=== PATIENT | female | born 1995 | race Caucasian/White ===

== ENCOUNTER 2021-10-02 11:14 | Observation (INO) | payer OTHER, SELFPAY ==
[2021-10-02] VITALS (80 sets, daily range): BP systolic 67–104; BP diastolic 49–62; PULSE 25–121; TEMP 36.8–36.9; O2SAT 87–100; BMI 26.6
--- NOTE | 2021-10-02 11:59 | OBADM ---
This patient, Gail Daniels, admitted to the OB room 117 for observation for nausea, vomiting, and diarrhea. Patient/family oriented to hospital policies and general routines including ID bracelet, bed and alarms, visiting hours, pain management, procedures, bathroom and other care routines, personal items, smoking policy, room service/diet, and visiting hours. Patient/Family are encouraged to report perceived risks to care and to ask questions if they do not understand what they are told or what they should do.
[2021-10-02] MEDS: TERBUTALINE SULFATE 1 MG/ML VIAL 0.25 MG SUB-Q ×2 (12:58→16:34)
[2021-10-02] MEDS: DEXTROSE 5%/LACTATED RINGERS 1,000 ML 999 ML IV CONT (13:30)
[2021-10-02 13:46] LABS: Basophils Percent Auto 0.3 % (0.2-1.2); Eosinophils Absolute Auto 0.1 K/mm3 (0-0.3); Hematocrit 36.2 % (37.0-47.0); Hemoglobin 12.1 g/dL (12.0-15.0); Immature Granulocyte Absolute 0.14 K/mm3 (0.00-0.031); Immature Granulocyte Percent A 1.3 % (0-0.5); Lymphocytes Absolute Auto 2.02 K/mm3 (0.9-3.2); Lymphocytes Percent Auto 19.3 % (18.3-44.2); Mean Corpuscular HGB Conc 33.4 g/dl (32-36); Mean Corpuscular Hemoglobin 32.2 pg (26-34); Mean Corpuscular Volume 96.3 fl (80-100); Mean Platelet Volume 11.1 fl (7.4-10.4); Monocytes Absolute Auto 0.5 K/mm3 (0.1-0.6); Neutrophils Absolute Auto 7.7 K/mm3 (1.3-6.7); Neutrophils Percent Auto 73.1 % (45.5-73.1); Platelet Count Result 166 k/mm3 (150-375); Red Blood Count 3.76 M/mm3 (4.2-5.4); Red Cell Distribution Width 13.6 % (11.5-14.5); White Blood Count 10.5 K/mm3 (4.5-10.0)
[2021-10-02 13:50] LABS: Appearance Urine Slightly Cloudy (Clear); Bilirubin Urine 1+ (Negative); Blood Urine 2+ (Negative); Color Urine Yellow (Yellow); Glucose Urine UA Negative (Negative); Ketones Urine 2+ mg/dL (Negative); Leukocyte Esterase Ur 1+ LEU/UL (Negative); Nitrate Urine Negative (Negative); Protein Urine 1+ mg/dL (Negative); Specific Grav Ur 1.025 (1.001-1.035); Urobilinogen Urine 0.2 mg/dL (<2.0)
[2021-10-02 13:52] LABS: Alanine Aminotransferase 25 U/L (6-35); Albumin Level 3.4 g/dL (3.5-5.1); Alkaline Phosphatase 87 U/L (38-126); Anion Gap 5 mmol/L (8-16); Aspartate Amino Transferase 32 U/L (14-36); Bilirubin,Total 0.8 mg/dL (0.2-1.3); Blood Urea Nitrogen 8 mg/dL (7-17); Calcium 8.9 mg/dL (8.4-10.2); Carbon Dioxide 24 mmol/L (22-30); Chloride 104 mmol/L (98-107); Estimated CRCL calculation 127 ml/min; Estimated Glomerular Filt Rate > 60; Glucose 92 mg/dL (65-110); Potassium 3.4 mmol/L (3.4-5.0); Sodium 133 mmol/L (137-145)
[2021-10-02 13:55] LABS: Bacteria Urine Trace /hpf; Mucus Urine Moderate /lpf; RBC Urine >75 /hpf (0-2); Squamous Epithelial Cell Urine Many /hpf (Few)
[2021-10-02 13:58] LABS: Add Urine Microscopic? YES
[2021-10-02] MEDS: DEXTROSE 5%/LACTATED RINGERS 1,000 ML 150 ML IV CONT (14:33)
[2021-10-02] MEDS: ONDANSETRON INJ 4 MG/2 ML VIAL IV PUSH (16:36)
[2021-10-02] MEDS: FAMOTIDINE 20 MG/2 ML VIAL IV PUSH (16:40)
--- NOTE | 2021-10-02 18:28 | PC.NURSE ---
1812- Ariana Amezcua CNM in department. T reviewed. orders to d/c monitor and BP cuff. will continue to monitor pt and will call if questions/concerns.
--- NOTE | 2021-10-02 20:55 | PC.NURSE ---
2007- called Ariana Amezcua CNM- pt requesting to be d/c'd home. increase UOP, increased po intake. pt states that she is feeling a lot better. no contractions per pt. pt has ov with Ariana 10/03/2021. d/c order received Rx for zofran 4mg ODT sent to pharmacy. pt instructed on when to return to L&D. pt agrees.
--- NOTE | 2021-10-04 07:25 | PM.OBTRLD ---
OB - Triage/Final Diagnosis Visit Information Date of evaluation: 10/02/21 Reason for evaluation: other (nausea and vomiting) Comments/Additional reasons for admission: I have assessed the risk for this patient, Gail Daniels, and determined that she would benefit from observation care. Evaluation Laboratory results: Laboratory Tests 10/02/21 10/02/21 10/02/21 13:33 13:33 13:33 WBC 10.5 H RBC 3.76 L Hgb 12.1 Hct 36.2 L MCV 96.3 MCH 32.2 MCHC 33.4 RDW 13.6 Plt Count 166 MPV 11.1 H Immature Gran % (Auto) 1.3 H Neut % (Auto) 73.1 Lymph % (Auto) 19.3 [place] % (Auto) 5.0 Eos % (Auto) 1.0 Baso % (Auto) 0.3 Lymph # (Auto) 2.02 [place] # (Auto) 0.5 Eos # (Auto) 0.1 Baso # (Auto) 0.0 Abs Immat Gran (auto) 0.14 H Absolute Neuts (auto) 7.7 H Absolute Nucleated RBC 0.0 Nucleated RBC % 0.0 Sodium 133 L Potassium 3.4 Chloride 104 Carbon Dioxide 24 Anion Gap 5 L BUN 8 Creatinine 0.50 L Estim Creat Clear Calc 127 Estimated GFR > 60 Glucose 92 Calcium 8.9 Total Bilirubin 0.8 AST 32 ALT 25 Alkaline Phosphatase 87 Total Protein 6.0 L Albumin 3.4 L Urine Color Yellow Urine Appearance Slightly cloudy Urine pH 6.0 Ur Specific [place] 1.025 Urine Protein 1+ H Urine Glucose (UA) Negative Urine Ketones 2+ H Ur Blood (Man) 2+ H Urine Nitrate Negative Urine Bilirubin 1+ H Urine Urobilinogen 0.2 Leukocyte Esterase Rfl 1+ H Urine RBC >75 H Urine WBC 10-15 H Ur Squamous Epith Cells Many H Urine Bacteria Trace Urine Mucus Moderate H
== END 2021-10-02 20:36 | disposition home or self-care (01) ==
PROVIDERS: Advanced Practice Midwife; Admitting Provider Obstetrics & Gynecology; PCP Family Medicine; Visit Provider Obstetrics & Gynecology
DX: O21.9 Vomiting of pregnancy, unspecified (principal); O26.899 Other specified pregnancy related conditions, unspecified trimester; R19.7 Diarrhea, unspecified; Z3A.00 Weeks of gestation of pregnancy not specified
CPT/HCPCS: 36415; 80053; 81001; 85025; 87086; 87088; 87147; 96361; 96372; 96374; 96375; G0378; G0379; J2405; J3105; J7121

== ENCOUNTER 2021-11-05 05:34 | Inpatient (IN) | payer OTHER, SELFPAY ==
[2021-11-05] VITALS (84 sets, daily range): BP systolic 64–114; BP diastolic 41–66; PULSE 42–95; RESP 16; TEMP 36.3–36.8; O2SAT 90–100; BMI 28.6
--- NOTE | ~2021-11-05 | US_ITS ---
US OB limited DATE: 11/05/2021 10:28 INDICATION: Pelvic contractions. Pelvic burning. TECHNIQUE: Real-time imaging and Doppler analysis COMPARISON: None FINDINGS: Live bolden intrauterine gestation, fetus in vertex presentation. heart rate of 13 7 bpm. Less than expected amniotic fluid volume. Anterior placenta. IMPRESSION: Oligohydramnios Vertex presentation Reviewed, dictated and finalized at Location A. Reviewed, dictated and finalized at location B.
[2021-11-05 06:04] LABS: Basophils Percent Auto 0.3 % (0.2-1.2); Eosinophils Absolute Auto 0.3 K/mm3 (0-0.3); Eosinophils Percent Auto 2.5 % (0-4.4); Hematocrit 37.1 % (37.0-47.0); Hemoglobin 12.5 g/dL (12.0-15.0); Immature Granulocyte Absolute 0.22 K/mm3 (0.00-0.031); Lymphocytes Absolute Auto 1.75 K/mm3 (0.9-3.2); Lymphocytes Percent Auto 15.7 % (18.3-44.2); Mean Corpuscular HGB Conc 33.7 g/dl (32-36); Mean Corpuscular Hemoglobin 31.8 pg (26-34); Mean Corpuscular Volume 94.4 fl (80-100); Mean Platelet Volume 11.4 fl (7.4-10.4); Monocytes Absolute Auto 0.8 K/mm3 (0.1-0.6); Monocytes Percent Auto 6.8 % (2.6-8.5); Neutrophils Absolute Auto 8.1 K/mm3 (1.3-6.7); Neutrophils Percent Auto 72.7 % (45.5-73.1); Platelet Count Result 164 k/mm3 (150-375); Red Blood Count 3.93 M/mm3 (4.2-5.4); Red Cell Distribution Width 13.6 % (11.5-14.5); White Blood Count 11.2 K/mm3 (4.5-10.0)
[2021-11-05] MEDS: LACTATED RINGERS 1,000 ML 125 ML IV CONT ×2 (06:34→09:49)
[2021-11-05] MEDS: OXYTOCIN 30 UNITS/NS 500 ML 30 UNITS/500 ML BAG IV CONT (06:34)
[2021-11-05] MEDS: AMPICILLIN 2 GM/NS 100 ML 2 GM/100 ML BAG IVPB (06:34)
--- NOTE | 2021-11-05 07:05 | LDADM ---
This patient, Gail Daniels, was admitted to Labor/Delivery/Recovery 103 on 11/05/21 at 05:34. Plans for labor, pain management and were discussed with patient. Patient/family oriented to hospital policies and general routines including ID bracelet, bed and alarms, visiting hours, pain management, procedures, bathroom and other care routines, personal items, smoking policy, room service/diet and guest tray routines, infant security routines, and visiting hours. Patient/Family are encouraged to report perceived risks to care and to ask questions if they do not understand what they are told or what they should do. See OBIX for further documentation.
[2021-11-05 08:23] LABS: Rapid Plasma Reagin Non-Reactive (NonReactive)
--- NOTE | 2021-11-05 09:11 | WPDOBADMIT ---
Obstetrics - Admit Note Admission Note: record reviewed. No pertinent additions to the history and/or any subsequent changes in the physical findings that are not consistent with the expected course of the were found. Elective induction of labor at 39 weeks. GBS positive. . /-2 AROM moderate amount of odorless clear fluid. Anticipate vaginal delivery Additions to the history and/or subsequent changes in the physical findings follow. None.
[2021-11-05] MEDS: TERBUTALINE SULFATE 1 MG/ML VIAL 0.25 MG SUB-Q (09:42)
[2021-11-05] MEDS: fentaNYL CITRATE INJ (*CRX) 100 MCG/2 ML VIAL 50 MCG IV PUSH (10:04)
[2021-11-05] MEDS: AMPICILLIN 1 GM/NS 50 ML 1 GM/50 ML BAG IVPB ×2 (10:40→14:27)
[2021-11-05] MEDS: ONDANSETRON INJ 4 MG/2 ML VIAL IV PUSH (16:01)
--- NOTE | 2021-11-05 16:46 | PM.OBPRVD ---
OB - Delivery Note Procedure Delivery date: 11/05/21 Procedure: Vaginal delivery Events: Elective Induction of Labor and Positive Group B Strep (GBS) Induction method: AROM and Per Pitocin Protocol Delivery monitor: External FHT, External Uterine, Internal FHT and Internal Uterine Route of delivery: Episiotomy description: None Laceration Description: Perineal - 1st Degree Delivery repair: vicryl Specimen: No Quantitative Blood Loss (ml): 112 Anesthesia type: Epidural Disposition: Floor [place] Baby Date of : 11/05/21 Time of : 16:27 Weeks of gestation at delivery: 39 Infant gender: Female Weight (pounds): 8 Weight (ounces): 13 presentation: vertex position: Left Occiput Anterior Placenta delivery description: Spontaneous Cord Vessel Description: 3 Vessels, Nuchal Cord (x1), Loose, Reduced, Clamped/Cut and Delayed Cord Clamping score one minute: 8 score ten minutes: 9 Narrative: Mom and skin to skin in stable condition.
[2021-11-05] MEDS: OXYTOCIN 30 UNITS/NS 500 ML 30 UNITS/500 ML BAG 125 UNITS IV CONT (17:07)
[2021-11-05] MEDS: WITCH HAZEL 40 PADS 1 PAD TOPICAL (17:46)
[2021-11-05] MEDS: BENZOCAINE 20% AER SPR (*SP) 56 GM CAN 1 SPRAY TOPICAL (17:46)
[2021-11-05] MEDS: IBUPROFEN 600 MG TABLET PO (17:46)
[2021-11-05] MEDS: ACETAMINOPHEN 325 MG TABLET 650 MG PO (18:39)
--- NOTE | 2021-11-05 20:21 | PC.NURSE ---
Patient transferred to post room #288 via wheel chair. Support person present. Oriented to unit, room, information board, rooming in, admission packet and security measures. Patient verbalizes understanding.
[2021-11-05] MEDS: CYCLOBENZAPRINE HCL 10 MG TABLET PO (23:08)
[2021-11-06] MEDS: ACETAMINOPHEN 325 MG TABLET 650 MG PO (03:14)
[2021-11-06] MEDS: IBUPROFEN 600 MG TABLET PO ×3 (03:22→15:33)
[2021-11-06 04:50] LABS: Hematocrit 36.5 % (37.0-47.0); Hemoglobin 12.4 g/dL (12.0-15.0)
[2021-11-06] MEDS: CYCLOBENZAPRINE HCL 10 MG TABLET PO (07:10)
[2021-11-06 07:20] VITALS: BP 99/67; PULSE 79; RESP 16; TEMP 36.7; O2SAT 98
--- NOTE | 2021-11-06 07:22 | PM.OBPNVD ---
OB - PN: Subj Subjective Date/time seen: 11/06/21 07:22 s/p vagina; delivery no complaints OB - PN: Obj Data Labs CBC & Chem 7: 11/06/21 03:19 Labs: Laboratory Results - last 24 hr 11/05/21 11/06/21 05:58 03:19 Hgb 12.4 Hct 36.5 L RPR Non-reactive Imaging Radiologist's impression: Impressions Obstetrics Ultrasound 11/05/21 10:40 IMPRESSION: Oligohydramnios Vertex presentation OB - PN A/P Plan day: 1 Plan: routine care Time Spent With Patient Time: Total time spent is greater than 50% in coordination of care (as documented) at patient's floor/unit and/or counseling patient: Review of Systems Review of Systems: All systems reviewed & are unremarkable except as noted in HPI and below Exam Const: General: cooperative, healthy appearing, comfortable and no acute distress
--- NOTE | 2021-11-06 07:38 | PM.OBDSVD ---
DS: Admitting Diagnosis Discharge Date 11/06/2021 Admitting Diagnosis IOL OB - DS: Summary OB Procedures : None OB Procedures Intrapartum: Spontaneous Vag Delivery OB Procedures: : None Time Spent with Patient Time attestation: Total time spent providing and/or coordinating discharge services: DS: Data Data Completed and Pending Labs on day of discharge: Labs from last 24 hours 11/06/21 11/05/21 03:19 05:58 Hgb 12.4 Hct 36.5 L RPR Non-reactive Discharge Plan Discharge Attending physician on discharge: Dar Burnette Discharging Clinician: Ariana Amezcua Patient Disposition: Home, Self-Care Activity: pelvic rest Diet: regular Patient Instructions: Antibiotic Form Stand Alone Forms: General Discharge Information Follow-up/Referrals: Ariana Amezcua CNM [Certified Nurse Swage Tender] - 4 Weeks Discharge Medications: Continued vitamin T12-ecivf acid 0.5-1 mg Tablet 1 tablet PO DAILY cholecalciferol (vitamin D3) [Vitamin D3] 25 mcg (1,000 unit) Tablet 2,000 unit PO DAILY PNV cmb#95-ferrous fumarate-FA [] 28 mg iron- 800 mcg Tablet 1 tablet PO DAILY Discontinued aspirin 81 mg Tablet 81 mg PO DAILY ondansetron 4 mg Tablet,Disintegrating 4 mg PO Q6H Qty: 30 0RF Date of admission: 11/05/21 05:34 Primary Care Provider: Bharati,Juno Rutherford Admitting Provider: Dar Burnette Attending physician on admission: Dar Burnette Condition: Stable
[2021-11-06] MEDS: DOCUSATE SODIUM 100 MG CAPSULE PO ×2 (08:46→17:55)
[2021-11-06] MEDS: HYDROcodone/acetaminophen (*CRX) 5-325 MG TABLET 1 TAB PO ×2 (08:47→14:25)
[2021-11-06] MEDS: MULTIVIT/MIN/PREN/FOL AC/IRON TABLET 1 TAB PO (08:47)
--- NOTE | 2021-11-06 09:50 | WPDANLDPN2 ---
Anes-Prog Note L&D Date/Time: 11/06/21 09:50 Neuro status: Neuro function grossly intact. Vital Signs: Last Vital Signs Temp 36.8 C 11/05/21 23:00 Pulse 66 11/05/21 23:00 Resp 16 11/05/21 23:00 BP 88/47 L 11/05/21 23:00 Pulse Ox 99 11/05/21 12:58 O2 Del Method Room Air 11/05/21 06:54 Pain score (VAS): 0 Patient feedback: Patient satisfied with anesthetic care.
[2021-11-06 12:48] VITALS: BP 100/60; PULSE 67; RESP 16; TEMP 36.3; O2SAT 99
[2021-11-06] MEDS: TETANUS,DIPHTHERIA,AC PERTUSSIS ADULT (0.5 ML) BOOSTRIX IM (13:45)
[2021-11-06 15:35] VITALS: BP 95/58; PULSE 65; RESP 16; TEMP 36.6; O2SAT 99
--- NOTE | 2021-11-06 15:55 | PC.NURSE ---
[id number] Introductions were made, then consulted with patient to assess needs related to . Mother led the conversation with her experience feeding her infant so far. She does not have a history of successful . Mother works well with her infant with encouragement and education. Mother demonstrates working with using cradle positioning and encouraged big, open, wide gape before attempting to breastfeed. Encouraged understanding of the benefits of skin to skin (unwrapping infant and placing vertically on her chest), responsive feeding and how to watch for early feeding signs, frequency of feeding on demand about every 8-12 times in 24 hours (every 2-3 hours), milk production, duration of feeding, signs of adequate intake/output and how to record on the feeding sheet. Reviewed positioning and ear, shoulder, hip alignment, supporting the breast, asymmetrical latch (off-center), and leading with the chin with a big open side gape. doesn't attempt to latch after several encouragement efforts. Mother states she has attempted to breastfeed since the first feeding but was not successful. Mother demonstrates understanding of hand expression and a few drops were placed into the 's mouth. RN checked blood sugar on infant and it resulted at 61mg/dl. Resources used to facilitate learning were used with the visual handouts/ tool/mom and baby guide. RN recommend mother to not go home later today since her desire is to breastfeed and infant is not latching. Breast pump provided due to ineffective . Instructions given on cleaning, care, usage, that there should be no pain, pumping schedule for milk production, collection, and storage of human milk. Mother was encouraged to record pumping schedule on the feeding sheet. Patient was assessed for correct placement, flange size, to pump for comfort and nipple stretching/stimulation for adequate milk production every 3 hours (8 times in 24 hours). Mother voiced understanding of the education shared along with mom and baby guide for additional resource information. Mother voiced understanding of responsive feedings, stimulating with skin to skin, hand expressed colostrum, talking to to encourage if it has been 2 -3 hours since the start of the last , to call if infant does not latch or there is discomfort with . Reported to the primary RN.
[2021-11-08 12:12] VITALS: BP 99/59; PULSE 65; RESP 20; TEMP 36.9; O2SAT 97
--- NOTE | 2021-11-08 14:46 | WPDANESEBPP ---
Anes - Epidural Blood Patch PN Date/Time: 11/08/21 14:46 Consent: I have discussed with the patient/family/POA, the rationale of a lumbar epidural autologous blood patch for the treatment of post-dural puncture headache (spinal headache), including associated potential risks, benefits, complications and side effects. I have also discussed more conservative treatment options such as intravenous hydration, caffeine and non-prescription analgesics. The patient/family/POA, understand(s) and wish(es) to proceed with epidural autologous blood patch as treatment for the patient's post-dural puncture headache. Time-Out: A pre-procedural Time-Out was completed immediately before starting the procedure and confirmed: Patient Identification, Site, Procedure, Patient Position and the Availability of Requisite Equipment. Epidural Insertion Note Needle: 18 gauge Tuliudmila-Schdylanff
== END 2021-11-06 18:25 | disposition home or self-care (01) | DRG 807 ==
LOC: ANHLDR 05:46 → ANHOB2 20:26
PROVIDERS: Advanced Practice Midwife; Admitting Provider Obstetrics & Gynecology; PCP Family Medicine; Visit Provider Obstetrics & Gynecology
DX: O99.824 Streptococcus B carrier state complicating childbirth (principal); Z37.0 Single live birth; O70.0 First degree perineal laceration during delivery; O69.81X0 Labor and delivery complicated by cord around neck, without compression, not applicable or unspecified; Z3A.39 39 weeks gestation of pregnancy; Z86.16 Personal history of COVID-19
CPT/HCPCS: 36415; 76815; 85014; 85018; 85025; 86592; 86850; 86900; 86901; 90715; A9270; J0290; J2405; J2590; J2795; J3010; J3105; J7120

== ENCOUNTER 2021-11-07 12:59 | Observation (INO) | payer OTHER, SELFPAY ==
[2021-11-07 13:14] VITALS: BP 108/64; PULSE 64; RESP 18; TEMP 36.2
--- NOTE | 2021-11-07 13:14 | OBADM ---
This patient, Gail Daniels, admitted to the OB room 116 for observation for headache. Patient/family oriented to hospital policies and general routines including ID bracelet, bed and alarms, visiting hours, pain management, procedures, bathroom and other care routines, personal items, smoking policy, room service/diet, and visiting hours. Patient/Family are encouraged to report perceived risks to care and to ask questions if they do not understand what they are told or what they should do.
--- NOTE | 2021-11-07 13:29 | PC.NURSE ---
Mg Amezcua CNM informed of pt's arrival with headache, shoulder and neck pain. Headache goes away when she lays flat. Heating pad applied to her neck and shoulder area. Pt has been alternating Tylenol and Motrin so she is taking something every 3 hrs, but the pain has become unmanageable today with caring for . OK to consult anesthesia for possible spinal headache.
[2021-11-07 13:31] VITALS: BP 103/57; PULSE 58
--- NOTE | 2021-11-07 13:31 | PC.NURSE ---
Dr. Wynn informed of pt's arrival.
--- NOTE | 2021-11-07 14:05 | PC.NURSE ---
Josue Baer WETLAND SCIENTIST in to see and assess pt. Pt has decided she would like to try conservative management at this time. WETLAND SCIENTIST also suggests COVID testing as pt's headache isn't in the typical area with a spinal headache.
--- NOTE | 2021-11-07 14:20 | PC.NURSE ---
Mg Amezcua CNM informed of pt's desire to try Fioricet per anesthesia's recommendation and PO hydration with caffeinated beverages. Anesthesia also recommended COVID testing. Orders received.
--- NOTE | 2021-11-07 14:50 | PC.NURSE ---
Showed pt how she can be flat in sidelying position to nurse .
[2021-11-07] MEDS: ACETAMINOPHEN/BUTALBITAL/CAFFEINE 325-50-40 MG TABLET (FIORICET) 2 TAB PO (15:12)
[2021-11-07 15:17] VITALS: TEMP 36.4
[2021-11-07 15:18] VITALS: BP 91/51; PULSE 60
[2021-11-07 16:04] LABS: SARS-CoV-2 RNA PCR Negative
--- NOTE | 2021-11-07 18:00 | PC.NURSE ---
Pt has finished eating dinner and feels like she wants to go home. Tyler Weinberg AGILE SCRUM COACH informed. Mg Amezcua CNM on unit.
--- NOTE | 2021-11-08 12:10 | PM.OBTRLD ---
OB - Triage/Final Diagnosis Visit Information Date of evaluation: 12/07/21 Reason for evaluation: other (pp headache) Comments/Additional reasons for admission: I have assessed the risk for this patient, Gail Georgiana MatthewsDaniels, and determined that she would benefit from observation care. Evaluation Laboratory results: Laboratory Tests 11/07/21 15:16 SARS-CoV-2 RNA (RT-PCR) Negative Vital signs: Vital Signs - 24 hr 11/07/21 13:14 11/07/21 13:31 11/07/21 15:18 Temperature Pulse Rate 64 58 L 60 Respiratory Rate Blood Pressure 108/64 103/57 L 91/51 L 11/07/21 15:17 11/07/21 13:14 Temperature 36.4 C 36.2 C L Pulse Rate Respiratory Rate 18 Blood Pressure
== END 2021-11-07 18:46 | disposition home or self-care (01) ==
PROVIDERS: Advanced Practice Midwife; Admitting Provider Obstetrics & Gynecology; PCP Family Medicine; Visit Provider Obstetrics & Gynecology
DX: O90.89 Other complications of the puerperium, not elsewhere classified (principal); R51.9 Headache, unspecified; Z20.822 Contact with and (suspected) exposure to COVID-19
CPT/HCPCS: A9270; C9803; G0378; G0379; U0003; U0005

== ENCOUNTER 2021-11-08 12:26 | Outpatient (CLI) | payer OTHER, SELFPAY ==
[2021-11-08 14:27] VITALS: BP 110/62; PULSE 56
[2021-11-08 14:45] VITALS: BP 86/48; PULSE 55
[2021-11-08 15:00] VITALS: BP 100/62; PULSE 54
[2021-11-08 15:15] VITALS: BP 103/58; PULSE 59
[2021-11-08 15:30] VITALS: BP 100/49; PULSE 62
--- NOTE | 2021-11-08 16:22 | PC.NURSE ---
1540- Patient sitting/standing at bedside at one hour post procedure per order from Barbara Lerma CRNA. 1600- Patient called out, stating that she had to get back into bed as headache is back. 1610- Spoke with Dr. Wynn, orders to discharge to home, push fluids, take medications for pain as scheduled. 1613- Spoke with Mg Amezcua CNM, orders to discharge home with same plan of care as anesthesia. Patient agreeable.
== END 2021-11-08 16:30 | disposition home or self-care (01) ==
LOC: ANHOBOP 12:36 → ANHOBPP 12:36
PROVIDERS: PCP Family Medicine; Visit Provider Advanced Practice Midwife
DX: G97.1 Other reaction to spinal and lumbar puncture (principal)
CPT/HCPCS: 62273; 99199

== ENCOUNTER 2022-10-03 09:49 | Emergency (ER) | payer OTHER, SELFPAY ==
--- NOTE | 2022-10-03 09:51 | ECG_ITS ---
Measurements Intervals [place] Rate: 69 P: -8 NM: 128 QRS: 35 QRSD: 85 T: 35 QT: 350 QTc: 375 Interpretive Statements SINUS RHYTHM WITH SINUS ARRHYTHMIA RSR' IN V1 OR V2, PROBABLY NORMAL VARIANT DELAYED PRECORDIAL R/S TRANSITION BORDERLINE ECG NO PREVIOUS ECG AVAILABLE FOR COMPARISON Electronically Signed On 10-03-2022 12:28:14 CDT by Lennox Bal D.O.
[2022-10-03 09:58] VITALS: BP 110/65; PULSE 60; RESP 16; TEMP 36.8; O2SAT 100
[2022-10-03 10:34] LABS: Basophils Percent Auto 0.5 % (0.2-1.2); Eosinophils Absolute Auto 0.1 K/mm3 (0-0.3); Hematocrit 43.4 % (37.0-47.0); Immature Granulocyte Absolute 0.02 K/mm3 (0.00-0.031); Immature Granulocyte Percent A 0.3 % (0-0.5); Lymphocytes Absolute Auto 1.76 K/mm3 (0.9-3.2); Lymphocytes Percent Auto 26.7 % (18.3-44.2); Mean Corpuscular HGB Conc 32.3 g/dl (32-36); Mean Corpuscular Hemoglobin 29.5 pg (26-34); Mean Corpuscular Volume 91.4 fl (80-100); Mean Platelet Volume 10.5 fl (7.4-10.4); Monocytes Absolute Auto 0.3 K/mm3 (0.1-0.6); Neutrophils Absolute Auto 4.3 K/mm3 (1.3-6.7); Neutrophils Percent Auto 65.5 % (45.5-73.1); Platelet Count Result 233 k/mm3 (150-375); Red Blood Count 4.75 M/mm3 (4.2-5.4); Red Cell Distribution Width 13.3 % (11.5-14.5); White Blood Count 6.6 K/mm3 (4.5-10.0)
[2022-10-03 10:52] LABS: Partial Thromboplastin Time 28.3 SECONDS (22.3-36.8); Prothrombin Time 13.4 Seconds (11.1-14.7)
[2022-10-03 10:58] LABS: Alanine Aminotransferase 27 U/L (6-35); Albumin Level 4.8 g/dL (3.5-5.1); Alkaline Phosphatase 58 U/L (38-126); Anion Gap 7 mmol/L (8-16); Aspartate Amino Transferase 27 U/L (14-36); Blood Urea Nitrogen 17 mg/dL (7-17); Calcium 9.9 mg/dL (8.4-10.2); Carbon Dioxide 29 mmol/L (22-30); Chloride 102 mmol/L (98-107); Estimated CRCL calculation 91 ml/min; Estimated Glomerular Filt Rate > 60; Glucose 87 mg/dL (65-110); Lipase 70 U/L (23-300); Sodium 138 mmol/L (137-145)
[2022-10-03 11:08] LABS: Troponin I < 0.012 ng/mL (0.000-0.034)
--- NOTE | 2022-10-03 11:53 | ED.CHESTPAIN ---
HPI - Chest Pain General Chief Complaint: Chest Pain Stated Complaint: chest pain Time Seen by Provider: 10/03/22 11:41 Source: patient Mode of arrival: ambulatory Limitations: no limitations History of Present Illness HPI narrative: Patient is a 26-year-old female who presents to the ED with report of chest pain. Patient reported having right-sided pleuritic chest pain over the last couple of days. She is concerned she may have a blood clot. She did mention having a sharp pain in her left leg last week. She recently traveled to [place]. She talked with her SNOWMOBILE MECHANIC as she is several months who said her status also puts her at risk for PE. Patient came here wanting a CT of her chest. Denies significant shortness of breath. Related Data Home Medications Medication Instructions Recorded Confirmed cholecalciferol (vitamin D3) 25 2,000 unit PO DAILY 10/02/21 11/07/21 mcg (1,000 unit) tablet (Vitamin D3) vit no.95-ferrous 1 tablet PO DAILY 10/02/21 11/07/21 fumarate 28 mg-folic acid 800 mcg tablet () vitamin B12 0.5 mg-folic acid 1 mg 1 tablet PO DAILY 10/02/21 11/07/21 tablet ibuprofen 600 mg tablet 600 mg PO Q6H PRN Pain 11/07/21 11/07/21 Allergies Allergy/AdvReac Type Severity Reaction Status Date / Time lanolin Allergy Rash Verified 10/16/21 14:40 latex Allergy Rash Verified 10/16/21 14:40 Review of Systems Review of Systems: CONSTITUTIONAL: Denies fever, chills, or sweats. CARDIOVASCULAR: See HPI. RESPIRATORY: See HPI. GASTROINTESTINAL: Denies abdominal pain, nausea, vomiting. GENITOURINARY: Denies dysuria or hematuria. SKIN: Denies rash or itching. MUSCULOSKELETAL: See HPI. NEUROLOGIC: Denies headache, numbness, or weakness. All systems reviewed & are unremarkable except as noted in HPI and below PMFSH Social History Social History Smoking status: Never smoker Substance use: never Spiritual care concerns: No Exam Narrative: GENERAL: Well appearing, thin, non-toxic, in no acute distress. HEAD: Normocephalic, atraumatic. NECK: Supple. No adenopathy, no masses. RESPIRATORY: Airway patent, respirations nonlabored. No distress. CARDIOVASCULAR: Regular rate and rhythm via telemetry upon arrival. ABDOMINAL: Does not appear distended. MUSCULOSKELETAL: Moves all extremities. No gross deformities. SKIN: Warm, dry, normal color. No rashes. NEURO: A&O X3. Speech clear. Cranial nerves II-XII grossly intact. Steady gait. No ataxic movements. PSYCHIATRIC: Appropriate mood and affect. Normal interaction. Course Vital Signs Vital signs: Vital Signs Temperature 98.2 F 10/03/22 09:58 Pulse Rate 60 10/03/22 09:58 Respiratory Rate 16 10/03/22 09:58 Blood Pressure 110/65 10/03/22 09:58 Pulse Oximetry 100 10/03/22 09:58 Oxygen Delivery Room Air 10/03/22 09:58 Temperature 98.2 F 10/03/22 09:58 Pulse Rate 60 10/03/22 09:58 Respiratory Rate 16 10/03/22 09:58 Blood Pressure 110/65 10/03/22 09:58 Pulse Oximetry 100 10/03/22 09:58 Oxygen Delivery Room Air 10/03/22 09:58 MDM - Chest Pain MDM Narrative Medical decision making narrative: Patient presented to ED reporting right-sided pleuritic chest pain. Concerned for PE. Recent long distance travel. Several months . 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 She gave me a brief history but stated she cannot stay for the CT scan of her chest, which was already ordered. Patient's vital stable upon arrival. No tachycardia/hypoxia/tachypnea. She is PERC negative. No known risk factors aside from long distance travel. EKG nonischemic. Baseline troponin was negative. I discussed that if patient needed to leave the facility that she would have to sign out AGAINST MEDICAL ADVICE due to an incomplete eval
== END 2022-10-03 11:55 | disposition left against medical advice (07) ==
LOC: ANHED 12:10
PROVIDERS: Emergency Medicine; Emergency Provider Physician Assistant; PCP Family Medicine
DX: R07.81 Pleurodynia (principal); R94.31 Abnormal electrocardiogram [ECG] [EKG]
CPT/HCPCS: 36415; 80053; 83690; 84484; 85025; 85610; 85730; 93005; 99284

== ENCOUNTER 2022-10-03 21:07 | Emergency (ER) | payer OTHER, SELFPAY ==
--- NOTE | ~2022-10-03 | CT_ITS ---
EXAMINATION: CTA chest PE protocol DATE: 10/03/2022 22:37 INDICATION: Right chest pain. TECHNIQUE: Computed tomography angiography (CTA) of the chest was performed with 100 mL Omnipaque-350 intravenous contrast timed to evaluate the pulmonary arteries. Coronal maximum intensity projection 3D-reconstructions were created by the technologist. Automated exposure control and iterative reconst ruction technique were employed. The dose-length product was 153.28 mGy-cm. COMPARISON: None. FINDINGS: There is no pneumonia or pleural effusion. The heart size is normal. No pericardial effusio n. There is no pulmonary embolus. There are parenchymal calcifications in left kidney. The bones are unremarkable. IMPRESSION: 1. No pulmonary embolus. Reviewed, dictated and finalized at location E. IMPRESSION: 1. No pulmonary embolus.
--- NOTE | ~2022-10-03 | XR_ITS ---
EXAMINATION: XR chest 1V portable DATE: 10/03/2022 21:42 INDICATION: Chest pain. TECHNIQUE: A single frontal view of the chest was obtained. COMPARISON: None. FINDINGS: The chest demonstrates clear lungs without pneumonia, pleural effusion, or pneumothorax. Th e heart size is normal. IMPRESSION: 1. No acute cardiopulmonary disease. Reviewed, dictated and finalized at location E.
--- NOTE | 2022-10-03 21:09 | ECG_ITS ---
Measurements Intervals [place] Rate: 63 P: 46 [place]: 131 QRS: 25 QRSD: 90 T: 35 QT: 367 QTc: 376 Interpretive Statements SINUS RHYTHM WITH SINUS ARRHYTHMIA INCOMPLETE RIGHT BUNDLE BRANCH BLOCK BORDERLINE ECG COMPARED TO ECG 10/03/2022 09:56:55 NO SIGNIFICANT CHANGES Electronically Signed On 10-04-2022 8:14:25 CDT by Lennox Bal D.O.
[2022-10-03 21:12] VITALS: BP 111/64; PULSE 64; RESP 16; TEMP 36.5; O2SAT 100
[2022-10-03 21:42] LABS: Basophils Percent Auto 0.3 % (0.2-1.2); Eosinophils Absolute Auto 0.3 K/mm3 (0-0.3); Eosinophils Percent Auto 3.2 % (0-4.4); Hematocrit 41.3 % (37.0-47.0); Hemoglobin 13.7 g/dL (12.0-15.0); Immature Granulocyte Absolute 0.02 K/mm3 (0.00-0.031); Immature Granulocyte Percent A 0.2 % (0-0.5); Lymphocytes Absolute Auto 2.32 K/mm3 (0.9-3.2); Lymphocytes Percent Auto 26.2 % (18.3-44.2); Mean Corpuscular HGB Conc 33.2 g/dl (32-36); Mean Corpuscular Hemoglobin 29.9 pg (26-34); Mean Corpuscular Volume 90.2 fl (80-100); Mean Platelet Volume 10.6 fl (7.4-10.4); Monocytes Absolute Auto 0.5 K/mm3 (0.1-0.6); Monocytes Percent Auto 5.2 % (2.6-8.5); Neutrophils Absolute Auto 5.8 K/mm3 (1.3-6.7); Neutrophils Percent Auto 64.9 % (45.5-73.1); Platelet Count Result 237 k/mm3 (150-375); Red Blood Count 4.58 M/mm3 (4.2-5.4); Red Cell Distribution Width 13.5 % (11.5-14.5); White Blood Count 8.9 K/mm3 (4.5-10.0)
[2022-10-03 21:53] LABS: Alanine Aminotransferase 26 U/L (6-35); Albumin Level 4.8 g/dL (3.5-5.1); Alkaline Phosphatase 53 U/L (38-126); Anion Gap 6 mmol/L (8-16); Aspartate Amino Transferase 29 U/L (14-36); Bilirubin,Total 0.9 mg/dL (0.2-1.3); Blood Urea Nitrogen 21 mg/dL (7-17); Carbon Dioxide 30 mmol/L (22-30); Chloride 103 mmol/L (98-107); Estimated CRCL calculation 82 ml/min; Estimated Glomerular Filt Rate > 60; Glucose 68 mg/dL (65-110); Lipase 77 U/L (23-300); Potassium 3.9 mmol/L (3.4-5.0); Prothrombin Time 13.5 Seconds (11.1-14.7); Sodium 139 mmol/L (137-145)
[2022-10-03 21:54] LABS: Partial Thromboplastin Time 28.7 SECONDS (22.3-36.8)
[2022-10-03 22:03] LABS: Troponin I < 0.012 ng/mL (0.000-0.034)
--- NOTE | 2022-10-03 22:07 | ED.CHESTPAIN ---
HPI - Chest Pain General Chief Complaint: Chest Pain Stated Complaint: Chest pain Time Seen by Provider: 10/03/22 21:56 History of Present Illness HPI narrative: This is a 26-year-old female, seen here earlier today, who returns emergency department complaining of pleuritic chest pain. The patient was seen by CATHY Muniz with work-up negative for ACS and plan for CT PE. (Please see her note for further details). The patient left prior to imaging to grain picker her child. She returns today stating her pain has not changed and is described as mild. Related Data Home Medications Medication Instructions Recorded Confirmed cholecalciferol (vitamin D3) 25 2,000 unit PO DAILY 10/02/21 11/07/21 mcg (1,000 unit) tablet (Vitamin D3) vit no.95-ferrous 1 tablet PO DAILY 10/02/21 11/07/21 fumarate 28 mg-folic acid 800 mcg tablet () vitamin B12 0.5 mg-folic acid 1 mg 1 tablet PO DAILY 10/02/21 11/07/21 tablet ibuprofen 600 mg tablet 600 mg PO Q6H PRN Pain 11/07/21 11/07/21 Allergies Allergy/AdvReac Type Severity Reaction Status Date / Time lanolin Allergy Rash Verified 10/16/21 14:40 latex Allergy Rash Verified 10/16/21 14:40 Review of Systems Review of Systems: CONSTITUTIONAL: Denies fever, chills, or sweats. CARDIOVASCULAR: Sharp chest pain denies palpitations, or edema. RESPIRATORY: Denies cough or dyspnea. GASTROINTESTINAL: Denies abdominal pain, nausea, vomiting, or diarrhea. GENITOURINARY: Denies dysuria or hematuria. SKIN: Denies rash or itching. MUSCULOSKELETAL: Denies back pain, joint pain, or myalgia. NEUROLOGIC: Denies headache, numbness, dizziness, or weakness. PSYCHIATRIC: Denies anxiety or depression. [facility] Social History Social History Smoking status: Never smoker Substance use: never Spiritual care concerns: No Exam Narrative: GENERAL: Well-developed, well-nourished, and in no acute distress. HEAD: Normocephalic, atraumatic. EYES: PERRLA and EOMI. CHEST: Clear to auscultation. No respiratory distress. No wheezes rales or rhonchi HEART: Regular rate and rhythm. No murmur heard. Normal peripheral pulses. ABDOMEN: Soft, nontender, nondistended, normal active bowel sounds. EXTREMITIES: Normal range of motion. No edema. SKIN: Warm, dry, no rash. NEURO: No focal deficits. Alert and oriented x3. PSYCH: Normal mood and affect. Course Course Emergency Course: 23:25 - CBC unremarkable. Chemistries demonstrate mild BUN elevation but otherwise unremarkable. Troponin negative. EKG not concerning for ischemia. Chest x-ray unremarkable. CT of the chest negative for PE or other acute cardiopulmonary process. I suspect the patient's pain is related to pleurisy or muscle strain. Will discharge. Discussed return and emergency precautions including signs/symptoms of ACS and respiratory distress. The patient voiced understanding and is comfortable with the plan. All questions answered to her satisfaction. Vital Signs Vital signs: Vital Signs Temperature 97.7 F 10/03/22 21:12 Pulse Rate 64 10/03/22 21:12 Respiratory Rate 16 10/03/22 21:12 Blood Pressure 111/64 10/03/22 21:12 Pulse Oximetry 100 10/03/22 21:12 Temperature 97.8 F 10/03/22 23:57 Pulse Rate 65 10/03/22 23:57 Respiratory Rate 15 10/03/22 23:57 Blood Pressure 122/78 10/03/22 23:57 Pulse Oximetry 100 10/03/22 23:57 Oxygen Delivery Room Air 10/03/22 23:09 MDM - Chest Pain MDM Narrative Medical decision making narrative: Plan: Labs, imaging, EKG, reassess Differential Diagnosis Differential diagnosis: Likely costochondritis and other (Pleurisy, pneumothorax, PE, other) Lab Data 10/03/22 21:38 10/03/22 21:38 Labs: Lab Results 10/03/22 Range/Units 21:38 WBC 8.9 (4.5-10.0) K/mm3 RBC 4.58 (4.2-5.4) M/mm3 Hgb 13.7 (12.0-15.0) g/dL Hct 41.3 (37.0-47.0) %
[2022-10-03 23:07] VITALS: PULSE 62
[2022-10-03 23:08] VITALS: PULSE 64; RESP 13; TEMP 36.6; O2SAT 100
[2022-10-03 23:09] VITALS: O2SAT 100
[2022-10-03 23:57] VITALS: BP 122/78; PULSE 65; RESP 15; TEMP 36.6; O2SAT 100
== END 2022-10-03 23:59 | disposition home or self-care (01) ==
PROVIDERS: Emergency Provider Preventive Medicine Aerospace Medicine; PCP Family Medicine
DX: R07.81 Pleurodynia (principal); I45.10 Unspecified right bundle-branch block
CPT/HCPCS: 36415; 71045; 71275; 80053; 81025; 83690; 84484; 85025; 85610; 85730; 93005; 99284; Q9967

== ENCOUNTER 2023-07-29 11:53 | Outpatient (CLI) | payer OTHER, SELFPAY ==
[2023-07-29 12:45] LABS: Basophils Percent Auto 0.7 % (0.2-1.2); Eosinophils Absolute Auto 0.1 K/mm3 (0-0.3); Eosinophils Percent Auto 2.2 % (0-4.4); Hematocrit 41.2 % (37.0-47.0); Hemoglobin 13.4 g/dL (12.0-15.0); Immature Granulocyte Absolute 0.01 K/mm3 (0.00-0.031); Immature Granulocyte Percent A 0.2 % (0-0.5); Lymphocytes Percent Auto 34.9 % (18.3-44.2); Mean Corpuscular HGB Conc 32.5 g/dl (32-36); Mean Corpuscular Hemoglobin 29.7 pg (26-34); Mean Corpuscular Volume 91.4 fl (80-100); Mean Platelet Volume 10.9 fl (7.4-10.4); Monocytes Absolute Auto 0.4 K/mm3 (0.1-0.6); Monocytes Percent Auto 6.4 % (2.6-8.5); Neutrophils Percent Auto 55.6 % (45.5-73.1); Platelet Count Result 217 k/mm3 (150-375); Red Blood Count 4.51 M/mm3 (4.2-5.4); White Blood Count 5.4 K/mm3 (4.5-10.0)
[2023-07-29 12:55] LABS: Alanine Aminotransferase 45 U/L (6-35); Albumin Level 4.5 g/dL (3.5-5.1); Alkaline Phosphatase 52 U/L (38-126); Anion Gap 4 mmol/L (8-16); Aspartate Amino Transferase 38 U/L (14-36); Bilirubin,Total 1.4 mg/dL (0.2-1.3); Blood Urea Nitrogen 17 mg/dL (7-17); Calcium 10.1 mg/dL (8.4-10.2); Carbon Dioxide 27 mmol/L (22-30); Chloride 106 mmol/L (98-107); Estimated Glomerular Filt Rate > 60; Glucose 95 mg/dL (65-110); Potassium 4.2 mmol/L (3.4-5.0); Sodium 137 mmol/L (137-145)
[2023-07-29 13:52] LABS: Erythrocyte Sedimentation Rate 6 mm/hr (0-20)
== END 2023-07-29 11:54 | disposition home or self-care (01) ==
LOC: ANHLAB 11:55
PROVIDERS: PCP Family Medicine; Visit Provider Family Medicine
DX: R10.9 Unspecified abdominal pain (principal)
CPT/HCPCS: 36415; 80053; 85025; 85652

== ENCOUNTER 2023-08-19 16:03 | Outpatient (CLI) | payer OTHER, SELFPAY ==
[2023-08-19 18:21] LABS: Vitamin D 25 Hydroxy 27.7 ng/mL
[2023-08-19 20:11] LABS: Alanine Aminotransferase 31 U/L (6-35); Aspartate Amino Transferase 29 U/L (14-36)
[2023-08-28 16:18] LABS: Immunoglobulin A 142 mg/dL (47-310); TTG IGA AB <1.0 U/mL
== END 2023-08-19 16:04 | disposition home or self-care (01) ==
PROVIDERS: PCP Family Medicine
DX: R10.9 Unspecified abdominal pain (principal); R53.83 Other fatigue; R74.8 Abnormal levels of other serum enzymes
CPT/HCPCS: 36415; 82306; 82607; 82784; 84450; 84460; 86364

== ENCOUNTER 2023-10-07 13:30 | Emergency (ER) | payer OTHER, SELFPAY ==
--- NOTE | ~2023-10-07 | CT_ITS ---
EXAMINATION: CT abdomen pelvis wo con DATE: 10/07/2023 14:23 INDICATION: Left flank pain. TECHNIQUE: Computed tomography (CT) of the abdomen and pelvis was performed without intravenous contr ast. Automated exposure control and iterative reconstruction technique were employed. The dose-length product was 255.56 mGy-cm. COMPARISON: Chest CT 10/03/2022 FINDINGS: The visualized portions of lung bases are clear without pneumonia or pleural effusion. The heart size is normal. No pericardial effusion. There are 6.3 and 2.4 cm masses in right hepatic lobe, stable from 10/03/2022, likely benign. There is a 3.5 cm mass in right hepatic lobe not included on t he prior scan. The spleen, gallbladder, pancreas, adrenal glands are normal. There is a 5 mm stone in right renal pelvis. There are approximately 8 stones in left kidney measuring up to 5 mm. There is s evere left hydronephrosis. There is mild proximal left hydroureter. There is a large volume of stool in the colon. The appendix is normal. There are no pathologically enlarged lymph nodes. There is no f ree intraperitoneal fluid. There is mild lumbar spondylosis. IMPRESSION: 1. Severe left hydronephrosis. Mild left hydroureter. 2. Bilateral nonobstructing kidney stones. 3. 3.5 cm liver mass, which may be benign or less likely malignant. Abdomen MRI without and with cont rast is recommended. Reviewed, dictated and finalized at location A. IMPRESSION: 1. Severe left hydronephrosis. Mild left hydroureter. 2. Bilateral nonobstructing kidney stones. 3. 3.5 cm liver mass, which may be benign or less likely malignant. Abdomen MRI without and with contrast is recommended.
[2023-10-07 13:36] VITALS: BP 103/68; PULSE 73; RESP 16; TEMP 36.7; O2SAT 100
--- NOTE | 2023-10-07 14:06 | ED.BACK ---
HPI - Back Pain/Injury General Chief Complaint: Back Pain/Injury Stated Complaint: kidney stone Time Seen by Provider: 10/07/23 13:32 History of Present Illness HPI Narrative: 27-year-old female presents emergency department for evaluation for concern for a kidney stone. Patient does report a significant history of kidney stones and has had approximately 8. Two of them required lithotripsy. Most recent lithotripsy was a few years ago took place in [place]. Patient suspects that she did have a kidney stone in the fall of is unsure if she passed it. Patient states he began having worsening left flank pain yesterday. Related Data Allergies Allergy/AdvReac Type Severity Reaction Status Date / Time lanolin Allergy Rash Verified 10/07/23 13:34 latex Allergy Rash Verified 10/07/23 13:34 Review of Systems Review of Systems: All systems reviewed & are unremarkable except as noted in HPI and below PMFSH Social History Social History Smoking status: Never smoker Substance use: never Spiritual care concerns: No Exam Narrative: APPEARANCE: Well appearing, no pain, no distress, well-nourished. HEAD: normocephalic, atraumatic. EYES: PERRLA/EOMI, conjunctivae clear. NOSE: Normal no drainage EARS:TMS clear with good light reflex. THROAT: Pharynx clear, no exudate. NECK: Supple. No adenopathy, no masses. RESPIRATORY: Airway patent, respirations nonlabored. Clear to auscultation bilaterally, no rales, rhonchi, wheezing. CARDIOVASCULAR: Regular rate and rhythm without murmurs rubs or gallops. ABDOMINAL: Left flank tenderness to palpation MUSCULOSKELETAL: Moves all extremities. Strength/ROM intact, No edema, No calf tenderness. NEURO: Alert. Cranial nerves II through XII intact. Good gait. Good coordination SKIN: Warm, dry. Normal Color Course Vital Signs Vital signs: Vital Signs Temperature 98.1 F 10/07/23 13:36 Pulse Rate 73 10/07/23 13:36 Respiratory Rate 16 10/07/23 13:36 Blood Pressure 103/68 10/07/23 13:36 Pulse Oximetry 100 10/07/23 13:36 Oxygen Delivery Room Air 10/07/23 13:36 Temperature 98.1 F 10/07/23 13:36 Pulse Rate 65 10/07/23 15:27 Respiratory Rate 16 10/07/23 15:27 Blood Pressure 110/64 10/07/23 15:27 Pulse Oximetry 100 10/07/23 15:27 Oxygen Delivery Room Air 10/07/23 13:36 MDM - Back Pain/Injury MDM Narrative Medical decision making narrative: 27-year-old female presented to the emergency department for evaluation of left flank pain and some hematuria. Patient is afebrile with no leukocytosis and a stable hemoglobin of 12.9. Patient has normal kidney function. Urine was significant for urinary tract infection with leuk esterase positive greater her white blood cells with +4 bacteria. There was some blood detected in the urine. Patient had a CT scan in order to evaluate for infected kidney stone and patient had no obstructing ureteral calculi. Patient does have known chronic hydronephrosis on the left. No concerns for infected kidney stone at this time. Patient was treated with 1 g of IV Rocephin in the emergency department. Patient was updated on the results of her CT scan and encouraged of close follow-up for the incidental findings. Differential Diagnosis Differential diagnosis: Likely strain of lumbar region, renal colic and pyelonephritis Lab Data Attestation: I reviewed the patient's lab results. 10/07/23 14:00 10/07/23 14:00 Labs: Lab Results 10/07/23 Range/Units 14:00 WBC 8.7 (4.5-10.0) K/mm3 RBC 4.38 (4.2-5.4) M/mm3 Hgb 12.9 (12.0-15.0) g/dL Hct 39.3 (37.0-47.0) % MCV 89.7 (80-100) fl MCH 29.5 (26-34) pg MCHC 32.8 (32-36) g/dl RDW 12.8 (11.5-14.5) % Plt Count 269 (150-375) k/mm3 MPV 10.5 H (7.4-10.4) fl Immature Gran % (Auto) 0.3 (0-0.5) % Neut % (Auto) 74.2 H (45.5-73.1) % Lymph % (Auto) 18.0 L (1
[2023-10-07 14:13] LABS: Basophils Percent Auto 0.5 % (0.2-1.2); Eosinophils Absolute Auto 0.1 K/mm3 (0-0.3); Eosinophils Percent Auto 0.9 % (0-4.4); Hematocrit 39.3 % (37.0-47.0); Hemoglobin 12.9 g/dL (12.0-15.0); Immature Granulocyte Absolute 0.03 K/mm3 (0.00-0.031); Immature Granulocyte Percent A 0.3 % (0-0.5); Lymphocytes Absolute Auto 1.56 K/mm3 (0.9-3.2); Mean Corpuscular HGB Conc 32.8 g/dl (32-36); Mean Corpuscular Hemoglobin 29.5 pg (26-34); Mean Corpuscular Volume 89.7 fl (80-100); Mean Platelet Volume 10.5 fl (7.4-10.4); Monocytes Absolute Auto 0.5 K/mm3 (0.1-0.6); Monocytes Percent Auto 6.1 % (2.6-8.5); Neutrophils Absolute Auto 6.4 K/mm3 (1.3-6.7); Neutrophils Percent Auto 74.2 % (45.5-73.1); Platelet Count Result 269 k/mm3 (150-375); Red Blood Count 4.38 M/mm3 (4.2-5.4); Red Cell Distribution Width 12.8 % (11.5-14.5); White Blood Count 8.7 K/mm3 (4.5-10.0)
[2023-10-07 14:19] LABS: Appearance Urine Turbid (Clear); Bacteria Urine 4+ /hpf; Bilirubin Urine Negative (Negative); Blood Urine 3+ (Negative); Color Urine Yellow (Yellow); Glucose Urine UA Negative (Negative); Ketones Urine Negative (Negative); Leukocyte Esterase Ur 3+ LEU/UL (Negative); Nitrate Urine Negative (Negative); Protein Urine 3+ mg/dL (Negative); RBC Urine 0-2 /hpf (0-2); Specific Grav Ur 1.013 (1.001-1.035); Squamous Epithelial Cell Urine None Seen /hpf (Few); Urobilinogen Urine 0.2 mg/dL (<2.0); WBC Urine >100 /hpf (0-3); pH Urine 5.5 (5.0-9.0)
[2023-10-07 14:21] LABS: Add Urine Microscopic? YES
[2023-10-07 14:23] LABS: Alanine Aminotransferase 39 U/L (6-35); Albumin Level 4.5 g/dL (3.5-5.1); Alkaline Phosphatase 76 U/L (38-126); Anion Gap 5 mmol/L (4-12); Aspartate Amino Transferase 32 U/L (14-36); Bilirubin,Total 1.1 mg/dL (0.2-1.3); Blood Urea Nitrogen 18 mg/dL (7-17); Calcium 10.1 mg/dL (8.4-10.2); Carbon Dioxide 28 mmol/L (22-30); Chloride 104 mmol/L (98-107); Estimated CRCL calculation 74 ml/min; Estimated Glomerular Filt Rate > 60; Glucose 87 mg/dL (65-110); Potassium 4.3 mmol/L (3.4-5.0); Sodium 137 mmol/L (137-145)
[2023-10-07 15:27] VITALS: BP 110/64; PULSE 65; RESP 16; O2SAT 100
== END 2023-10-07 16:28 | disposition home or self-care (01) ==
PROVIDERS: Emergency Provider Emergency Medicine; PCP Family Medicine
DX: N39.0 Urinary tract infection, site not specified (principal); N13.2 Hydronephrosis with renal and ureteral calculous obstruction; R16.0 Hepatomegaly, not elsewhere classified
CPT/HCPCS: 36415; 74176; 80053; 81001; 81025; 85025; 87077; 87086; 87088; 96365; 99284; J0696

== ENCOUNTER 2023-10-27 06:37 | Outpatient (CLI) | payer OTHER, SELFPAY ==
--- NOTE | ~2023-10-27 | MR_ITS ---
EXAMINATION: MR abdomen wo/w con DATE: 10/27/2023 07:41 INDICATION: Liver mass TECHNIQUE: Magnetic resonance imaging (MRI) of the abdomen was performed without and with 12 mL Multi tena intravenous contrast. Sequences included coronal T2-weighted SS-FSE, coronal and axial FS 2D-F IESTA, axial STIR FSE, axial T2-weighted SS-FSE, axial T2-weighted FS SS-FSE, axial diffusion-weighte d SE, axial dual-echo T1-weighted FSPGR, and axial and coronal T1-weighted LAVA. Postcontrast axial T 1-weighted LAVA images were obtained in a time course. Postcontrast coronal T1-weighted LAVA images w ere obtained. COMPARISON: CT dated 10/07/2023 FINDINGS: Heart size is normal. No pericardial or pleural effusion. There are 4 similar-appearing masses in the right hepatic lobe which measure 1.9 cm, 3.1 cm, 3.6 cm and 6.6 mm maximal diameters. These each dem onstrate lobular margins, decreased T1 and increased T2 signal and peripheral discontiguous puddling of contrast isointense to the blood pool which progressively fills in on delayed imaging consistent w ith cavernous hemangiomas. Spleen, pancreas and bilateral adrenal glands are normal. Likely left UPJ obstruction with excreted contrast is seen dependently in the severely hydronephrotic left renal michael ecting system and markedly dilated left renal pelvis. Mildly dilated right extra renal pelvis with no right-sided hydronephrosis. Visualized portions of bowels are unremarkable. No pathologically enlarg ed abdominal or upper pelvic lymphadenopathy. Likely septate uterus. Mild disc height loss at L4-L5 w ith right-sided fibrofatty degenerative endplate changes. IMPRESSION: 1. 4 cavernous hemangiomas in the right hepatic lobe measuring up to 6.6 cm. 2. Left UPJ obstruction with severe left hydronephrosis but with symmetric bilateral renal enhancemen t. 2. Likely septate uterus. Reviewed, dictated and finalized at location A. IMPRESSION: 1. 4 cavernous hemangiomas in the right hepatic lobe measuring up to 6.6 cm. 2. Left UPJ obstruction with severe left hydronephrosis but with symmetric bila teral renal enhancement. 2. Likely septate uterus.
== END 2023-10-27 06:38 | disposition home or self-care (01) ==
PROVIDERS: PCP Family Medicine; Visit Provider Family Medicine
DX: R16.0 Hepatomegaly, not elsewhere classified (principal); N20.0 Calculus of kidney; D18.09 Hemangioma of other sites
CPT/HCPCS: 74183; A9577

== ENCOUNTER 2024-12-26 17:03 | Outpatient (CLI) | payer OTHER, SELFPAY ==
--- OUTSIDE RECORDS SUMMARY | 2024-12-26 17:08 | XMS_ITS | Patient Health Record ---
[facility] Address [address] [place] [address] Care Team Providers Care Mangle Press Catcher Name Role Phone Bryant Gurrola Unavailable [phone] Reason For Referral No Information Plan Of Treatment No Information
--- OUTSIDE RECORDS SUMMARY | 2024-12-26 17:08 | XMS_ITS | Encounter Summary ---
Author Organization [facility] Address [facility] [place] [address] Care Team Providers Care Csr Name Role Phone None, Provider Primary Care Provider Unavaila Juno Stout MD Primary Care Provider [phone] Juno Calabrese MD Primary Care Provider [phone] Stefanie So 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 Gender Identity Not on file Sexual Orientation Not on file documented as of this encounter Plan of Treatment Not on file documented as of this encounter Visit Diagnoses Not on filedocumented in this encounter Additional Health Concerns Infection Onset Date Last Indicated Resolved Time COVID-19 Rule Out 09/19/2019 09/19/2019 09/20/2019 11:54 AM CDT documented as of this encounter Care Teams Csr Relationship Specialty Start Date End Date None, Provider, PCP - General 01/22/19 03/07/19 Juno Calabrese MD PCP - General FAMILY PRACTICE 03/08/19 03/10/19 Juno Calabrese MD [address] [place], [place] [phone] PCP - General FAMILY PRACTICE 03/11/19 07/22/23 Phan Del Rio MD [address] [place] [address] [place] [address] PCP - General FAMILY PRACTICE 07/23/23 Stefanie So, [facility]- [address] [place], [place] [phone] NURSE PRACTITIONER 07/07/19 Bill Dunham MD [address] [place], [place] [phone] Consulting Physician NEUROLOGY 07/07/19 documented as of this encounter
--- OUTSIDE RECORDS SUMMARY | 2024-12-26 17:08 | XMS_ITS | Encounter Summary ---
Author Organization [facility] Address [facility] [place] [address] Care Team Providers Care Cinder Pit Worker Name Role Phone None, Provider Primary Care Provider Unavaila Juno Stout MD Primary Care Provider [phone] Juno Calabrese MD Primary Care Provider [phone] Stefanie So [facility]- Unavailable Bill Dunham MD Unavailable [phone] Phan Del Rio MD Primary Care Provider [phone] Encounter Details Date Type Department Care Team (Late st Contact Info) Description 01/21/2019 Abstract [facility] [address] [place] [id number] Social History Tobacco Use Types Packs/Day Years Used Date Smoking Tobacco: Never Assessed Comments Unknown Sex and Gender Information Value Date Recorded Sex Assigned at Not on file 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 No 01/23/2019 3:00 PM Brooks Vincent, RN Active documented in this encounter Plan of Treatment Not on file documented as of this encounter Visit Diagnoses Not on filedocumented in this encounter Additional Health Concerns Infection Onset Date Last Indicated Resolved Time COVID-19 Rule Out 09/19/2019 09/19/201909/1909/20/2019 11:54 AM CDT documented as of this encounter Care Teams Cinder Pit Worker Relationship Specialty Start Date End Date None, Provider, PCP - General 01/22/19 03/07/19 Juno Calabrese MD PCP - General FAMILY PRACTICE 03/08/19 03/10/19 Juno Calabrese MD [address] [place] [phone] PCP - General FAMILY PRACTICE 03/11/19 07/22/23 Phan Del Rio MD [address] [place] [address] [place] [address] PCP - General FAMILY PRACTICE 07/23/23 Stefanie So, [facility]- [address] [place] [phone] NURSE PRACTITIONER 07/07/19 Bill Dunham MD [address] [place] [phone] Consulting Physician NEUROLOGY 07/07/19 documented as of this encounter
--- OUTSIDE RECORDS SUMMARY | 2024-12-26 17:08 | XMS_ITS | Clinical Summary ---
Author Organization [facility] Address [address] [place] [address] Care Team Providers Care Straightener Hand Name Role Phone Stefanie SoP- Unavailable Bill Dunham MD Unavailable [phone] Phan Del Rio MD Primary Care Provider [phone] Allergies Active Allergy Reactions Criticality Noted Date Comments Lanolin Rash Low 01/22/2019 Latex Rash Low 01/22/2019 Medications acetaminophen 325 MG tablet Take 650 mg by mouth as needed for Pain. Active multi vitamin/mineral s tabletIndicatio ns:Nutritional Support Take 1 tablet by mouth daily. Indications: Nutritional Support Active tamsulosin 0.4 MG Cap Take 1 capsule (0.4 mg total) by mouth daily. 30 capsule 0 Active Additional Information Patient taking differently:0.4 mg Oral Daily,Indications: Urinary Frequency, Reported on 09/14/2019 phenazopyridine 100 MG tabletIndicatio ns:Pain Take 100 mg by mouth 3 (three) times a day. Indications: Pain Active hyoscyamine 0.[address] 0.125 mg under the tongue every 4 (four) hours as needed for Cramping. Active norgestimate-et hinyl estradiol (SPRINTEC 28) 0.25-35 MG-MCG tabletIndicatio ns: control Take 1 tablet by mouth daily. Indications: control Currently on hold Active amoxicillin 500 MG capsule Take 500 mg by mouth 3 (three) times daily. 0 Active Active Problems Problem Noted Date Diagnosed Date Ureteral stone with hydronephrosis 09/01/2019 MS (multiple sclerosis) ([facility] 2019 Current use of steroid medication 04/21/2019 Visual loss 04/20/2019 Headache 04/20/2019 Anxiety disorder 01/24/2019 Papilledema 01/22/2019 Family History Medical History Relation Comments Cancer Maternal Grandmother Relation Status Comments Father Alive Maternal Grandmother breast canc er Mother Alive Sister hydronephrosis Social History Tobacco Use Types Packs/Day Years Used Date Smoking Tobacco: Never Smokeless Tobacco: Never Alcohol Use Standard Drinks/Week Comments Yes 0 (1 standard drink = 0.6 oz pur e alcohol) socially Comments No Sex and Gender Information Value Date Recorded Sex Assigned at Not on file 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 Gender Identity Not on file Sexual Orientation Not on file Last Filed Vital Signs Vital Sign Reading Time Taken Comments Blood Pressure 98/65 09/21/2019 4:18 PM CDT Pulse 72 09/21/2019 4:18 PM CDT Temperature 36.5 C (97.7 F) 09/21/2019 3:02 PM CDT Respiratory Rate 16 09/21/2019 4:18 PM CDT Oxygen Saturation 98% 09/21/2019 4:18 PM CDT Inhaled Oxygen Concentration - - Weight 55.3 kg (122 lb) 09/21/2019 1:14 PM CDT Height 170.2 cm (5' 7) 09/21/2019 1:14 PM CDT Body Mass Index 19.11 09/21/2019 1:14 PM CDT Plan of Treatment Health Maintenance Due Date Last Done Comments Cervical Cancer Screening Pa p Smear (Age 30 to 64) Every 3 Years 1993 Annual Physical 1996 DTaP, Tdap and Td Vaccines ( 1 - Tdap) 2012 Hepatitis B Vaccines (1 of 3 - 19+ 3-dose series) 2012 HPV Vaccines (1 - 3-dose SCD M series) 2020 Cervical Cancer Screening Pa p with HPV Testing (Age 30 to 64) Every 5 Years 10/28/2023 Cervical Cancer Screening with HPV 10/28/2023 COVID-19 Vaccine (2023-2 5 season) 2024 Hepatitis C Completed 08/27/2017 Meningococcal B Vaccine Aged Out No l onger eligible based on patient's age to complete this topic Meningococcal Vaccine Aged Out No dusty ivory eligible based on patient's age to complete this topic Pneumococcal Vaccine: Pediat rics (0 to 5 Years) and At-Risk Patients (6 to 49 Years) Aged Out No longer eligi ble based on patient's age to complete this topic RSV Immunizations Under 20 Months Aged Out No longer eligible based on patient's age to complete this topic Medical Devices Implanted Type Area Skip Locator Device Identifier Shelf Expiration Date Model / Serial / Lot Stent Ureteral White Cloud Sci Contour 6fr X 26cm - [id number] Implanted:Qty: 1 on 09/02/2019 by Rocio Chris MD at [facility] Left: Ureter [employer] LEONILA 04/07/2021 [id number] / / [id number] Description:VERIFIED BY Stent Cook Ureteral Filaform 6 Fr X 26cm - Sn/A Implanted:Qty: 1 on 09/21/2019 by Rocio Chris MD at [facility] Left: Ureter [employer] 06/30/2022 [id number] / N/A / [id number] Procedures Procedure Name Priority Date/Time Associated Diagnosis Comments HEPATITIS C ANTIBODY Routine 08/27/2017 3:19 PM CDT from Last 3 Months or Most Recently Relevant to Health Maintenance Results * HEPATITIS C ANTIBODY (08/27/2017 3:19 PM CDT) HEPATITIS C AB NON-REACTI VE NON-REACT JOYCE 08/31/2017 10:13 AM CDT [facility] Comment: ANTIBODIES TO HCV NOT DETECTED. DOES NOT EXCLUDE THE POSSIBILITY OF EXPOSURE TO HCV. 08/27/2017 3:19 PM CDT us Julio Ribera MD LABORATORY Final Result [facility] [address] [place] [address], [id number] from Last 3 Months or Most Recently Relevant to Health Maintenance Insurance [facility] Advance Directives * Full Code (Latest Code Status on File) Date Activated Date Inactivated Comments 04/20/2019 11:30 PM 04/21/2019 1:41 PM * Full Code Date Activated Date Inactivated Comments 01/22/2019 6:49 PM 01/25/2019 5:32 PM Care Teams Straightener Hand Relationship Specialty Start Date End Date Phan Del Rio MD [address] [facility] [place] [address] PCP - General FAMILY PRACTICE 07/23/23 Stefanie So, TROUT FARMER- NURSE PRACTITIONER 07/07/19 Bill Dunham MD Consulting Physician NEUROLOGY 07/07/19
--- OUTSIDE RECORDS SUMMARY | 2024-12-26 17:09 | XMS_ITS | Clinical Summary ---
Author Organization [facility] Address [address] [place] [address] Care Team Providers Care Prints And Drawings Curator Name Role Phone Teddy Worrell MD Unavailable [phone] Phan Del Rio MD Primary Care Provider Allergies Active Allergy Reactions Criticality Noted Date Comments Lanolin Rash Medium 01/22/2019 Latex Rash Medium 01/22/2019 Medications No known medications Active Problems Problem Noted Date Diagnosed Date Chest pain 09/04/2023 Overview (09/04/2023): EKG ok in office today Given cardiac hx w/ possible pacemaker will get ECHO and drama director consult 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 Migraine without aura, not i ntractable, without status migrainosus 11/08/2019 Ureteral stone with hydronephrosis 09/01/2019 Anxiety disorder 01/24/2019 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 Tonsillitis 07/16/2010 Enlarged tonsils 07/16/2010 Immunizations Immunization Administration Dates Next Due Influenza, Quadrivalent, Spl it, Intramuscular 03/24/2019 Influenza, Unspecified 05/11/2022(Deferr ed: Patient Refused),05/11/2021(Deferred: Patient Refused) Surgical History Surgery Date Site/Laterality Comments KIDNEY SURGERY Left 05/14 removed D&C FIRST TRIMESTER / TX INC OMPLETE / MISSED / SEPTIC / INDUCED WISDOM TOOTH EXTRACTION Bilateral TONSILLECTOMY/ADENOIDECTOMY LUMBAR PUNCTURE WO INJECTION, DIAGNOSTIC 01/23/2019 N/A Family History Medical History Relation Name Comments Diabetes Neg Hx Glaucoma Neg Hx Macular degeneration Neg Hx Retinal detachment Neg Hx Thyroid disease Neg Hx Social History Tobacco Use Types Packs/Day Years Used Date Smoking Tobacco: Never Passive Smoke Exposure: Never Smokeless Tobacco: Never Tobacco Cessation:Counseling Given: Not Answered AUDIT-C Answer Date Recorded Q1: How often do you have a drink containing alc ohol? 2-4 times a month 09/04/2023 Q2: How many drinks containi ng alcohol do you have on a typical day when you are drinking? 1 or 2 09/04/2023 Q3: How often do you have si x or more drinks on one occasion? Never 09/04/2023 PHQ-2 Answer Date Recorded PHQ-2 Total Score (If total score is 3 or more points, staff should administer the PHQ-9) 0 11/24/2022 Comments Unknown Sex and Gender Information Value Date Recorded Sex Assigned at Not on file Legal Sex Female 6:42 AM TOP TAPER MACHINE Gender Identity Not on file Sexual Orientation Not on file Obstetrics History Last Filed Vital Signs Vital Sign Reading Time Taken Comments Blood Pressure 98/58 09/02/2024 6:46 PM CDT Pulse 100 09/02/2024 6:46 PM CDT Temperature 36.9 C (98.5 F) 09/02/2024 6:46 PM CDT Respiratory Rate 16 09/02/2024 6:46 PM CDT Oxygen Saturation 98% 09/02/2024 6:46 PM CDT Inhaled Oxygen Concentration - - Weight 59 kg (130 lb) 09/02/2024 6:46 PM CDT Height 170.2 cm (5' 7) 03/03/2024 10:37 AM CDT Body Mass Index 20.36 03/03/2024 10:37 AM CDT Plan of Treatment Health Maintenance Due Date Last Done Comments Cervical Cancer Screening 1993 Hepatitis C Screening 1993 DTaP/Tdap/Td Vaccine (1 - Tdap) 2004 Varicella Vaccines (1 of 2 - 13+ 2-dose series) 2006 Hepatitis B Screening 10/28/2011 HPV Vaccines (1 - 3-dose SCD M series) 2020 Regular Well Visit/Exam 18-64 10/10/2023 10/09/2022 Depression Screening 11/25/2023 11/24/2022, 10/09/2022 Influenza Vaccine (#1) 2025 03/24/2019 Pneumococcal vaccine <65 Aged Out No longer eligible based on patient's age to complete this topic Insurance [facility] PLUS [facility] PLUS [facility] CHO[facility] PLUS Care Teams Prints And Drawings Curator Relationship Specialty Start Date End Date Phan Del Rio MD [address] [place] [id number] PCP - General Family Medicine 03/03/24 Teddy Worrell MD [address] [place] [address] Referring Physician Neurology 10/09/22
--- OUTSIDE RECORDS SUMMARY | 2024-12-26 17:09 | XMS_ITS | Encounter Summary ---
Author Organization [facility] Address [facility] [place] [address] Care Team Providers Care Calculus Teacher Name Role Phone None, Provider Primary Care Provider Unavaila Juno Stout MD Primary Care Provider [phone] Juno Calabrese MD Primary Care Provider [phone] Stefanie So [facility] Unavailable Bill Dunham MD Unavailable [phone] Phan Del Rio MD Primary Care Provider [phone] Encounter Details Date Type Department Care Team (Late st Contact Info) Description 01/24/2019 Abstract [facility] [address] [place] [address] Social History Tobacco Use Types Packs/Day Years Used Date Smoking Tobacco: Never Smokeless Tobacco: Never Alcohol Use Standard Drinks/Week Comments Yes 0 (1 standard drink = 0.6 oz pur e alcohol) socially Comments No Sex and Gender Information Value Date Recorded Sex Assigned at Not on file 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 Answer Date of Assessment Author Status No 01/23/2019 3:00 PM CDT Activ e * Do you have serious difficulty walking or climbing stairs? Answer Date of Assessment Author Status No 01/23/2019 3:00 PM CDT Brooks Caraballo RN A ctive * Do you have difficulty dressing or bathing? Answer Date of Assessment Author Status No 01/23/2019 3:00 PM CDT Brooks Caraballo RN A ctive * Because of a physical, mental, or emotional condition, do you have difficulty doing errands alone such as visiting a doctor's office or shopping? Answer Date of Assessment Author Status No 01/23/2019 3:00 PM CDT Brooks Caraballo RN A ctive documented as of this encounter Mental Status * Because of a physical, mental, or emotional condition, do you have serious difficulty concentrating, remembering, or making decisions? Answer Entry Date Author Status No 01/23/2019 3:00 PM CDT Brooks Caraballo RN A ctive documented in this encounter Plan of Treatment Not on file documented as of this encounter Visit Diagnoses Not on filedocumented in this encounter Additional Health Concerns Infection Onset Date Last Indicated Resolved Time COVID-19 Rule Out 09/19/2019 09/19/2019 09/20/2019 11:54 AM CDT documented as of this encounter Care Teams Calculus Teacher Relationship Specialty Start Date End Date None, Provider, PCP - General 01/22/19 03/07/19 Juno Calabrese MD PCP - General FAMILY PRACTICE 03/08/19 03/10/19 Juno Calabrese MD [address] [place] [phone] PCP - General FAMILY PRACTICE 03/11/19 07/22/23 Phan Del Rio MD [address] [place] [address] [place] [address] PCP - General FAMILY PRACTICE 07/23/23 Stefanie So FNP- [address] [place] [phone] NURSE PRACTITIONER 07/07/19 Bill Dunham MD [address] [place] [phone] Consulting Physician NEUROLOGY 07/07/19 documented as of this encounter
--- OUTSIDE RECORDS SUMMARY | 2024-12-26 17:09 | XMS_ITS | Encounter Summary ---
Author Organization [facility] Address [address] [place] [address] Care Team Providers Care Intranet Support Name Role Phone None, Provider Primary Care Provider Unavaila Juno Stout MD Primary Care Provider [phone] Juno Calabrese MD Primary Care Provider [phone] Stefanie So [facility] Unavailable Bill Dunham MD Unavailable [phone] Phan Del Rio MD Primary Care Provider [phone] Encounter Details Date Type Department Care Team (Late st Contact Info) Description 07/25/2017 Abstract [facility] [address] [place] [address] , Generic Conversion, Social History Tobacco Use Types Packs/Day Years Used Date Smoking Tobacco: Never Assessed Comments Unknown Sex and Gender Information Value Date Recorded Sex Assigned at Not on file 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 Gender Identity Not on file Sexual Orientation Not on file documented as of this encounter Plan of Treatment Not on file documented as of this encounter Visit Diagnoses Not on filedocumented in this encounter Additional Health Concerns Infection Onset Date Last Indicated Resolved Time COVID-19 Rule Out 09/19/2019 09/19/2019 09/20/2019 11:54 AM CDT documented as of this encounter Care Teams Intranet Support Relationship Specialty Start Date End Date None, Provider, PCP - General 01/22/19 03/07/19 Juno Calabrese MD PCP - General FAMILY PRACTICE 03/08/19 03/10/19 Juno Calabrese MD [address] [place] [phone] PCP - General FAMILY PRACTICE 03/11/19 07/22/23 Phan Del Rio MD [address] [place] [address] [place] [address] PCP - General FAMILY PRACTICE 07/23/23 Stefanie So, [facility]- [address] [place], [place] [phone] NURSE PRACTITIONER 07/07/19 Bill Dunham MD [address] [place] [phone] Consulting Physician NEUROLOGY 07/07/19 documented as of this encounter
[2024-12-26 19:39] LABS: Beta HCG Quantitative 39067.00 mIU/ML
== END 2024-12-26 17:04 | disposition home or self-care (01) ==
LOC: ANHLAB 17:07
PROVIDERS: PCP Family Medicine; Visit Provider Advanced Practice Midwife
DX: N91.2 Amenorrhea, unspecified (principal)
CPT/HCPCS: 36415; 84702

== ENCOUNTER 2024-12-28 16:49 | Outpatient (CLI) | payer OTHER, SELFPAY ==
--- OUTSIDE RECORDS SUMMARY | 2024-12-28 16:53 | XMS_ITS | Encounter Summary ---
Author Organization [facility] Address [facility] [place] [address] Care Team Providers Care Management Assistant Name Role Phone None, Provider Primary Care Provider Unavaila Juno Stout MD Primary Care Provider [phone] Juno Calabrese MD Primary Care Provider [phone] Stefanie So [facility]- Unavailable Bill Dunham MD Unavailable [phone] Phan Del Rio MD Primary Care Provider [phone] Encounter Details Date Type Department Care Team (Late st Contact Info) Description 01/21/2019 Abstract [facility] [address] [place] [address] Social History Tobacco Use Types Packs/Day Years Used Date Smoking Tobacco: Never Assessed Comments Unknown Sex and Gender Information Value Date Recorded Sex Assigned at Not on file 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 Gender Identity Not on file Sexual Orientation [...] documented as of this encounter Care Teams Management Assistant Relationship Specialty Start Date End Date None, Provider, PCP - General 01/22/19 03/07/19 Juno Calabrsee MD PCP - General FAMILY PRACTICE 03/08/19 03/10/19 Juno Calabrese MD [address] [place] [phone] PCP - General FAMILY PRACTICE 03/11/19 07/22/23 Phan Del Rio MD [address] [place] [address] [place] [address] PCP - General FAMILY PRACTICE 07/23/23 Stefanie So, [facility]- [address] [place] [phone] NURSE PRACTITIONER 07/07/19 Bill Dunham MD [address] [place] [phone] Consulting Physician NEUROLOGY 07/07/19 documented as of this encounter
--- OUTSIDE RECORDS SUMMARY | 2024-12-28 16:53 | XMS_ITS | Encounter Summary ---
Author Organization [facility] Address [facility] [place] [address] Care Team Providers Care Char Filter Tank Tender Name Role Phone None, Provider Primary Care Provider Unavaila Juno Stout MD Primary Care Provider [phone] Juno Calabrese MD Primary Care Provider [phone] Stefanie So [facility] Unavailable Bill Dunham MD Unavailable [phone] Phan Del Rio MD Primary Care Provider [phone] Encounter Details Date Type Department Care Team (Late st Contact Info) Description 01/24/2019 Abstract [facility] [address] [place] [address] Social History Tobacco Use Types Packs/Day Years Used Date Smoking Tobacco: Never Smokeless Tobacco: Never Alcohol Use Standard Drinks/Week Comments Yes 0 (1 standard drink = 0.6 oz pur e alcohol) socially Comments No Sex and Gender Information Value Date Recorded Sex Assigned at Not on file 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 Gender Identity Not on file Sexual Orientation [...] documented as of this encounter Care Teams Char Filter Tank Tender Relationship Specialty Start Date End Date None, Provider, PCP - General 01/22/19 03/07/19 Juno Calabrese MD PCP - General FAMILY PRACTICE 03/08/19 03/10/19 Juno Calabrese MD [address] [place] [phone] PCP - General FAMILY PRACTICE 03/11/19 07/22/23 Phan Del Rio MD [address] [place] [address] [place] [address] PCP - General FAMILY PRACTICE 07/23/23 Stefanie So FNP- [address] [place] [phone] NURSE PRACTITIONER 07/07/19 Bill Dunham MD [address] [place] [phone] Consulting Physician NEUROLOGY 07/07/19 documented as of this encounter
--- OUTSIDE RECORDS SUMMARY | 2024-12-28 16:53 | XMS_ITS | Encounter Summary ---
Author Organization [facility] Address [address] [place] [address] Care Team Providers Care City Treasurer Name Role Phone None, Provider Primary Care Provider Unavaila Juno Stout MD Primary Care Provider [phone] Juno Calabrese MD Primary Care Provider [phone] Stefanie So [facility] Unavailable Bill Dunham MD Unavailable [phone] Phan Del Rio MD Primary Care Provider [phone] Encounter Details Date Type Department Care Team (Late st Contact Info) Description 07/25/2017 Abstract [facility] [address] [place] [address] , Generic Conversion, Social History Tobacco Use Types Packs/Day Years Used Date Smoking Tobacco: Never Assessed Comments Unknown Sex and Gender Information Value Date Recorded Sex Assigned at Not on file 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 Gender Identity Not on file Sexual Orientation Not on file documented as of this encounter Plan of Treatment Not on file documented as of this encounter Visit Diagnoses Not on filedocumented in this encounter Additional Health Concerns Infection Onset Date Last Indicated Resolved Time COVID-19 Rule Out 09/19/2019 09/19/2019 09/20/2019 11:54 AM CDT documented as of this encounter Care Teams City Treasurer Relationship Specialty Start Date End Date None, Provider, PCP - General 01/22/19 03/07/19 Juno Calabrese MD PCP - General FAMILY PRACTICE 03/08/19 03/10/19 Juno Calabrese MD [address] [place] [phone] PCP - General FAMILY PRACTICE 03/11/19 07/22/23 Phan Del Rio MD [address] [place] [address] [place] [address] PCP - General FAMILY PRACTICE 07/23/23 Stefanie So, [facility]- [address] [place], [place] [phone] NURSE PRACTITIONER 07/07/19 Bill Dunham MD [address] [place] [phone] Consulting Physician NEUROLOGY 07/07/19 documented as of this encounter
--- OUTSIDE RECORDS SUMMARY | 2024-12-28 16:53 | XMS_ITS | Patient Health Record ---
[facility] Address [address] [place] [address] Care Team Providers Care Upholstery Trimmer Name Role Phone Bryant Gurrola Unavailable [phone] Reason For Referral No Information Plan Of Treatment No Information
--- OUTSIDE RECORDS SUMMARY | 2024-12-28 16:53 | XMS_ITS | Encounter Summary ---
Author Organization [facility] Address [facility] [place] [address] Care Team Providers Care Accounts Executive Name Role Phone None, Provider Primary Care Provider Unavaila Juno Stout MD Primary Care Provider [phone] Juno Calabrese MD Primary Care Provider [phone] Stefanie So [facility] Unavailable Bill Dunham MD Unavailable [phone] Phan Del Rio MD Primary Care Provider Encounter Details Date Type Department Care Team (Late st Contact Info) Description 10/16/2018 Abstract [facility] [address] [place] [address] , Generic Conversion, Social History Tobacco Use Types Packs/Day Years Used Date Smoking Tobacco: Never Assessed Comments Unknown Sex and Gender Information Value Date Recorded Sex Assigned at Not on file 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 Gender Identity Not on file Sexual Orientation Not on file documented as of this encounter Plan of Treatment Not on file documented as of this encounter Visit Diagnoses Not on filedocumented in this encounter Additional Health Concerns Infection Onset Date Last Indicated Resolved Time COVID-19 Rule Out 09/19/2019 09/19/2019 09/20/2019 11:54 AM CDT documented as of this encounter Care Teams Accounts Executive Relationship Specialty Start Date End Date None, Provider, PCP - General 01/22/19 03/07/19 Juno Calabrese MD PCP - General FAMILY PRACTICE 03/08/19 03/10/19 Juno Calabrese MD [address] [place], [place] [phone] PCP - General FAMILY PRACTICE 03/11/19 07/22/23 Phan Del Rio MD [address] [place] [address] [place] [address] PCP - General FAMILY PRACTICE 07/23/23 Stefanie So, [facility]- [address] [place], [place] [phone] NURSE PRACTITIONER 07/07/19 Bill Dunham MD [address] [place], [place] [phone] Consulting Physician NEUROLOGY 07/07/19 documented as of this encounter
--- OUTSIDE RECORDS SUMMARY | 2024-12-28 16:53 | XMS_ITS | Clinical Summary ---
Author Organization 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 Gender Identity Not on file Sexual Orientation [...] this topic Medical Devices Implanted Type Area Weight Loss Sales Consultant Device Identifier Shelf Expiration Date Model / Serial / Lot Stent Ureteral Perry Sci Contour 6fr X 26cm - [id number] Implanted:Qty: 1 on 09/02/2019 by Rocio Chris MD at [facility] Left: Ureter [employer] LEONILA 04/07/2021 [id number] / / [id number] Description:VERIFIED BY Stent Cook Ureteral Filaform 6 Fr X 26cm - Sn/A Implanted:Qty: 1 on 09/21/2019 by Rocio Chris MD at [facility] Left: Ureter [employer] 06/30/2022 [id number] / N/A / [id number] Procedures Procedure Name Priority Date/Time Associated Diagnosis Comments HEPATITIS C ANTIBODY Routine 08/27/2017 3:19 PM CDT from Last 3 Months or Most Recently Relevant to Health Maintenance Results * HEPATITIS C ANTIBODY (08/27/2017 3:19 PM CDT) HEPATITIS C AB NON-REACTI VE NON-REACT JOYCE 08/31/2017 10:13 AM CDT [facility] Comment: ANTIBODIES TO HCV NOT DETECTED. DOES NOT EXCLUDE THE POSSIBILITY OF EXPOSURE TO HCV. 08/27/2017 3:19 PM CDT us Julio Ribera MD LABORATORY Final Result [facility] [address] [place] [address], [id number] from Last 3 Months or Most Recently Relevant to Health Maintenance Insurance [facility] Advance Directives * Full Code (Latest Code Status on File) Date Activated Date Inactivated Comments 04/20/2019 11:30 PM 04/21/2019 1:41 PM * Full Code Date Activated Date Inactivated Comments 01/22/2019 6:49 PM 01/25/2019 5:32 PM Care Teams Medicare Sales Executive Relationship Specialty Start Date End Date Phan Del Rio MD [address] [facility] [place] [address] PCP - General FAMILY PRACTICE 07/23/23 Stefanie So, [employer] ADF CONSULTANT- NURSE PRACTITIONER 07/07/19 Bill Dunham MD Consulting Physician NEUROLOGY 07/07/19
--- OUTSIDE RECORDS SUMMARY | 2024-12-28 16:54 | XMS_ITS | Clinical Summary ---
Author Organization [facility] Address [address] [place] [address] Care Team Providers Care Vacuum Cleaner Repair Person Name Role Phone Teddy Worrell MD Unavailable Phan Del Rio MD Primary Care Provider [phone] Allergies Active Allergy Reactions Criticality Noted Date Comments Lanolin Rash Medium 01/22/2019 Latex Rash Medium 01/22/2019 Medications No known medications Active Problems Problem Noted Date Diagnosed Date Chest pain 09/04/2023 Overview (09/04/2023): EKG ok in office today Given cardiac hx w/ possible pacemaker will get ECHO and continuous improvement black belt consult 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 Refractive error 06/22/2020 Assessment & Plan (06/22/2020 12:21 PM PIPE PULLER): Minimal changes to MRx, New SRx PRN New CLRx PRN Consider low plus at near when in contact lens (CL) while working at near History of optic neuritis 05/22/2020 Assessment & Plan (10/09/2022 11:55 AM CDT): Left eye blind Optic neuritis 11/08/2019 Assessment & Plan (06/22/2020 12:03 PM PIPE PULLER): OHx of optic neuritis right eye (OD) with significant pallor, seemingly stable Recently transferred care to [facility] - OCT/HVF on file Will refer [...] on file Legal Sex Female 6:42 AM PIPE PULLER Gender Identity Not on file Sexual Orientation [...] patient's age to complete this topic Insurance [facility] PLUS [facility] PLUS [facility] CHOICE PLUS Care Teams Vacuum Cleaner Repair Person Relationship Specialty Start Date End Date Phan Del Rio MD [address] [place] [address] PCP - General Family Medicine 03/03/24 Teddy Worrell MD [address] [place] [address] Referring Physician Neurology 10/09/22
[2024-12-28 18:28] LABS: Beta HCG Quantitative 50691.00 mIU/ML
== END 2024-12-28 16:50 | disposition home or self-care (01) ==
LOC: ANHLAB 16:51
PROVIDERS: PCP Family Medicine; Visit Provider Advanced Practice Midwife
DX: N91.2 Amenorrhea, unspecified (principal)
CPT/HCPCS: 36415; 84702

== ENCOUNTER 2025-01-07 03:20 | Emergency (ER) | payer OTHER, SELFPAY ==
[2025-01-07 03:32] VITALS: BP 100/60; PULSE 69; RESP 16; TEMP 37.1; O2SAT 100
[2025-01-07 03:48] LABS: Hematocrit 39.3 % (37.0-47.0); Hemoglobin 13.2 g/dL (12.0-15.0); Immature Granulocyte Percent A 0.3 % (0-0.5); Lymphocytes Absolute Auto 0.94 K/mm3 (0.9-3.2); Mean Corpuscular HGB Conc 33.6 g/dl (32-36); Mean Corpuscular Hemoglobin 29.1 pg (26-34); Mean Corpuscular Volume 86.8 fl (80-100); Nucleated Red Blood Cells Absolute Auto 0.000 K/mm3 (0.0-0.012); Nucleated Red Blood Cells Perc 0.0 % (0.0-0.2); Platelet Count Result 190 k/mm3 (150-375); Red Blood Count 4.53 M/mm3 (4.2-5.4); White Blood Count 7.5 K/mm3 (4.5-10.0)
[2025-01-07] MEDS: KETOROLAC 15 MG/ML VIAL (*BKC) IV PUSH (03:49)
[2025-01-07] MEDS: ONDANSETRON INJ 4 MG/2 ML VIAL IV PUSH ×2 (03:49→05:07)
[2025-01-07] MEDS: SODIUM CHLORIDE 0.9% IV 1,000 ML 999 ML IV CONT (03:57)
[2025-01-07 04:02] LABS: Alanine Aminotransferase 65 U/L (6-35); Albumin Level 4.7 g/dL (3.5-5.1); Alkaline Phosphatase 78 U/L (38-126); Anion Gap 12 mmol/L (4-12); Aspartate Amino Transferase 47 U/L (14-36); Bilirubin,Total 0.6 mg/dL (0.2-1.3); Blood Urea Nitrogen 17 mg/dL (7-17); Calcium 9.9 mg/dL (8.4-10.2); Carbon Dioxide 21 mmol/L (22-30); Chloride 101 mmol/L (98-107); Estimated CRCL calculation 109 ml/min; Estimated Glomerular Filt Rate > 60; Glucose 120 mg/dL (65-110); Lipase 68 U/L (23-300); Potassium 3.7 mmol/L (3.4-5.0); Sodium 134 mmol/L (137-145); Total Protein 7.7 g/dL (6.3-8.2)
--- OUTSIDE RECORDS SUMMARY | 2025-01-07 04:25 | XMS_ITS | Encounter Summary ---
Author Organization [facility] Address [facility] [place] [address] Care Team Providers Care Choral Teacher Name Role Phone None, Provider Primary Care Provider Unavaila Juno Stout MD Primary Care Provider [phone] Juno Calabrese MD Primary Care Provider [phone] Stefanie So [facility]- Unavailable Bill Dunham MD Unavailable [phone] Phan Del Rio MD Primary Care Provider [phone] Encounter Details Date Type Department Care Team (Late st Contact Info) Description 01/21/2019 Abstract [facility] [address] [place] [address] Social History Tobacco Use Types Packs/Day Years Used Date Smoking Tobacco: Never Assessed Comments Unknown Sex and Gender Information Value Date Recorded Sex Assigned at Not on file 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 Gender Identity Not on file Sexual [...] documented as of this encounter Care Teams Choral Teacher Relationship Specialty Start Date End Date None, Provider, PCP - General 01/22/19 03/07/19 Juno Calabrese MD PCP - General FAMILY PRACTICE 03/08/19 03/10/19 Juno Calabrese MD [address] [place] [phone] PCP - General FAMILY PRACTICE 03/11/19 07/22/23 Phan Del Rio MD [address] [place] [address] [place] [address] PCP - General FAMILY PRACTICE 07/23/23 Stefanie So, [facility]- [address] [place] [phone] NURSE PRACTITIONER 07/07/19 Bill Dunham MD [address] [place] [phone] Consulting Physician NEUROLOGY 07/07/19 documented as of this encounter
--- OUTSIDE RECORDS SUMMARY | 2025-01-07 04:25 | XMS_ITS | Clinical Summary ---
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 Refractive error 06/22/2020 Assessment & Plan (06/22/2020 12:21 PM EXPLOSIVE ORDNANCE MANAGER): Minimal changes to MRx, New SRx PRN New CLRx PRN Consider low plus at near when in contact lens (CL) while working at near History of optic neuritis 05/22/2020 Assessment & Plan (10/09/2022 11:55 AM CDT): Left eye blind Optic neuritis 11/08/2019 Assessment & Plan (06/22/2020 12:03 PM EXPLOSIVE ORDNANCE MANAGER): OHx of optic neuritis right eye (OD) with significant pallor, seemingly stable Recently transferred care to [facility] - OCT/HVF on file Will refer to [...] on file Legal Sex Female 6:42 AM EXPLOSIVE ORDNANCE MANAGER Gender Identity Not on file Sexual [...] patient's age to complete this topic Insurance [facility] [place] [address] [facility] Care Teams Banking Pin Adjuster Relationship Specialty Start Date End Date Phan Del Rio MD [address] [place] [address] PCP - General Family Medicine 03/03/24 Teddy Worrell MD [address] [place] [address] Referring Physician Neurology 10/09/22
--- OUTSIDE RECORDS SUMMARY | 2025-01-07 04:25 | XMS_ITS | Clinical Summary ---
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 Gender Identity Not on file Sexual Orientation [...] this topic Medical Devices Implanted Type Area Supervisory Geographer Device Identifier Shelf Expiration Date Model / Serial / Lot Stent Ureteral [place] Sci Contour 6fr X 26cm - [id number] Implanted:Qty: 1 on 09/02/2019 by Rocio Chris MD at [facility] Left: Ureter Private.Me LEONILA 04/07/2021 [id number] / / [id number] Description:VERIFIED BY Stent Cook Ureteral Filaform 6 Fr X 26cm - Sn/A Implanted:Qty: 1 on 09/21/2019 by Rocio Chris MD at [facility] Left: Ureter [employer] 06/30/2022 [id number] / N/A / [id number] Procedures Procedure Name Priority Date/Time Associated Diagnosis Comments HEPATITIS C ANTIBODY Routine 08/27/2017 3:19 PM CDT from Last 3 Months or Most Recently Relevant to Health Maintenance Results * HEPATITIS C ANTIBODY (08/27/2017 3:19 PM CDT) HEPATITIS C AB NON-REACTI VE NON-REACT JOYCE 08/31/2017 10:[address] [facility] Comment: ANTIBODIES TO HCV NOT DETECTED. DOES NOT EXCLUDE THE POSSIBILITY OF EXPOSURE TO HCV. 08/27/2017 3:19 PM CDT us Julio Ribera MD LABORATORY Final Result [facility] [address] [place] [address], [phone] from Last 3 Months or Most Recently Relevant to Health Maintenance Insurance [facility] Advance Directives * Full Code (Latest Code Status on File) Date Activated Date Inactivated Comments 04/20/2019 11:30 PM 04/21/2019 1:41 PM * Full Code Date Activated Date Inactivated Comments 01/22/2019 6:49 PM 01/25/2019 5:32 PM Care Teams Warehouse Engineer Relationship Specialty Start Date End Date Phan Del Rio MD [address] [place] [address] PCP - General FAMILY PRACTICE 07/23/23 Stefanie So, AUTOMOTIVE HARDWARE ENGINEER- NURSE PRACTITIONER 07/07/19 Bill Dunham MD Consulting Physician NEUROLOGY 07/07/19
--- OUTSIDE RECORDS SUMMARY | 2025-01-07 04:25 | XMS_ITS | Encounter Summary ---
Author Organization [facility] Address [facility] [place] [address] Care Team Providers Care Electric Motor Mechanic Name Role Phone None, Provider Primary Care Provider Unavaila Juno Stout MD Primary Care Provider [phone] Juno Calabrese MD Primary Care Provider [phone] Stefanie So [facility] Unavailable Bill Dunham MD Unavailable [phone] Phan Del Rio MD Primary Care Provider [phone] Encounter Details Date Type Department Care Team (Late st Contact Info) Description 01/24/2019 Abstract [facility] [address] [place] [id number] Social History Tobacco Use Types Packs/Day Years Used Date Smoking Tobacco: Never Smokeless Tobacco: Never Alcohol Use Standard Drinks/Week Comments Yes 0 (1 standard drink = 0.6 oz pur e alcohol) socially Comments No Sex and Gender Information Value Date Recorded Sex Assigned at Not on file Legal Sex Female 9:27 PM HIV CTS SPECIALIST Gender Identity Not on file Sexual Orientation [...] documented as of this encounter Care Teams Electric Motor Mechanic Relationship Specialty Start Date End Date None, Provider, PCP - General 01/22/19 03/07/19 Juno Calabrese MD PCP - General FAMILY PRACTICE 03/08/19 03/10/19 Juno Calabrese MD [address] [place] [phone] PCP - General FAMILY PRACTICE 03/11/19 07/22/23 Phan Del Rio MD [address] [place] [address] [place] [address] PCP - General FAMILY PRACTICE 07/23/23 Stefanie So FNP- [address] [place] [phone] NURSE PRACTITIONER 07/07/19 Bill Dunham MD [address] [place] [phone] Consulting Physician NEUROLOGY 07/07/19 documented as of this encounter
--- OUTSIDE RECORDS SUMMARY | 2025-01-07 04:25 | XMS_ITS | Encounter Summary ---
Author Organization [facility] Address [address] [place] [address] Care Team Providers Care Nuclear Technician Name Role Phone None, Provider Primary Care Provider Unavaila Juno Stout MD Primary Care Provider [phone] Juno Calabrese MD Primary Care Provider [phone] Stefanie So [facility] Unavailable Bill Dunham MD Unavailable [phone] Phan Del Rio MD Primary Care Provider [phone] Encounter Details Date Type Department Care Team (Late st Contact Info) Description 07/25/2017 Abstract [facility] [address] [place] [address] , Generic Conversion, Social History Tobacco Use Types Packs/Day Years Used Date Smoking Tobacco: Never Assessed Comments Unknown Sex and Gender Information Value Date Recorded Sex Assigned at Not on file 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 Gender Identity Not on file Sexual Orientation Not on file documented as of this encounter Plan of Treatment Not on file documented as of this encounter Visit Diagnoses Not on filedocumented in this encounter Additional Health Concerns Infection Onset Date Last Indicated Resolved Time COVID-19 Rule Out 09/19/2019 09/19/2019 09/20/2019 11:54 AM CDT documented as of this encounter Care Teams Nuclear Technician Relationship Specialty Start Date End Date None, Provider, PCP - General 01/22/19 03/07/19 Juno Calabrese MD PCP - General FAMILY PRACTICE 03/08/19 03/10/19 Juno Calabrese MD [address] [place] [phone] PCP - General FAMILY PRACTICE 03/11/19 07/22/23 Phan Del Rio MD [address] [place] [address] [place] [address] PCP - General FAMILY PRACTICE 07/23/23 Stefanie So, [facility]- [address] [place], [place] [phone] NURSE PRACTITIONER 07/07/19 Bill Dunham MD [address] [place] [phone] Consulting Physician NEUROLOGY 07/07/19 documented as of this encounter
--- OUTSIDE RECORDS SUMMARY | 2025-01-07 04:25 | XMS_ITS | Encounter Summary ---
Author Organization [facility] Address [facility] [place] [address] Care Team Providers Care Sports Medicine Physician Name Role Phone None, Provider Primary Care Provider Unavaila Juno Stout MD Primary Care Provider [phone] Juno Calabrese MD Primary Care Provider [phone] Stefanie So 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 Gender Identity Not on file Sexual Orientation Not on file documented as of this encounter Plan of Treatment Not on file documented as of this encounter Visit Diagnoses Not on filedocumented in this encounter Additional Health Concerns Infection Onset Date Last Indicated Resolved Time COVID-19 Rule Out 09/19/2019 09/19/2019 09/20/2019 11:54 AM CDT documented as of this encounter Care Teams Sports Medicine Physician Relationship Specialty Start Date End Date None, Provider, PCP - General 01/22/19 03/07/19 Juno Calabrese MD PCP - General FAMILY PRACTICE 03/08/19 03/10/19 Juno Calabrese MD [address] [place], [place] [phone] PCP - General FAMILY PRACTICE 03/11/19 07/22/23 Phan Del Rio MD [address] [place] [address] [place] [address] PCP - General FAMILY PRACTICE 07/23/23 Stefanie So, [facility]- [address] [place], [place] [phone] NURSE PRACTITIONER 07/07/19 Bill Dunham MD [address] [place], [place] [phone] Consulting Physician NEUROLOGY 07/07/19 documented as of this encounter
--- NOTE | 2025-01-07 04:51 | ED_ITS ---
HPI - General Adult General Chief complaint: Nausea/Vomiting/Diarrhea Stated complaint: pale, dehydration, miscarriage Time Seen by Provider: 01/07/25 03:30 History of Present Illness HPI narrative: This is a 29-year-old female presenting ED for nausea. Patient had a nonviable was given misoprostol by her OBGYN. After she took it she developed severe abdominal cramping and severe nausea and some diarrhea She has been unable to keep down water. Denies any complaints Related Data Allergies Allergy/AdvReac Type Severity Reaction Status Date / Time lanolin Allergy Rash Verified 10/07/23 13:34 latex Allergy Rash Verified 10/07/23 13:34 COUNT INCLUDES THE [facility] Social History Social History Smoking status: Never smoker Substance use: never Spiritual care concerns: No Exam 2 Narrative: APPEARANCE: No apparent distress. Head: atraumatic. EYES: EOMI, NOSE: Atraumatic NECK: Trachea midline RESPIRATORY: No increased rate of breathing clear to auscultation CARDIOVASCULAR: RRR, no peripheral edema ABDOMINAL: Non-distended soft nontender MUSCULOSKELETAl: No obvious deformities NEURO: Alert. Moving 4/4 extremities SKIN:: Warm, dry. Normal color PSYCHIATRIC: Normal affect Course Vital Signs Vital signs: Vital Signs Temperature 98.8 F 01/07/25 03:32 Pulse Rate 69 01/07/25 03:32 Respiratory Rate 16 01/07/25 03:32 Blood Pressure 100/60 01/07/25 03:32 Pulse Oximetry 100 01/07/25 03:32 Oxygen Delivery Room Air 01/07/25 03:32 Temperature 98.8 F 01/07/25 03:32 Pulse Rate 69 01/07/25 03:32 Respiratory Rate 16 01/07/25 03:32 Blood Pressure 100/60 01/07/25 03:32 Pulse Oximetry 100 01/07/25 03:32 Oxygen Delivery Room Air 01/07/25 03:32 Medical Decision Making [facility] Narrative Medical decision making narrative: -Course: 29-year-old female with GI symptoms which are a known side effect of Ms. Postop. Given Zofran fluids. Given Toradol for cramping. Vital signs are stable. Abdominal exam is benign. On re-evaluation patient is feeling much better better. She will be discharged home with Zofran -DDX includes but is not limited to: Miscarriage, missed personal side effect Vital Signs Vital Signs: Vital Signs Temperature 98.8 F 01/07/25 03:32 Pulse Rate 69 01/07/25 03:32 Respiratory Rate 16 01/07/25 03:32 Blood Pressure 100/60 01/07/25 03:32 Pulse Oximetry 100 01/07/25 03:32 Oxygen Delivery Room Air 01/07/25 03:32 Temperature 98.8 F 01/07/25 03:32 Pulse Rate 69 01/07/25 03:32 Respiratory Rate 16 01/07/25 03:32 Blood Pressure 100/60 01/07/25 03:32 Pulse Oximetry 100 01/07/25 03:32 Oxygen Delivery Room Air 01/07/25 03:32 Lab Data 01/07/25 03:40 01/07/25 03:40 Labs: Lab Results 01/07/25 Range/Units 03:40 WBC 7.5 (4.5-10.0) K/mm3 RBC 4.53 (4.2-5.4) M/mm3 Hgb 13.2 (12.0-15.0) g/dL Hct 39.3 (37.0-47.0) % MCV 86.8 (80-100) fl MCH 29.1 (26-34) pg MCHC 33.6 (32-36) g/dl RDW 13.2 (11.5-14.5) % Plt Count 190 (150-375) k/mm3 MPV 10.6 H (7.4-10.4) fl Immature Gran % (Auto) 0.3 (0-0.5) % Neut % (Auto) 83.6 H (45.5-73.1) % Lymph % (Auto) 12.5 L (18.3-44.2) % Waller % (Auto) 2.8 (2.6-8.5) % Eos % (Auto) 0.4 (0-4.4) % Baso % (Auto) 0.4 (0.2-1.2) % Lymph # (Auto) 0.94 (0.9-3.2) K/mm3 Waller # (Auto) 0.2 (0.1-0.6) K/mm3 Eos # (Auto) 0.0 (0-0.3) K/mm3 Baso # (Auto) 0.0 (0.0-0.1) K/mm3 Abs Immat Gran (auto) 0.02 (0.00-0.031) K/mm3 Absolute Neuts (auto) 6.3 (1.3-6.7) K/mm3 Absolute Nucleated RBC 0.000 (0.0-0.012) K/mm3 Nucleated RBC % 0.0 (0.0-0.2) % Sodium 134 L (137-145) mmol/L Potassium 3.7 (3.4-5.0) mmol/L Chloride 101 (98-107) mmol/L Carbon Dioxide 21 L (22-30) mmol/L Anion Gap 12 (4-12) mmol/L BUN 17 (7-17) mg/dL Creatinine 0.62 L (0.7-1.0) mg/dL Estim Creat Clear Calc 109 ml/min Estimated GFR > 60 (59 - ) Glucose 120 H (65-110) mg/dL Calcium 9.9 (8.4-10.2) mg/dL Total Bilirubin 0.6 (0.2-1.3) mg/dL AST 47 H (14-36) U/L ALT 65 H (6-35) U/L Alkaline Phosphatase 78 (38-126) U/L Total Protein 7.7 (6.3-8.2) g/dL Albumin 4.7 (3.5-5.1) g/dL Lipase 68 (23-300) U/L Discharge Plan Discharge Clinical Impression: Drug side effects, Miscarriage Patient Disposition: Home Condition: Stable Instructions: Antibiotic Form, Abdominal Pain (ED) Additional Instructions: Please use Zofran for nausea. Use Motrin for abdominal cramping. Please follow-up with your OBGYN for further management Patient Language: Cameroonian Prescriptions: No Action cephalexin 500 mg capsule 500 mg PO Q8H 7 Days Qty: 21 0RF Follow-up/Referrals: Quang,MD Phan [Primary Care Provider, [facility]]
[2025-01-07] MEDS: ACETAMINOPHEN 500 MG TABLET 1000 MG PO (05:17)
== END 2025-01-07 05:50 | disposition home or self-care (01) ==
PROVIDERS: Emergency Provider Emergency Medicine; PCP Family Medicine
DX: O03.9 Complete or unspecified spontaneous abortion without complication (principal); R11.0 Nausea; R19.7 Diarrhea, unspecified; R10.9 Unspecified abdominal pain; T47.1X5A Adverse effect of other antacids and anti-gastric-secretion drugs, initial encounter
CPT/HCPCS: 36415; 80053; 83690; 85025; 96361; 96374; 96375; 96376; 99284; A9270; J1885; J2405; J7030

== ENCOUNTER 2025-02-10 19:55 | Emergency (ER) | payer OTHER, SELFPAY ==
[2025-02-10] VITALS (7 sets, daily range): BP systolic 92–111; BP diastolic 59–77; PULSE 51–71; RESP 9–18; TEMP 36.4; O2SAT 98–100
--- NOTE | ~2025-02-10 | CT_ITS ---
EXAMINATION: CT abdomen pelvis wo con DATE: 02/10/2025 22:41 INDICATION: Left flank pain. Hematuria. TECHNIQUE: Computed tomography (CT) of the abdomen and pelvis was performed without intravenous contrast. Automated exposure control and iterative reconstruction technique were employed. The dose-length product was 190.06 mGy-cm. COMPARISON: CT abdomen and pelvis 10/07/2023, abdomen MRI 10/27/2023 FINDINGS: The visualized portions of lung bases demonstrate mild atelectasis. No pleural effusion. The heart size is normal. No pericardial effusion. There are 4 masses in the liver measuring up to 7.3 cm with features of hemangiomas on prior MRI. The gallbladder, spleen, pancreas, and adrenal glands are normal. There is a 5 mm stone in right kidney. There is cortical thinning of left kidney. There is severe left hydronephrosis. There are greater than 10 stones in the left kidney measuring up to 10 mm. There are no dilated loops of bowel. The appendix is normal. There are no pathologically enlarged lymph nodes. There is physiologic fluid in the pelvis. There is mild lumbar spondylosis. IMPRESSION: 1. Chronic severe left hydronephrosis. Mild left kidney atrophy. 2. Bilateral nonobstructing kidney stones. Reviewed, dictated and finalized at location E.
--- OUTSIDE RECORDS SUMMARY | 2025-02-10 19:58 | XMS_ITS | Encounter Summary ---
Author Organization [facility] Address [facility] [place] [address] Care Team Providers Care Shredder Picker Name Role Phone None, Provider Primary Care Provider Unavaila Juno Stout MD Primary Care Provider [phone] Juno Calabrese MD Primary Care Provider [phone] Stefanie So [facility]- Unavailable Bill Dunham MD Unavailable [phone] Phan Del Rio MD Primary Care Provider [phone] Encounter Details Date Type Department Care Team (Late st Contact Info) Description 01/21/2019 Abstract [facility] [address] [place] [address] Social History Tobacco Use Types Packs/Day Years Used Date Smoking Tobacco: Never Assessed Comments Unknown Sex and Gender Information Value Date Recorded Sex Assigned at Not on file 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 No 01/23/2019 3:00 PM JEFFT Brooks Caraballo, RN Active documented in this encounter Plan of Treatment Not on file documented as of this encounter Visit Diagnoses Not on filedocumented in this encounter Additional Health Concerns Infection Onset Date Last Indicated Resolved Time COVID-19 Rule Out 09/19/2019 09/19/201909/1909/20/2019 11:54 AM CDT documented as of this encounter Care Teams Shredder Picker Relationship Specialty Start Date End Date None, Provider, PCP - General 01/22/19 03/07/19 Juno Calabrese MD PCP - General FAMILY PRACTICE 03/08/19 03/10/19 Juno Calabrese MD [address] [place] [phone] PCP - General FAMILY PRACTICE 03/11/19 07/22/23 Phan Del Rio MD [address] [place] [address] [place] [address] PCP - General FAMILY PRACTICE 07/23/23 Stefanie So, [facility]- [address] [place] [phone] NURSE PRACTITIONER 07/07/19 Bill Dunham MD [address] [place] [phone] Consulting Physician NEUROLOGY 07/07/19 documented as of this encounter
--- OUTSIDE RECORDS SUMMARY | 2025-02-10 19:58 | XMS_ITS | Encounter Summary ---
Author Organization [facility] Address [facility] [place] [address] Care Team Providers Care Nurse Wound Name Role Phone None, Provider Primary Care Provider Unavaila Juno Stout MD Primary Care Provider [phone] Juno Calabrese MD Primary Care Provider [phone] Stefanie So [facility] Unavailable Bill Dunham MD Unavailable [phone] Phan Del Rio MD Primary Care Provider [phone] Encounter Details Date Type Department Care Team (Late st Contact Info) Description 10/16/2018 Abstract [facility] [address] [place] [address] , Generic Conversion, Social History Tobacco Use Types Packs/Day Years Used Date Smoking Tobacco: Never Assessed Comments Unknown Sex and Gender Information Value Date Recorded Sex Assigned at Not on file 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 Gender Identity Not on file Sexual Orientation Not on file documented as of this encounter Plan of Treatment Not on file documented as of this encounter Visit Diagnoses Not on filedocumented in this encounter Additional Health Concerns Infection Onset Date Last Indicated Resolved Time COVID-19 Rule Out 09/19/2019 09/19/2019 09/20/2019 11:54 AM CDT documented as of this encounter Care Teams Nurse Wound Relationship Specialty Start Date End Date None, Provider, PCP - General 01/22/19 03/07/19 Juno Calabrese MD PCP - General FAMILY PRACTICE 03/08/19 03/10/19 Juno Calabrese MD [address] [place], [place] [phone] PCP - General FAMILY PRACTICE 03/11/19 07/22/23 Phan Del Rio MD [address] [place] [address] [place] [address] PCP - General FAMILY PRACTICE 07/23/23 Stefanie So, [facility]- [address] [place], [place] [phone] NURSE PRACTITIONER 07/07/19 Bill Dunham MD [address] [place], [place] [phone] Consulting Physician NEUROLOGY 07/07/19 documented as of this encounter
--- OUTSIDE RECORDS SUMMARY | 2025-02-10 19:58 | XMS_ITS | Clinical Summary ---
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 Gender Identity Not on file Sexual Orientation [...] Cancer Screening with HPV 10/28/2023 COVID-19 Vaccine ( - 2023-2 5 season) 2025 Hepatitis C Completed 08/27/2017 Meningococcal B Vaccine [...] this topic Medical Devices Implanted Type Area Multi Skilled Operator Device Identifier Shelf Expiration Date Model / Serial / Lot Stent Ureteral [place] Sci Contour 6fr X 26cm - [id number] Implanted:Qty: 1 on 09/02/2019 by Rocio Chris MD at [facility] Left: Ureter indidebt [employer] LEONILA 04/07/2021 [id number] / / [id number] Description:VERIFIED BY Stent Cook Ureteral Filaform 6 Fr X 26cm - Sn/A Implanted:Qty: 1 on 09/21/2019 by Rocio Chris MD at [facility] Left: Ureter [employer] 06/30/2022 [id number] / N/A / [id number] Procedures Procedure Name Priority Date/Time Associated Diagnosis Comments HEPATITIS C ANTIBODY Routine 08/27/2017 3:19 PM CDT from Last 3 Months or Most Recently Relevant to Health Maintenance Results * HEPATITIS C ANTIBODY (08/27/2017 3:19 PM CDT) HEPATITIS C AB NON-REACTI VE NON-REACT JOYCE 08/31/2017 10:13 AM CDT [facility] Comment: ANTIBODIES TO HCV NOT DETECTED. DOES NOT EXCLUDE THE POSSIBILITY OF EXPOSURE TO HCV. 08/27/2017 3:19 PM CDT Julio Ribera MD LABORATORY Final Result [facility] [address] [place] [address], [id number] from Last 3 Months or Most Recently Relevant to Health Maintenance Insurance * Guarantor: Gail Daniels Account Type Relation to Patient Date of Phone Billing Address Personal/Family Self [address] [place] [phone] [facility] Member Subscriber Plan / Payer (Ef fective 2023-Present) Name:Gail Daniels Nuzhat Relation to Subscriber:Spouse Name:RASHAWN SNOW Date of :1995 (Home) Address: [address] [place] [phone] Payer ID:[id number] (NAIC) Type:Not on file Address: [address] [phone] * Guarantor: Gail Daniels Account Type Relation to Patient Date of Phone Billing Address Personal/Family Self [address] [place] [phone] Advance Directives * Full Code (Latest Code Status on File) Date Activated Date Inactivated Comments 04/20/2019 11:30 PM 04/21/2019 1:41 PM * Full Code Date Activated Date Inactivated Comments 01/22/2019 6:49 PM 01/25/2019 5:32 PM Care Teams Gang Drill Press Operator Relationship Specialty Start Date End Date Phan Del Rio MD [address] [place] [address] PCP - General FAMILY PRACTICE 07/23/23 Stefanie So, METAL FABRICATOR WELDER- NURSE PRACTITIONER 07/07/19 Bill Dunham MD Consulting Physician NEUROLOGY 07/07/19
--- OUTSIDE RECORDS SUMMARY | 2025-02-10 19:58 | XMS_ITS | Patient Health Record ---
[facility] Address [address] [place] [address] Care Team Providers Care Cinder Worker Name Role Phone Bryant Gurrola Unavailable [phone] Reason For Referral No Information Plan Of Treatment No Information
--- OUTSIDE RECORDS SUMMARY | 2025-02-10 19:58 | XMS_ITS | Data Portability ---
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 Plan of Treatment Reminders Order Date Submit Date Provider Last Modified By Organization Details Last Modified Time Details Appointments None recorded. Lab None recorded. Referral None recorded. Procedures None recorded. Surgeries None recorded. Imaging US, obstetric, transvagina l 2024 025 8 [address], [address], [place], [address], 09:19:59 US, pelvis 2023 024 [id number] [address], [address], [place], [address], 19:51:29 US, transvagina l [id number], [address], [place], [address], 19:51:29 Medication Orders None recorded. Patient TargetsNo targets recorded. Patient InstructionsNo instructions recorded. Reason for Referral None Reported. Results Created Date Observation Date Name Description Value Unit Range Abnormal Flag Note LastModifiedBy Organization Detail LastModifiedTime 05/19/19 24 05/19/2023 urina lysis , dipst ick Leukocytes normal Not Available Fahad hernandez [address], [place], [address], 05/19/2023 11:39:12 05/19/19 24 05/19/2023 urina lysis , dipst ick Nitrite normal Not Available [facility] [address], [place], [address], 05/19/2023 11:39:12 05/19/19 24 05/19/2023 urina lysis , dipst ick Urobilinogen normal Not Available [facility] [address], [place], [address], 05/19/2023 11:39:12 05/19/19 24 05/19/2023 urina lysis , dipst ick Protein trace Not Available [facility] [address], [place], [address], 05/19/2023 11:39:12 05/19/19 24 05/19/2023 urina lysis , dipst ick pH 6 Not Available [facility] [address], [place], [address], 05/19/2023 11:39:12 05/19/19 24 05/19/2023 urina lysis , dipst ick Specific [place] 1.015 Not Available [facility] kaden [address], [place], [address], 05/19/2023 11:39:12 05/19/19 24 05/19/2023 urina lysis , dipst ick Ketone normal Not Available [facility] [address], [place], [address], 05/19/2023 11:39:12 05/19/19 24 05/19/2023 urina lysis , dipst ick Bilirubin normal Not Available [facility] [address], [place], [address], 05/19/2023 11:39:12 05/19/19 24 05/19/2023 urina lysis , dipst ick Glucose normal Not Available [facility] [address], [place], [address], 05/19/2023 11:39:12 05/19/19 24 05/19/2023 urina lysis , dipst ick Appearance normal Not Available [facility] mary [address], [place], [address], 05/19/2023 11:39:12 05/19/19 24 05/19/2023 urina lysis , dipst ick Color normal Not Available [facility] [address], [place], [address], 05/19/2023 11:39:12 05/19/19 24 05/19/2023 pregn ana test, urine HCG negati ve Not Available [facility] [address], [place], [address], 05/19/2023 11:38:38 07/29/19 24 07/29/2023 CBC W/DIF F WBC 5.4 10'3/ uL 3.5-10 .5 Not Available [facility] (Lab) [address], [place], [address], 08/03/2023 20:14:48 07/29/19 24 07/29/2023 CBC W/DIF F RBC 4.67 10'6/ uL (based on docume nted legal sex) 3.80-5 .20 Not Available [facility] (Lab) [address], [place], [address], 08/03/2023 20:14:48 07/29/19 24 07/29/2023 CBC W/DIF F HGB 14.0 g/dL (based on docume nted legal sex) 11.6-1 5.4 Not Available [facility] (Lab) [address], [place], [address], 08/03/2023 20:14:48 07/29/19 24 07/29/2023 CBC W/DIF F HCT 41.7 % (based on docume nted legal sex) 34.0-4 5.0 Not Available [facility] (Lab) [address] [facility], [place], [address], 08/03/2023 20:14:48 07/29/19 24 07/29/2023 CBC W/DIF F MCV 89.3 fL 80.0-9 9.0 Not Available [facility] (Lab) [address] [facility], [place], [address], 08/03/2023 20:14:48 07/29/19 24 07/29/2023 CBC W/DIF F MCH 30.0 pg 27.0-3 4.0 Not Available [facility] (Lab) [address] [facility], [place], [address], 08/03/2023 20:14:48 07/29/19 24 07/29/2023 CBC W/DIF F MCHC 33.6 g/dL 32.0-3 5.5 Not Available [facility] (Lab) [address] [facility], [place], [address], 08/03/2023 20:14:48 07/29/19 24 07/29/2023 CBC W/DIF F RDW 13.1 % 11.0-1 5.0 Not Available [facility] (Lab) [address] [facility], [place], [address], 08/03/2023 20:14:48 07/29/19 24 07/29/2023 CBC W/DIF F plt 225 10'3/ uL 150-40 0 Not Available [facility] (Lab) [address] [facility] [facility], [place], [address], 08/03/2023 20:14:48 07/29/19 24 07/29/2023 CBC W/DIF F MPV 11.5 fL 8.8-12 .1 Not Available [facility] (Lab) [address] [facility], [place], [address], 08/03/2023 20:14:48 07/29/19 24 07/29/2023 CBC W/DIF F NRBC's 0.0 % 0.0 Not Available [facility] (Lab) [address] [facility], [place], [address], 08/03/2023 20:14:48 07/29/19 24 07/29/2023 CBC W/DIF F absolute NRBCs 0.0 10'3/ uL 0.0 Not Available [facility] (Lab) [address] [facility], [place], [address], 08/03/2023 20:14:48 07/29/19 24 07/29/2023 CBC W/DIF F neutrophils 54.2 % 34.0-7 3.0 Not Available [facility] (Lab) [address] [facility], [place], [address], 08/03/2023 20:14:48 07/29/19 24 07/29/2023 CBC W/DIF F lymphocytes 35.6 % 15.0-5 0.0 Not Available [facility] (Lab) [address] [facility], [place], [address], 08/03/2023 20:14:48 07/29/19 24 07/29/2023 CBC W/DIF F monocytes 6.7 % 1.0-15 .0 Not Available [facility] (Lab) [address] [facility], [place], [address], 08/03/2023 20:14:48 07/29/19 24 07/29/2023 CBC W/DIF F eosinophils 2.2 % 0.0-8. 0 Not Available [facility] (Lab) [address] [facility], [place], [address], 08/03/2023 20:14:48 07/29/19 24 07/29/2023 CBC W/DIF F basophils 1.1 % 0.0-2. 0 Not Available [facility] (Lab) [address] [facility], [place], [address], 08/03/2023 20:14:48 07/29/19 24 07/29/2023 CBC W/DIF F immature granulocytes 0.2 % no define d refere nce range Not Available [facility] (Lab) [address] [facility], [place], [address], 08/03/2023 20:14:48 07/29/19 24 07/29/2023 CBC W/DIF F absolute neutrophils 2.9 10'3/ uL 1.5-8. 0 Not Available [facility] (Lab) [address] [facility], [place], [address], 08/03/2023 20:14:48 07/29/19 24 07/29/2023 CBC W/DIF F absolute lymphocytes 1.9 10'3/ uL 1.0-4. 0 Not Available [facility] (Lab) [address] [facility], [place], [address], 08/03/2023 20:14:48 07/29/19 24 07/29/2023 CBC W/DIF F absolute monocytes 0.4 10'3/ uL 0.2-1. 0 Not Available [facility] (Lab) [address] [place], [address], 08/03/2023 20:14:48 07/29/19 24 07/29/2023 CBC W/DIF F absolute eosinophils 0.1 10'3/ uL 0.0-0. 6 Not Available [facility] (Lab) [address] [place], [address], 08/03/2023 20:14:48 07/29/19 24 07/29/2023 CBC W/DIF F absolute basophils 0.1 10'3/ uL 0.0-0. 3 Not Available [facility] (Lab) [address] [place], [address], 08/03/2023 20:14:48 07/29/19 24 07/29/2023 CBC W/DIF F absolute immature granulocytes 0.0 10'3/ uL 0.00-0 .10 2023 2:13 AM: P indic ates parti al resul ts on a panel have been relea sed. Addit ional resul ts will follo w. 2023 2:13 AM: This resul t has been final verif ied. No addit ional or grayson ed resul ts are expec ping. Not Available [facility] (Lab) [address] [facility], [place], [address], 08/03/2023 20:14:48 07/29/19 24 07/29/2023 TSH, REFLE X FREE T4 TSH 2.21 uIU/m L 0.30-5 .33 Not Available [facility] (Lab) [address] [facility], [place], [address], 08/03/2023 20:14:48 07/29/19 24 07/29/2023 FSH, LH, ESTRA DIOL estradiol 139.0 pg/mL This assay was perfo rmed using [employer] reage nts and test kits. Value s obtai sally with other assay metho ds or kits canno t be used inter grayson eably . Femal e Estra diol Range s: Folli cular phasE 12.4- 233 pg/mL Ovula tion phasE 41.0- 398 pg/mL Lutea l phasE 22.3- 341 pg/mL Postm enopa usal <5-13 8 pg/mL Healt hy Pregn ant Women 1st Trime ster 154-3 243 pg/mL 2nd Trime ster 1561- 67251 pg/mL 3rd Trime ster 8525- >3000 0 pg/mL Not Available [facility] (Lab) [address] [facility], [place], [address], 08/03/2023 20:14:49 07/29/19 24 07/29/2023 FSH, LH, ESTRA DIOL FSH 4.8 mIU/m L This assay was perfo rmed using [employer] reage nts and test kits. Value s obtai sally with other assay metho ds or kits canno t be used inter [facility] . Femal es Folli cular : 3.5-1 2.5 mIU/m L Ovula tion: 4.7-2 1.5 mIU/m L Lutea l: 1.7-7 .7 mIU/m L Postm enopa use: 25.8- 134.8 mIU/m L Not Available [facility] (Lab) [address] [place], [address], 08/03/2023 20:14:49 07/29/19 24 07/29/2023 FSH, LH, ESTRA DIOL LH 10.6 mIU/m L This assay was perfo rmed using [employer] reage nts and test kits. Value s obtai sally with other assay metho ds or kits canno t be used inter [facility] . Femal es Mid-F ollic ular: 2.4-1 2.6 mIU/m L Mid-C ycle: 14.0- 95.6 mIU/m L Mid-L uteal : 1.0-1 1.4 mIU/m L Postm enopa use: 7.7-5 8.5 mIU/m L Not Available [facility] (Lab) [address] [place], [address], 08/03/2023 20:14:49 07/29/19 24 07/29/2023 TESTO STERO NE, FREE( DIALY SIS) AND TOTAL (LC/M S/MS) testosterone , total 33 NG/dL 2-45 For addit ional infor adrien rucker e refer to http: //sosa murrell.que stdia gnost ics.c om/fa q/ Total Testo stero neLCM [facility] Q[facility] (This link is being provi ded for infor mariana nal/ educa kinza l purpo ses only. ) This test was devel oped and its mary tical perfo rmanc e radha cteri stics have been deter mined by [employer] ostic s [place]. It has not been clear ed or appro jacquie by the U.S. Food and Drug Admin istra tion. This assay has been valid ated pursu ant to the CLIA regul ation s and is used for clini lyric purpo ses. Not Available [facility] (Lab) [address] [place], [address], 08/03/2023 20:14:49 07/29/19 24 07/29/2023 TESTO STERO NE, FREE( DIALY SIS) AND TOTAL (LC/M S/MS) testosterone , free 2.9 pg/mL 0.1-6. 4 This test was devel oped and its mary tical perfo rmanc e radha cteri stics have been deter mined by [employer] ostic [employer] [place]. It has not been clear ed or appro jacquie by the U.S. Food and Drug Admin istra tion. This assay has been valid ated pursu ant to the CLIA regul ation s and is used for clini lyric purpo ses. Perfo rming Organ izati on Infor mariana n: Site ID: AMD Name: [employer] [facility]stic [employer] [facility] [facility] Addre ss: [id number] [place], [place] Direc tor: Bladimir Regalado MD PhD Not Available [facility] (Lab) [address] [place], [address], 08/03/2023 20:14:49 07/21/19 24 07/21/2023 US, pelvi s No observ ation record ed. [email or web address] [facility] [place] [address], [place], [address], 07/21/2023 13:02:51 07/21/19 24 07/21/2023 US, trans vagin al No observ ation record ed. [email or web address] [facility] [place] [address], [place], [address], 07/21/2023 13:02:41 07/21/19 24 07/21/2023 US, pelvi s No observ ation record ed. [email or web address] [address], [place], [address], 07/22/2023 12:40:32 01/06/20 25 01/05/2025 US, obste tric, trans vagin al No observ ation record ed. [email or web address] [place] [address], [place], [address], 01/10/2025 18:32:58 01/06/20 25 01/05/2025 US, obste tric, trans vagin al No observ ation record ed. [email or web address] [facility] [place] [address], [place], [address], 01/05/2025 18:30:11 Result Notes None recorded. Problems Name Problem SNOMED Code Status Onset Date Resolution Date Notes Provider Name and Address Organization Details Recorded Time Multiple sclerosis 79214436 Completed no current treatment Emilie pringle [facility] 2 16:06:19 Urolithia sis 77022624 Completed Emilie pacheco null [facility] 2 16:06:19 Bicornuat e uterus 45322687 Completed Emilie rayl null, [facility] 2 16:06:19 SARS-CoV- 2 Completed 2021 Aware to take ASA QD and will need serial growth u/s! Emilie pringle [facility] 2 16:06:19 [id number] Completed 202112/16/2021 Emilie pringle [facility] 2 16:06:23 Problem Notes None recorded. Procedures Surgical History Date Name Laterality Status Provider Name and Address Organization Details Recorded Time 11/25/19 23 Date of [facility]/24/2022 10:21:29 05/11/19 15 Dilation and Curettage completed [facility] 05/08/2021 12:35:53 05/11/19 14 Date of Last Colonoscopy completed Sonja Tong [facility] 05/29/2021 12:42:24 05/11/19 14 Colonoscopy completed [facility] 05/08/2021 12:36:15 05/11/19 12 extraction of wisdom tooth completed [facility] 07/29/2023 12:20:02 05/11/19 11 tonsilectomy/ad enoids completed [facility] 05/08/2021 12:35:43 01/09/19 94 procedure on kidney completed [facility] 05/08/2021 12:36:48 Imaging Results None recorded. Procedure Notes None recorded. Medical Equipment None Reported. Allergies Allergen ID Allergen Name Allergen Category Reaction Reaction Severity Criticality Documentation Date Start Date Code Code System Note Provider Name and Address Organization Details Recorded Time 55147 latex environme nt,medica tion Not available Not available Not available 05/07/2021 42473 91 RxNorm Gypsy pringle [facility] 17:02:55 34324 lanolin environme nt,medica tion Not available Not available Not available 05/07/2021 6227 RxNorm Gypsy pringle [facility] 17:03:08 Medications Name Sig Start Date Stop Date Status Note LastModified by Organization Details LastModified Time azithromyci n 250 mg tablet TAKE 2 TABLETS (500 MG) BY ORAL ROUTE ONCE DAILY FOR 1 DAY THEN 1 TABLET (250 MG) BY ORAL ROUTE ONCE DAILY FOR 4 DAYS 10/17 completed Not Available Not Available Not Available sulfamethox azole 800 mg-trimetho prim 160 mg tablet TAKE 1 TABLET BY MOUTH TWICE DAILY FOR 5 DAYS 01/05 completed Not Available Not Available Not Available misoprostol 200 mcg tablet TAKE 5 TABLETS BY MOUTH 1 TIME DAILY. active Not Available Not Available No t Available methylpredn isolone 4 mg tablets in a dose pack TAKE BY MOUTH DIRECTED ON INSIDE OF PACKAGE 01/05 completed Not Available Not Available Not Available Vitamin D2 1,250 mcg (50,000 unit) capsule Take 1 capsule every week by oral route. 08/06 completed Not Available Not Available Not Available ondansetron 4 mg disintegrat ing tablet 08/06 completed Not Available Not Available Not Available amoxicillin 875 mg-potassiu m clavulanate 125 mg tablet TAKE 1 TABLET BY MOUTH TWICE DAILY FOR 7 DAYS 01/05 completed Not Available Not Available Not Available Asprin Ec Low Dose 08/06 completed Not Available Not Available Not Available DHA 08/06 completed Not Available Not Available Not Available butalbital- acetaminoph en-caffeine 50 mg-300 mg-40 mg capsule Take 1 capsule every 4-6 hours by oral route. 08/06 completed Not Available Not Available Not Available + DHA 05/19 completed Not Available Not Available Not Available Vitamin B12 08/06 completed Not Available Not Available Not Available ID NOW COVID-19 Test Kit TEST DIRECTED TODAY 05/29 completed Not Available Not Available Not Available Vitals Date Recorded Body height Body mass index (BMI) Body weight Systolic And Diastolic Provider Name and Address Organization Details Last Updated DateTime 05/19/2023 165.1 cm 21.1 kg/m2 15339.23 g 92/58 mm[Hg] Gypsy Cooley [facility] 05/19/2023 11:34:06 Date Recorded Body height Body mass index (BMI) Body weight Systolic And Diastolic Provider Name and Address Organization Details Last Updated DateTime 07/29/2023 165.1 cm 21.1 kg/m2 84880.23 g 99/64 mm[Hg] Gypsy Cooley [facility] 07/29/2023 12:19:11 Date Recorded Body height Body mass index (BMI) Body weight Systolic And Diastolic Provider Name and Address Organization Details Last Updated DateTime 01/05/2025 165.1 cm 22.8 kg/m2 27048.15 g 102/62 mm[Hg] Mayra Pastor [facility] 01/05/2025 18:13:46 Social History Question Answer Notes LastModified by Organizat ion Details LastModified Time Tobacco Smoking Status Never Smoker Sherlyn Jorgensen yary, [facility] 05/19/2023 11:15:59 Do You Have An Advance Directive? No [email or web address] Information n ot available 05/08/2021 How Many Years Have You Consumed Alcohol? 9 Information not available 05/08/2021 Are You Blind Or Do You Have Difficulty Seeing? No [email or web address] Information n ot available 08/15/2021 What Is Your Level Of Caffeine Consumption? Occasional [email or web address] Information not available 05/08/2021 How Much Tobacco Do You Chew? None [email or web address] Information not available 05/08/2021 In The 14 Days Before Symptom Onset, Have You Had Close Contact With A Person Who Is Under Investigation For COVID-19 While That Person Was Ill? No [email or web address] Information not available 05/08/2021 Have You Been To An Area Known To Be High Risk For COVID-19? No [email or web address] Information not available 05/08/2021 Are You Deaf Or Do You Have Serious Difficulty Hearing? No Information not available 05/08/2021 What Type Of Diet Are You Following? REGULAR [email or web address] Information n ot available 05/08/2021 What Is The Highest Grade Or Level Of School You Have Completed Or The Highest Degree You Have Received? XI59926-9 [email or web address] Information not available 05/08/2021 Are There Any Guns Present In Your Home? Yes [email or web address] Information not available 05/08/2021 Have You Ever Been Counseled For Unhealthy Alcohol Use? No [email or web address] Information not available 05/19/2023 Do You Use Protection During Sex? No [email or web address] Information not available 05/08/2021 Do You Use Your Seat Belt Or Car Seat Routinely? Yes [email or web address] Information not available 05/08/2021 Do You Have Smoke And Carbon Monoxide Detectors In Your Home? Yes [email or web address] Information not available 05/08/2021 How Much Tobacco Do You Smoke? No [email or web address] Information not available 05/08/2021 Do You Use Sunscreen Routinely? No [email or web address] Information not available 05/08/2021 Has Tobacco Cessation Counseling Been Provided? No [email or web address] Information not available 05/19/2023 Have You Used IV Drugs? No Information not available 05/08/2021 Do You Have Difficulty Walking Or Climbing Stairs? No [email or web address] Information not available 05/19/2023 Sex: Unknown Functional Status Question Answer Note LastModified by Organizat ion Details LastModified Time Do you use any illicit or recreational drugs? No Information not available 05/08/2021 Do you or have you ever used any other forms of tobacco or nicotine? No Information not available 05/19/2023 What is your level of alcohol consumption? Occasional [email or web address] Information not available 05/08/2021 Are you able to walk independently without assistance or assistive devices? YESWOREST [email or web address] Information not available 05/08/2021 Are you able to care for yourself independently? 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 No [email or web address] Information not available 05/19/2023 What is your exercise level? Occasional [email or web address] Information not available 05/08/2021 Mental Status Question Answer Note LastModified by Organization D etails LastModified Time Do you feel stressed (tense, restless, nervous, or anxious, or unable to sleep at night)? [id number] [email or web address] Information not available 05/08/2021 Family History Relationship Description Onset Age of this Age Resolved Age Notes LastModified by Organization Details LastModified Time Father No current problems or disability [email or web address] Not available 04/11 11:45:42 Mother No current problems or disability Not available 04/11 11:45:42 Medical History Condition Response Allergies (Food, seasonal, environmental ) N Other N Drug/Latex Allergies/Reactions Y Breast Cancer N Blood Transfusion N Lung Disease Y Dermatologic Disorders N Defects or Inherited Disease N Breast Problem N Gestational Diabetes N Hematologic disorders N Anesthesia Complications N History of STI N Deep Vein Thrombosis N Polycystic ovary syndrome N Anxiety Disorder Y Autoimmune disease N Arthritis N Polyps N Infertility N History of abnormal pap N Acid Reflux (GERD) N Cancer N Varicosities N Stroke N Neurologic/Epilepsy Endometriosis N High Cholesterol N Headaches Y Fibromyalgia N Kidney Disease Y Heart Problems N Thyroid Problems N Kidney or Bladder Problems Y GI Problems N Eating Disorder N Anemia N Art (IVF or FET) N Psychiatric Illness N Ovarian Cancer N Diabetes N Pulmonary (TB, Asthma) Y Hepatitis/Liver Disease N No Past Medical History N Eczema N Urinary Tract Infection N Abuse/Domestic Violence N Asthma N Trauma/Violence N Depression/ depression Y Heart Disease N Pre-Eclampsia N Hypertension N Osteoporosis N Thrombophilias N Gynecological History Statement/Question Response Abnormal Pap N Date of LMP 07/19/2023 On BCP's at Conception? N N Was last menstrual period normal Y STIs/STDs N HPV Vaccine N Duration of Flow (days) 7 Current Control Method Seeking Pre gnancy Are cycles usually normal Y Date of Last Colonoscopy 05/11/2013 Frequency of Cycle (Q days) 7 Sexually Active? Y Menses Monthly Y Age of first menstrual cycle 14 Date of Last Pap Smear 11/24/2022 Sexual Problems? N Desired Control Method None LMP Approximate N Obstetrics History GPAL:G 6 P 2 0 4 2 Type Value Full Term 2 Spontaneous 4 Living 2 Total 6 Past Encounters Encounter ID Performer Location Encounter Start Date Encounter Closed Date Diagnosis/Indication Diagnosis SNOMED-CT Code Diagnosis ICD10 Code Diagnosis IMO Codes Diagnosis Note [id number] Ariana Amezcua CNM [facility] [address] [address] 05/08/2021 11:15:22 05/08/2021 13:23:21 Gynecologic examination 18492011 Z01.419 Amenorrhea 15871055 N91. 2 [id number] MD Gallito Jacobson [address],[place] [address] 05/08/2021 11:17:39 05/08/2021 13:30:50 [id number] MD Gallito Jacobson [address],[place] [address] 06/18/2021 10:30:25 06/19/2021 10:32:27 screening 402961337 Z36.89 Routine an tenatal care 027445072 Z34.82 [id number] MD Gallito Jacobson [address],[place] [address] 06/18/2021 10:26:57 06/18/2021 12:23:04 screening for malformation 322238374 Z36.3 [id number] MD Gallito Jacobson [address],[place] [address] 07/16/2021 09:30:21 07/16/2021 10:47:03 COVID-19 709051896 U07.1 O34.02 Z3A.23 [id number] Elidia Alatorre CNM [facility] [address],[place] [address] 08/15/2021 10:04:23 08/15/2021 18:15:02 Routine care 191729614 Z34.92 [id number] Al Burnette MD [facility] [address],[place] [address] 08/15/2021 10:10:03 08/15/2021 11:19:41 Pre-existing maternal disease complicating 0126564506 6106 O99.891 U07.1 Z3A.27 [id number] Elidia Alatorre CNM [facility] [address],[place] [address] 09/12/2021 10:40:17 09/13/2021 16:04:18 Routine care 049958246 Z34.92 [id number] MD Gallito Jacobson [address],[place] [address] 09/17/2021 15:12:17 09/17/2021 16:20:30 COVID-19 313120841 U07.1 O34.02 Z3A.32 [id number] Al Burnette MD [facility] [address],[place] [address] 10/03/2021 15:07:37 10/03/2021 21:13:48 [id number] Al Burnette MD [facility] [address],[place] [address] 10/17/2021 10:30:41 10/17/2021 11:10:02 Pre-existing maternal disease complicating [id number] 6106 O99.891 U07.1 Z86.16 Z3A.36 [id number] Ariana Amezcua CNM [facility] [address],[place] [address] 10/17/2021 10:31:07 10/17/2021 11:37:58 Routine care [id number] Z34.93 [id number] [facility] [address],[place] [address] 10/23/2021 15:58:21 10/23/2021 16:31:33 Routine care 690070205 Z34.93 [id number] Ariana Amezcua CNM [facility] [address],[place] [address] 12/18/2021 15:14:09 12/18/2021 16:07:05 care [id number] Z39.2 [id number] SAÚL Cobos [facility] [address],[place] [address] 08/06/2022 11:57:26 08/06/2022 14:46:03 Abnormal uterine bleeding [id number] 9100 N93.9 Discussed return of periods after breastfeed ing, discussed normal for periods to be irregular during this transition period.UPT (-)pap updated/ STI testing added to papWe agreed to labs, continue to track periods. If irregulari ties continue, consider pelvic u/s Time spent in visit is a total of 20 mins with at least 50% of visit consisting of counseling and review of plan of care. Contracept ion care management [id number] Z30.9 Irregular periods 123666 07 N92.6 Venereal d isease screening 559239539 Z11.3 [id number] Lyssa Vinson [place] [address],[place] [address] 11/24/2022 10:00:23 11/24/2022 10:36:44 Screening for malignant neoplasm of cervix 076977568 Z12.4 repeat pap collected No charge visit [id number] Lyssa Vinson [facility] [address],[place] [address] 05/19/2023 11:14:33 05/19/2023 16:55:31 Left without being seen [id number] 9102 Z53.21 duplicate encounter [id number] Lyssa Vinson [place] [address],[place] [address] 05/19/2023 11:29:53 05/19/2023 14:14:26 Pain in pelvis 56271816 R10.2 ua - normal todayUPT (-)Discuss ed pain with IC, recommende d updated TVUS for further evaluation - orderedrec ommended PFPT. Will update u/s and reach out to pt with next steps Time spent in visit is a total of 25 mins with at least 50% of visit consisting of counseling and review of plan of care. [id number] Al Burnette MD [facility] [address],[place] [address] 07/21/2023 12:26:31 07/21/2023 13:10:50 Pain in pelvis 68670946 R10.2 [id number] Ariana Amezcua CNM [facility] [address],[place] [address] 07/29/2023 12:06:55 07/29/2023 13:17:51 Fatigue 26346480 R53.83 check labs, consider testostero ne/and or progestero ne cream pending resultsrev iewed testostero ne se risks and benefitsca ll if any questions Reduced libido 3268005 R 68.82 [id number] Al Burnette MD [facility] [address],[place] [address] 01/05/2025 17:27:51 01/06/2025 09:19:59 Uncertain viability of [id number] O36.80X0 Z3A.00 [id number] Al Burnette MD [facility] [address],[place] [address] 01/05/2025 18:12:31 01/06/2025 09:19:19 Missed miscarriage 71100993 O02.1 [id number] This patient is a 29 female who presents for missed discussed the etiology, frequency, natural history, and treatment of this condition. Spent more than 35 minutes talking about the above, as well as, her history, the particular findings of her case, and detail of her the treatment options. We discussed the risk benefits of each option. She understand s the risk include infection and hemorrhage . She understand s a D&C also holds the risk of injury. She understand s that waiting can result in a septic that is even more difficult to treat. We talked about signs and symptoms of infection. she is considerin g Cytotec, prescribed Cytotec, given precaution s, instructio ns, risks, benefits, and alternativ es. Health Concerns Section Related Observation LastModified by Organization Detai ls LastModified Time None Recorded Concern Status LastModified by Organization Details LastModified Time None Recorded Advance Directives Directive N: Payers Insurance Date Sequence Insurance Name Policy Number Policy Mixon Covered Member ID Mixon Member ID Guarantor Name 08/15/2021 1 *SELF PAY* Christina Snow 01/24/2025 1 [facility] [id number] [facility] [id number] Gail Snow Notes Date Note Type Note Provider Name and Address Organization Details Recorded Time 05/19/2023 text/html 27yo [id number] for evaluation of pain with ICsymptoms present 3-4 monthsburning/pressur e sensation in lower midline pelvis, present during all IC/not postionaldryness with ICneg urinary symptomsnormal bowel movementsneg n/v/fneg discharge, odors, itchingSA with steady male partner SAÚL Cobos [address], [place], [address], [facility] 05/19/2023 14:08:09 07/29/2023 text/html ROS as noted in the HPI pelvic pain f/u- reviewed US wnl, seeing GI and cardiology for abd/chest painfatigue/decreased libido, didnt resolve after immediate pp period, would like to increase libido Ariana Amezcua CNM [address], [place], [address], [facility] 07/29/2023 13:15:38 01/05/2025 text/html This patient is a 29 female who presents for missed discussed the etiology, frequency, natural history, and treatment of this condition. Spent more than 35 minutes talking about the above, as well as, her history, the particular findings of her case, and detail of her the treatment options. We discussed the risk benefits of each option. She understands the risk include infection and hemorrhage. She understands a D&C also holds the risk of injury. She understands that waiting can result in a septic that is even more difficult to treat. We talked about signs and symptoms of infection. she is considering Cytotec, prescribed Cytotec, given precautions, instructions, risks, benefits, and alternatives. Al Burnette MD [address], [place], [address], [facility] 01/05/2025 18:55:24 OBGyn Episode Ob Episode Information Episode Created Date Number of Fetuses Patient Bloodtype Patient rh Status Prepregnancy Weight lbs Domestic Partner Domestic Partner Phone Father Name Underlay Stitcher Status 06/13/19 22 1 CLOSED Fetus Data First Name Last Name Admitted to NICU Weight (g) Sex Living Outcome Pediatric Complications Fetus ID Race Codes Race Delivery Type , Spontane ous [id number] Sam Calculation Initial Sam Date Initial Exam Date Initial Exam Provider Initial Ultrasound Date Last Menstrual Period Date Ultra Sound Weeks Gestation 0 Eighteen To Twenty Week Sam Update Ultra Sound Date Fundal Height At Umbil Quickening Date Ultra Sound Latest Weeks Gestation Final Sma Confirmed By Final Sam Confirmed Date Final Sam Date Ultra Sound Latest Days Gestation 0 0 Menstrual History Last Menstrual Date Menses Monthly On Bcp Conception Prior Menses Frequency Hcg Plus Date Menarche Onset Age Delivery Information Delivery Date Delivery Type Labor Anesthesia Weeks Gestation Incision Type Labor Labor Length Hrs Delivered By Post Complications Tubal Sterilization Discharge Date Comments 8 Discharge Information Feeding Method Contraceptive Method Maternal HG B and HCT Levels Ob Episode Information Episode Created Date Number of Fetuses Patient Bloodtype Patient rh Status Prepregnancy Weight lbs Domestic Partner Domestic Partner Phone Father Name Underlay Stitcher Status 06/18/19 22 1 A Positive 131 CLOSED Fetus Data First Name Last Name Admitted to NICU Weight (g) Sex Living Outcome Pediatric Complications Fetus ID Race Codes Race Delivery Type 3997.27 95 F true Full Term terminal meconium [id number] Vaginal Delivery Problems Problem Notes states she has a weak heart - had an evaluation in [place], considered pacemaker if starting MS medications - Records in!!! Pt had bradycardia and risk of hypotension with MS meds. Had echo and appears normal. 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 Sam Calculation Initial Sam Date Initial Exam Date Initial Exam Provider Initial Ultrasound Date Last Menstrual Period Date Ultra Sound Weeks Gestation 11/09/2021 06/18/2021 05/08/2021 03/02/2021 13 Eighteen To Twenty Week Sam Update Ultra Sound Date Fundal Height At Umbil Quickening Date Ultra Sound Latest Weeks Gestation Final Sam Confirmed By Final Sam Confirmed Date Final Sam Date Ultra Sound Latest Days Gestation 0 [email or web address] 06/18/2021 11/10/19 22 0 Pre- Flowsheet Flowsheet Date 06/18/2021 Josue Score Blood Edema Fundus Height Fundus Units Glucose Ketones Leukocytes Nitrite Labor Signs Protein Cervic Dilation Cervic Effacement Cervic Station 19 Type Weight in lbs Pre/Post Dialysis Refused Weight 138.254575841288 BP Diastolic BP Location Tested BP Systolic BP Type 59 R arm 101 sitting Fetus Heart Rate Present A 156 Fetus Movement Comments this patient is a 25-year-ol d 4 para 1021 at 19 weeks gestation. She has a complicated medical history that includes multiple sclerosis. She also is been said to have a weak heart. She had a cardiac evaluation for what is likely bradycardia. We need to get records on her cardiac history. Her MS is mild and asymptomatic at this time. She is on vaccinated. She was given recommendations on vaccines and asked also to consult with her neurologist On vaccinations. She has not been vaccinated for the flu either. She given recommendations on Tdap. I described care to her in detail. She is doing genetic testing. She had anatomy scan today and it was normal. Will likely see Maternal- Medicine. Flowsheet Date 07/16/2021 Josue Score Blood Edema Fundus Height Fundus Units Glucose Ketones Leukocytes Nitrite Labor Signs Protein Cervic Dilation Cervic Effacement Cervic Station Type Weight in lbs Pre/Post Dialysis Refused BP Diastolic BP Location Tested BP Systolic BP Type Fetus Heart Rate Present Fetus Movement Comments Flowsheet Date 08/15/2021 Josue Score Blood Edema Fundus Height Fundus Units Glucose Ketones Leukocytes Nitrite Labor Signs Protein Cervic Dilation Cervic Effacement Cervic Station Type Weight in lbs Pre/Post Dialysis Refused BP Diastolic BP Location Tested BP Systolic BP Type Fetus Heart Rate Present Fetus Movement Comments Flowsheet Date 08/15/2021 Josue Score Blood Edema Fundus Height Fundus Units Glucose Ketones Leukocytes Nitrite Labor Signs Protein Cervic Dilation Cervic Effacement Cervic Station Type Weight in lbs Pre/Post Dialysis Refused BP Diastolic BP Location Tested BP Systolic BP Type Fetus Heart Rate Present Fetus Movement Comments Flowsheet Date 09/12/2021 Josue Score Blood Edema Fundus Height Fundus Units Glucose Ketones Leukocytes Nitrite Labor Signs Protein Cervic Dilation Cervic Effacement Cervic Station neg trace 31 none trace Type Weight in lbs Pre/Post Dialysis Refused Weight 160.388405632325 BP Diastolic BP Location Tested BP Systolic BP Type 55 97 Fetus Heart Rate Present A 140 Fetus Movement A Yes Comments Doing well. Does still have some ligament pain. No growth u/s today. Needs serial growth. Will schedule growth u/s. Encouraged tdap and to schedule pre admit. Has chosen Dr You for peds. Flowsheet Date 09/17/2021 Josue Score Blood Edema Fundus Height Fundus Units Glucose Ketones Leukocytes Nitrite Labor Signs Protein Cervic Dilation Cervic Effacement Cervic Station Type Weight in lbs Pre/Post Dialysis Refused BP Diastolic BP Location Tested BP Systolic BP Type Fetus Heart Rate Present Fetus Movement Comments Flowsheet Date 10/03/2021 Josue Score Blood Edema Fundus Height Fundus Units Glucose Ketones Leukocytes Nitrite Labor Signs Protein Cervic Dilation Cervic Effacement Cervic Station Type Weight in lbs Pre/Post Dialysis Refused Weight 169.728513417146 BP Diastolic BP Location Tested BP Systolic BP Type 61 R arm 98 sitting Fetus Heart Rate Present Fetus Movement A Yes Comments Flowsheet Date 10/17/2021 Josue Score Blood Edema Fundus Height Fundus Units Glucose Ketones Leukocytes Nitrite Labor Signs Protein Cervic Dilation Cervic Effacement Cervic Station Type Weight in lbs Pre/Post Dialysis Refused BP Diastolic BP Location Tested BP Systolic BP Type Fetus Heart Rate Present Fetus Movement Comments Flowsheet Date 10/17/2021 Josue Score Blood Edema Fundus Height Fundus Units Glucose Ketones Leukocytes Nitrite Labor Signs Protein Cervic Dilation Cervic Effacement Cervic Station neg trace none trace Type Weight in lbs Pre/Post Dialysis Refused Weight 171.951898124691 BP Diastolic BP Location Tested BP Systolic BP Type 66 107 Fetus Heart Rate Present Fetus Movement A Yes Comments patient is having some ligam ent pain, BH contractions, swelling and nausea and vomiting. prefers sp if induction will schedule 11/05, precautions reviewed gbs done today f/u one week efw 44% Flowsheet Date 10/23/2021 Josue Score Blood Edema Fundus Height Fundus Units Glucose Ketones Leukocytes Nitrite Labor Signs Protein Cervic Dilation Cervic Effacement Cervic Station neg none 38 none trace 3cm 50% -2 Type Weight in lbs Pre/Post Dialysis Refused Weight 170.784388081115 BP Diastolic BP Location Tested BP Systolic BP Type 60 107 Fetus Heart Rate Present A 143 Fetus Movement A Yes Comments breast pump order put in , d oing well precautions reviewed plan mil f/u one week Menstrual History Last Menstrual Date Menses Monthly On Bcp Conception Prior Menses Frequency Hcg Plus Date Menarche Onset Age 1003/02/2021 Genetic Screening And Infection History Question Response Note Mental Retardation/Autism false Patient's Age Will Be 35 Years Or Older At Estim ated Date of Delivery false Thalassemia (Pashto, Tajik, Mediterranean, Or Background): MCV < 80 false Neural Tube Defect (Meningomyelocele, Spina Bifi da, Or Anencephaly) false Congenital Heart Defect false Down Syndrome false David-Sachs (eg, Oriental Orthodox, Cajun, Sinhala-Ghanaian) f alse Chinmay Disease false Sickle Cell Disease Or Trait () false Hemophilia Or Other Blood Disorders false Muscular Dystrophy false Cystic Fibrosis false Turner's Chorea false Intellectual Disability/Autism false If Yes, Was Person Tested For Fragile X? false Other Inherited Genetic Or Chromosomal Disorder false Maternal Metabolic Disorder (eg, Type 1 Diabetes , PKU) false Patient Or Baby's Father Had A Child With Defects Not Listed Above false Recurrent Loss, Or A Stillbirth false Medications (including Suppl ements, Vitamins, Herbs, OTC Drugs), Illicit/Recreational Drugs, Alcohol false If Yes, Agent(s) And Strength/Dosage false Any Other Genetic History false Live With Someone With TB Or Exposed To TB false Patient Or Partner Has History Of Genital Herpes false Rash Or Viral Illness Since Last Menstrual Perio d false History Of STD, Gonorrhea, Chlamydia, HPV, Syphi lis false Other Infection History false History of HIV false History of Hepatitis false Prior GBS-infected child false Hemoglobinopathy Or Carrier false Other Structural Defect false Recent Travel History Outside of Country false Delivery Information Delivery Date Delivery Type Labor Anesthesia Weeks Gestation Incision Type Labor Labor Length Hrs Delivered By Post Complications Tubal Sterilization Discharge Date Comments 2 Induce d Regional-Ep idural 39.3 false Ariana Amezcua CNRosalino Gbs+ & covid 06/01 Discharge Information Feeding Method Contraceptive Method Maternal HG B and HCT Levels Ob Episode Information Episode Created Date Number of Fetuses Patient Bloodtype Patient rh Status Prepregnancy Weight lbs Domestic Partner Domestic Partner Phone Father Name Underlay Stitcher Status 05/08/20 21 1 CLOSED Fetus Data First Name Last Name Admitted to NICU Weight (g) Sex Living Outcome Pediatric Complications Fetus ID Race Codes Race Delivery Type 3628.73 6 M Full Term [id number] Vaginal Delivery Sam Calculation Initial Sam Date Initial Exam Date Initial Exam Provider Initial Ultrasound Date Last Menstrual Period Date Ultra Sound Weeks Gestation 0 Eighteen To Twenty Week Sam Update Ultra Sound Date Fundal Height At Umbil Quickening Date Ultra Sound Latest Weeks Gestation Final Sam Confirmed By Final Sam Confirmed Date Final Sam Date Ultra Sound Latest Days Gestation 0 0 Menstrual History Last Menstrual Date Menses Monthly On Bcp Conception Prior Menses Frequency Hcg Plus Date Menarche Onset Age Delivery Information Delivery Date Delivery Type Labor Anesthesia Weeks Gestation Incision Type Labor Labor Length Hrs Delivered By Post Complications Tubal Sterilization Discharge Date Comments 6 40 Luis Discharge Information Feeding Method Contraceptive Method Maternal HG B and HCT Levels Ob Episode Information Episode Created Date Number of Fetuses Patient Bloodtype Patient rh Status Prepregnancy Weight lbs Domestic Partner Domestic Partner Phone Father Name Underlay Stitcher Status 06/13/19 22 1 DELETED Sam Calculation Initial Sam Date Initial Exam Date Initial Exam Provider Initial Ultrasound Date Last Menstrual Period Date Ultra Sound Weeks Gestation 0 Eighteen To Twenty Week Sam Update Ultra Sound Date Fundal Height At Umbil Quickening Date Ultra Sound Latest Weeks Gestation Final Sam Confirmed By Final Sam Confirmed Date Final Sam Date Ultra Sound Latest Days Gestation 0 0 Menstrual History Last Menstrual Date Menses Monthly On Bcp Conception Prior Menses Frequency Hcg Plus Date Menarche Onset Age Delivery Information Delivery Date Delivery Type Labor Anesthesia Weeks Gestation Incision Type Labor Labor Length Hrs Delivered By Post Complications Tubal Sterilization Discharge Date Comments 4 Discharge Information Feeding Method Contraceptive Method Maternal HG B and HCT Levels Ob Episode Information Episode Created Date Number of Fetuses Patient Bloodtype Patient rh Status Prepregnancy Weight lbs Domestic Partner Domestic Partner Phone Father Name Underlay Stitcher Status 05/29/19 22 1 DELETED Fetus Data First Name Last Name Admitted to NICU Weight (g) Sex Living Outcome Pediatric Complications Fetus ID Race Codes Race Delivery Type [id number] Sam Calculation Initial Sam Date Initial Exam Date Initial Exam Provider Initial Ultrasound Date Last Menstrual Period Date Ultra Sound Weeks Gestation 11/07/2021 05/29/2021 05/08/2021 01/31/2021 13 Eighteen To Twenty Week Sam Update Ultra Sound Date Fundal Height At Umbil Quickening Date Ultra Sound Latest Weeks Gestation Final Sam Confirmed By Final Sam Confirmed Date Final Sam Date Ultra Sound Latest Days Gestation 0 11/08/19 22 0 Menstrual History Last Menstrual Date Menses Monthly On Bcp Conception Prior Menses Frequency Hcg Plus Date Menarche Onset Age 0901/31/2021 Delivery Information Delivery Date Delivery Type Labor Anesthesia Weeks Gestation Incision Type Labor Labor Length Hrs Delivered By Post Complications Tubal Sterilization Discharge Date Comments Discharge Information Feeding Method Contraceptive Method Maternal HG B and HCT Levels Ob Episode Information Episode Created Date Number of Fetuses Patient Bloodtype Patient rh Status Prepregnancy Weight lbs Domestic Partner Domestic Partner Phone Father Name Underlay Stitcher Status 06/13/19 22 1 CLOSED Fetus Data First Name Last Name Admitted to NICU Weight (g) Sex Living Outcome Pediatric Complications Fetus ID Race Codes Race Delivery Type , Spontane ous [id number] Sam Calculation Initial Sam Date Initial Exam Date Initial Exam Provider Initial Ultrasound Date Last Menstrual Period Date Ultra Sound Weeks Gestation 0 Eighteen To Twenty Week Sam Update Ultra Sound Date Fundal Height At Umbil Quickening Date Ultra Sound Latest Weeks Gestation Final Sam Confirmed By Final Sam Confirmed Date Final Sam Date Ultra Sound Latest Days Gestation 0 0 Menstrual History Last Menstrual Date Menses Monthly On Bcp Conception Prior Menses Frequency Hcg Plus Date Menarche Onset Age Delivery Information Delivery Date Delivery Type Labor Anesthesia Weeks Gestation Incision Type Labor Labor Length Hrs Delivered By Post Complications Tubal Sterilization Discharge Date Comments 5 Discharge Information Feeding Method Contraceptive Method Maternal HG B and HCT Levels Ob Episode Information Episode Created Date Number of Fetuses Patient Bloodtype Patient rh Status Prepregnancy Weight lbs Domestic Partner Domestic Partner Phone Father Name Underlay Stitcher Status 12/27/19 23 1 CLOSED Fetus Data First Name Last Name Admitted to NICU Weight (g) Sex Living Outcome Pediatric Complications Fetus ID Race Codes Race Delivery Type , Spontane ous Sam Calculation Initial Sam Date Initial Exam Date Initial Exam Provider Initial Ultrasound Date Last Menstrual Period Date Ultra Sound Weeks Gestation 0 Eighteen To Twenty Week Sam Update Ultra Sound Date Fundal Height At Umbil Quickening Date Ultra Sound Latest Weeks Gestation Final Sam Confirmed By Final Sam Confirmed Date Final Sam Date Ultra Sound Latest Days Gestation 0 0 Menstrual History Last Menstrual Date Menses Monthly On Bcp Conception Prior Menses Frequency Hcg Plus Date Menarche Onset Age Delivery Information Delivery Date Delivery Type Labor Anesthesia Weeks Gestation Incision Type Labor Labor Length Hrs Delivered By Post Complications Tubal Sterilization Discharge Date Comments 4 Discharge Information Feeding Method Contraceptive Method Maternal HG B and HCT Levels Ob Episode Information Episode Created Date Number of Fetuses Patient Bloodtype Patient rh Status Prepregnancy Weight lbs Domestic Partner Domestic Partner Phone Father Name Underlay Stitcher Status 12/27/19 23 1 CLOSED Fetus Data First Name Last Name Admitted to NICU Weight (g) Sex Living Outcome Pediatric Complications Fetus ID Race Codes Race Delivery Type , Spontane ous Sam Calculation Initial Sam Date Initial Exam Date Initial Exam Provider Initial Ultrasound Date Last Menstrual Period Date Ultra Sound Weeks Gestation 0 Eighteen To Twenty Week Sam Update Ultra Sound Date Fundal Height At Umbil Quickening Date Ultra Sound Latest Weeks Gestation Final Sam Confirmed By Final Sam Confirmed Date Final Sam Date Ultra Sound Latest Days Gestation 0 0 Menstrual History Last Menstrual Date Menses Monthly On Bcp Conception Prior Menses Frequency Hcg Plus Date Menarche Onset Age Delivery Information Delivery Date Delivery Type Labor Anesthesia Weeks Gestation Incision Type Labor Labor Length Hrs Delivered By Post Complications Tubal Sterilization Discharge Date Comments 3 Discharge Information Feeding Method Contraceptive Method Maternal HG B and HCT Levels
--- OUTSIDE RECORDS SUMMARY | 2025-02-10 19:58 | XMS_ITS | Clinical Summary ---
Author Organization [facility] Address [address] [place] [address] Care Team Providers Care Tourist Escort Name Role Phone Teddy Worrell MD Unavailable Phan Del Rio MD Primary Care Provider Allergies Active Allergy Reactions Criticality Noted Date Comments Lanolin Rash Medium 01/22/2019 Latex Rash Medium 01/22/2019 Medications No known medications Active Problems Problem Noted Date Diagnosed Date Chest pain 09/04/2023 Overview (09/04/2023): EKG ok in office today Given cardiac hx w/ possible pacemaker will get ECHO and extracorporeal technician consult 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 Gender Identity Not on file Sexual Orientation [...] patient's age to complete this topic Insurance [facility] CHO[facility] PLUS [facility]PPO Address: [facility] [address] [place] [address] [facility] H[facility]/PPO Address: [address] [address] [place] [address] [facility] CHO[facility] PLUS [facility] H[facility]/PPO Address: [address] [address] [place] [address] Care Teams Tourist Escort Relationship Specialty Start Date End Date Phan Del Rio MD [address] [place] [id number] PCP - General Family Medicine 03/03/24 Teddy Worrell MD [address] [place] [address] Referring Physician Neurology 10/09/22
--- OUTSIDE RECORDS SUMMARY | 2025-02-10 19:58 | XMS_ITS | Encounter Summary ---
Author Organization [facility] Address [facility] [place] [address] Care Team Providers Care Arrt Technologist Name Role Phone None, Provider Primary Care Provider Unavaila Juno Stout MD Primary Care Provider [phone] Juno Calabrese MD Primary Care Provider [phone] Stefanie So [facility] Unavailable Bill Dunham MD Unavailable [phone] Phan Del Rio MD Primary Care Provider [phone] Encounter Details Date Type Department Care Team (Late st Contact Info) Description 01/24/2019 Abstract [facility] [address] [place] [id number] Social History Tobacco Use Types Packs/Day Years Used Date Smoking Tobacco: Never Smokeless Tobacco: Never Alcohol Use Standard Drinks/Week Comments Yes 0 (1 standard drink = 0.6 oz pur e alcohol) socially Comments No Sex and Gender Information Value Date Recorded Sex Assigned at Not on file 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 Gender Identity Not on file Sexual Orientation [...] documented as of this encounter Care Teams Arrt Technologist Relationship Specialty Start Date End Date None, Provider, PCP - General 01/22/19 03/07/19 Juno Calabrese MD PCP - General FAMILY PRACTICE 03/08/19 03/10/19 Juno Calabrese MD [address] [place] [phone] PCP - General FAMILY PRACTICE 03/11/19 07/22/23 Phan Del Rio MD [address] [place] [address] [place] [address] PCP - General FAMILY PRACTICE 07/23/23 Stefanie So FNP- [address] [place] [phone] NURSE PRACTITIONER 07/07/19 Bill Dunham MD [address] [place] [phone] Consulting Physician NEUROLOGY 07/07/19 documented as of this encounter
--- OUTSIDE RECORDS SUMMARY | 2025-02-10 19:58 | XMS_ITS | Encounter Summary ---
Author Organization [facility] Address [address] [place] [address] Care Team Providers Care Poolroom Table Attendant Name Role Phone None, Provider Primary Care Provider Unavaila Juno Stout MD Primary Care Provider [phone] Juno Calabrese MD Primary Care Provider [phone] Stefanie So [facility] Unavailable Bill Dunham MD Unavailable [phone] Phan Del Rio MD Primary Care Provider [phone] Encounter Details Date Type Department Care Team (Late st Contact Info) Description 07/25/2017 Abstract [facility] [address] [place] [address] , Generic Conversion, Social History Tobacco Use Types Packs/Day Years Used Date Smoking Tobacco: Never Assessed Comments Unknown Sex and Gender Information Value Date Recorded Sex Assigned at Not on file 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 Gender Identity Not on file Sexual Orientation Not on file documented as of this encounter Plan of Treatment Not on file documented as of this encounter Visit Diagnoses Not on filedocumented in this encounter Additional Health Concerns Infection Onset Date Last Indicated Resolved Time COVID-19 Rule Out 09/19/2019 09/19/2019 09/20/2019 11:54 AM CDT documented as of this encounter Care Teams Poolroom Table Attendant Relationship Specialty Start Date End Date None, Provider, PCP - General 01/22/19 03/07/19 Juno Calabrese MD PCP - General FAMILY PRACTICE 03/08/19 03/10/19 Juno Calabrese MD [address] [place] [phone] PCP - General FAMILY PRACTICE 03/11/19 07/22/23 Phan Del Rio MD [address] [place] [address] [place] [address] PCP - General FAMILY PRACTICE 07/23/23 Stefanie So, [facility]- [address] [place], [place] [phone] NURSE PRACTITIONER 07/07/19 Bill Dunham MD [address] [place] [phone] Consulting Physician NEUROLOGY 07/07/19 documented as of this encounter
[2025-02-10 21:15] LABS: BEDSIDEPREGUCG Negative (Negative)
[2025-02-10 21:18] LABS: Hematocrit 40.0 % (37.0-47.0); Hemoglobin 13.3 g/dL (12.0-15.0); Immature Granulocyte Percent A 0.3 % (0-0.5); Lymphocytes Absolute Auto 1.93 K/mm3 (0.9-3.2); Mean Corpuscular HGB Conc 33.3 g/dl (32-36); Mean Corpuscular Hemoglobin 29.5 pg (26-34); Mean Corpuscular Volume 88.7 fl (80-100); Nucleated Red Blood Cells Absolute Auto 0.000 K/mm3 (0.0-0.012); Nucleated Red Blood Cells Perc 0.0 % (0.0-0.2); Platelet Count Result 211 k/mm3 (150-375); Red Blood Count 4.51 M/mm3 (4.2-5.4); White Blood Count 6.8 K/mm3 (4.5-10.0)
[2025-02-10 21:23] LABS: Non Pathogenic Casts 0-2
[2025-02-10 21:28] LABS: Add Urine Microscopic? YES; Appearance Urine Cloudy (Clear); Glucose Urine UA Negative (Negative); Leukocyte Esterase Ur 1+ LEU/UL (Negative); Nitrate Urine Negative (Negative); Specific Grav Ur 1.017 (1.001-1.035)
[2025-02-10 21:40] LABS: Alanine Aminotransferase 30 U/L (6-35); Albumin Level 4.5 g/dL (3.5-5.1); Alkaline Phosphatase 55 U/L (38-126); Anion Gap 5 mmol/L (4-12); Aspartate Amino Transferase 32 U/L (14-36); Bilirubin,Total 0.8 mg/dL (0.2-1.3); Blood Urea Nitrogen 19 mg/dL (7-17); Calcium 10.1 mg/dL (8.4-10.2); Carbon Dioxide 31 mmol/L (22-30); Chloride 101 mmol/L (98-107); Estimated CRCL calculation 83 ml/min; Estimated Glomerular Filt Rate > 60; Glucose 101 mg/dL (65-110); Lipase 85 U/L (23-300); Potassium 3.5 mmol/L (3.4-5.0); Sodium 137 mmol/L (137-145); Total Protein 7.6 g/dL (6.3-8.2)
--- NOTE | 2025-02-10 22:03 | ED_ITS ---
HPI - Abdominal Pain General Chief Complaint: Abdominal Pain Stated Complaint: gen abd pain Time Seen by Provider: 02/10/25 21:13 History of Present Illness HPI narrative: Patient is a 29-year-old female who presents to the ER with left flank pain and lower abdominal discomfort. She reports she had a miscarriage approximately 1 month ago. Patient reports her vaginal bleeding has subsided, but she recently started experiencing these new symptoms. She denies any recent fevers, new urinary symptoms, chest pain, or passing of clots. Patient endorses a history of chronic kidney nephrosis, kidney stones and a bicornuate uterus. Related Data Allergies Allergy/AdvReac Type Severity Reaction Status Date / Time lanolin Allergy Rash Verified 02/10/25 20:02 latex Allergy Rash Verified 02/10/25 20:02 Review of Systems 2 Review of Systems: All systems reviewed & are unremarkable except as noted in HPI and below PMFSH Social History Social History Smoking status: Never smoker Substance use: never Spiritual care concerns: No Exam 2 Narrative: GENERAL: Well appearing, well-nourished, non-toxic, in no acute distress. HEAD: Normocephalic, atraumatic. NECK: Supple. No adenopathy, no masses. RESPIRATORY: Airway patent, respirations nonlabored. Clear to auscultation bilaterally, no rales, rhonchi, wheezing. CARDIOVASCULAR: Regular rate and rhythm without murmurs, rubs, or gallops. Peripheral pulses 2+ and equal bilaterally. + L CVA tenderness ABDOMINAL: Soft, mildly tender, nondistended, no hepatosplenomegaly. Normoactive BS. MUSCULOSKELETAL: Moves all extremities. Strength/ROM intact without gross deformities. SKIN: Warm, dry, normal color. No rashes. NEURO: A&O X3. Speech clear. Cranial nerves II-XII intact. No ataxic movements. PSYCHIATRIC: Appropriate mood and affect. Normal interaction. Course Vital Signs Vital signs: Vital Signs Temperature 36.4 C 02/10/25 19:58 Pulse Rate 60 02/10/25 19:58 Respiratory Rate 18 02/10/25 19:58 Blood Pressure 111/67 02/10/25 19:58 Pulse Oximetry 100 02/10/25 19:58 Oxygen Delivery Room Air 02/10/25 19:58 Temperature 36.4 C 02/10/25 19:58 Pulse Rate 54 L 02/10/25 23:00 Respiratory Rate 9 L 02/10/25 23:00 Blood Pressure 101/77 02/10/25 23:00 Pulse Oximetry 99 02/10/25 23:00 Oxygen Delivery Room Air 02/10/25 19:58 MDM - Abdominal Pain MDM Narrative Medical decision making narrative: Patient is a 29-year-old female who presents to the ER with left flank pain and lower abdominal discomfort. She reports she had a miscarriage approximately 1 month ago. Patient reports her vaginal bleeding has subsided, but she recently started experiencing these new symptoms. She denies any recent fevers, new urinary symptoms, chest pain, or passing of clots. Patient endorses a history of severe kidney hydronephrosis, kidney stones and a bicornuate uterus. Labs Ordered: CBC, CMP, UA, lipase, bedside Imaging Ordered: CT pelvis without gone Medications Ordered: 1 L normal saline IV bolus, 1 g ceftriaxone IV Diagnosis: Urinary tract infection, nonobstructing kidney stones, renal colic Consults: nephrology (outpatient), already established Patient Education/Shared MDM: Results of lab work and imaging shared with patient. She will be given a dose of ceftriaxone 1 g IV here in the ER. Patient strongly advised to maintain hydration status upon discharge and follow- up with her labor specialist as soon as possible. She will be discharged home with a prescription for Bactrim. Strict return precautions provided. Patient verbalized understanding and is in agreement with plan. Vital signs stable at time of discharge. All questions answered. Differential Diagnosis Differential diagnosis: Likely abdominal pain, calculus of kidney, constipation, gastroenteritis and other (Urinary tract infection, renal colic) Lab Data Attestation: I reviewed the patient's lab results. 02/10/25 21:08 02/10/25 21:08 Labs: Lab Results 02/10/25 02/10/25 Range/Units 21:08 21:14 WBC 6.8 (4.5-10.0) K/mm3 RBC 4.51 (4.2-5.4) M/mm3 Hgb 13.3 (12.0-15.0) g/dL Hct 40.0 (37.0-47.0) % MCV 88.7 (80-100) fl MCH 29.5 (26-34) pg MCHC 33.3 (32-36) g/dl RDW 13.2 (11.5-14.5) % Plt Count 211 (150-375) k/mm3 MPV 10.4 (7.4-10.4) fl Immature Gran % (Auto) 0.3 (0-0.5) % Neut % (Auto) 60.5 (45.5-73.1) % Lymph % (Auto) 28.6 (18.3-44.2) % Petroleum % (Auto) 5.9 (2.6-8.5) % Eos % (Auto) 4.1 (0-4.4) % Baso % (Auto) 0.6 (0.2-1.2) % Lymph # (Auto) 1.93 (0.9-3.2) K/mm3 Petroleum # (Auto) 0.4 (0.1-0.6) K/mm3 Eos # (Auto) 0.3 (0-0.3) K/mm3 Baso # (Auto) 0.0 (0.0-0.1) K/mm3 Abs Immat Gran (auto) 0.02 (0.00-0.031) K/mm3 Absolute Neuts (auto) 4.1 (1.3-6.7) K/mm3 Absolute Nucleated RBC 0.000 (0.0-0.012) K/mm3 Nucleated RBC % 0.0 (0.0-0.2) % Sodium 137 (137-145) mmol/L Potassium 3.5 (3.4-5.0) mmol/L Chloride 101 (98-107) mmol/L Carbon Dioxide 31 H (22-30) mmol/L Anion Gap 5 (4-12) mmol/L BUN 19 H (7-17) mg/dL Creatinine 0.77 (0.7-1.0) mg/dL Estim Creat Clear Calc 83 ml/min Estimated GFR > 60 (59 - ) Glucose 101 (65-110) mg/dL Calcium 10.1 (8.4-10.2) mg/dL Total Bilirubin 0.8 (0.2-1.3) mg/dL AST 32 (14-36) U/L ALT 30 (6-35) U/L Alkaline Phosphatase 55 (38-126) U/L Total Protein 7.6 (6.3-8.2) g/dL Albumin 4.5 (3.5-5.1) g/dL Lipase 85 (23-300) U/L Urine Color Yellow (Yellow) Urine Appearance Cloudy H (Clear) Urine pH 7.5 (5.0-9.0) Ur Specific [place] 1.017 (1.001-1.035) Urine Protein 1+ H (Negative) mg/dL Urine Glucose (UA) Negative (Negative) mg/dL Urine Ketones Negative (Negative) mg/dL Ur Blood (Man) Negative (Negative) Urine Nitrate Negative (Negative) Urine Bilirubin Negative (Negative) Urine Urobilinogen 0.2 (<2.0) mg/dL Leukocyte Esterase Rfl 1+ H (Negative) SIMON/UL Urine RBC 3-5 H (0-2) /hpf Urine WBC 21-50 H (0-3) /hpf Ur Squamous Epith Cells Occasional (Few) /hpf Urine Bacteria None seen /hpf Urine Casts 0-2 POC Urine HCG, Qual Negative (Negative) Imaging Data Attestation: I personally reviewed and interpreted this imaging study as follows: Radiologist's impression: Severe left hydronephrosis/chronic UPJ obstruction with mild left hydroureter. No obstructing ureteral calculus. Nonobstructing bilateral renal calculi. Urinary bladder wall thickening, nonspecific. Correlate with urinalysis. No bowel obstruction or inflammation normal appendix. Moderate stool burden. Peripheral right hepatic lobe 3.7 cm low-attenuation lesion possibly focal fat. Discharge Plan Discharge Clinical Impression: Urinary tract infection, Hydronephrosis of left kidney, Bilateral kidney stones, Renal colic Patient Disposition: Home Condition: Stable Instructions: Antibiotic Form, Urinary Tract Infection in Women (ED) Additional Instructions: Please return to the ER with any worsening symptoms. Follow-up with your labor specialist as soon as possible. Take all medications as prescribed, including regularly scheduled medications. You may take Tylenol as needed for pain control. Please complete your full dose of antibiotics. Patient Language: Martiniquais Prescriptions: New sulfamethoxazole-trimethoprim [Bactrim DS] 800-160 mg tablet 1 tablet PO Q12H 5 Days Qty: 10 0RF No Action cephalexin 500 mg capsule 500 mg PO Q8H 7 Days Qty: 21 0RF ondansetron 4 mg tablet,disintegrating 4 mg PO Q8H PRN (Reason: nausea and vomiting) Qty: 30 0RF Follow-up/Referrals: Quang,MD Phan [Primary Care Provider, Family Practice] Time of Disposition: 01:09
[2025-02-10] MEDS: SODIUM CHLORIDE 0.9% IV 1,000 ML 999 ML IV CONT (22:09)
[2025-02-11 01:10] VITALS: BP 101/56; PULSE 72; RESP 16; O2SAT 99
[2025-02-11] MEDS: cefTRIAXone 1 GM in SODIUM CHLORIDE 0.9% IV 50 ML 100 ML IVPB (01:18)
[2025-02-11 02:20] VITALS: BP 92/67; PULSE 62; RESP 18; O2SAT 100
== END 2025-02-11 02:20 | disposition home or self-care (01) ==
PROVIDERS: Student in an Organized Health Care Education/Training Program; Emergency Provider Registered Nurse; PCP Family Medicine
DX: N39.0 Urinary tract infection, site not specified (principal); N26.1 Atrophy of kidney (terminal); N20.0 Calculus of kidney; N13.30 Unspecified hydronephrosis; N04.9 Nephrotic syndrome with unspecified morphologic changes; Z87.442 Personal history of urinary calculi
CPT/HCPCS: 36415; 74176; 80053; 81001; 81025; 83690; 85025; 87086; 96361; 96365; 99284; J0696; J7030

== ENCOUNTER 2025-03-21 02:31 | Observation (INO) | payer OTHER, SELFPAY ==
[2025-03-21] VITALS (40 sets, daily range): BP systolic 83–119; BP diastolic 50–76; PULSE 49–65; RESP 12–20; TEMP 36.3–37.1; O2SAT 96–100; BMI 21.7
--- NOTE | ~2025-03-21 | XR_ITS ---
EXAMINATION: XR retrograde pyelo w/stent BI DATE: 03/21/2025 10:12 INDICATION: Bilateral retrograde pyelogram and left ureteral stent placement TECHNIQUE: 12 fluoroscopic images of the abdomen and pelvis were obtained procedure performed by Dr. Weston. Radiologist was not present for the imaging or procedure. The amount of fluoroscopy time used during this procedure was 0.5 minutes. The dose area product was 0.218 mGym^2. COMPARISON: CT dated 03/21/2025, 02/10/2025 and 10/07/2023 FINDINGS: Initial head sawyer images redemonstrate the large stone measuring 1.[address] which projects over the left lower quadrant at the left ureteropelvic junction. This appears obstructing on the retrograde pyelogram with dilation of the more distal left ureter during the course of the injection. Dilute contrast seen in delineating the markedly dilated left renal collecting system. Subsequent placement of a left internal ureteral stent which passes along side the stone at the ureteropelvic junction with proximal loop formed in the dilated left renal pelvis and distal loop in the bladder. Right-sided retrograde pyelogram demonstrates normal appearing right ureter and collecting system with no hydronephrosis. IMPRESSION: 1. Unchanged likely obstructing stone at the left ureteropelvic junction with chronic severe left hydronephrosis. 2. Interval placement of a left intraureteral stent which is in expected position spanning the stone at the left ureteropelvic junction. See procedure note for further detail. Reviewed, dictated and finalized at location A. UTER TECHNOLOGY TRAINER IMPRESSION: 1. Unchanged likely obstructing stone at the left ureteropelvic junction with c hronic severe left hydronephrosis. 2. Interval placement of a left intraureteral stent which is in expected positi on spanning the stone at the left ureteropelvic junction. See procedure note fo r further detail.
--- NOTE | ~2025-03-21 | CT_ITS ---
EXAMINATION: CT abdomen pelvis wo con DATE: 03/21/2025 04:22 INDICATION: Left flank pain. TECHNIQUE: Computed tomography (CT) of the abdomen and pelvis was performed without intravenous contrast. Automated exposure control and iterative reconstruction technique were employed. The dose-length product was 213.56 mGy-cm. COMPARISON: CT abdomen and pelvis 02/10/2025, abdomen MRI 10/27/2023 FINDINGS: The visualized portions of lung bases demonstrate mild atelectasis. No pleural effusion. The heart size is normal. No pericardial effusion. There are 4 masses in the liver measuring up to 7.0 cm with features of hemangiomas on prior MRI. The spleen, pancreas, and adrenal glands are normal. There is a 5 mm stone in right kidney. There is mild right hydronephrosis. There are approximately 7 stones in left kidney measuring up to 2.0 cm. There is severe left hydronephrosis. There is a 1.7 cm stone at left ureteropelvic junction. There is mild left hemiatrophy. There are no dilated loops of bowel. The appendix is normal. There are no pathologically enlarged lymph nodes. There is physiologic fluid in the pelvis. There is mild lumbar spondylosis. IMPRESSION: 1. Chronic severe left hydronephrosis with mild left kidney atrophy. 1.7 cm stone now at left ureteropelvic junction. 2. Mild right hydronephrosis. 3. Bilateral nonobstructing kidney stones. Reviewed, dictated and finalized at location E. R QUALITY CONTROL ENGINEER IMPRESSION: 1. Chronic severe left hydronephrosis with mild left kidney atrophy. 1.7 cm sto ne now at left ureteropelvic junction. 2. Mild right hydronephrosis. 3. Bilateral nonobstructing kidney stones.
--- OUTSIDE RECORDS SUMMARY | 2025-03-21 02:33 | XMS_ITS | Clinical Summary ---
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
--- OUTSIDE RECORDS SUMMARY | 2025-03-21 02:33 | XMS_ITS | Patient Health Record ---
[facility] Organization [facility] Address [address] [place] [address] Care Team Providers Care Guard Museum Name Role Phone Bryant Gurrola Unavailable [phone] Reason For Referral No Information Plan Of Treatment No Information
--- NOTE | 2025-03-21 02:48 | ED_ITS ---
HPI - Female Genitourinary General Chief complaint: Urogenital-Female Stated complaint: KIDNEY STONE PAIN Time Seen by Provider: 03/21/25 02:39 Source: patient Mode of arrival: ambulatory Limitations: no limitations History of Present Illness HPI Narrative: This is a 29-year-old female with history of kidney stones who presents the ED for left flank pain. Patient states that last night she had onset of her typical pain that she has with her kidney stones. She states that this has been having intermittently for the past couple years. She follows with urology in [place] this apparently had a couple kidney stones removed previously. She does not have a removal currently schedule at this time. She took Flomax as previously prescribed but ran out of pills. Denies fevers, chills, dysuria, hematuria. Does have nausea but no vomiting. Related Data Allergies Allergy/AdvReac Type Severity Reaction Status Date / Time lanolin Allergy Rash Verified 03/21/25 02:31 latex Allergy Rash Verified 03/21/25 02:31 Review of Systems 2 Review of Systems: Gen.: Denies fevers or chills Eyes: Denies eye pain or visual change ENT: Denies congestion Respiratory: Denies shortness of breath or cough CV: Denies chest pain or palpitations GI: As per HPI denies burning, urgency, frequency or hematuria Musculoskeletal: Denies back pain or muscle pain Neuro: Denies numbness, tingling, weakness or focal weakness Skin: Denies rash Except as documented, all other systems reviewed and negative [facility] Social History Social History Substance use: never Spiritual care concerns: No Exam 2 Narrative: APPEARANCE: No acute distress, nontoxic, resting in bed EYES: EOMI HEENT: Normocephalic, atraumatic, OMM RESPIRATORY: No respiratory distress Clear to auscultation bilaterally with no rhonchi wheezing or rales. CARDIOVASCULAR: Regular rate and rhythm without murmurs rubs or gallops. ABDOMINAL: Soft, CVA tenderness on the left, nondistended, no rebound or guarding MUSCULOSKELETAl: Moves all extremities. No clubbing, cyanosis or edema. NEURO: Awake and alert. Following commands, speech normal, no focal deficits SKIN:: Warm, dry. No rashes lesions or abrasions PSYCHIATRIC: Normal affect/mood, Course Vital Signs Vital signs: Vital Signs Blood Pressure 119/74 03/21/25 02:42 Pulse Oximetry 100 03/21/25 02:42 Temperature 97.8 F 03/21/25 03:55 Blood Pressure 104/64 03/21/25 03:17 Pulse Oximetry 100 03/21/25 03:17 MDM - Female Genitourinary MDM Narrative Medical decision making narrative: 29-year-old female Presenting for left flank pain. On initial evaluation patient was in no acute distress afebrile, hemodynamic stable. Differentials include but are not limited to: Ureterolithiasis, pyelonephritis, MSK pain, constipation, obstruction, PNA, Cancer Notable exam findings: CVA tenderness on the left with left upper quadrant tenderness to palpation Notable lab findings: CBC and CMP without significant abnormalities. UA did show trace bacteria but likely contaminated Notable imaging findings: CT abdomen/pelvis showed a 1.8 cm left proximal ureteral stone as well as a left mid ureteral stone measuring 4 mm. I discussed the case with Dr. Haro, urology, does recommend admitting the patient for urologic intervention this morning. Case was discussed with hospitalist, Dr. Sands will admit the patient. Medical Records Attestation: I reviewed the patient's medical records. Lab Data Attestation: I reviewed the patient's lab results. 03/21/25 02:51 03/21/25 02:51 Labs: Lab Results 03/21/25 03/21/25 03/21/25 Range/Units 02:51 03:39 03:55 WBC 5.8 (4.5-10.0) K/mm3 RBC 4.43 (4.2-5.4) M/mm3 Hgb 13.2 (12.0-15.0) g/dL Hct 38.8 (37.0-47.0) % MCV 87.6 (80-100) fl MCH 29.8 (26-34) pg MCHC 34.0 (32-36) g/dl RDW 13.2 (11.5-14.5) % Plt Count 185 (150-375) k/mm3 MPV 10.5 H (7.4-10.4) fl Immature Gran % (Auto) 0.2 (0-0.5) % Neut % (Auto) 57.3 (45.5-73.1) % Lymph % (Auto) 28.1 (18.3-44.2) % Mclennan % (Auto) 9.8 H (2.6-8.5) % Eos % (Auto) 4.3 (0-4.4) % Baso % (Auto) 0.3 (0.2-1.2) % Lymph # (Auto) 1.63 (0.9-3.2) K/mm3 Mclennan # (Auto) 0.6 (0.1-0.6) K/mm3 Eos # (Auto) 0.3 (0-0.3) K/mm3 Baso # (Auto) 0.0 (0.0-0.1) K/mm3 Abs Immat Gran (auto) 0.01 (0.00-0.031) K/mm3 Absolute Neuts (auto) 3.3 (1.3-6.7) K/mm3 Absolute Nucleated RBC 0.000 (0.0-0.012) K/mm3 Nucleated RBC % 0.0 (0.0-0.2) % Sodium 135 L (137-145) mmol/L Potassium 3.7 (3.4-5.0) mmol/L Chloride 104 (98-107) mmol/L Carbon Dioxide 23 (22-30) mmol/L Anion Gap 8 (4-12) mmol/L BUN 21 H (7-17) mg/dL Creatinine 0.87 (0.7-1.0) mg/dL Estim Creat Clear Calc 80 ml/min Estimated GFR > 60 (59 - ) Glucose 98 (65-110) mg/dL Calcium 9.5 (8.4-10.2) mg/dL Total Bilirubin 0.9 (0.2-1.3) mg/dL AST 27 (14-36) U/L ALT 20 (6-35) U/L Alkaline Phosphatase 53 (38-126) U/L Total Protein 7.1 (6.3-8.2) g/dL Albumin 4.3 (3.5-5.1) g/dL Urine Color Yellow (Yellow) Urine Appearance Cloudy H (Clear) Urine pH 6.0 (5.0-9.0) Ur Specific Harris 1.021 (1.001-1.035) Urine Protein 1+ H (Negative) mg/dL Urine Glucose (UA) Negative (Negative) mg/dL Urine Ketones Trace H (Negative) mg/dL Ur Blood (Man) 1+ H (Negative) Urine Nitrate Negative (Negative) Urine Bilirubin Negative (Negative) Urine Urobilinogen 0.2 (<2.0) mg/dL Leukocyte Esterase Rfl 2+ H (Negative) SIMON/UL Urine RBC 11-20 H (0-2) /hpf Urine WBC 21-50 H (0-3) /hpf Ur Squamous Epith Cells Occasional (Few) /hpf Urine Bacteria Trace /hpf Urine Casts 0-2 POC Urine HCG, Qual Negative (Negative) 03/21/25 Range/Units 04:06 WBC (4.5-10.0) K/mm3 RBC (4.2-5.4) M/mm3 Hgb (12.0-15.0) g/dL Hct (37.0-47.0) % MCV (80-100) fl MCH (26-34) pg MCHC (32-36) g/dl RDW (11.5-14.5) % Plt Count (150-375) k/mm3 MPV (7.4-10.4) fl Immature Gran % (Auto) (0-0.5) % Neut % (Auto) (45.5-73.1) % Lymph % (Auto) (18.3-44.2) % Mclennan % (Auto) (2.6-8.5) % Eos % (Auto) (0-4.4) % Baso % (Auto) (0.2-1.2) % Lymph # (Auto) (0.9-3.2) K/mm3 Mclennan # (Auto) (0.1-0.6) K/mm3 Eos # (Auto) (0-0.3) K/mm3 Baso # (Auto) (0.0-0.1) K/mm3 Abs Immat Gran (auto) (0.00-0.031) K/mm3 Absolute Neuts (auto) (1.3-6.7) K/mm3 Absolute Nucleated RBC (0.0-0.012) K/mm3 Nucleated RBC % (0.0-0.2) % Sodium (137-145) mmol/L Potassium (3.4-5.0) mmol/L Chloride (98-107) mmol/L Carbon Dioxide (22-30) mmol/L Anion Gap (4-12) mmol/L BUN (7-17) mg/dL Creatinine (0.7-1.0) mg/dL Estim Creat Clear Calc ml/min Estimated GFR (59 - ) Glucose (65-110) mg/dL Calcium (8.4-10.2) mg/dL Total Bilirubin (0.2-1.3) mg/dL AST (14-36) U/L ALT (6-35) U/L Alkaline Phosphatase (38-126) U/L Total Protein (6.3-8.2) g/dL Albumin (3.5-5.1) g/dL Urine Color (Yellow) Urine Appearance (Clear) Urine pH (5.0-9.0) Ur Specific Harris (1.001-1.035) Urine Protein (Negative) mg/dL Urine Glucose (UA) (Negative) mg/dL Urine Ketones (Negative) mg/dL Ur Blood (Man) (Negative) Urine Nitrate (Negative) Urine Bilirubin (Negative) Urine Urobilinogen (<2.0) mg/dL Leukocyte Esterase Rfl (Negative) SIMON/UL Urine RBC (0-2) /hpf Urine WBC (0-3) /hpf Ur Squamous Epith Cells (Few) /hpf Urine Bacteria /hpf Urine Casts POC Urine HCG, Qual Negative (Negative) Imaging Data Radiologist's impression: CT abdomen/pelvis: Stable severe left-sided hydronephrosis and proximal hydroureter with a 1.8 cm stone seen within the proximal left ureter. Second stone seen within the mid left ureter measuring 4.8 mm. Discharge Plan Discharge Clinical Impression: Ureterolithiasis Patient Disposition: Still a Patient Condition: Stable Patient Language: Irish Prescriptions: No Action cephalexin 500 mg capsule 500 mg PO Q8H 7 Days Qty: 21 0RF ondansetron 4 mg tablet,disintegrating 4 mg PO Q8H PRN (Reason: nausea and vomiting) Qty: 30 0RF sulfamethoxazole-trimethoprim [Bactrim DS] 800-160 mg tablet 1 tablet PO Q12H 5 Days Qty: 10 0RF tamsulosin [Flomax] 0.4 mg capsule 0.4 mg PO DAILY Qty: 7 0RF Follow-up/Referrals: Quang,MD Phan [Primary Care Provider, Family Practice]
[2025-03-21 02:57] LABS: Hematocrit 38.8 % (37.0-47.0); Hemoglobin 13.2 g/dL (12.0-15.0); Immature Granulocyte Percent A 0.2 % (0-0.5); Lymphocytes Absolute Auto 1.63 K/mm3 (0.9-3.2); Mean Corpuscular HGB Conc 34.0 g/dl (32-36); Mean Corpuscular Hemoglobin 29.8 pg (26-34); Mean Corpuscular Volume 87.6 fl (80-100); Nucleated Red Blood Cells Absolute Auto 0.000 K/mm3 (0.0-0.012); Nucleated Red Blood Cells Perc 0.0 % (0.0-0.2); Platelet Count Result 185 k/mm3 (150-375); Red Blood Count 4.43 M/mm3 (4.2-5.4); White Blood Count 5.8 K/mm3 (4.5-10.0)
[2025-03-21] MEDS: SODIUM CHLORIDE 0.9% IV 1,000 ML 999 ML IV CONT (02:58)
[2025-03-21] MEDS: ONDANSETRON INJ 4 MG/2 ML VIAL IV PUSH ×4 (02:58→14:20)
[2025-03-21] MEDS: KETOROLAC 15 MG/ML VIAL (*BKC) IV PUSH (02:58)
[2025-03-21 03:10] LABS: Alanine Aminotransferase 20 U/L (6-35); Albumin Level 4.3 g/dL (3.5-5.1); Alkaline Phosphatase 53 U/L (38-126); Anion Gap 8 mmol/L (4-12); Aspartate Amino Transferase 27 U/L (14-36); Bilirubin,Total 0.9 mg/dL (0.2-1.3); Blood Urea Nitrogen 21 mg/dL (7-17); Calcium 9.5 mg/dL (8.4-10.2); Carbon Dioxide 23 mmol/L (22-30); Chloride 104 mmol/L (98-107); Estimated CRCL calculation 80 ml/min; Estimated Glomerular Filt Rate > 60; Glucose 98 mg/dL (65-110); Potassium 3.7 mmol/L (3.4-5.0); Sodium 135 mmol/L (137-145); Total Protein 7.1 g/dL (6.3-8.2)
--- OUTSIDE RECORDS SUMMARY | 2025-03-21 03:31 | XMS_ITS | Clinical Summary ---
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 Gender Identity Not on file Sexual Orientation [...] patient's age to complete this topic Insurance [facility] HMO/PPO Address: [facility] [address] [place] [address] [facility] HMO/PPO Address: [id number] [place] [address] [facility] HMO/PPO Address: [address] [address] [place] [address] Care Teams Carport Erector Relationship Specialty Start Date End Date Phan Del Rio MD [address] [place] [id number] PCP - General Family Medicine 03/03/24 Teddy Worrell MD [address] [place] [address] Referring Physician Neurology 10/09/22
--- OUTSIDE RECORDS SUMMARY | 2025-03-21 03:31 | XMS_ITS | Encounter Summary ---
Author Organization [facility] Address [address] [place] [address] Care Team Providers Care Senior Instructional Designer Name Role Phone None, Provider Primary Care Provider Unavaila Juno Stout MD Primary Care Provider [phone] Juno Calabrese MD Primary Care Provider [phone] Stefanie So [facility] Unavailable Bill Dunham MD Unavailable [phone] Phan Del Rio MD Primary Care Provider [phone] Encounter Details Date Type Department Care Team (Late st Contact Info) Description 07/25/2017 Abstract [facility] [address] [place] [address] , Generic Conversion, Social History Tobacco Use Types Packs/Day Years Used Date Smoking Tobacco: Never Assessed Comments Unknown Sex and Gender Information Value Date Recorded Sex Assigned at Not on file 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 Gender Identity Not on file Sexual Orientation Not on file documented as of this encounter Plan of Treatment Not on file documented as of this encounter Visit Diagnoses Not on filedocumented in this encounter Additional Health Concerns Infection Onset Date Last Indicated Resolved Time COVID-19 Rule Out 09/19/2019 09/19/2019 09/20/2019 11:54 AM CDT documented as of this encounter Care Teams Senior Instructional Designer Relationship Specialty Start Date End Date None, Provider, PCP - General 01/22/19 03/07/19 Juno Calabrese MD PCP - General FAMILY PRACTICE 03/08/19 03/10/19 Juno Calabrese MD [address] [place] [phone] PCP - General FAMILY PRACTICE 03/11/19 07/22/23 Phan Del Rio MD [address] [place] [address] [place] [address] PCP - General FAMILY PRACTICE 07/23/23 Stefanie So, [facility]- [address] [place], [place] [phone] NURSE PRACTITIONER 07/07/19 Bill Dunham MD [address] [place] [phone] Consulting Physician NEUROLOGY 07/07/19 documented as of this encounter
--- OUTSIDE RECORDS SUMMARY | 2025-03-21 03:31 | XMS_ITS | Encounter Summary ---
Author Organization [facility] Address [facility] [place] [address] Care Team Providers Care Windshield Wiper Repairer Name Role Phone None, Provider Primary Care Provider Unavaila Juno Stout MD Primary Care Provider [phone] Juno Calabrese MD Primary Care Provider [phone] Stefanie So [facility] Unavailable Bill Dunham MD Unavailable [phone] Phan Del Rio MD Primary Care Provider [phone] Encounter Details Date Type Department Care Team (Late st Contact Info) Description 01/24/2019 Abstract [facility] [address] [place] [id number] Social History Tobacco Use Types Packs/Day Years Used Date Smoking Tobacco: Never Smokeless Tobacco: Never Alcohol Use Standard Drinks/Week Comments Yes 0 (1 standard drink = 0.6 oz pur e alcohol) socially Comments No Sex and Gender Information Value Date Recorded Sex Assigned at Not on file 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 Gender Identity Not on file Sexual Orientation [...] documented as of this encounter Care Teams Windshield Wiper Repairer Relationship Specialty Start Date End Date None, Provider, PCP - General 01/22/19 03/07/19 Juno Calabrese MD PCP - General FAMILY PRACTICE 03/08/19 03/10/19 Juno Calabrese MD [address] [place] [phone] PCP - General FAMILY PRACTICE 03/11/19 07/22/23 Phan Del Rio MD [address] [place] [address] [place] [address] PCP - General FAMILY PRACTICE 07/23/23 Stefanie So FNP- [address] [place] [phone] NURSE PRACTITIONER 07/07/19 Bill Dunham MD [address] [place] [phone] Consulting Physician NEUROLOGY 07/07/19 documented as of this encounter
--- OUTSIDE RECORDS SUMMARY | 2025-03-21 03:31 | XMS_ITS | Encounter Summary ---
Author Organization [facility] Address [facility] [place] [address] Care Team Providers Care Chief Recordist Name Role Phone None, Provider Primary Care Provider Unavaila Juno Stout MD Primary Care Provider [phone] Juno Calabrese MD Primary Care Provider [phone] Stefanie So [facility] Unavailable Bill Dunham MD Unavailable [phone] Phan Del Rio MD Primary Care Provider Encounter Details Date Type Department Care Team (Late st Contact Info) Description 10/16/2018 Abstract [facility] [address] [place] [address] , Generic Conversion, Social History Tobacco Use Types Packs/Day Years Used Date Smoking Tobacco: Never Assessed Comments Unknown Sex and Gender Information Value Date Recorded Sex Assigned at Not on file 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 Gender Identity Not on file Sexual Orientation Not on file documented as of this encounter Plan of Treatment Not on file documented as of this encounter Visit Diagnoses Not on filedocumented in this encounter Additional Health Concerns Infection Onset Date Last Indicated Resolved Time COVID-19 Rule Out 09/19/2019 09/19/2019 09/20/2019 11:54 AM CDT documented as of this encounter Care Teams Chief Recordist Relationship Specialty Start Date End Date None, Provider, PCP - General 01/22/19 03/07/19 Juno Calabrese MD PCP - General FAMILY PRACTICE 03/08/19 03/10/19 Juno Calabrese MD [address] [place], [place] [phone] PCP - General FAMILY PRACTICE 03/11/19 07/22/23 Phan Del Rio MD [address] [place] [address] [place] [address] PCP - General FAMILY PRACTICE 07/23/23 Stefanie So, [facility]- [address] [place], [place] [phone] NURSE PRACTITIONER 07/07/19 Bill Dunham MD [address] [place], [place] [phone] Consulting Physician NEUROLOGY 07/07/19 documented as of this encounter
--- OUTSIDE RECORDS SUMMARY | 2025-03-21 03:31 | XMS_ITS | Clinical Summary ---
Author Organization 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 Gender Identity Not on file Sexual Orientation [...] with HPV 10/28/2023 COVID-19 Vaccine ( - 2024-2 6 season) 2025 Influenza Adult (#1) 2025 03/24/2019 Hepatitis C Completed 08/27/2017 Hepatitis A Vaccines Aged Out No long er eligible based on patient's age to complete this topic Meningococcal B Vaccine Aged Out No l [...] this topic Medical Devices Implanted Type Area Ward Service Supervisor Device Identifier Shelf Expiration Date Model / Serial / Lot Stent Ureteral [employer] Contour 6fr X 26cm - [id number] Implanted:Qty: 1 on 09/02/2019 by Rocio Chris MD at [facility] Left: Ureter [employer] 04/07/2021 [id number] / / [id number] Description:VERIFIED BY Stent Cook Ureteral Filaform 6 Fr X 26cm - Sn/A Implanted:Qty: 1 on 09/21/2019 by Rocio Chris MD at [facility] Left: Ureter [employer] 06/30/2022 [id number] / N/A / [id number] Procedures Procedure Name Priority Date/Time Associated Diagnosis Comments HEPATITIS C ANTIBODY Routine 08/27/2017 3:19 PM CDT from Last 3 Months or Most Recently Relevant to Health Maintenance Results * HEPATITIS C ANTIBODY (08/27/2017 3:19 PM CDT) HEPATITIS C AB NON-REACTI VE NON-REACT JOYCE 08/31/2017 10:[address] [facility] Comment: ANTIBODIES TO HCV NOT DETECTED. DOES NOT EXCLUDE THE POSSIBILITY OF EXPOSURE TO HCV. 08/27/2017 3:19 PM CDT Julio Ribera MD LABORATORY Final Result [facility] [address] [place], [place] [address] [phone] [id number] from Last 3 Months or Most Recently Relevant to Health Maintenance Insurance [facility] Advance Directives * Full Code (Latest Code Status on File) Date Activated Date Inactivated Comments 04/20/2019 11:30 PM 04/21/2019 1:41 PM * Full Code Date Activated Date Inactivated Comments 01/22/2019 6:49 PM 01/25/2019 5:32 PM Care Teams Supervisor [employer] Relationship Specialty Start Date End Date Phan Del Rio MD [address] [facility] [place] [address] PCP - General FAMILY PRACTICE 07/23/23 Stefanie So, COMMUNITY SERVICES MANAGER- NURSE PRACTITIONER 07/07/19 Bill Dunham MD Consulting Physician NEUROLOGY 07/07/19
--- OUTSIDE RECORDS SUMMARY | 2025-03-21 03:31 | XMS_ITS | Encounter Summary ---
Author Organization [facility] Address [facility] [place] [address] Care Team Providers Care Life Coach Name Role Phone None, Provider Primary Care Provider Unavaila Juno Stout MD Primary Care Provider [phone] Juno Calabrese MD Primary Care Provider [phone] Stefanie So [facility]- Unavailable Bill Dunham MD Unavailable [phone] Phan Del Rio MD Primary Care Provider [phone] Encounter Details Date Type Department Care Team (Late st Contact Info) Description 01/21/2019 Abstract [facility] [address] [place] [id number] Social History Tobacco Use Types Packs/Day Years Used Date Smoking Tobacco: Never Assessed Comments Unknown Sex and Gender Information Value Date Recorded Sex Assigned at Not on file 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 Gender Identity Not on file Sexual Orientation [...] documented as of this encounter Care Teams Life Coach Relationship Specialty Start Date End Date None, Provider, PCP - General 01/22/19 03/07/19 Juno Calabrese MD PCP - General FAMILY PRACTICE 03/08/19 03/10/19 Juno Calabrese MD [address] [place] [phone] PCP - General FAMILY PRACTICE 03/11/19 07/22/23 Phan Del Rio MD [address] [place] [address] [place] [address] PCP - General FAMILY PRACTICE 07/23/23 Stefanie So, [facility]- [address] [place] [phone] NURSE PRACTITIONER 07/07/19 Bill Dunham MD [address] [place] [phone] Consulting Physician NEUROLOGY 07/07/19 documented as of this encounter
[2025-03-21 03:50] LABS: Add Urine Microscopic? YES; Appearance Urine Cloudy (Clear); Glucose Urine UA Negative (Negative); Leukocyte Esterase Ur 2+ LEU/UL (Negative); Nitrate Urine Negative (Negative); Non Pathogenic Casts 0-2; Specific Grav Ur 1.021 (1.001-1.035)
[2025-03-21 03:58] LABS: BEDSIDEPREGUCG Negative (Negative)
[2025-03-21 04:08] LABS: BEDSIDEPREGUCG Negative (Negative)
[2025-03-21] MEDS: MORPHINE SULFATE (*CRX) 4 MG/ML INJ 2 MG IV PUSH (05:06)
[2025-03-21] MEDS: MORPHINE SULFATE (*CRX) 4 MG/ML INJ IV PUSH (07:37)
--- NOTE | 2025-03-21 07:52 | WPCEDHO ---
ED Hand Off Checklist All vitals saved:y IV Site documented:y All med administrations documented:y Triage Note Triage Note PT TO ED FOR EVAL OF L SIDED 03/21/25 03:55 FLANK/ABD PAIN. HAS CONFIRMED RENAL STONES AND WILL BE FOLLOWING UP WITH UROLOGY IN [facility]. SLIGHT NAUSEA NO EMESIS . Allergies lanolin Allergy (Verified 03/21/25 02:31) Rash latex Allergy (Verified 03/21/25 02:31) Rash Active Medications including assessments/comments Morphine Sulfate (Morphine Sulfate (*Crx) 4 Mg/Ml Inj) 4 mg IV PUSH Q2H PRN PRN Reason: Pain Rated 7-10 Last Admin: 03/21/25 07:37 Dose: 4 mg Documented By: FLOYD [facility] Pain Assessment Document 03/21/25 07:37 CMM (Rec: 03/21/25 07:38 CMM [id number]) Pain Evaluation Pain Evaluation Assessment Pain Scale Pain Scale Used Numeric (1 - 10) Self Report Pain Assessment Reported Pain Level 7 Pain Score Pain Score 7: Self Report Ondansetron HCl (Ondansetron Inj 4 Mg/2 Ml Vial) 4 mg IV PUSH Q4H PRN PRN Reason: Nausea Last Admin: 03/21/25 07:47 Dose: 4 mg Documented By: FLOYD Administered/Completed Medications Discontinued Medications Sodium Chloride (Normal Saline Iv) 1,000 mls @ 999 mls/hr IV CONT .Q1H1M STA Stop: 03/21/25 03:47 Last Infusion: 03/21/25 04:07 Dose: Infused Documented By: Admin: 03/21/25 02:58 Dose: 999 mls/hr Documented By: BENNY Ketorolac Tromethamine (Ketorolac 15 Mg/Ml Vial (*Bkc)) 15 mg IV PUSH ONCE ONE Stop: 03/21/25 02:48 Last Admin: 03/21/25 02:58 Dose: 15 mg Documented By: BENNY Morphine Sulfate (Morphine Sulfate (*Crx) 4 Mg/Ml Inj) 2 mg IV PUSH ONCE STA Stop: 03/21/25 04:42 Last Admin: 03/21/25 05:06 Dose: 2 mg Documented By: BENNY Ondansetron HCl (Ondansetron Inj 4 Mg/2 Ml Vial) 4 mg IV PUSH ONCE STA Stop: 03/21/25 02:48 Last Admin: 03/21/25 02:58 Dose: 4 mg Documented By: BENNY Ondansetron HCl (Ondansetron Inj 4 Mg/2 Ml Vial) 4 mg IV PUSH ONCE STA Stop: 03/21/25 04:42 Last Admin: 03/21/25 05:06 Dose: 4 mg Documented By: BENNY Interventions/Assessments IV / Saline Lock, Insert Start: 03/21/25 02:32 Freq: Status: Active Protocol: Document 03/21/25 02:58 LLG (Rec: 03/21/25 02:58 LLG [id number]) IV Assessment Peripheral Access Left Antecubital IV Catheter Access Initiated IV Insertion Date 03/21/25 IV Insertion Time 02:58 Catheter Gauge 18 IV Insertion 1 Attempts IV Site Assessment WNL IV Care and WNL Maintenance PA: Genitourinary Assessment Start: 03/21/25 02:32 Freq: Status: Active Protocol: Document 03/21/25 03:55 LLG (Rec: 03/21/25 03:56 ONIELG [id number]) Infection Risk Screen Urinary Devices None Present Prior to Hospital Arrival Assessment Genitourinary Flank Pain Symptoms Voiding Method Toilet Urine Color Yellow Urine Cloudy Characteristics Genital Discharge Characteristics Amount None Last Vital Signs Temperature 97.8 F 03/21/25 03:55 Pulse Rate 56 L 03/21/25 07:02 Respiratory Rate 20 03/21/25 07:02 Pulse Oximetry 100 03/21/25 07:02 Blood Pressure 102/64 03/21/25 07:02 Blood Pressure Mean 76 03/21/25 07:02 Weight 63 kg 03/21/25 03:55 Last Result - Abnormals Only MPV 10.5 fl (7.4-10.4) H 03/21/25 02:51 [place] % (Auto) 9.8 % (2.6-8.5) H 03/21/25 02:51 Sodium 135 mmol/L (137-145) L 03/21/25 02:51 BUN 21 mg/dL (7-17) H 03/21/25 02:51 Urine Appearance Cloudy (Clear) H 03/21/25 03:39 Urine Protein 1+ mg/dL (Negative) H 03/21/25 03:39 Urine Ketones Trace mg/dL (Negative) H 03/21/25 03:39 Ur Blood (Man) 1+ (Negative) H 03/21/25 03:39 Leukocyte Esterase Rfl 2+ SIMON/UL (Negative) H 03/21/25 03:39 Urine RBC 11-20 /hpf (0-2) H 03/21/25 03:39 Urine WBC 21-50 /hpf (0-3) H 03/21/25 03:39 Most Recent Suicide Severity Rating Suicide Severity Rating NO RISK INDICATED 03/21/25 03:55
--- NOTE | 2025-03-21 08:51 | WPDURCON ---
Assessment and Plan Assessment and plan (1) Ureterolithiasis: Code(s): N20.1 - Calculus of ureter Status: Acute Assessment and Plan: - CT A/P reviewed with pt which demonstrates 1.7 cm Left UPJ stone with severe hydro - Images reviewed with Dr. Weston; Right sided hydro more consistent with extrarenal pelvis - Creatinine stable 0.87; no white count - Considering significant hydro and pain recommend stent placement - Hold NPO - Plan for cysto, Left ureteral stent placement with Dr. Weston today - Will follow up outpatient for definitive stone management Urology Consult Note HPI Date Seen: 03/21/25 Requesting Physician: Blessing Sands DO Primary Care Provider: Phan Del Rio, Consult Narrative Narrative: Pt is a 29 year old F with known Hx of nephrolithiasis requiring multiple surgeries previously following in [place] who presented to the ED with progressively worsening Left flank pain found to have 1.7 cm Left UPJ stone with severe hydro for whom urology is consulted for stone management. After her last urology visit pt states she was told she had non-obstructing renal stones that could be safely managed with surveillance although this was some time ago. Pt states that her flank pain began a day ago and was initially mild but progressed to 9/10 pain. Currently resting comfortably in bed with 5/10 pain reported after analgesics in the ED. Does not have further urologic care established currently. Denies dysuria, gross hematuria, frequency, urgency, F/C/N/V. Review of Systems Review of Systems: Gen.: Denies fevers or chills Eyes: Denies eye pain or visual change ENT: Denies congestion Respiratory: Denies shortness of breath or cough CV: Denies chest pain or palpitations GI: Denies constipation denies burning, urgency, frequency or hematuria Musculoskeletal: Denies back pain or muscle pain Neuro: Denies numbness, tingling, weakness or focal weakness Skin: Denies rash PMFSH Family History Family History (Updated 03/21/25 @ 08:47 by Jose R Miramontes RN) Mother Kidney disease Grandparent Heart disease Sibling Kidney stones POTS (postural orthostatic tachycardia syndrome) Social History Social History Smoking status: Never smoker Alcohol intake: current Substance use: never Substance use type: does not use Lack of Transportation: No Lack of Food: Never True Current Housing: I Have Housing Concerned About Future Housing: No Difficulty Paying Gas/Electric Bills: No Difficulty Paying for Meds: No Currently Unemployed: No Education: Bachelor's Degree Difficulty w/ Childcare or Family Care: No Spiritual care concerns: No Meds Home Medications and Allergies Allergies Allergy/AdvReac Type Severity Reaction Status Date / Time lanolin Allergy Rash Verified 03/21/25 08:36 latex Allergy Rash Verified 03/21/25 08:36 Vital Signs Vital Signs - 24 hr 03/21/25 02:42 03/21/25 02:43 03/21/25 02:45 Temperature Pulse Rate Respiratory Rate Blood Pressure 119/74 Pulse Oximetry 100 100 99 03/21/25 02:46 03/21/25 03:13 03/21/25 03:15 Temperature Pulse Rate Respiratory Rate Blood Pressure 107/76 Pulse Oximetry 100 100 100 03/21/25 03:17 03/21/25 03:18 03/21/25 03:55 Temperature 36.6 C Pulse Rate Respiratory Rate Blood Pressure 104/64 Pulse Oximetry 100 100 03/21/25 03:59 03/21/25 04:00 03/21/25 04:01 Temperature Pulse Rate Respiratory Rate Blood Pressure 105/74 Pulse Oximetry 100 100 100 03/21/25 04:15 03/21/25 04:30 03/21/25 04:31 Temperature Pulse Rate Respiratory Rate Blood Pressure 99/70 L Pulse Oximetry 100 100 100 03/21/25 05:40 03/21/25 05:45 03/21/25 06:00 Temperature Pulse Rate Respiratory Rate Blood Pressure Pulse Oximetry 98 98 97 03/21/25 06:01 03/21/25 06:15 03/21/25 06:30 Temperature Pulse Rate Respiratory Rate Blood Pressure 95/56 L Pulse Oximetry 99 97 96 03/21/25 06:32 03/21/25 06:45 03/21/25 07:00 Temperature Pulse Rate Respiratory Rate Blood Pressure 91/51 L Pulse Oximetry 98 100 100 03/21/25 07:01 03/21/25 07:02 Temperature Pulse Rate 61 56 L Respiratory Rate 14 20 Blood Pressure 102/64 102/64 Pulse Oximetry 99 100 Exam Const: General: comfortable and no acute distress Resp: Effort & Inspection: normal respiratory effort Skin: General skin exam: normal color Neuro: Speech: normal speech Psych: Speech and movement: Normal speech and movement present Affect: normal affect Results Labs 03/21/25 02:51 03/21/25 02:51 Labs: Short CBC 03/21/25 Range/Units 02:51 WBC 5.8 (4.5-10.0) K/mm3 Hgb 13.2 (12.0-15.0) g/dL Hct 38.8 (37.0-47.0) % Plt Count 185 (150-375) k/mm3 [facility] 03/21/25 02:51 Sodium 135 L Potassium 3.7 Chloride 104 Carbon Dioxide 23 BUN 21 H Creatinine 0.87 Glucose 98 Calcium 9.5 Liver Function 03/21/25 Range/Units 02:51 Total Bilirubin 0.9 (0.2-1.3) mg/dL AST 27 (14-36) U/L ALT 20 (6-35) U/L Alkaline Phosphatase 53 (38-126) U/L Albumin 4.3 (3.5-5.1) g/dL Urine 03/21/25 Range/Units 03:39 Urine Color Yellow (Yellow) Urine Appearance Cloudy H (Clear) Urine pH 6.0 (5.0-9.0) Ur Specific [place] 1.021 (1.001-1.035) Urine Protein 1+ H (Negative) mg/dL Urine Glucose (UA) Negative (Negative) mg/dL
--- NOTE | 2025-03-21 09:15 | WPDANESEPPF ---
Anes - Initial Pre Proc Eval Procedure: Operation Date: 03/21/25 09:30 Proposed Procedures p Cystoscopy, Left Retrograde Pyelogram, Left Stent Placement - Price Weston MD Date/Time: 03/21/25 09:15 Surgeon: Blessing Sands DO Pre Op Diagnosis: Ureterolithiasis Patient Data Age: 29 Gender: F Height: 1.7 m Weight: 63 kg Last Vital Signs Temp 36.6 C 03/21/25 03:55 Pulse 56 L 03/21/25 07:02 Resp 20 03/21/25 07:02 BP 102/64 03/21/25 07:02 Pulse Ox 100 03/21/25 07:02 Allergies Allergy/AdvReac Type Severity Reaction Status Date / Time lanolin Allergy Rash Verified 03/21/25 08:36 latex Allergy Rash Verified 03/21/25 08:36 Laboratory Tests 03/21/25 03/21/25 03/21/25 02:51 03:39 03:55 WBC 5.8 K/mm3 (4.5-10.0) RBC 4.43 M/mm3 (4.2-5.4) Hgb 13.2 g/dL (12.0-15.0) Hct 38.8 % (37.0-47.0) MCV 87.6 fl (80-100) MCH 29.8 pg (26-34) MCHC 34.0 g/dl (32-36) RDW 13.2 % (11.5-14.5) Plt Count 185 k/mm3 (150-375) MPV 10.5 H fl (7.4-10.4) Immature Gran % (Auto) 0.2 % (0-0.5) Neut % (Auto) 57.3 % (45.5-73.1) Lymph % (Auto) 28.1 % (18.3-44.2) [place] % (Auto) 9.8 H % (2.6-8.5) Eos % (Auto) 4.3 % (0-4.4) Baso % (Auto) 0.3 % (0.2-1.2) Lymph # (Auto) 1.63 K/mm3 (0.9-3.2) [place] # (Auto) 0.6 K/mm3 (0.1-0.6) Eos # (Auto) 0.3 K/mm3 (0-0.3) Baso # (Auto) 0.0 K/mm3 (0.0-0.1) Abs Immat Gran (auto) 0.01 K/mm3 (0.00-0.031) Absolute Neuts (auto) 3.3 K/mm3 (1.3-6.7) Absolute Nucleated RBC 0.000 K/mm3 (0.0-0.012) Nucleated RBC % 0.0 % (0.0-0.2) Sodium 135 L mmol/L (137-145) Potassium 3.7 mmol/L (3.4-5.0) Chloride 104 mmol/L (98-107) Carbon Dioxide 23 mmol/L (22-30) Anion Gap 8 mmol/L (4-12) BUN 21 H mg/dL (7-17) Creatinine 0.87 mg/dL (0.7-1.0) Estim Creat Clear Calc 80 ml/min Estimated GFR > 60 (59 - ) Glucose 98 mg/dL (65-110) Calcium 9.5 mg/dL (8.4-10.2) Total Bilirubin 0.9 mg/dL (0.2-1.3) AST 27 U/L (14-36) ALT 20 U/L (6-35) Alkaline Phosphatase 53 U/L (38-126) Total Protein 7.1 g/dL (6.3-8.2) Albumin 4.3 g/dL (3.5-5.1) Urine Color Yellow (Yellow) Urine Appearance Cloudy H (Clear) Urine pH 6.0 (5.0-9.0) Ur Specific [place] 1.021 (1.001-1.035) Urine Protein 1+ H mg/dL (Negative) Urine Glucose (UA) Negative mg/dL (Negative) Urine Ketones Trace H mg/dL (Negative) Ur Blood (Man) 1+ H (Negative) Urine Nitrate Negative (Negative) Urine Bilirubin Negative (Negative) Urine Urobilinogen 0.2 mg/dL (<2.0) Leukocyte Esterase Rfl 2+ H SIMON/UL (Negative) Urine RBC 11-20 H /hpf (0-2) Urine WBC 21-50 H /hpf (0-3) Ur Squamous Epith Cells Occasional /hpf (Few) Urine Bacteria Trace /hpf Urine Casts 0-2 POC Urine HCG, Qual Negative (Negative) 03/21/25 04:06 WBC RBC Hgb Hct MCV MCH MCHC RDW Plt Count MPV Immature Gran % (Auto) Neut % (Auto) Lymph % (Auto) [place] % (Auto) Eos % (Auto) Baso % (Auto) Lymph # (Auto) [place] # (Auto) Eos # (Auto) Baso # (Auto) Abs Immat Gran (auto) Absolute Neuts (auto) Absolute Nucleated RBC Nucleated RBC % Sodium Potassium Chloride Carbon Dioxide Anion Gap BUN Creatinine Estim Creat Clear Calc Estimated GFR Glucose Calcium Total Bilirubin AST ALT Alkaline Phosphatase Total Protein Albumin Urine Color Urine Appearance Urine pH Ur Specific [place] Urine Protein Urine Glucose (UA) Urine Ketones Ur Blood (Man) Urine Nitrate Urine Bilirubin Urine Urobilinogen Leukocyte Esterase Rfl Urine RBC Urine WBC Ur Squamous Epith Cells Urine Bacteria Urine Casts POC Urine HCG, Qual Negative (Negative) HCG: negative Patient hx anesthesia problems: none Family hx anesthesia problems: none Results Review: All pre-operative results and documents have been reviewed as part of the pre-operative evaluation. [facility] Family History Family History Mother Kidney disease Grandparent Heart disease Sibling Kidney stones POTS (postural orthostatic tachycardia syndrome) Social History Social History Smoking status: Never smoker Alcohol intake: current Substance use: never Substance use type: does not use Lack of Transportation: No Lack of Food: Never True Current Housing: I Have Housing Concerned About Future Housing: No Difficulty Paying Gas/Electric Bills: No Difficulty Paying for Meds: No Currently Unemployed: No Education: Bachelor's Degree Difficulty w/ Childcare or Family Care: No Spiritual care concerns: No Anes - Eval Final PreProcedure Day of Procedure 03/21/25 09:15 Patient weight: normal Heart: regular rate and rhythm Lungs: normal air movement Airway: Mallampati scale class 1 Neurological: alert and oriented Last oral intake: >/= 8 hours ASA classification: II Emergent: no Anesthetic plan: proceed Anesthesia type and monitoring: general LMA and standard monitoring Results Review: All pre-operative results and documents have been reviewed as part of the pre-operative evaluation. Informed Consent: The patient's anesthetic plan and its attendant risks and benefits were discussed with the patient/family/POA. Questions were solicited and answers provided to the satisfaction of the patient/family/POA.
--- NOTE | 2025-03-21 09:16 | WPDHPUPDATE1 ---
History and Physical Update Update Date/Time: 03/21/25 09:16 History and Physical has been reviewed, including an updated exam of the patient. There are NO changes in the patient's condition. Risks, benefits, and alternatives have been discussed and questions answered. Patient agrees to proceed with procedure.
[2025-03-21] MEDS: LACTATED RINGERS 1,000 ML 30 ML IV CONT (09:35)
[2025-03-21] MEDS: cefTRIAXone 1 GM in SODIUM CHLORIDE 0.9% IV 50 ML 100 ML IVPB ×2 (09:39→14:45)
--- NOTE | 2025-03-21 10:01 | P.OP_ITS ---
Procedure Note - Detailed Date of Procedure 03/21/25 Pre-op Diagnosis Left ureteral and renal stones, left ureteropelvic junction obstruction, suspected urinary tract infection Post-op Diagnosis Same Procedure Performed 1. Cystoscopy 2. Bilateral retrograde pyelograms with intraoperative interpretation 3. Stone manipulation without extraction 4. Left ureteral stent placement Surgeon Price Weston MD Anesthesia General Findings 1. Cystourethroscopy revealed orthotopic single ureteral orifices bilaterally. There was diffuse cystitis cystica as evidence of suspected urinary tract infection but no suspicious papillary lesions, tumors, active bleeding, or stones in the lower urinary tract. 2. Right retrograde pyelogram using a 50 50 mixture of contrast and saline showed no hydroureteronephrosis, contrast extravasation, or filling defects. There was appropriate drainage from the right collecting system noted on delayed films. 3. Left retrograde pyelogram using a 50 50 mixture of contrast and saline showed significant left hydronephrosis with a transition point at the left ureteropelvic junction with a filling defect at this location. There was no contrast extravasation. 4. During advancement of the wire into the left kidney, the stone was felt and seen under fluoroscopy to be manipulated but not extracted 5. Successful left ureteral stent placed without strings attached Description of Procedure After informed consent was obtained, the patient was brought back to the operating theatre and placed in the supine position on the operating table. Pre- operative antibiotics were confirmed to have been administered. Anesthesia was induced. The patient was moved into the dorsal lithotomy position and prepped and draped in the standard sterile fashion for an endoscopic case. All pressure points were padded. Bilateral sequential compression devices were on and noted to be functioning. A formal timeout was performed with Dr. Weston in attendance to confirm the correct patient, site/laterality, and procedure and all were in agreement to proceed. To begin with, I atraumatically advanced a lubricated 22-[place] rigid cystoscope transurethrally into the patient's bladder. Pancystoscopy was performed with findings as noted above. Attention was then turned to the right ureteral orifice, which was gently cannulated with a Sensor wire which was advanced up to the level of the right distal ureter under fluoroscopy. Over top of the wire, a 5-[place]amanian open ended catheter was advanced to the level of the distal ureter. The wire was removed keeping the open-ended catheter in place and a right retrograde pyelogram was performed using a 50:50 mixture of saline and contrast with findings as noted above. Next, I performed a left-sided retrograde pyelogram in the same fashion as the right hand side; see above for left-sided retrograde pyelogram findings. The wire was then replaced through the open-ended catheter and was attempted to be advanced up to the level of left kidney under fluoroscopy. The stone was somewhat impacted at the left ureteropelvic junction and under fluoroscopic guidance I was able to eventually navigate the Sensor wire past the stone, during which time the stone was felt and seen under fluoroscopy to be manipulated but not extracted. Next, I used a Seldinger maneuver to remove the open-ended catheter while leaving the Sensor wire in place. Over top of the wire, a 6-[place]amanian x 26 cm JJ stent was advanced and the pusher was used to deploy the stent in place, confirming a good proximal curl in the left kidney under fluoroscopy and a good distal curl in the bladder under both fluoroscopic and direct cystoscopic vision. The patient's bladder was then emptied and the cystoscope was removed, essentially concluding the case. At the conclusion of the case all sponge, instrument, and sharp counts were correct x 2. The patient was then awoken from anesthesia and taken to the recovery room in stable condition. The patient tolerated the procedure well and there were no immediate complications noted. Disposition: The patient will be monitored in the PACU and be transferred back to her hospital room after clearing PACU protocol. Urology recommends following up on the culture results and tailor in her antibiotics appropriately. Patient will need a staged endoscopic surgery in the upcoming weeks after confirming resolution of her infection for definitive management of her left-sided urinary tract stones. She would also likely benefit from a nuclear medicine renal Lasix scan and discussion of possible pyeloplasty given her long history of left UPJ obstruction, urinary tract infections, and kidney stones. Patient's contact, Baldomero, was provided with update following the surgery and all questions were answered to his satisfaction at the conclusion of our discussion.
--- NOTE | 2025-03-21 10:25 | SUR.OPER ---
Urine Culture Left Kidney sent with PERLITA Be and received in microbiology by
--- NOTE | 2025-03-21 10:45 | ADMGEN ---
This patient, Gail Snow, was admitted to 3 [facility] Surg Room 304-02. Patient/family oriented to hospital policies and general routines including ID bracelet, bed and alarms, visiting hours, pain management, procedures, bathroom and other care routines, personal items, smoking policy, room service/diet, and visiting hours. Information on how to activate the Rapid Response Team has been discussed. Patient/Family are encouraged to report perceived risks to care and to ask questions if they do not understand what they are told or what they should do. received report from saira.
[2025-03-21] MEDS: HYDROcodone/acetaminophen (*CRX) 5-325 MG TABLET 1 TAB PO ×2 (11:36→17:46)
--- NOTE | 2025-03-21 15:12 | P.HP_ITS ---
H&P: HPI History of Present Illness Date/Time: 03/21/25 15:12 Chief Complaint: KIDNEY STONE PAIN Narrative: ER-HPI Narrative: This is a 29-year-old female with history of kidney stones who presents the ED for left flank pain. Patient states that last night she had onset of her typical pain that she has with her kidney stones. She states that this has been having intermittently for the past couple years. She follows with urology in [place] this apparently had a couple kidney stones removed previously. She does not have a removal currently schedule at this time. She took Flomax as pre viously prescribed but ran out of pills. Denies fevers, chills, dysuria, hematuria. Does have nausea but no vomiting. patient with history of kidney stone now present with left flank pain, Ct scan of abdomen and pelvics showed chronic severe left hydronephrosis with mild left kidney atrophy. 1.7 cm stone now at left ureteropelvic junction. patient will be seen by the urologist and further recommendation to follow, suspect also has UTI and being treated with ceftriaxone, will follow up on urine culture and further recommendation to follow. Review of Systems Review of Systems: Gen.: Denies fevers or chills Eyes: Denies eye pain or visual change ENT: Denies congestion Respiratory: Denies shortness of breath or cough CV: Denies chest pain or palpitations GI: As per HPI denies burning, urgency, frequency or hematuria Musculoskeletal: Denies back pain or muscle pain Neuro: Denies numbness, tingling, weakness or focal weakness Skin: Denies rash Except as documented, all other systems reviewed and negative COUNTS INCLUDE 234 BEDS AT THE [facility] Family History Family History Mother Kidney disease Grandparent Heart disease Sibling Kidney stones POTS (postural orthostatic tachycardia syndrome) Social History Social History Smoking status: Never smoker Alcohol intake: current Substance use: never Substance use type: does not use Lack of Transportation: No Lack of Food: Never True Current Housing: I Have Housing Concerned About Future Housing: No Difficulty Paying Gas/Electric Bills: No Difficulty Paying for Meds: No Currently Unemployed: No Education: Bachelor's Degree Difficulty w/ Childcare or Family Care: No Spiritual care concerns: No Meds Home Medications and Allergies Allergies Allergy/AdvReac Type Severity Reaction Status Date / Time lanolin Allergy Rash Verified 03/21/25 08:36 latex Allergy Rash Verified 03/21/25 08:36 Vital Signs Vital Signs - 24 hr 03/21/25 02:42 03/21/25 02:43 03/21/25 02:45 Temperature Pulse Rate Respiratory Rate Blood Pressure 119/74 Pulse Oximetry 100 100 99 Oxygen Delivery Oxygen Flow Rate 03/21/25 02:46 03/21/25 03:13 03/21/25 03:15 Temperature Pulse Rate Respiratory Rate Blood Pressure 107/76 Pulse Oximetry 100 100 100 Oxygen Delivery Oxygen Flow Rate 03/21/25 03:17 03/21/25 03:18 03/21/25 03:55 Temperature 36.6 C Pulse Rate Respiratory Rate Blood Pressure 104/64 Pulse Oximetry 100 100 Oxygen Delivery Oxygen Flow Rate 03/21/25 03:59 03/21/25 04:00 03/21/25 04:01 Temperature Pulse Rate Respiratory Rate Blood Pressure 105/74 Pulse Oximetry 100 100 100 Oxygen Delivery Oxygen Flow Rate 03/21/25 04:15 03/21/25 04:30 03/21/25 04:31 Temperature Pulse Rate Respiratory Rate Blood Pressure 99/70 L Pulse Oximetry 100 100 100 Oxygen Delivery Oxygen Flow Rate 03/21/25 05:40 03/21/25 05:45 03/21/25 06:00 Temperature Pulse Rate Respiratory Rate Blood Pressure Pulse Oximetry 98 98 97 Oxygen Delivery Oxygen Flow Rate 03/21/25 06:01 03/21/25 06:15 03/21/25 06:30 Temperature Pulse Rate Respiratory Rate Blood Pressure 95/56 L Pulse Oximetry 99 97 96 Oxygen Delivery Oxygen Flow Rate 03/21/25 06:32 03/21/25 06:45 03/21/25 07:00 Temperature Pulse Rate Respiratory Rate Blood Pressure 91/51 L Pulse Oximetry 98 100 100 Oxygen Delivery Oxygen Flow Rate 03/21/25 07:01 03/21/25 07:02 03/21/25 09:36 Temperature 37.1 C Pulse Rate 61 56 L 60 Respiratory Rate 14 20 16 Blood Pressure 102/64 102/64 98/50 L Pulse Oximetry 99 100 100 Oxygen Delivery Room Air Oxygen Flow Rate 03/21/25 10:08 03/21/25 10:20 03/21/25 10:35 Temperature 36.3 C L Pulse Rate 58 L 57 L 52 L Respiratory Rate 14 13 13 Blood Pressure 87/52 L 83/56 L 88/57 L Pulse Oximetry 99 100 100 Oxygen Delivery Simple Face Mask Simple Face Mask Simple Face Mask Oxygen Flow Rate 8 8 8 03/21/25 10:40 03/21/25 10:45 03/21/25 11:00 Temperature Pulse Rate 57 L 56 L 50 L Respiratory Rate 12 12 12 Blood Pressure 111/58 L 94/59 L 93/63 L Pulse Oximetry 100 99 99 Oxygen Delivery Simple Face Mask Room Air Room Air Oxygen Flow Rate 8 03/21/25 11:09 03/21/25 11:25 03/21/25 11:40 Temperature 36.4 C 36.6 C Pulse Rate 49 L 60 57 L Respiratory Rate 12 18 18 Blood Pressure 92/63 L 98/55 L 93/55 L Pulse Oximetry 100 100 100 Oxygen Delivery Room Air Oxygen Flow Rate 03/21/25 12:10 03/21/25 13:10 Temperature 36.8 C 36.9 C Pulse Rate 53 L 62 Respiratory Rate 20 20 Blood Pressure 96/57 L 98/68 L Pulse Oximetry 100 98 Oxygen Delivery Oxygen Flow Rate Exam Narrative: Patient is comfortable, NAD HEENT: eyes are clear and none icteric LUNGS:CTA HEART: RR S1S2 ABD: BS+, Soft and nontender Lower extremities: no edema SKIN: nonjaundiced Neuro: grossly intact. H&P: Results Labs Labs: Short CBC 03/21/25 Range/Units 02:51 WBC 5.8 (4.5-10.0) K/mm3 Hgb 13.2 (12.0-15.0) g/dL Hct 38.8 (37.0-47.0) % Plt Count 185 (150-375) k/mm3 [facility] 03/21/25 02:51 Sodium 135 L Potassium 3.7 Chloride 104 Carbon Dioxide 23 BUN 21 H Creatinine 0.87 Glucose 98 Calcium 9.5 Liver Function 03/21/25 Range/Units 02:51 Total Bilirubin 0.9 (0.2-1.3) mg/dL AST 27 (14-36) U/L ALT 20 (6-35) U/L Alkaline Phosphatase 53 (38-126) U/L Albumin 4.3 (3.5-5.1) g/dL Urine 03/21/25 Range/Units 03:39 Urine Color Yellow (Yellow) Urine Appearance Cloudy H (Clear) Urine pH 6.0 (5.0-9.0) Ur Specific [place] 1.021 (1.001-1.035) Urine Protein 1+ H (Negative) mg/dL Urine Glucose (UA) Negative (Negative) mg/dL Assessment and Plan Assessment and plan (1) Ureterolithiasis: Code(s): N20.1 - Calculus of ureter Status: Acute (2) Hydronephrosis: Code(s): N13.30 - Unspecified hydronephrosis Status: Acute (3) UTI (urinary tract infection): Code(s): N39.0 - Urinary tract infection, site not specified Status: Inactive Plan patient with history of kidney stone now present with left flank pain, Ct scan of abdomen and pelvics showed chronic severe left hydronephrosis with mild left kidney atrophy. 1.7 cm stone now at left ureteropelvic junction. patient will be seen by the urologist and further recommendation to follow, suspect also has UTI and being treated with ceftriaxone, will follow up on urine culture and further recommendation to follow. Quality VTE Prophylaxis VTE prophylaxis: mechanical ordered
[2025-03-21] MEDS: TAMSULOSIN HCL 0.4 MG CAPSULE PO (19:57)
[2025-03-22] VITALS: BP 97/25; PULSE 62; RESP 18; TEMP 36.5; O2SAT 98
[2025-03-22] MEDS: HYDROcodone/acetaminophen (*CRX) 5-325 MG TABLET 1 TAB PO ×2 (00:09→10:52)
[2025-03-22 04:00] VITALS: BP 97/51; PULSE 68; RESP 18; TEMP 36.7; O2SAT 98
[2025-03-22 07:53] VITALS: BP 100/64; PULSE 66; RESP 18; TEMP 36.3; O2SAT 98
[2025-03-22 08:57] LABS: Hematocrit 36.1 % (37.0-47.0); Hemoglobin 11.9 g/dL (12.0-15.0); Mean Corpuscular HGB Conc 33.0 g/dl (32-36); Mean Corpuscular Hemoglobin 29.6 pg (26-34); Mean Corpuscular Volume 89.8 fl (80-100); Platelet Count Result 163 k/mm3 (150-375); Red Blood Count 4.02 M/mm3 (4.2-5.4); White Blood Count 7.0 K/mm3 (4.5-10.0)
--- NOTE | 2025-03-22 09:03 | P.PNUR_ITS ---
Progress Note: A&P Assessment and Plan (1) Ureterolithiasis: Code(s): N20.1 - Calculus of ureter Status: Acute Assessment and Plan: - CT A/P reviewed with pt which demonstrates 1.7 cm Left UPJ stone with severe hydro - patient is POD 1 left ureteral stent placement. - Creatinine and wbc wnl -It is preferred by Dr. Weston if she stays until the culture results are in for appropriate treatment. 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 Hospitalist was okay with her leaving ac cording to that staff. If this is the case then she should be discharged with empiric antibiotics and followed for culture. Once the culture has resulted she should receive culture driven antibiotics per primary service at that point. - Will follow up outpatient for definitive stone management with Dr. Weston Subjective Subjective Date/Time Seen: 03/22/25 09:03 Interval history: patient is POD1 1. Cystoscopy 2. Bilateral retrograde pyelograms with intraoperative interpretation 3. Stone manipulation without extraction 4. Left ureteral stent placement Patient reports she is doing well. She states she does have some stent discomfort but is much more comfortable. She denies any fever or chills. Review of Systems Review of Systems: Gen.: Denies fevers or chills Eyes: Denies eye pain or visual change ENT: Denies congestion Respiratory: Denies shortness of breath or cough CV: Denies chest pain or palpitations GI: Denies constipation denies burning, urgency, frequency or hematuria Musculoskeletal: Denies back pain or muscle pain Neuro: Denies numbness, tingling, weakness or focal weakness Skin: Denies rash Exam Const: General: comfortable and no acute distress Resp: Effort & Inspection: normal respiratory effort Skin: General skin exam: normal color Neuro: Speech: normal speech Psych: Speech and movement: Normal speech and movement present Affect: normal affect Objective Data Vital Signs Vital Signs: Vital Signs - 24 hr 03/21/25 09:36 03/21/25 10:08 03/21/25 10:20 Temperature 98.7 F 97.3 F L Pulse Rate 60 58 L 57 L Respiratory Rate 16 14 13 Blood Pressure 98/50 L 87/52 L 83/56 L Pulse Oximetry 100 99 100 Oxygen Delivery Room Air Simple Face Mask Simple Face Mask Oxygen Flow Rate 8 8 03/21/25 10:35 03/21/25 10:40 03/21/25 10:45 Temperature Pulse Rate 52 L 57 L 56 L Respiratory Rate 13 12 12 Blood Pressure 88/57 L 111/58 L 94/59 L Pulse Oximetry 100 100 99 Oxygen Delivery Simple Face Mask Simple Face Mask Room Air Oxygen Flow Rate 8 8 03/21/25 11:00 03/21/25 11:09 03/21/25 11:25 Temperature 97.6 F Pulse Rate 50 L 49 L 60 Respiratory Rate 12 12 18 Blood Pressure 93/63 L 92/63 L 98/55 L Pulse Oximetry 99 100 100 Oxygen Delivery Room Air Room Air Oxygen Flow Rate 03/21/25 11:40 03/21/25 12:10 03/21/25 13:10 Temperature 97.9 F 98.3 F 98.4 F Pulse Rate 57 L 53 L 62 Respiratory Rate 18 20 20 Blood Pressure 93/55 L 96/57 L 98/68 L Pulse Oximetry 100 100 98 Oxygen Delivery Oxygen Flow Rate 03/21/25 18:25 03/21/25 20:00 03/22/25 00:00 Temperature 97.4 F L 97.6 F 97.7 F Pulse Rate 65 59 L 62 Respiratory Rate 20 16 18 Blood Pressure 90/53 L 92/57 L 97/25 L Pulse Oximetry 98 100 98 Oxygen Delivery Oxygen Flow Rate 03/22/25 04:00 03/22/25 07:53 Temperature 98.1 F 97.4 F L Pulse Rate 68 66 Respiratory Rate 18 18 Blood Pressure 97/51 L 100/64 Pulse Oximetry 98 98 Oxygen Delivery Oxygen Flow Rate Intake/Output Intake/Output: Intake & Output 03/19/25 03/20/25 03/21/25 03/22/25 23:59 23:59 23:59 23:59 Intake Total 1940 900 Output Total 800 800 Balance 1140 100 Meds/Results Medications: Active Medications Generic Name Dose Route Start Last Admin Trade Name Freq PRN Reason Stop Dose Admin Hydrocodone Bitart/Acetaminophen 1 tab 03/21/25 11:06 03/22/25 00:09 Hydrocodone/Acetaminophen (*Crx) 5-325 Mg Tablet PO 1 tab Q6H PRN Administration Pain Rated 4-6 Hyoscyamine 0.125 mg 03/21/25 11:13 Hyoscyamine Sulfate 0.125 Mg Tablet SUBLINGUAL Q4H PRN Bladder Spasm Ceftriaxone Sodium 2 gm/ 100 mls @ 200 mls/hr 03/22/25 09:00 Sodium Chloride IVPB DAILY DEJUAN Ondansetron HCl 4 mg 03/21/25 06:06 03/21/25 14:20 Ondansetron Inj 4 Mg/2 Ml Vial IV PUSH 4 mg Q4H PRN Administration Nausea Tamsulosin HCl 0.4 mg 03/21/25 21:00 03/21/25 19:57 Tamsulosin Hcl 0.4 Mg Capsule PO 0.4 mg HS DEJUAN Administration Radiology Results: ITS Impressions Abdomen/Pelvis CT 03/21/25 06:58 IMPRESSION: 1. Chronic severe left hydronephrosis with mild left kidney atrophy. 1.7 cm stone now at left ureteropelvic junction. 2. Mild right hydronephrosis. 3. Bilateral nonobstructing kidney stones. Retrograde Pyelogram 03/21/25 10:38 IMPRESSION: 1. Unchanged likely obstructing stone at the left ureteropelvic junction with chronic severe left hydronephrosis. 2. Interval placement of a left intraureteral stent which is in expected position spanning the stone at the left ureteropelvic junction. See procedure note for further detail. Labs Labs: Laboratory Results - last 24 hr 03/22/25 08:41 WBC 7.0 RBC 4.02 L Hgb 11.9 L Hct 36.1 L MCV 89.8 MCH 29.6 MCHC 33.0 RDW 13.2 Plt Count 163 MPV 11.0 H
[2025-03-22 09:10] LABS: Anion Gap 5 mmol/L (4-12); Blood Urea Nitrogen 13 mg/dL (7-17); Calcium 9.5 mg/dL (8.4-10.2); Carbon Dioxide 25 mmol/L (22-30); Chloride 107 mmol/L (98-107); Estimated CRCL calculation 95 ml/min; Estimated Glomerular Filt Rate > 60; Glucose 102 mg/dL (65-110); Magnesium 2.1 mg/dL (1.6-2.3); Potassium 3.5 mmol/L (3.4-5.0); Sodium 137 mmol/L (137-145)
[2025-03-22] MEDS: cefTRIAXone 2 GM in SODIUM CHLORIDE 0.9% IV 100 ML 200 ML IVPB (09:21)
[2025-03-22] MEDS: HYOSCYAMINE SULFATE 0.125 MG TABLET SUBLINGUAL (09:21)
[2025-03-22 11:44] VITALS: BP 90/54; PULSE 58; RESP 16; TEMP 36.6; O2SAT 100
--- NOTE | 2025-03-22 14:15 | P.DS_ITS ---
DS: Admitting Diagnosis Discharge Date 03/22/25 Admitting Diagnosis KIDNEY STONE PAIN DS: Discharge Diagnosis Discharge Diagnosis (1) Ureterolithiasis: Code(s): N20.1 - Calculus of ureter Status: Acute (2) Hydronephrosis: Code(s): N13.30 - Unspecified hydronephrosis Status: Acute (3) UTI (urinary tract infection): Code(s): N39.0 - Urinary tract infection, site not specified Status: Inactive Plan patient with history of kidney stone now present with left flank pain, Ct scan of abdomen and pelvics showed chronic severe left hydronephrosis with mild left kidney atrophy. 1.7 cm stone now at left ureteropelvic junction. patient will be seen by the urologist and further recommendation to follow, suspect also has UTI and being treated with ceftriaxone, will follow up on urine culture and further recommendation to follow. patient clinical symptoms have improved, her urine culture results are not back, will discharge patient on oral cefdinir, patient will have her priamry care provider follow up on the urine culture and will follow up with her urologist as scheduled. DS: Summary Hospital Course Hospital Course: patient with history of kidney stone now present with left flank pain, Ct scan of abdomen and pelvics showed chronic severe left hydronephrosis with mild left kidney atrophy. 1.7 cm stone now at left ureteropelvic junction. patient will be seen by the urologist and further recommendation to follow, suspect also has UTI and being treated with ceftriaxone, will follow up on urine culture and further recommendation to follow. patient clinical symptoms have improved, her urine culture results are not back, will discharge patient on oral cefdinir, patient will have her priamry care provider follow up on the urine culture and will follow up with her urologist as scheduled. Time Spent with Patient Time attestation: Total time spent providing and/or coordinating discharge services: Exam Narrative: Patient is comfortable, NAD HEENT: eyes are clear and none icteric LUNGS:CTA HEART: RR S1S2 ABD: BS+, Soft and nontender Lower extremities: no edema SKIN: nonjaundiced Neuro: grossly intact. DS: Data Data Completed and Pending Labs on day of discharge: Labs from last 24 hours 03/22/25 08:41 WBC 7.0 RBC 4.02 L Hgb 11.9 L Hct 36.1 L MCV 89.8 MCH 29.6 MCHC 33.0 RDW 13.2 Plt Count 163 MPV 11.0 H Sodium 137 Potassium 3.5 Chloride 107 Carbon Dioxide 25 Anion Gap 5 BUN 13 D Creatinine 0.72 Estim Creat Clear Calc 95 Estimated GFR > 60 Glucose 102 Calcium 9.5 Magnesium 2.1 Discharge Plan Discharge Attending physician on discharge: Blessing Sands Consulting providers: Nick Merino; Price Weston; Tabitha Baer; Madalyn Ghosh; Brady Swartz; Kartik Carreon V. Discharging Clinician: Marie Benavidez Patient Disposition: Home Activity: as tolerated Diet: heart healthy Discharge Instructions: Patient is instructed to have her primary care call [facility] get urine culture and adjust the antibiotics if needed, patient to follow discharge care instruction from her urologist and follow up as scheduled, patient is instructed if any symptoms worsen to go to nearest ER. Patient Instructions: Antibiotic Form Patient Language: Albanian Stand Alone Forms: General Discharge Information Follow-up/Referrals: Josh Haro MD [Physician, Urology] Quang,MD Phan [Primary Care Provider, Family Practice] Discharge Medications: New hyoscyamine sulfate [Anaspaz] 0.125 mg Tablet,Disintegrating 0.125 mg sublingual Q4H PRN (Reason: Bladder Spasm) Qty: 20 0RF cefdinir 300 mg capsule 300 mg PO Q12H Qty: 14 0RF hydrocodone-acetaminophen 5-325 mg Tablet 1 tablet PO Q6H PRN (Reason: Pain Rated 4-6) Qty: 15 0RF Date of admission: 03/21/25 06:06 Primary Care Provider: Quang,Phan Admitting Provider: Blessing Sands Attending physician on admission: Marie Benavidez Condition: Stable
--- NOTE | 2025-03-22 14:17 | PC.NURSE ---
This nurse made Madalyn Ghosh of Urology and Dr. Benavidez aware that pt is adamant about leaving by 6 pm hernan on 03/22/25. Dr. Benavidez is going to discharge pt and told this nurse that she needs to have primary doctor follow up on urine cultures. Urine cultures are still pending at this time.
[2025-03-22 15:33] VITALS: BP 88/57; PULSE 66; RESP 18; TEMP 36.3; O2SAT 98
== END 2025-03-22 15:05 | disposition home or self-care (01) ==
LOC: ANHED 06:26 → ANH3MEDSUR 08:27
PROVIDERS: Urology; Admitting Provider Internal Medicine; Emergency Provider Student in an Organized Health Care Education/Training Program; PCP Family Medicine; Visit Provider Family Medicine
PROC: (CPT 52352; principal; 2025-03-21 09:30)
DX: N20.1 Calculus of ureter (principal); N13.30 Unspecified hydronephrosis; N39.0 Urinary tract infection, site not specified; Z87.442 Personal history of urinary calculi; Z84.19 Family history of other disorders of kidney and ureter; Z82.49 Family history of ischemic heart disease and other diseases of the circulatory system; Z84.89 Family history of other specified conditions
CPT/HCPCS: 52332; 52352; 36415; 74176; 74420; 80048; 80053; 81001; 81025; 83735; 85025; 85027; 87086; 96361; 96374; 96375; 96376; 99285; A9270; C1758; C1769; C2617; G0378; J0696; J1100; J1885; J2003; J2250; J2270; J2405; J2704; J3010; J7030; J7120; Q9966

== ENCOUNTER 2025-04-18 03:32 | Day surgery (SDC) | payer OTHER, SELFPAY ==
--- NOTE | 2025-04-13 16:44 | PC.NURSE ---
[facility] has started construction of its new state of the art ER which will open Spring 2026. With this, we anticipate parking may be a challenge for some our surgical patients and families. Parking spaces are limited but are available for all Surgical, obstetrics, and ER patients sharing this lot. If you arrive and find you are having a hard time finding a parking space, please note that we understand the challenges, please drive around the hospital and park near Hospital Entrance 1. When you enter this entrance, you can ask a volunteer to direct or take you back to the surgical waiting area to check in. We appreciate everyone?s understanding of these expected challenges while we build for your future. Report to the Outpatient Waiting Room, entrance under the green pavilion located off [address], at time 0600 on date 04/18/25. Planned Procedure Time: 0730.? Time changes happen often and if your time is changed the preop area will call you the afternoon before. - You and your visitor will be asked to self-screen and do not enter if you have any COVID symptoms. Please call surgeon if you need to reschedule. - A mask is optional within the hospital at this time. Patients may have clear liquids (water, carbonated beverages, clear teas, apple juice) until 3 hours prior to surgery with a maximum of 20 ounces. 0430 - No food from midnight until time of surgery and no smoking, or chewing tobacco (or any form of nicotine). No chewing gum, candy or mints. - Infants may have breast milk until 4 hours before surgery, infant formula 6 hours prior to surgery. - Children will be allowed to drink immediately following surgery.? If applicable, please bring a bottle or sippy cup to assist with drinking. Juice, water, soda, and popsicles are readily available.? For infants on formula, please bring formula the day of surgery.? Pacifiers are allowed. Take only the following medications with a SIP of water on the morning of surgery: NONE DO NOT STOP ANY OF YOUR OTHER PRESCRIPTION MEDICATIONS PRIOR TO SURGERY EXCEPT THE FOLLOWING Hold all vitamins and supplements for 3 days per anesthesiologist. Medications to discontinue per physician ASKING DR. JONES'S OFFICE ABOUT IBUPROFEN Date to take last dose Please no make-up, nail maori, hairspray, perfume, deodorant, or body powder the day of surgery.? No jewelry (including any body piercings) or valuables the day of surgery, leave them at home.? Please take a shower or bath the night before, or the morning of, surgery with an antibacterial soap.? Wear comfortable, loose fitting clothing.? Children are encouraged to wear pajamas. - Jewelry must be removed prior to entering the operating room.? Rings and piercings that are not removed may be cut off. - The hospital will not accept responsibility for valuables.? - Please leave all valuables, including medications, at home the day of surgery. If you are going home after surgery, a licensed local combination truck driver must drive you home.? - NO public transportation without another adult if you receive anesthesia. - We recommend that an adult stay with you for 24 hours following discharge. - We also recommend that you do not drive, make important decision, drink alcoholic beverages, or take any drugs that were not prescribed by your health care provider for at least 24 hours after your discharge time. For Pediatric surgeries, we recommend two adults accompany the child home. Follow any additional instructions given to you from your surgeon. Telephone instructions given to Patient- Gail Snow and asked if any additional questions and then verbalized understanding. Patient advised to call surgeon office or pre surgery nurse liaison [phone] if any additional questions.
[2025-04-13 16:52] VITALS: BMI 21.8
[2025-04-18] VITALS (8 sets, daily range): BP systolic 91–106; BP diastolic 61–91; PULSE 58–84; RESP 13–16; TEMP 36.1–36.9; O2SAT 100; BMI 21.3
--- NOTE | ~2025-04-18 | XR_ITS ---
EXAM/PROCEDURE: XR retrograde pyelo w/stent LT HISTORY: LEFT RETRO, LEFT STENT EXCHANGE COMPARISON: None available. TECHNIQUE: Fluoroscopic spot images for urology service. Fluoroscopy time: 62.7 seconds Dose: 11.23 mGy FINDINGS: Fluoroscopic images showing retrograde left pyelography demonstrating what appears to be massively distended left-sided collecting system. IMPRESSION: Fluoroscopic guided imaging. No radiologist present. See also procedure/operative notes for complete evaluation. Reviewed, dictated and finalized at location A. OVERHAULER IMPRESSION: Fluoroscopic guided imaging. No radiologist present. See also proce dure/operative notes for complete evaluation.
--- OUTSIDE RECORDS SUMMARY | 2025-04-18 03:37 | XMS_ITS | Encounter Summary ---
Author Organization [facility] Address [facility] [place] [address] Care Team Providers Care Franchise Broker Name Role Phone None, Provider Primary Care Provider Unavaila Juno Stout MD Primary Care Provider [phone] Juno Calabrese MD Primary Care Provider [phone] Stefanie So [facility] Unavailable Bill Dunham MD Unavailable [phone] Phan Del Rio MD Primary Care Provider Encounter Details Date Type Department Care Team (Late st Contact Info) Description 10/16/2018 Abstract [facility] [address] [place] [address] , Generic Conversion, Social History Tobacco Use Types Packs/Day Years Used Date Smoking Tobacco: Never Assessed Comments Unknown Sex and Gender Information Value Date Recorded Sex Assigned at Not on file Legal Sex Female 9:27 PM CLINICAL QUALITY ANALYST Gender Identity Not on file Sexual Orientation Not on file documented as of this encounter Plan of Treatment Not on file documented as of this encounter Visit Diagnoses Not on filedocumented in this encounter Additional Health Concerns Infection Onset Date Last Indicated Resolved Time COVID-19 Rule Out 09/19/2019 09/19/2019 09/20/2019 11:54 AM CDT documented as of this encounter Care Teams Franchise Broker Relationship Specialty Start Date End Date None, Provider, PCP - General 01/22/19 03/07/19 Juno Calabrese MD PCP - General FAMILY PRACTICE 03/08/19 03/10/19 Juno Calabrese MD [address] [place], [place] [phone] PCP - General FAMILY PRACTICE 03/11/19 07/22/23 Phan Del Rio MD [address] [place] [address] [place] [address] PCP - General FAMILY PRACTICE 07/23/23 Stefanie So, [facility]- [address] [place], [place] [phone] NURSE PRACTITIONER 07/07/19 Bill Dunham MD [address] [place], [place] [phone] Consulting Physician NEUROLOGY 07/07/19 documented as of this encounter
--- OUTSIDE RECORDS SUMMARY | 2025-04-18 03:37 | XMS_ITS | Patient Health Record ---
[facility] Organization [facility] Address [address] [place] [address] Care Team Providers Care Liquid Compounder Name Role Phone Bryant Gurrola Unavailable [phone] Reason For Referral No Information Plan Of Treatment No Information
--- OUTSIDE RECORDS SUMMARY | 2025-04-18 03:37 | XMS_ITS | Clinical Summary ---
Author Organization [facility] Address [address] [place] [address] Care Team Providers Care Civil Clerk Name Role Phone Teddy Worrell MD Unavailable Phan Del Rio MD Primary Care Provider Allergies Active Allergy Reactions Criticality Noted Date Comments Lanolin Rash Medium 01/22/2019 Latex Rash Medium 01/22/2019 Medications ciprofloxacin (CIPRO) 250 mg tabletIndicatio ns:Cystitis with hematuria Take 1 tablet (250 mg total) by mouth 2 (two) times a day for 3 days 6 tablet 04/14/2025 5 Active Problems Problem Noted Date Diagnosed Date Chest pain 09/04/2023 Overview (09/04/2023): EKG ok in office today Given cardiac hx w/ possible pacemaker will get ECHO and farm products 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 Migraine without aura, not i ntractable, without status migrainosus 11/08/2019 Ureteral stone with hydronephrosis 09/01/2019 Anxiety disorder 01/24/2019 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 Tonsillitis 07/16/2010 Enlarged tonsils 07/16/2010 Encounters Date Type Department Care Team Description 04/14/2025 5:45 PM WEAVING INSPECTOR Office Visit [facility] Care at [address] [address] Natalie You, MARIA ANTONIA Cystitis with hematuria (Primary Dx); UTI symptoms; Kidney stones 03/24/2025 Telephone [facility] Medicine Surgery [address] [place] [address] Lizbeth Hernadez from Last 3 Months Immunizations Immunization Administration Dates Next Due Influenza, [...] Tobacco: Never Tobacco Cessation:Counseling Given: Not Answered Alcohol Use Standard Drinks/Week Comments Yes 1 (1 standard drink = 0.6 oz pur e alcohol) PHQ-2 Answer Date Recorded PHQ-2 Total Score (If total score is 3 or more points, staff should administer the PHQ-9) 0 11/24/2022 AUDIT-C Answer Date Recorded Q1: How often do you have a drink containing alc ohol? 2-4 times a month 04/14/2025 Q2: How many drinks containi ng alcohol do you have on a typical day when you are drinking? 1 or 2 04/14/2025 Q3: How often do you have si x or more drinks on one occasion? Never 04/14/2025 Comments Unknown Sex and Gender Information Value Date Recorded Sex Assigned at Not on file Legal Sex Female 6:42 AM WEAVING INSPECTOR Gender Identity Not on file Sexual Orientation Not on file Last Filed Vital Signs Vital Sign Reading Time Taken Comments Blood Pressure 120/70 04/14/2025 6:12 PM WEAVING INSPECTOR Pulse 71 04/14/2025 6:12 PM WEAVING INSPECTOR Temperature 36.1 C (97 F) 04/14/2025 6:12 PM WEAVING INSPECTOR Respiratory Rate 18 04/14/2025 6:12 PM WEAVING INSPECTOR Oxygen Saturation 98% 09/02/2024 6:46 PM CDT Inhaled Oxygen Concentration - - Weight 59 kg (130 lb) 04/14/2025 6:12 PM WEAVING INSPECTOR Height 170.2 cm (5' 7) 04/14/2025 6:12 PM WEAVING INSPECTOR Body Mass Index 20.36 04/14/2025 6:12 PM WEAVING INSPECTOR Plan of Treatment Health Maintenance Due Date Last Done Comments Cervical Cancer Screening 1993 Hepatitis C Screening 1993 Varicella Vaccines (1 of 2 - 13+ 2-dose series) 2006 Hepatitis B Screening 10/28/2011 HPV Vaccines (1 - 3-dose SCD M series) 2020 Regular Well Visit/Exam 18-64 10/10/2023 10/09/2022 Depression Screening 11/25/2023 11/24/2022, 10/09/2022 Influenza Vaccine (#1) 2025 03/24/2019 DTaP/Tdap/Td Vaccine (2 - Td or Tdap) 11/07/2031 11/06/2021 Pneumococcal vaccine <65 Aged Out No longer eligible based on patient's age to complete this topic Procedures Procedure Name Priority Date/Time Associated Diagnosis Comments POCT URINALYSIS DIPSTICK Routine 04/14/2025 6:08 PM WEAVING INSPECTOR UTI symptoms Kidney stones from Last 3 Months Results * (ABNORMAL) POCT urinalysis dipstick (04/14/2025 6:08 PM WEAVING INSPECTOR) Color, Urine, POC Red Clarity, ur, POC Cloudy(A) Clear Glucose, ur, POC Negative Negative Bilirubin, ur, POC Negative Negative Ketones, ur, POC Negative Negative Specific [place], POC 1.020 1.003 - 1.030 Blood, ur, POC Large(A) Negative pH, ur, POC 8.0 5.0 - 8.0 Protein, ur, POC 300.(A) Negative Urobilinogen, urine, POC 0.2 0.2 - 1.0 mg/dL Nitrite, ur, POC Negative Negative Leukocytes, ur, POC Small(A) Negative Lot Number [id number] Urine 04/14/2025 6:08 PM WEAVING INSPECTOR Natalie You NP POINT OF CARE TEST ORDERABLES Edited Result - Final from Last 3 Months Insurance [facility] CHOICE PLUS [facility] HMO/PPO Address: [facility] [address] [place] [address] [facility]ICE PL[facility] H[facility]/PPO Address: [place] [address] [facility] CHOICE PLUS [facility] HMO/PPO [place] [address] Care Teams Civil Clerk Relationship Specialty Start Date End Date Phan Del Rio MD [address] [place] [id number] PCP - General Family Medicine 03/03/24 Teddy Worrell MD [address] [place] [address] Referring Physician Neurology 10/09/22
--- OUTSIDE RECORDS SUMMARY | 2025-04-18 03:37 | XMS_ITS | Encounter Summary ---
Author Organization [facility] Address [place] [address] Care Team Providers Care Thermocouple Tester Name Role Phone None, Provider Primary Care Provider Unavaila Juno Stout MD Primary Care Provider [phone] Juno Calabrese MD Primary Care Provider [phone] Stefanie So [facility] Unavailable Bill Dunham MD Unavailable [phone] Phan Del Rio MD Primary Care Provider [phone] Encounter Details Date Type Department Care Team (Late st Contact Info) Description 01/24/2019 Abstract [facility] [address] [place] [id number] Social History Tobacco Use Types Packs/Day Years Used Date Smoking Tobacco: Never Smokeless Tobacco: Never Alcohol Use Standard Drinks/Week Comments Yes 0 (1 standard drink = 0.6 oz pur e alcohol) socially Comments No Sex and Gender Information Value Date Recorded Sex Assigned at Not on file Legal Sex Female 9:27 PM 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 BUILDER BRICK Gender Identity Not on file Sexual Orientation [...] documented as of this encounter Care Teams Thermocouple Tester Relationship Specialty Start Date End Date None, Provider, PCP - General 01/22/19 03/07/19 Juno Calabrese MD PCP - General FAMILY PRACTICE 03/08/19 03/10/19 Juno Calabrese MD [address] [place] [phone] PCP - General FAMILY PRACTICE 03/11/19 07/22/23 Phan Del Rio MD [address] [place] [address] [place] [address] PCP - General FAMILY PRACTICE 07/23/23 Stefanie So FNP- [address] [place] [phone] NURSE PRACTITIONER 07/07/19 Bill Dunham MD [address] [place] [phone] Consulting Physician NEUROLOGY 07/07/19 documented as of this encounter
--- OUTSIDE RECORDS SUMMARY | 2025-04-18 03:37 | XMS_ITS | Encounter Summary ---
Author Organization [facility] Address [facility] [place] [address] Care Team Providers Care Field Recruiter Name Role Phone None, Provider Primary Care Provider Unavaila Juno Stout MD Primary Care Provider [phone] Juno Calabrese MD Primary Care Provider [phone] Stefanie So [facility]- Unavailable Bill Dunham MD Unavailable [phone] Phan eDl Rio MD Primary Care Provider [phone] Encounter Details Date Type Department Care Team (Late st Contact Info) Description 01/21/2019 Abstract [facility] [address] [place] [address] Social History Tobacco Use Types Packs/Day Years Used Date Smoking Tobacco: Never Assessed Comments Unknown Sex and Gender Information Value Date Recorded Sex Assigned at Not on file 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 Sex 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 Gender Identity Not on file Sexual [...] documented as of this encounter Care Teams Field Recruiter Relationship Specialty Start Date End Date None, Provider, PCP - General 01/22/19 03/07/19 Juno Calabrese MD PCP - General FAMILY PRACTICE 03/08/19 03/10/19 Juno Calabrese MD [address] [place] [phone] PCP - General FAMILY PRACTICE 03/11/19 07/22/23 Phan Del Rio MD [address] [place] [address] [place] [address] PCP - General FAMILY PRACTICE 07/23/23 Stefanie So, [facility]- [address] [place] [phone] NURSE PRACTITIONER 07/07/19 Bill Dunham MD [address] [place] [phone] Consulting Physician NEUROLOGY 07/07/19 documented as of this encounter
--- OUTSIDE RECORDS SUMMARY | 2025-04-18 03:37 | XMS_ITS | Encounter Summary ---
Author Organization [facility] Address [address] [place] [address] Phone Care Team Providers Care Reservoir Engineering Advisor Name Role Phone Teddy Worrell MD Unavailable [phone] Phan Del Rio MD Primary Care Provider Encounter Details Date Type Department Care Team (Late st Contact Info) Description 03/24/2025 Telephone [facility] Medicine Surgery [address] [place] [address] Lizbeth Hernadez Social History Tobacco Use Types Packs/Day Years Used Date Smoking Tobacco: Never Passive Smoke Exposure: Never Smokeless Tobacco: Never AUDIT-C Answer Date Recorded Q1: How often [...] on file Legal Sex Female 6:42 AM NETWORK RELATIONS CONSULTANT Gender Identity Not on file Sexual Orientation Not on file documented as of this encounter Miscellaneous Notes * Telephone Encounter - Desiree Allan RMA - 03/29/2025 9:13 AM CST Got a hold of patient and informed her that is scheduling out till May. She stated that she is getting another urologist at this time ORK RELATIONS CONSULTANT * Telephone Encounter - HernadezRadonna - 03/24/2025 1:05 PM CST Date: 03/24/2025 Reason for Call: patient called wanting to leave a message for Prototype Deicer Assembler Nesha. Patient was int he ER on 03/20. They did surgery and ended up putting a stent in. She currently still has the stent in. They want to do surgery again but its going April 18. She is wanting to know with us if we could possibly get her in before April 18 to remove the kidney stones. She has a 1.7 cm and a 4mm stone Patient Provider: Medical/Surgical Information: Outcome/Plan: ORK RELATIONS CONSULTANT documented in this encounter Plan of Treatment Not on file documented as of this encounter Visit Diagnoses Not on filedocumented in this encounter Care Teams Reservoir Engineering Advisor Relationship Specialty Start Date End Date Phan Del Rio MD [address] [place] [address] PCP - General Family Medicine 03/03/24 Teddy Worrell MD [address] [place] [address] Referring Physician Neurology 10/09/22 documented as of this encounter
--- OUTSIDE RECORDS SUMMARY | 2025-04-18 03:37 | XMS_ITS | Encounter Summary ---
Author Organization [facility] Address [address] [place] [address] Care Team Providers Care Fish Net Maker Name Role Phone None, Provider Primary Care Provider Unavaila Juno Stout MD Primary Care Provider [phone] Juno Calabrese MD Primary Care Provider [phone] Stefanie So [facility] Unavailable Bill Dunham MD Unavailable [phone] Phan Del Rio MD Primary Care Provider [phone] Encounter Details Date Type Department Care Team (Late st Contact Info) Description 07/25/2017 Abstract [facility] [address] [place] [address] , Generic Conversion, Social History Tobacco Use Types Packs/Day Years Used Date Smoking Tobacco: Never Assessed Comments Unknown Sex and Gender Information Value Date Recorded Sex Assigned at Not on file Legal Sex Female 9:27 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 Gender Identity Not on file Sexual Orientation Not on file documented as of this encounter Plan of Treatment Not on file documented as of this encounter Visit Diagnoses Not on filedocumented in this encounter Additional Health Concerns Infection Onset Date Last Indicated Resolved Time COVID-19 Rule Out 09/19/2019 09/19/2019 09/20/2019 11:54 AM CDT documented as of this encounter Care Teams Fish Net Maker Relationship Specialty Start Date End Date None, Provider, PCP - General 01/22/19 03/07/19 Juno Calabrese MD PCP - General FAMILY PRACTICE 03/08/19 03/10/19 Juno Calabrese MD [address] [place] [phone] PCP - General FAMILY PRACTICE 03/11/19 07/22/23 Phan Del Rio MD [address] [place] [address] [place] [address] PCP - General FAMILY PRACTICE 07/23/23 Stefanie So, [facility]- [address] [place], [place] [phone] NURSE PRACTITIONER 07/07/19 Bill Dunham MD [address] [place] [phone] Consulting Physician NEUROLOGY 07/07/19 documented as of this encounter
--- OUTSIDE RECORDS SUMMARY | 2025-04-18 03:37 | XMS_ITS | Data Portability ---
Author Organization [facility] Address [address] [place] [address] [place] [address] Care Team Providers Care Aoc Director Intelligence Officer Name Role Phone [facility] [place] Primary Care Provider Assessment No assessment recorded. Plan of Treatment Reminders Order Date Submit Date Provider Last Modified By Organization Details Last Modified Time Details Appointments None recorded. Lab None recorded. Referral None recorded. Procedures None recorded. Surgeries None recorded. Imaging US, obstetric, transvagina l 2024 025 8 [address], [address], [place], [address], 09:19:59 US, pelvis 2023 [address], [address], [place], [address], 19:51:29 US, transvagina l [address], [address], [place], [address], 19:51:29 Medication Orders None recorded. Patient TargetsNo targets recorded. Patient InstructionsNo instructions recorded. Reason for Referral None Reported. Results Created Date Observation Date Name Description Value Unit Range Abnormal Flag Note LastModifiedBy Organization Detail LastModifiedTime 05/19/19 24 05/19/2023 urina lysis , dipst ick Leukocytes normal Not Available Fahad hernandez [address], [place], [address], 05/19/2023 11:39:12 05/19/19 24 05/19/2023 urina lysis , dipst ick Nitrite normal Not Available [place] [address], [place], [address], 05/19/2023 11:39:12 05/19/19 24 05/19/2023 urina lysis , dipst ick Urobilinogen normal Not Available [facility] [address], [place], [address], 05/19/2023 11:39:12 05/19/19 24 05/19/2023 urina lysis , dipst ick Protein trace Not Available [place] [address], [place], [address], 05/19/2023 11:39:12 05/19/19 24 05/19/2023 urina lysis , dipst ick pH 6 Not Available [place] [address], [place], [address], 05/19/2023 11:39:12 05/19/19 24 05/19/2023 urina lysis , dipst ick Specific Ector 1.015 Not Available [facility] kaden [address], [place], [address], 05/19/2023 11:39:12 05/19/19 24 05/19/2023 urina lysis , dipst ick Ketone normal Not Available [place] [address], [place], [address], 05/19/2023 11:39:12 05/19/19 24 05/19/2023 urina lysis , dipst ick Bilirubin normal Not Available [facility] [address], [place], [address], 05/19/2023 11:39:12 05/19/19 24 05/19/2023 urina lysis , dipst ick Glucose normal Not Available [place] [address], [place], [address], 05/19/2023 11:39:12 05/19/19 24 05/19/2023 urina lysis , dipst ick Appearance normal Not Available [facility] mary [address], [place], [address], 05/19/2023 11:39:12 05/19/19 24 05/19/2023 urina lysis , dipst ick Color normal Not Available [place] [address], [place], [address], 05/19/2023 11:39:12 05/19/19 24 05/19/2023 pregn ana test, urine HCG negati ve Not Available [place] [address], [place], [address], 05/19/2023 11:38:38 07/29/19 24 07/29/2023 CBC W/DIF F WBC 5.4 10'3/ uL 3.5-10 .5 Not Available [facility] (Lab) [address], [place], [address], 08/03/2023 20:14:48 07/29/19 24 07/29/2023 CBC W/DIF F RBC 4.67 10'6/ uL (based on docume nted legal sex) 3.80-5 .20 Not Available [facility] (Lab) [address], [place], [address], 08/03/2023 20:14:48 07/29/19 24 07/29/2023 CBC W/DIF F HGB 14.0 g/dL (based on docume nted legal sex) 11.6-1 5.4 Not Available [facility] (Lab) [address], [place], [address], 08/03/2023 20:14:48 07/29/19 24 07/29/2023 CBC W/DIF F HCT 41.7 % (based on docume nted legal sex) 34.0-4 5.0 Not Available [facility] (Lab) [address] [facility], [place], [address], 08/03/2023 20:14:48 07/29/19 24 07/29/2023 CBC W/DIF F MCV 89.3 fL 80.0-9 9.0 Not Available [facility] (Lab) [address] [facility], [place], [address], 08/03/2023 20:14:48 07/29/19 24 07/29/2023 CBC W/DIF F MCH 30.0 pg 27.0-3 4.0 Not Available [facility] (Lab) [address], [place], [address], 08/03/2023 20:14:48 07/29/19 24 07/29/2023 CBC W/DIF F MCHC 33.6 g/dL 32.0-3 5.5 Not Available [facility] (Lab) [address] [facility], [place], [address], 08/03/2023 20:14:48 07/29/19 24 07/29/2023 CBC W/DIF F RDW 13.1 % 11.0-1 5.0 Not Available [facility] (Lab) [address] [facility], [place], [address], 08/03/2023 20:14:48 07/29/19 24 07/29/2023 CBC W/DIF F plt 225 10'3/ uL 150-40 0 Not Available [facility] (Lab) [address] [facility], [place], [address], 08/03/2023 20:14:48 07/29/19 24 07/29/2023 CBC W/DIF F MPV 11.5 fL 8.8-12 .1 Not Available [facility] (Lab) [address] [facility], [place], [address], 08/03/2023 20:14:48 07/29/19 24 07/29/2023 CBC W/DIF F NRBC's 0.0 % 0.0 Not Available [facility] (Lab) [address] [facility], [place], [address], 08/03/2023 20:14:48 07/29/19 24 07/29/2023 CBC W/DIF F absolute NRBCs 0.0 10'3/ uL 0.0 Not Available [facility] (Lab) [address] [facility], [place], [address], 08/03/2023 20:14:48 07/29/19 24 07/29/2023 CBC W/DIF F neutrophils 54.2 % 34.0-7 3.0 Not Available [facility] (Lab) [address] [facility], [place], [address], 08/03/2023 20:14:48 07/29/19 24 07/29/2023 CBC W/DIF F lymphocytes 35.6 % 15.0-5 0.0 Not Available [facility] (Lab) [address] [facility], [place], [address], 08/03/2023 20:14:48 07/29/19 24 07/29/2023 CBC W/DIF F monocytes 6.7 % 1.0-15 .0 Not Available [facility] (Lab) [address] [facility], [place], [address], 08/03/2023 20:14:48 07/29/19 24 07/29/2023 CBC W/DIF F eosinophils 2.2 % 0.0-8. 0 Not Available [facility] (Lab) [address] [facility], [place], [address], 08/03/2023 20:14:48 07/29/19 24 07/29/2023 CBC W/DIF F basophils 1.1 % 0.0-2. 0 Not Available [facility] (Lab) [address] [facility], [place], [address], 08/03/2023 20:14:48 07/29/19 24 07/29/2023 CBC W/DIF F immature granulocytes 0.2 % no define d refere nce range Not Available [facility] (Lab) [address] [facility], [place], [address], 08/03/2023 20:14:48 07/29/19 24 07/29/2023 CBC W/DIF F absolute neutrophils 2.9 10'3/ uL 1.5-8. 0 Not Available [facility] (Lab) [address], [place], [address], 08/03/2023 20:14:48 07/29/19 24 07/29/2023 CBC W/DIF F absolute lymphocytes 1.9 10'3/ uL 1.0-4. 0 Not Available [facility] (Lab) [address], [place], [address], 08/03/2023 20:14:48 07/29/19 24 07/29/2023 CBC W/DIF F absolute monocytes 0.4 10'3/ uL 0.2-1. 0 Not Available [facility] (Lab) [address] [place], [address], 08/03/2023 20:14:48 07/29/19 24 07/29/2023 CBC W/DIF F absolute eosinophils 0.1 10'3/ uL 0.0-0. 6 Not Available [facility] (Lab) [address] [place], [address], 08/03/2023 20:14:48 07/29/19 24 07/29/2023 CBC W/DIF F absolute basophils 0.1 10'3/ uL 0.0-0. 3 Not Available [facility] (Lab) [address] [place], [address], 08/03/2023 20:14:48 07/29/19 24 07/29/2023 CBC W/DIF [...] resul ts are expec ping. Not Available [facility] (Lab) [address] [facility], [place], [address], 08/03/2023 20:14:48 07/29/19 24 07/29/2023 TSH, REFLE X FREE T4 TSH 2.21 uIU/m L 0.30-5 .33 Not Available [facility] (Lab) [address], [place], [address], 08/03/2023 20:14:48 07/29/19 24 07/29/2023 FSH, LH, [...] 154-3 243 pg/mL 2nd Trime ster 1561- 24604 pg/mL 3rd Trime ster 8525- >3000 0 pg/mL Not Available [facility] (Lab) [address], [place], [address], 08/03/2023 20:14:49 07/29/19 24 07/29/2023 FSH, LH, ESTRA DIOL FSH 4.8 mIU/m L This assay was perfo rmed using [employer] n reage nts and test kits. Value s obtai sally with other assay metho ds or kits canno t be used inter [facility] . Femal es Folli cular : 3.5-1 2.5 mIU/m L Ovula tion: 4.7-2 1.5 mIU/m L Lutea l: 1.7-7 .7 mIU/m L Postm enopa use: 25.8- 134.8 mIU/m L Not Available [facility] (Lab) [address] [place], [address], 08/03/2023 20:14:49 07/29/19 24 07/29/2023 FSH, LH, ESTRA DIOL LH 10.6 mIU/m L This assay was perfo rmed using [employer] reage nts and test kits. Value s obtai sally with other assay metho ds or kits canno t be used [facility] . Femal es Mid-F ollic ular: 2.4-1 2.6 mIU/m L Mid-C ycle: 14.0- 95.6 mIU/m L Mid-L uteal : 1.0-1 1.4 mIU/m L Postm enopa use: 7.7-5 8.5 mIU/m L Not Available [facility] (Lab) [address] [place], [address], 08/03/2023 20:14:49 07/29/19 24 07/29/2023 TESTO STERO NE, FREE( DIALY SIS) AND TOTAL (LC/M S/MS) testosterone , total 33 NG/dL 2-45 For addit ional infor adrien rucker e refer to http: //sosa murrell.que stdia gnost ics.c om/fa q/ Total Testo stero neLCM [facility] (This link is being provi ded for infor mariana nal/ educa kinza l purpo ses only. ) This test was devel oped and its mary tical perfo rmanc e radha cteri stics have been deter mined by [employer] [facility] [place]. It has not been clear ed or appro jacquie by the U.S. Food and Drug Admin istra tion. This assay has been valid ated pursu ant to the CLIA regul ation s and is used for clini lyric purpo ses. Not Available [facility] (Lab) [address] [place], [address], 08/03/2023 20:14:49 07/29/19 24 07/29/2023 TESTO STERO NE, FREE( DIALY SIS) AND TOTAL (LC/M S/MS) testosterone , free 2.9 pg/mL 0.1-6. 4 This test was devel oped and its mary tical perfo rmanc e radha cteri stics have been deter mined by [employer] [facility] [place]. It has not been clear ed or appro jacquie by the U.S. Food and Drug Admin istra tion. This assay has been valid ated pursu ant to the CLIA regul ation s and is used for clini lyric purpo ses. Perfo rming Organ izati on Infor mariana n: Site ID: AMD Name: [employer] [facility] [place] [facility] Addre ss: [id number] [place], [place] Direc tor: Bladimir Regalado MD PhD Not Available [facility] (Lab) [address] [place], [address], 08/03/2023 20:14:49 07/21/19 24 07/21/2023 US, pelvi s No observ ation record ed. [email or web address] [place] [address], [place], [address], 07/21/2023 13:02:51 07/21/19 24 07/21/2023 US, trans vagin al No observ ation record ed. [email or web address] [place] [address], [place], [address], 07/21/2023 13:02:41 07/21/19 24 07/21/2023 US, pelvi s No observ ation record ed. [email or web address] [address], [place], [address], 07/22/2023 12:40:32 01/06/20 25 01/05/2025 US, obste tric, trans vagin al No observ ation record ed. [email or web address] [place] [address], [place], [address], 01/10/2025 18:32:58 01/06/20 25 01/05/2025 US, obste tric, trans vagin al No observ ation record ed. [email or web address] [place] [address], [place], [address], 01/05/2025 18:30:11 Result Notes None recorded. Problems Name Problem SNOMED Code Status Onset Date Resolution Date Notes Provider Name and Address Organization Details Recorded Time Multiple sclerosis 46878058 Completed no current treatment Emilie pringle [facility] 2 16:06:19 Urolithia sis 37692224 Completed Emilie pringle [facility] 2 16:06:19 Bicornuat e uterus 95994875 Completed Emilie pacheco null [facility] 2 16:06:19 SARS-CoV- 2 Completed 2021 Aware to take ASA QD and will need serial growth u/s! Emilie pringle [facility] 2 16:06:19 64208071 Completed 202112/16/2021 Emilie pringle [facility] 2 16:06:23 Problem Notes None recorded. Procedures Surgical History Date Name Laterality Status Provider Name and Address Organization Details Recorded Time 11/25/19 23 Date of Last Pap [facility]ear [facility] 11/24/2022 10:21:29 05/11/19 15 Dilation [address] Curettage completed [facility] 05/08/2021 12:35:53 05/11/19 14 Date of Last Colonoscopy completed Sonja Tong [facility] 05/29/2021 12:42:24 05/11/[address] [facility] 05/08/2021 12:36:15 05/11/19 12 extraction of wisdom tooth completed [facility] 07/29/2023 12:20:02 05/11/19 11 tonsilectomy/ad enoids completed [facility] 05/08/2021 12:35:43 01/09/19 94 procedure on kidney completed [facility] 05/08/2021 12:36:48 Imaging Results None recorded. Procedure Notes None recorded. Medical Equipment None Reported. Allergies Allergen ID Allergen Name Allergen Category Reaction Reaction Severity Criticality Documentation Date Start Date Code Code System Note Provider Name and Address Organization Details Recorded Time 60435 latex environme nt,medica tion Not available Not available Not available 05/07/2021 56080 91 RxNorm Gypsy pringle [facility] 17:02:55 99187 lanolin environme nt,medica tion Not available Not available Not available 05/07/2021 6227 RxNorm Gypsy pringle [facility] 17:03:08 Medications Name Sig Start [...] Updated DateTime 05/19/2023 165.1 cm 21.1 kg/m2 26510.23 g 92/58 mm[Hg] Gypsy Cooley [facility] 05/19/2023 11:34:06 Date Recorded Body height Body mass index (BMI) Body weight Systolic And Diastolic Provider Name and Address Organization Details Last Updated DateTime 07/29/2023 165.1 cm 21.1 kg/m2 17760.23 g 99/64 mm[Hg] Gypsy Cooley [facility] 07/29/2023 12:19:11 Date Recorded Body height Body mass index (BMI) Body weight Systolic And Diastolic Provider Name and Address Organization Details Last Updated DateTime 01/05/2025 165.1 cm 22.8 kg/m2 82772.15 g 102/62 mm[Hg] Mayra Pastor [facility] 01/05/2025 18:13:46 Social History Question Answer Notes LastModified by Organizat ion Details LastModified Time Tobacco Smoking Status Never Smoker Sherlyn Jorgensen yary, [facility] 05/19/2023 11:15:59 Do You Have An Advance Directive? No [email or web address] Information n ot available 05/08/2021 How Many Years Have You Consumed Alcohol? 9 [email or web address] Information not available 05/08/2021 Are You Blind Or Do You Have Difficulty Seeing? No [email or web address] Information n ot available 08/15/2021 What Is Your Level Of Caffeine Consumption? Occasional [email or web address] Information not available 05/08/2021 How Much Tobacco Do You Chew? None [email or web address] Information not available 05/08/2021 In The 14 Days Before Symptom Onset, Have You Had Close Contact With A Person Who Is Under Investigation For COVID-19 While That Person Was Ill? No [email or web address] Information not available 05/08/2021 Have You Been To An Area Known To Be High Risk For COVID-19? No [email or web address] Information not available 05/08/2021 Are You Deaf Or Do You Have Serious Difficulty Hearing? No [email or web address] Information not available 05/08/2021 What Type Of Diet Are You Following? REGULAR [email or web address] Information n ot available 05/08/2021 What Is The Highest Grade Or Level Of School You Have Completed Or The Highest Degree You Have Received? SO69103-3 [email or web address] Information not available 05/08/2021 Are There Any Guns Present In Your Home? Yes [email or web address] Information not available 05/08/2021 Have You Ever Been Counseled For Unhealthy Alcohol Use? No [email or web address] Information not available 05/19/2023 Do You Use Protection During Sex? No [email or web address] Information not available 05/08/2021 Do You Use Your Seat Belt Or Car Seat Routinely? Yes [email or web address] Information not available 05/08/2021 Do You Have Smoke And Carbon Monoxide Detectors In Your Home? Yes Information not available 05/08/2021 How Much Tobacco Do You Smoke? No [email or web address] Information not available 05/08/2021 Do You Use Sunscreen Routinely? No [email or web address] Information not available 05/08/2021 Has Tobacco Cessation Counseling Been Provided? No [email or web address] Information not available 05/19/2023 Have You Used IV Drugs? No [email or web address] Information not available 05/08/2021 Do You Have Difficulty Walking Or Climbing Stairs? No [email or web address] Information not available 05/19/2023 Sex: Unknown Functional Status Question Answer Note LastModified by Organizat ion Details LastModified Time Do you use any illicit or recreational drugs? No [email or web address] Information not available 05/08/2021 Do you or have you ever used any other forms of tobacco or nicotine? No [email or web address] Information not available 05/19/2023 What is your level of alcohol consumption? Occasional Information not available 05/08/2021 Are you able to walk independently without assistance or assistive devices? YESWOREST [email or web address] Information not available 05/08/2021 Are you able to care for yourself independently? 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 No [email or web address] Information not available 05/19/2023 What is your exercise level? Occasional Information not available 05/08/2021 Mental Status Question Answer Note LastModified by Organization D etails LastModified Time Do you feel stressed (tense, restless, nervous, or anxious, or unable to sleep at night)? [id number] [email or web address] Information not available 05/08/2021 Family History Relationship Description Onset Age of this Age Resolved Age Notes LastModified by Organization Details LastModified Time Father No current problems or disability [email or web address] Not available 04/11 11:45:42 Mother No current problems or disability [email or web address] Not available 04/11 11:45:42 Medical History Condition Response Allergies (Food, seasonal, environmental ) N Other N Breast Cancer N Drug/Latex Allergies/Reactions Y Blood Transfusion N Dermatologic Disorders N Lung Disease Y Defects or Inherited Disease N Breast Problem N Gestational Diabetes N Hematologic disorders N Anesthesia Complications N History of STI N Deep Vein Thrombosis N Polycystic ovary syndrome N Anxiety Disorder Y Autoimmune disease N Arthritis N Infertility N Polyps N Acid Reflux (GERD) N History of abnormal pap N Cancer N Stroke N Varicosities N Neurologic/Epilepsy Endometriosis N High Cholesterol N Headaches Y Fibromyalgia N Kidney Disease Y Heart Problems N Kidney or Bladder Problems Y Thyroid Problems N GI Problems N Eating Disorder N Anemia [...] ICD10 Code Diagnosis IMO Codes Diagnosis Note [id number] Ariana Amezcua CNM [place] [address] [address] 05/08/2021 11:15:22 05/08/2021 13:23:21 Gynecologic examination 07867876 Z01.419 Amenorrhea 65111579 N91. 2 [id number] MD Gallito Jacobson [address] [address] 05/08/2021 11:17:39 05/08/2021 13:30:50 [id number] MD Gallito Jacobson [address],[place] [address] 06/18/2021 10:30:25 06/19/2021 10:32:27 screening 232759674 Z36.89 Routine an tenatal care 399531276 Z34.82 [id number] MD Gallito Jacobson [address],[place] [address] 06/18/2021 10:26:57 06/18/2021 12:23:04 screening for malformation 643567544 Z36.3 [id number] MD Gallito Jacobson [address],[place] [address] 07/16/2021 09:30:21 07/16/2021 10:47:03 COVID-19 141921425 U07.1 O34.02 Z3A.23 [id number] Elidia Alatorre CNM [place] [address],[place] [address] 08/15/2021 10:04:23 08/15/2021 18:15:02 Routine care 260801341 Z34.92 [id number] MD Gallito Jacobson [address],[place] [address] 08/15/2021 10:10:03 08/15/2021 11:19:41 Pre-existing maternal disease complicating 6959415597 6106 O99.891 U07.1 Z3A.27 [id number] Elidia Alatorre CNM [place] [address],[place] [address] 09/12/2021 10:40:17 09/13/2021 16:04:18 Routine care 600831627 Z34.92 [id number] MD Gallito Jacobson [address],[place] [address] 09/17/2021 15:12:17 09/17/2021 16:20:30 COVID-19 140880677 U07.1 O34.02 Z3A.32 [id number] Al Burnette MD [place] [address],[place] [address] 10/03/2021 15:07:37 10/03/2021 21:13:48 [id number] Al Burnette MD [place] [address],[place] [address] 10/17/2021 10:30:41 10/17/2021 11:10:02 Pre-existing maternal disease complicating 1125057496 6106 O99.891 U07.1 Z86.16 Z3A.36 [id number] Ariana Amezcua CNM [place] [address],[place] [address] 10/17/2021 10:31:07 10/17/2021 11:37:58 Routine care 327920442 Z34.93 [id number] Ariana Amezcua CNM [place] [address],[place] [address] 10/23/2021 15:58:21 10/23/2021 16:31:33 Routine care 270507629 Z34.93 [id number] Ariana Amezcua CNM [place] [address],[place] [address] 12/18/2021 15:14:09 12/18/2021 16:07:05 care 410769500 Z39.2 [id number] SAÚL Cobos [place] [address],[place] [address] 08/06/2022 11:57:26 08/06/2022 14:46:03 Abnormal uterine bleeding 4340831754 9100 N93.9 Discussed return of periods after [...] plan of care. Contracept ion care management 993584757 Z30.9 Irregular periods 161890 07 N92.6 Venereal d isease screening 681842751 Z11.3 [id number] Lyssa Vinson [place] [address],[place] [address] 11/24/2022 10:00:23 11/24/2022 10:36:44 Screening for malignant neoplasm of cervix 882024986 Z12.4 repeat pap collected No charge visit [id number] Lyssa Vinson [facility] [address],[place] [address] 05/19/2023 11:14:33 05/19/2023 16:55:31 Left without being seen [id number] 9102 Z53.21 duplicate encounter [id number] Lyssa Vinson [place] [address],[place] [address] 05/19/2023 11:29:53 05/19/2023 14:14:26 Pain in pelvis 27739407 R10.2 ua - normal todayUPT (-)Discuss ed pain with IC, recommende d updated TVUS for further evaluation - orderedrec ommended PFPT. Will update u/s and reach out to pt with next steps Time spent in visit is a total of 25 mins with at least 50% of visit consisting of counseling and review of plan of care. [id number] Al Burnette MD [place] [address],[place] [address] 07/21/2023 12:26:31 07/21/2023 13:10:50 Pain in pelvis 01032368 R10.2 [id number] Ariana Amezcua CNM [place] [address],[place] [address] 07/29/2023 12:06:55 07/29/2023 13:17:51 Fatigue 12130962 R53.83 check labs, consider testostero ne/and or progestero ne cream pending resultsrev iewed testostero ne se risks and benefitsca ll if any questions Reduced libido 5606715 R 68.82 [id number] Al Burnette MD [place] [address] [address] 01/05/2025 17:27:51 01/06/2025 09:19:59 Uncertain viability of 117558491 O36.80X0 Z3A.00 [id number] [id number] Al Burnette MD [place] [address] [address] 01/05/2025 18:12:31 01/06/2025 09:19:19 Missed miscarriage 10352863 O02.1 [id number] This patient is a 29 female who [...] 1 *SELF PAY* Christina Snow 01/24/2025 1 [facility] [id number] [facility] [id number] Gail Snow Notes Date Note Type Note Provider Name and Address Organization Details Recorded Time 05/19/2023 text/html 27yo [id number] for evaluation of pain with ICsymptoms present 3-4 monthsburning/pressur e sensation in lower midline pelvis, present during all IC/not postionaldryness with ICneg urinary symptomsnormal bowel movementsneg n/v/fneg discharge, odors, itchingSA with steady male partner SAÚL Cobos [address], [place], [address], [facility] 05/19/2023 14:08:09 07/29/2023 text/html ROS as noted in the HPI pelvic pain f/u- reviewed US wnl, seeing GI and cardiology for abd/chest painfatigue/decreased libido, didnt resolve after immediate pp period, would like to increase libido Ariana Amezcua CNM [address], [place], [address], [facility] 07/29/2023 13:15:38 01/05/2025 text/html This patient [...] alternatives. Al Burnette MD [address], [place], [address], [facility] 01/05/2025 18:55:24 OBGyn Episode Ob Episode Information Episode Created Date Number of Fetuses Patient Bloodtype Patient rh Status Prepregnancy Weight lbs Domestic Partner Domestic Partner Phone Father Name Supervisor Agricultural Education Status 06/13/19 22 1 CLOSED Fetus Data First Name Last Name Admitted to NICU Weight (g) Sex Living Outcome Pediatric Complications Fetus ID Race Codes Race Delivery Type , Spontane ous 95582 Sam Calculation Initial Sam Date Initial Exam [...] Domestic Partner Domestic Partner Phone Father Name Supervisor Agricultural Education Status 06/18/19 22 1 A Positive 131 CLOSED Fetus Data First Name Last Name Admitted to NICU Weight (g) Sex Living Outcome Pediatric Complications Fetus ID Race Codes Race Delivery Type 3997.27 95 F true Full Term terminal meconium 86232 Vaginal Delivery Problems Problem Notes states she has a weak heart - had an evaluation in [place], considered pacemaker if starting MS medications - Records in!!! Pt had bradycardia and risk of hypotension with MS meds. Had echo and appears normal. See notes under medical records Problem Name Start Date End Date Resolution Snomed Code Not e Multiple sclerosis [id number] n o current treatment Bicornuate uterus 19375848 Urolithiasis 78372321 SARS-CoV-2 05/17/2021 [id number] Aware to take ASA QD and will [...] Weight in lbs Pre/Post Dialysis Refused Weight 138.013501777525 BP Diastolic BP Location Tested BP Systolic [...] Weight in lbs Pre/Post Dialysis Refused Weight 160.075901427132 BP Diastolic BP Location Tested BP Systolic [...] Weight in lbs Pre/Post Dialysis Refused Weight 169.168470928270 BP Diastolic BP Location Tested BP Systolic [...] Weight in lbs Pre/Post Dialysis Refused Weight 171.510408775119 BP Diastolic BP Location Tested BP Systolic [...] Weight in lbs Pre/Post Dialysis Refused Weight 170.896416313222 BP Diastolic BP Location Tested BP Systolic [...] Estim ated Date of Delivery false Thalassemia (Trinidadian, Salvadorean, Mediterranean, Or Background): MCV < 80 false Neural Tube Defect (Meningomyelocele, Spina Bifi da, Or Anencephaly) false Congenital Heart Defect false Down Syndrome false David-Sachs (eg, Confucianist, Cajun, Djiboutian-[place]and[place]) f alse Chinmay Disease false Sickle Cell Disease Or Trait () false Hemophilia Or Other Blood Disorders false Muscular Dystrophy false Cystic Fibrosis false Dany's Chorea false Intellectual Disability/Autism false If Yes, [...] Domestic Partner Domestic Partner Phone Father Name Supervisor Agricultural Education Status 05/08/20 21 1 CLOSED Fetus Data First Name Last Name Admitted to NICU Weight (g) Sex Living Outcome Pediatric Complications Fetus ID Race Codes Race Delivery Type 3628.73 6 M Full Term 94118 Vaginal Delivery Sma Calculation Initial Sam Date Initial Exam Date [...] Domestic Partner Domestic Partner Phone Father Name Supervisor Agricultural Education Status 06/13/19 22 1 DELETED Sam Calculation [...] Domestic Partner Domestic Partner Phone Father Name Supervisor Agricultural Education Status 05/29/19 22 1 DELETED Fetus Data First Name Last Name Admitted to NICU Weight (g) Sex Living Outcome Pediatric Complications Fetus ID Race Codes Race Delivery Type 80452 Sam Calculation Initial Sam Date Initial Exam [...] Domestic Partner Domestic Partner Phone Father Name Supervisor Agricultural Education Status 06/13/19 22 1 CLOSED Fetus Data First Name Last Name Admitted to NICU Weight (g) Sex Living Outcome Pediatric Complications Fetus ID Race Codes Race Delivery Type , Spontane ous 04507 Sam Calculation Initial Sam Date Initial Exam [...] Domestic Partner Domestic Partner Phone Father Name Supervisor Agricultural Education Status 12/27/19 23 1 CLOSED Fetus Data [...] Domestic Partner Domestic Partner Phone Father Name Supervisor Agricultural Education Status 12/27/19 23 1 CLOSED Fetus Data [...]
--- OUTSIDE RECORDS SUMMARY | 2025-04-18 03:37 | XMS_ITS | Clinical Summary ---
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 Gender Identity Not on file Sexual Orientation [...] this topic Medical Devices Implanted Type Area Activities Specialist Device Identifier Shelf Expiration Date Model / Serial / Lot Stent Ureteral [place] [employer] Contour 6fr X 26cm - [id number] Implanted:Qty: 1 on 09/02/2019 by Rocio Chris MD at [facility] Left: Ureter [employer] 04/07/2021 [id number] / / [id number] Description:VERIFIED BY Stent Cook Ureteral Filaform 6 Fr X 26cm - Sn/A Implanted:Qty: 1 on 09/21/2019 by Rocio Chris MD at [facility] Left: Ureter [employer] 06/30/2022 [id number] / N/A / [id number] Procedures Procedure Name Priority Date/Time Associated Diagnosis Comments HEPATITIS C ANTIBODY Routine 08/27/2017 3:19 PM CDT from Last 3 Months or Most Recently Relevant to Health Maintenance Results * HEPATITIS C ANTIBODY (08/27/2017 3:19 PM CDT) HEPATITIS C AB NON-REACTI VE NON-REACT JOYCE 08/31/2017 10:13 AM CDT [facility] Comment: ANTIBODIES TO HCV NOT DETECTED. DOES NOT EXCLUDE THE POSSIBILITY OF EXPOSURE TO HCV. 08/27/2017 3:19 PM CDT Julio Ribera MD LABORATORY Final Result [facility] [address], [place] [address] [phone] [id number] from Last 3 Months or Most Recently Relevant to Health Maintenance Insurance [facility] Advance Directives * Full Code (Latest Code Status on File) Date Activated Date Inactivated Comments 04/20/2019 11:30 PM 04/21/2019 1:41 PM * Full Code Date Activated Date Inactivated Comments 01/22/2019 6:49 PM 01/25/2019 5:32 PM Care Teams Dance Therapist Relationship Specialty Start Date End Date Phan Del Rio MD [address] [place] [address] PCP - General FAMILY PRACTICE 07/23/23 Stefanie So, REHABILITATION NURSE- NURSE PRACTITIONER 07/07/19 Bill Dunham MD Consulting Physician NEUROLOGY 07/07/19
[2025-04-18] MEDS: LACTATED RINGERS 1,000 ML 30 ML IV CONT ×2 (06:25→08:57)
[2025-04-18 06:45] LABS: Add Urine Microscopic? YES; Appearance Urine Cloudy (Clear); Glucose Urine UA Negative (Negative); Leukocyte Esterase Ur 2+ LEU/UL (Negative); Nitrate Urine Negative (Negative); Specific Grav Ur 1.013 (1.001-1.035)
--- NOTE | 2025-04-18 07:07 | P.PNAN_ITS ---
Anes - Initial Pre Proc Eval Procedure: Operation Date: 04/18/25 07:30 Proposed Procedures p Cystoscopy, Left Retrograde Pyelogram, Left Ureteroscopy, Laser Lithotripsy, Left Ureteral Stent Exchange - Price Weston MD Date/Time: 04/18/25 07:07 Surgeon: Price Weston MD Pre Op Diagnosis: left ureteral and renal stones Patient Data Age: 29 Gender: F Height: 1.68 m Weight: 61.3 kg Allergies Allergy/AdvReac Type Severity Reaction Status Date / Time lanolin Allergy Rash Verified 04/13/25 16:28 latex Allergy Rash Verified 04/13/25 16:28 Home Medications ?Medication ?Instructions ?Recorded ?Confirmed ?Type hyoscyamine sulfate 0.125 mg 0.125 mg sublingual Q4H P RN 03/22/25 04/13/25 Rx disintegrating tablet (Anaspaz) Bladder Spasm #20 tabs ibuprofen 200 mg tablet (Advil) 800 mg PO Q4H 04/13/25 04/13/25 History Laboratory Tests 04/18/25 06:26 Urine Color Yellow (Yellow) Urine Appearance Cloudy H (Clear) Urine pH 6.5 (5.0-9.0) Ur Specific [place] 1.013 (1.001-1.035) Urine Protein 3+ H mg/dL (Negative) Urine Glucose (UA) Negative mg/dL (Negative) Urine Ketones Negative mg/dL (Negative) Ur Blood (Man) 3+ H (Negative) Urine Nitrate Negative (Negative) Urine Bilirubin Negative (Negative) Urine Urobilinogen 0.2 mg/dL (<2.0) Leukocyte Esterase Rfl 2+ H ISMON/UL (Negative) Urine RBC >100 H /hpf (0-2) Urine WBC 51-100 H /hpf (0-3) Ur Squamous Epith Cells Few /hpf (Few) Urine Bacteria None seen /hpf Urine Casts 3-5 Patient hx anesthesia problems: none Family hx anesthesia problems: none Results Review: All pre-operative results and documents have been reviewed as part of the pre- operative evaluation. [facility] Past Medical History Medical History (Updated 04/18/25 @ 07:10 by Da Whitlock DO) Multiple sclerosis 6 years ago due to virus with brain swelling, no further episodes/meds Bradycardia Surgical History Surgical History (Updated 04/18/25 @ 07:10 by Da Whitlock DO) H/O partial nephrectomy as Family History Family History Mother Kidney disease Grandparent Heart disease Sibling Kidney stones POTS (postural orthostatic tachycardia syndrome) Social History Social History Smoking status: Never smoker Alcohol intake: current Alcohol use details: socially Substance use: never Substance use type: does not use Lack of Transportation: No Lack of Food: Never True Current Housing: I Have Housing Concerned About Future Housing: No Difficulty Paying Gas/Electric Bills: No Difficulty Paying for Meds: No Currently Unemployed: No Education: Bachelor's Degree Difficulty w/ Childcare or Family Care: No Spiritual care concerns: No Anes - Eval Final PreProcedure Day of Procedure 04/18/25 07:07 Patient weight: normal Heart: regular rate and rhythm Lungs: clear to auscultation Airway: Mallampati scale class 1 Neurological: alert and oriented Last oral intake: >/= 8 hours ASA classification: III Emergent: no Anesthetic plan: proceed Anesthesia type and monitoring: general LMA and standard monitoring Results Review: All pre-operative results and documents have been reviewed as part of the pre- operative evaluation. Informed Consent: The patient's anesthetic plan and its attendant risks and benefits were discussed with the patient/family/POA. Questions were solicited and answers provided to the satisfaction of the patient/family/POA.
--- NOTE | 2025-04-18 07:26 | P.HP_ITS ---
History of Present Illness History of Present Illness Consent: Risks, benefits, and alternatives have been discussed and questions answered. Patient agrees to proceed with procedure. Chief complaint: left ureteral and renal stones Narrative: Gail Snow is a 29 year old female with history of urolithiasis and left UPJO who was found to have a large left kidney stone. She is s/p placement of left ureteral stent on 03/21/2025. She presents today for definitive endoscopic management of her left kidney stone. Review of Systems Review of Systems: Constitutional: No fevers or chills Eyes: No changes in vision HENT: No hearing loss Cardiovascular: No chest pain or palpitations Respiratory: No shortness of breath, cough, wheezing GI: No abdominal pain, nausea, or vomiting : No dysuria or difficulty urinating Heme: No easy bruising or bleeding Skin: No rash or itching MSK: No myalgias or joint pain Psych: No hallucinations Neuro: No lateralized numbness or tingling PMFSH Past Medical History Medical History (Updated 04/18/25 @ 07:28 by Price Weston MD) Multiple sclerosis 6 years ago due to virus with brain swelling, no further episodes/meds Bradycardia Surgical History Surgical History (Updated 04/18/25 @ 07:10 by Da Whitlock DO) H/O partial nephrectomy as infant Family History Family History Mother Kidney disease Grandparent Heart disease Sibling Kidney stones POTS (postural orthostatic tachycardia syndrome) Social History Social History Smoking status: Never smoker Alcohol intake: current Alcohol use details: socially Substance use: never Substance use type: does not use Lack of Transportation: No Lack of Food: Never True Current Housing: I Have Housing Concerned About Future Housing: No Difficulty Paying Gas/Electric Bills: No Difficulty Paying for Meds: No Currently Unemployed: No Education: Bachelor's Degree Difficulty w/ Childcare or Family Care: No Spiritual care concerns: No Meds Home Medications and Allergies Home Medications ?Medication ?Instructions ?Recorded ?Confirmed ?Type hyoscyamine sulfate 0.125 mg 0.125 mg sublingual Q4H P RN 03/22/25 04/13/25 Rx disintegrating tablet (Anaspaz) Bladder Spasm #20 tabs ibuprofen 200 mg tablet (Advil) 800 mg PO Q4H 04/13/25 04/13/25 History Allergies Allergy/AdvReac Type Severity Reaction Status Date / Time lanolin Allergy Rash Verified 04/18/25 07:21 latex Allergy Rash Verified 04/18/25 07:21 Exam Narrative: General: Alert, no acute distress Head: Normocephalic, atraumatic Eyes: Extraocular movements intact Neck: No JVD, trachea midline Respiratory: Symmetric chest rise, nonlabored breathing on room air CV: Normal rate, adequate peripheral perfusion Abdomen: Soft, nontender, nondistended Skin: Warm/dry Extremities: No peripheral edema, no cyanosis Neuro: No focal deficits Psych: Answers questions appropriately, appropriate mood Assessment and Plan Assessment and plan (1) Nephrolithiasis: Code(s): N20.0 - Calculus of kidney Status: Acute Assessment and Plan: 29yF with left kidney stone and suspected left UPJO - To OR for cystoscopy, left retrograde pyelogram, ureteroscopy, laser lithotripsy with CVAC, and left ureteral stent exchange - Risks, benefits, alternatives reviewed with the patient. She is amenable to proceed - Anticipate discharge home thereafter
--- NOTE | 2025-04-18 07:29 | WPDHPUPDATE1 ---
History and Physical Update Update Date/Time: 04/18/25 07:29 History and Physical has been reviewed, including an updated exam of the patient. There are NO changes in the patient's condition. Risks, benefits, and alternatives have been discussed and questions answered. Patient agrees to proceed with procedure.
[2025-04-18 07:36] LABS: BEDSIDEPREGUCG Negative (Negative)
--- NOTE | 2025-04-18 08:07 | CY_PTH ---
PATIENT: Gail Snow LOC: [facility] U#:[id number] AGE/SX: 29/F ROOM: RE04/18/[address]: Price Weston MD : 1995 BED: DIS: 04/18/2025 SPEC #: [id number] RECD: 04/18/25 08:48 STATUS: SOUAnthony REQ #: [id number] JORGE: 04/18/25 08:[address]: Price Weston DEPT: [facility] Cytology RECD BY: Shyla Lion MLT, (ASCP) ENTERED: 04/18/25 08:49 SP TYPE: Cytology OTHR DR: Phan Del RioMD Tissues: A - Urine Procedures: Cytopathology Cytospin
--- NOTE | 2025-04-18 08:45 | S_PTH ---
PATIENT: Gail Snow LOC: [facility] U#:[id number] AGE/SX: 29/F ROOM: RE04/18/[address]: Price Weston MD : 1995 BED: DIS: 04/18/2025 SPEC #: [id number] RECD: 04/18/25 10:21 STATUS: ISAURA REQ #: [id number] JORGE: 04/18/25 08:[address]: Price Weston DEPT: [facility] Surgical RECD BY: Shyla Lion MLT, ([facility]) ENTERED: 04/18/25 10:21 SP TYPE: Surgical OTHR DR: Phan Del Rio, Tissues: A - Stone Procedures: Gross Exam Level 1 Crystalline Analysis
--- NOTE | 2025-04-18 08:55 | P.OP_ITS ---
Procedure Note - Detailed Date of Procedure 04/18/25 Pre-op Diagnosis Nephrolithiasis Post-op Diagnosis Same Procedure Performed 1. Cystoscopy 2. Left retrograde pyelogram with intraoperative interpretation 3. Left ureteroscopy, laser lithotripsy, with irrigation/aspiration of stone fragments 4. Left ureteral stent exchange Surgeon Price Weston MD Anesthesia General Description of Procedure Procedures Performed: 1. Cystoscopy 2. Left retrograde pyelogram with intraoperative interpretation 3. Left ureteroscopy, laser lithotripsy, with irrigation/aspiration of stone fragments 4. Left ureteral stent exchange Findings: 1. Left retrograde pyelogram using a 50 50 mixture of contrast and saline showed significant left hydronephrosis consistent with her known ureteropelvic junction obstruction with a large filling defect in the renal pelvis and no contrast extravasation 2. All upper tract stones dusted 3. Stent placed in appropriate position Details of procedure: The patient was brought back to the operating room. They were prepped, draped, and padded per protocol. Pre-operative IV antibiotics were confirmed to have been administered. A formal time out was performed to confirm the correct patient, site, laterality, and procedure and all were in agreement to proceed. The bladder was entered transurethrally with the rigid cystoscope. Pancystoscopy was performed and no suspicious intravesical tumors, lesions, stones, active bleeding were noted. The bladder itself was normal. A sensor wire was advanced up the left ureter alongside her existing left ureteral stent and into the left kidney. The cystoscope was removed and the Sensor wire was secured to the drapes with a hemostat. The cystoscope was reintroduced transurethrally into the bladder and flexible alligator graspers were used to retrieve the existing stent through the urethral meatus. I attempted to cannulate the existing stent with a Glidewire but due to some encrustation was unable to. I then passed a 5 Jamaican open-ended catheter over top of the Sensor wire to the level of the left mid to distal ureter and performed a left-sided retrograde pyelogram using 50 50 mixture of contrast and saline with findings as noted above. The Sensor wire was replaced through the open-ended catheter to the level of left kidney and using the Seldinger maneuver, the ureteral catheter was removed while leaving the Sensor wire in place. The Sensor wire was secured to the drapes with a hemostat. Under fluoroscopic guidance I then was able to extract the existing left ureteral stent. Next, I reintroduced the cystoscope into the bladder and advanced a 2nd, safety Glidewire up to the level of left kidney under fluoroscopy. The cystoscope was removed leaving the Glidewire in place. Next, a 12/14 Jamaican 36 cm ureteral access sheath was advanced over the Glidewire under direct fluoroscopic guidance to the level of the proximal ureter. Through the access sheath, urine from the left kidney was obtained as a specimen to be sent for urine culture. Next, a single use CVAC flexible ureteroscope was advanced through the ureteral access sheath and into the kidney. A 200 micron [employer] laser fiber was used to dust/fragment/popcorn the stone until there was no significant stone remaining. The full collecting system was then surveyed with the single use CVAC ureteroscope. Exhaustive steerable vacuum aspiration was performed in each calyx and the renal pelvis using continuous fluid irrigation, increased fluid flow to mobilize stones, and intermittent vacuum aspiration. Fluid outflow was monitored to confirm effluent contained stone fragments. Upon completion of vacuum aspiration of the primary stone locations, the full collecting system was navigated and irrigation/vacuum continued to collect fragments moving through the collecting system. This was performed until there were no residual sizeable visible fragments. Next, a left retrograde pyelogram was performed through the CVAC scope positioned in the renal pelvis in order to delineate the collecting system in anticipation of stent placement. The CVAC scope was then backed down the ureter while simultaneously removing the access sheath and the ureter was then inspected on the way out and there was no significant trauma noted. With the access sheath and CVAC ureteroscope removed, the cystoscope was then backloaded onto the Sensor wire and advanced transurethrally into the bladder with attention drawn to the left ureteral orifice. Over top of the wire, a 6 Jamaican x 26 cm JJ stent was then advanced over the wire and the pusher was used to deploy the stent in place. A good proximal curl was noted in the left kidney under fluoroscopy and a good distal curl was noted in the bladder under both direct cystoscopic and fluoroscopic vision. The patient's bladder was then drained and the cystoscope was removed, essentially concluding the case. At the conclusion of the case all sponge, instrument, and sharp counts were correct x2. The patient was awoken from anesthesia and taken to the recovery unit in stable condition. The patient tolerated the procedure well and there were no immediate complications noted. Disposition: The patient will be monitored in the PACU and was very critical. She will undergo a renal Lasix scan with her stent in place in order to determine split kidney function to determine if she will be a candidate for pyeloplasty versus simple nephrectomy. The patient's was provided with an update on the procedure and all questions were answered to his satisfaction at the conclusion of our discussion.
[2025-04-18] MEDS: oxyCODONE HCL (*CRX) 5 MG TAB IR PO (09:55)
== END 2025-04-18 10:32 | disposition home or self-care (01) ==
PROVIDERS: PCP Family Medicine; Visit Provider Urology
PROC: (CPT 52352; principal; 2025-04-18 07:30)
DX: N20.0 Calculus of kidney (principal); G35.D Multiple sclerosis, unspecified; R00.1 Bradycardia, unspecified; Z79.1 Long term (current) use of non-steroidal anti-inflammatories (NSAID); Z98.890 Other specified postprocedural states; Z90.5 Acquired absence of kidney; Z80.49 Family history of malignant neoplasm of other genital organs
CPT/HCPCS: C9761; 74420; 81001; 82365; 87086; 88108; 88300; A9270; C1747; C1758; C1769; C2617; J1100; J2003; J2250; J2405; J2704; J3010; J7120; Q9966

== ENCOUNTER 2025-04-26 17:41 | Emergency (ER) | payer OTHER, SELFPAY ==
--- NOTE | ~2025-04-26 | XR_ITS ---
Examination: XR abdomen/kub 1V Clinical History: Recent stents placed, new flank pain Comparison: CT abdomen and pelvis 03/21/2025 Technique: 2 views supine AP abdomen Findings: Lung bases clear. Left double-J ureteral stent in place. Right renal stone. Pelvic phleboliths. Nonspecific bowel gas pattern. No acute bony abnormality. IMPRESSION: 1. Left double-J ureteral stent in place. No left-sided nephroureteral calculi identified. 2. Small right renal stone. Reviewed, dictated and finalized at location R. EMIOLOGY INVESTIGATOR
[2025-04-26 17:58] VITALS: BP 100/55; PULSE 90; RESP 16; TEMP 36.7; O2SAT 99
--- OUTSIDE RECORDS SUMMARY | 2025-04-26 18:58 | XMS_ITS ---
Author Organization Unknown Address [address] [place] [phone] Phone Care Team Providers Care Contract Negotiator Name Role Phone KERRY Wellington Attending Unavailable DINORAH WARREN SURVEILLANCE SYSTEMS ENGINEER Unavailable YURIY Washington Primary Unavailable Results TEST URINE - Colle ct Date/Time: 09/03/2023 08:36 [facility] ID: [id number] [place] [address], [id number] LOINC: Test Value Unit Reference Range Code Code System Flag URINE PREG NEGATIVE Social History Type Status Start Date End Date Code Code Syst em Sex Female Vital Signs Vital Sign Value Unit [place] Value [place] Unit Date/Time Recent/Initial? Code Code System Body Mass Index 20.66 kg/m2 08/21/2023 09:14 Initial 81919 -5 LOINC Systolic Blood Pressure 104 mm[Hg] 09/03/2023 08:42 Initial 8480- 6 LOINC Diastolic Blood Pressure 55 mm[Hg] 09/03/2023 08:42 Initial 8462- 4 LOINC Body Surface Area 1.64 m2 08/21/2023 09:14 Initial 3140- 1 LOINC Height 167.640 0 cm 66.00 in 08/21/2023 09:14 Initial 8302- 2 LOINC O2 Saturation 100 % 2023 08:42 Initial 03386 -5 LOINC Pulse 65.0 /min 09/03/2023 08:42 Initial 8867- 4 LOINC Respiration 16 /min 09/03/19 08:42 Initial 9279- 1 LOINC Temperature 36.6 Dulce 97.8 F 09/03/19 08:42 Initial 8310- 5 LOINC Weight 58.06 kg 128.00 lbs 08/21/2023 09:14 Initial 98522 -7 LOINC Medications Medication Start Date End Date Route Frequency Dose Code Code System Medication Instructions Home Meds Elavil 25MG Oral Tablet 09/03/2023 Unknown BY MOUTH 3 TABLET 199674 RxNorm TAKE 3 TABL ET BY MOUTH Hospital Discharge Instructions Should you have any questions prior to discharge, please contact a member of your healthcare team. If you have left the hospital and have any questions, please contact your primary care physician. Reason For Referral No Data Found Procedures Procedure Name Date Status Code Code Syste m [place] tooth completed 11164662 SNOMEDCT Dilation and curettage completed 10070738 SN OMEDCT REMOVE TONSILS AND ADENOIDS completed 19280330 SNOMEDCT Hydronephrosis completed 63885435 SNOMEDCT Colonoscopy, flexible; diagn ostic, including collection of specimen(s) by 09/03/2023 completed 69496 CPT CYSTOSCOPY completed 14677 CPT Anesthesia for lower intesti nal endoscopic procedures, endoscope introduce 09/03/2023 completed 23578 CPT Allergies and Adverse Reactions Allergy Substance Reaction Severity Start Date Concern Status Co de Code System LANOLIN Active 6227 RxNorm LATEX Active 9449914 RxNorm No Known Drug Allergies Active 631980150 SNOMED-CT Plan of Treatment EGD/Colonoscopy 09/03/2023 US Abdomen Complete (20841) 09/25/2023 Encounters Encounter Diagnosis Start Date Code Code Sys tem Unspecified abdominal pain 09/03/2023 S NOMED-CT Personal Care Team Section Performer Name Performer Role Active Date Inactive ASIF Luna PCP - Primary care physician 2023-08-28 Procedures Notes
--- OUTSIDE RECORDS SUMMARY | 2025-04-26 18:58 | XMS_ITS | Patient Health Record ---
Author Organization [facility] Address [address] [place] [address] Care Team Providers Care Assisted Living Manager Name Role Phone Bryant Gurrola Unavailable [phone] Reason For Referral No Information Plan Of Treatment No Information
--- OUTSIDE RECORDS SUMMARY | 2025-04-26 18:58 | XMS_ITS | Clinical Summary ---
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 Gender Identity Not on file Sexual Orientation [...] this topic Medical Devices Implanted Type Area Grinder [employer] Device Identifier Shelf Expiration Date Model / Serial / Lot Stent Ureteral [place] [employer] Contour 6fr X 26cm - [id number] Implanted:Qty: 1 on 09/02/2019 by Rocio Chris MD at [facility] Left: Ureter [employer] 04/07/2021 [id number] / / [id number] Description:VERIFIED BY Stent [employer] Ureteral Filaform 6 Fr X 26cm - Sn/A Implanted:Qty: 1 on 09/21/2019 by Rocio Chris MD at [facility] Left: Ureter [employer] 06/30/2022 [id number] / N/A / [id number] Procedures Procedure Name Priority Date/Time Associated Diagnosis Comments HEPATITIS C ANTIBODY Routine 08/27/2017 3:19 PM CDT from Last 3 Months or Most Recently Relevant to Health Maintenance Results * HEPATITIS C ANTIBODY (08/27/2017 3:19 PM CDT) HEPATITIS C AB NON-REACTI VE NON-REACT JOYCE 08/31/2017 10:13 AM CDT [facility] Comment: ANTIBODIES TO HCV NOT DETECTED. DOES NOT EXCLUDE THE POSSIBILITY OF EXPOSURE TO HCV. 08/27/2017 3:19 PM CDT Julio Ribera MD LABORATORY Final Result [facility] [address] [place], [place] [address] [phone] [id number] from Last 3 Months or Most Recently Relevant to Health Maintenance Insurance [facility] Advance Directives * Full Code (Latest Code Status on File) Date Activated Date Inactivated Comments 04/20/2019 11:30 PM 04/21/2019 1:41 PM * Full Code Date Activated Date Inactivated Comments 01/22/2019 6:49 PM 01/25/2019 5:32 PM Care Teams Tourist Guide Relationship Specialty Start Date End Date Phan Del Rio MD [address] [place] [address] PCP - General FAMILY PRACTICE 07/23/23 Stefanie So, MATERIAL MIXER- NURSE PRACTITIONER 07/07/19 Bill Dunham MD Consulting Physician NEUROLOGY 07/07/19
--- OUTSIDE RECORDS SUMMARY | 2025-04-26 18:58 | XMS_ITS | Data Portability ---
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 Plan of Treatment Reminders Order Date Submit Date Provider Last Modified By Organization Details Last Modified Time Details Appointments None recorded. Lab None recorded. Referral None recorded. Procedures None recorded. Surgeries None recorded. Imaging US, obstetric, transvagina l 2024 025 8 [address], [address], [place], [address], 09:19:59 US, pelvis [address]23 [address], [address], [place], [address], 19:51:29 US, transvagina l [address]23 [address], [address], [place], [address], 19:51:29 Medication Orders None recorded. Patient TargetsNo targets recorded. Patient InstructionsNo instructions recorded. Reason for Referral None Reported. Results Created Date Observation Date Name Description Value Unit Range Abnormal Flag Note LastModifiedBy Organization Detail LastModifiedTime 05/19/19 24 05/19/2023 urina lysis , dipst ick Leukocytes normal Not Available Fahad hernandez [address], [place], [address], 05/19/2023 11:39:12 05/19/19 24 05/19/2023 urina lysis , dipst ick Nitrite normal Not Available [place] [address], [place], [address], 05/19/2023 11:39:12 05/19/19 24 05/19/2023 urina lysis , dipst ick Urobilinogen normal Not Available [facility] [address], [place], [address], 05/19/2023 11:39:12 05/19/19 24 05/19/2023 urina lysis , dipst ick Protein trace Not Available [place] [address], [place], [address], 05/19/2023 11:39:12 05/19/19 24 05/19/2023 urina lysis , dipst ick pH 6 Not Available [place] [address], [place], [address], 05/19/2023 11:39:12 05/19/19 24 05/19/2023 urina lysis , dipst ick Specific [place] 1.015 Not Available [facility] kaden [address], [place], [address], 05/19/2023 11:39:12 05/19/19 24 05/19/2023 urina lysis , dipst ick Ketone normal Not Available [place] [address], [place], [address], 05/19/2023 11:39:12 05/19/19 24 05/19/2023 urina lysis , dipst ick Bilirubin normal Not Available [facility] [address], [place], [address], 05/19/2023 11:39:12 05/19/19 24 05/19/2023 urina lysis , dipst ick Glucose normal Not Available [place] [address], [place], [address], 05/19/2023 11:39:12 05/19/19 24 05/19/2023 urina lysis , dipst ick Appearance normal Not Available [facility] mary [address], [place], [address], 05/19/2023 11:39:12 05/19/19 24 05/19/2023 urina lysis , dipst ick Color normal Not Available [place] [address], [place], [address], 05/19/2023 11:39:12 05/19/19 24 05/19/2023 pregn ana test, urine HCG negati ve Not Available [place] [address], [place], [address], 05/19/2023 11:38:38 07/29/19 24 07/29/2023 CBC W/DIF F WBC 5.4 10'3/ uL 3.5-10 .5 Not Available [facility] (Lab) [address], [place], [address], 08/03/2023 20:14:48 07/29/19 24 07/29/2023 CBC W/DIF F RBC 4.67 10'6/ uL (based on docume nted legal sex) 3.80-5 .20 Not Available [facility] (Lab) [address], [place], [address], 08/03/2023 20:14:48 07/29/19 24 07/29/2023 CBC W/DIF F HGB 14.0 g/dL (based on docume nted legal sex) 11.6-1 5.4 Not Available [facility] (Lab) [address], [place], [address], 08/03/2023 20:14:48 07/29/19 24 07/29/2023 CBC W/DIF F HCT 41.7 % (based on docume nted legal sex) 34.0-4 5.0 Not Available [facility] (Lab) [address] [facility], [place], [address], 08/03/2023 20:14:48 07/29/19 24 07/29/2023 CBC W/DIF F MCV 89.3 fL 80.0-9 9.0 Not Available [facility] (Lab) [address] [facility], [place], [address], 08/03/2023 20:14:48 07/29/19 24 07/29/2023 CBC W/DIF F MCH 30.0 pg 27.0-3 4.0 Not Available [facility] (Lab) [address] [facility], [place], [address], 08/03/2023 20:14:48 07/29/19 24 07/29/2023 CBC W/DIF F MCHC 33.6 g/dL 32.0-3 5.5 Not Available [facility] (Lab) [address] [facility], [place], [address], 08/03/2023 20:14:48 07/29/19 24 07/29/2023 CBC W/DIF F RDW 13.1 % 11.0-1 5.0 Not Available [facility] (Lab) [address] [facility], [place], [address], 08/03/2023 20:14:48 07/29/19 24 07/29/2023 CBC W/DIF F plt 225 10'3/ uL 150-40 0 Not Available [facility] (Lab) [address] [facility], [place], [address], 08/03/2023 20:14:48 07/29/19 24 07/29/2023 CBC W/DIF F MPV 11.5 fL 8.8-12 .1 Not Available [facility] (Lab) [address] [facility], [place], [address], 08/03/2023 20:14:48 07/29/19 24 07/29/2023 CBC W/DIF F NRBC's 0.0 % 0.0 Not Available [facility] (Lab) [address] [facility], [place], [address], 08/03/2023 20:14:48 07/29/19 24 07/29/2023 CBC W/DIF F absolute NRBCs 0.0 10'3/ uL 0.0 Not Available [facility] (Lab) [address] [facility], [place], [address], 08/03/2023 20:14:48 07/29/19 24 07/29/2023 CBC W/DIF F neutrophils 54.2 % 34.0-7 3.0 Not Available [facility] (Lab) [address] [facility], [place], [address], 08/03/2023 20:14:48 07/29/19 24 07/29/2023 CBC W/DIF F lymphocytes 35.6 % 15.0-5 0.0 Not Available [facility] (Lab) [address] [facility], [place], [address], 08/03/2023 20:14:48 07/29/19 24 07/29/2023 CBC W/DIF F monocytes 6.7 % 1.0-15 .0 Not Available [facility] (Lab) [address] [facility], [place], [address], 08/03/2023 20:14:48 07/29/19 24 07/29/2023 CBC W/DIF F eosinophils 2.2 % 0.0-8. 0 Not Available [facility] (Lab) [address] [facility], [place], [address], 08/03/2023 20:14:48 07/29/19 24 07/29/2023 CBC W/DIF F basophils 1.1 % 0.0-2. 0 Not Available [facility] (Lab) [address] [facility], [place], [address], 08/03/2023 20:14:48 07/29/19 24 07/29/2023 CBC W/DIF F immature granulocytes 0.2 % no define d refere nce range Not Available [facility] (Lab) [address] [facility], [place], [address], 08/03/2023 20:14:48 07/29/19 24 07/29/2023 CBC W/DIF F absolute neutrophils 2.9 10'3/ uL 1.5-8. 0 Not Available [facility] (Lab) [address] [facility], [place], [address], 08/03/2023 20:14:48 07/29/19 24 07/29/2023 CBC W/DIF F absolute lymphocytes 1.9 10'3/ uL 1.0-4. 0 Not Available [facility] (Lab) [address] [facility], [place], [address], 08/03/2023 20:14:48 07/29/19 24 07/29/2023 CBC W/DIF F absolute monocytes 0.4 10'3/ uL 0.2-1. 0 Not Available [facility] (Lab) [address] [place], [address], 08/03/2023 20:14:48 07/29/19 24 07/29/2023 CBC W/DIF F absolute eosinophils 0.1 10'3/ uL 0.0-0. 6 Not Available [facility] (Lab) [address] [place], [address], 08/03/2023 20:14:48 07/29/19 24 07/29/2023 CBC W/DIF F absolute basophils 0.1 10'3/ uL 0.0-0. 3 Not Available [facility] (Lab) [address] [place], [address], 08/03/2023 20:14:48 07/29/19 24 07/29/2023 CBC W/DIF [...] resul ts are expec ping. Not Available [facility] (Lab) [address] [facility], [place], [address], 08/03/2023 20:14:48 07/29/19 24 07/29/2023 TSH, REFLE X FREE T4 TSH 2.21 uIU/m L 0.30-5 .33 Not Available [facility] (Lab) [address] [facility], [place], [address], 08/03/2023 20:14:48 07/29/19 24 07/29/2023 FSH, LH, [...] 154-3 243 pg/mL 2nd Trime ster 1561- 77541 pg/mL 3rd Trime ster 8525- >3000 0 pg/mL Not Available [facility] (Lab) [address] [facility], [place], [address], 08/03/2023 20:14:49 07/29/19 24 07/29/2023 FSH, LH, ESTRA DIOL FSH 4.8 mIU/m L This assay was perfo rmed using [employer] n reage nts and test kits. Value s obtai sally with other assay metho ds or kits canno t be used inter [facility] . Femal es Folli cular : 3.5-1 2.5 mIU/m L Ovula tion: 4.7-2 1.5 mIU/m L Lutea l: 1.7-7 .7 mIU/m L Postm enopa use: 25.8- 134.8 mIU/m L Not Available [facility] (Lab) [address] [place], [address], 08/03/2023 20:14:49 07/29/19 24 07/29/2023 FSH, LH, ESTRA DIOL LH 10.6 mIU/m L This assay was perfo rmed using [employer] reage nts and test kits. Value s obtai sally with other assay metho ds or kits canno t be used inter [facility] . Femal es Mid-F ollic ular: 2.4-1 2.6 mIU/m L Mid-C ycle: 14.0- 95.6 mIU/m L Mid-L uteal : 1.0-1 1.4 mIU/m L Postm enopa use: 7.7-5 8.5 mIU/m L Not Available [facility] (Lab) [address] [place], [address], 08/03/2023 20:14:49 07/29/19 24 07/29/2023 TESTO STERO NE, FREE( DIALY SIS) AND TOTAL (LC/M S/MS) testosterone , total 33 NG/dL 2-45 For addit ional infor adrien rucker e refer to http: //sosa murrell.que stdia gnost ics.c om/fa q/ Total Testo [facility]ero neLCM [facility] (This link is being provi ded for infor mariana nal/ educa kinza l purpo ses only. ) This test was devel oped and its mary tical perfo rmanc e radha cteri stics have been deter mined by [employer] [facility] [place], [place]. It has not been clear ed or appro jacquie by the U.S. Food and Drug Admin istra tion. This assay has been valid ated pursu ant to the CLIA regul ation s and is used for clini lyric purpo ses. Not Available [facility] (Lab) [address] [place], [address], 08/03/2023 20:14:49 07/29/19 24 07/29/2023 TESTO STERO NE, FREE( DIALY SIS) AND TOTAL (LC/M S/MS) testosterone , free 2.9 pg/mL 0.1-6. 4 This test was devel oped and its mary tical perfo rmanc e radha cteri stics have been deter mined by [employer] [facility] [place], [place]. It has not been clear ed or appro jacquie by the U.S. Food and Drug Admin istra tion. This assay has been valid ated pursu ant to the CLIA regul ation s and is used for clini lyric purpo ses. Perfo rming Organ izati on Infor mariana n: Site ID: AMD Name: [employer] [facility] [place] [facility] Addre ss: [id number] [place], [place] Direc tor: Bladimir Regalado MD PhD Not Available [facility] (Lab) [address] [place], [address], 08/03/2023 20:14:49 07/21/19 24 07/21/2023 US, pelvi s No observ ation record ed. [email or web address] [place] [address], [place], [address], 07/21/2023 13:02:51 07/21/19 24 07/21/2023 US, trans vagin al No observ ation record ed. [email or web address] [place] [address], [place], [address], 07/21/2023 13:02:41 07/21/19 24 07/21/2023 US, pelvi s No observ ation record ed. [email or web address] [address], [place], [address], 07/22/2023 12:40:32 01/06/20 25 01/05/2025 US, obste tric, trans vagin al No observ ation record ed. [email or web address] [place] [address], [place], [address], 01/10/2025 18:32:58 01/06/20 25 01/05/2025 US, obste tric, trans vagin al No observ ation record ed. [email or web address] [place] [address], [place], [address], 01/05/2025 18:30:11 Result Notes None recorded. Problems Name Problem SNOMED Code Status Onset Date Resolution Date Notes Provider Name and Address Organization Details Recorded Time Multiple sclerosis 12041254 Completed no current treatment Emilie pringle [facility] 2 16:06:19 Urolithia sis 26852608 Completed Emilie pringle [facility] 2 16:06:19 Bicornuat e uterus 24964565 Completed Emilie pacheco null [facility] 2 16:06:19 SARS-CoV- 2 Completed 2021 Aware to take ASA QD and will need serial growth u/s! Emilie pringle [facility] 2 16:06:19 [id number] Completed 202112/16/2021 Emilie pringle [facility] 2 16:06:23 Problem Notes None recorded. Procedures Surgical History Date Name Laterality Status Provider Name and Address Organization Details Recorded Time 11/25/19 23 Date of [facility] 11/24/2022 10:21:29 05/11/19 15 Dilation and Curettage completed [facility] 05/08/2021 12:35:53 05/11/19 14 Date of Last Colonoscopy completed Sonja Tong [facility] 05/29/2021 12:42:24 05/11/19 14 Colonoscopy completed [facility] 05/08/2021 12:36:15 05/11/19 12 extraction of wisdom tooth completed [facility] 07/29/2023 12:20:02 05/11/19 11 tonsilectomy/ad enoids completed [facility] 05/08/2021 12:35:43 01/09/19 94 procedure on kidney completed [facility] 05/08/2021 12:36:48 Imaging Results None recorded. Procedure Notes None recorded. Medical Equipment None Reported. Allergies Allergen ID Allergen Name Allergen Category Reaction Reaction Severity Criticality Documentation Date Start Date Code Code System Note Provider Name and Address Organization Details Recorded Time 00787 latex environme nt,medica tion Not available Not available Not available 05/07/2021 07049 91 RxNorm Gypsy prignle [facility] 17:02:55 23441 lanolin environme nt,medica tion Not available Not available Not available 05/07/2021 6227 RxNorm Gypsy pringle [facility] 17:03:08 Medications Name Sig Start [...] Updated DateTime 05/19/2023 165.1 cm 21.1 kg/m2 74166.23 g 92/58 mm[Hg] Gypsy Cooley [facility] 05/19/2023 11:34:06 Date Recorded Body height Body mass index (BMI) Body weight Systolic And Diastolic Provider Name and Address Organization Details Last Updated DateTime 07/29/2023 165.1 cm 21.1 kg/m2 85464.23 g 99/64 mm[Hg] Gypsy Cooley [facility] 07/29/2023 12:19:11 Date Recorded Body height Body mass index (BMI) Body weight Systolic And Diastolic Provider Name and Address Organization Details Last Updated DateTime 01/05/2025 165.1 cm 22.8 kg/m2 62374.15 g 102/62 mm[Hg] Mayra Pastor [facility] 01/05/2025 18:13:46 Social History Question Answer Notes LastModified by Organizat ion Details LastModified Time Tobacco Smoking Status Never Smoker Sherlyn Jorgensen yary, [facility] 05/19/2023 11:15:59 Do You Have An Advance Directive? No [email or web address] Information n ot available 05/08/2021 How Many Years Have You Consumed Alcohol? 9 [email or web address] Information not available 05/08/2021 Are You Blind Or Do You Have Difficulty Seeing? No [email or web address] Information n ot available 08/15/2021 What Is Your Level Of Caffeine Consumption? Occasional [email or web address] Information not available 05/08/2021 How Much Tobacco Do You Chew? None [email or web address] Information not available 05/08/2021 In The 14 Days Before Symptom Onset, Have You Had Close Contact With A Person Who Is Under Investigation For COVID-19 While That Person Was Ill? No Information not available 05/08/2021 Have You Been To An Area Known To Be High Risk For COVID-19? No [email or web address] Information not available 05/08/2021 Are You Deaf Or Do You Have Serious Difficulty Hearing? No [email or web address] Information not available 05/08/2021 What Type Of Diet Are You Following? REGULAR Information n ot available 05/08/2021 What Is The Highest Grade Or Level Of School You Have Completed Or The Highest Degree You Have Received? TB42041-2 [email or web address] Information not available 05/08/2021 Are There Any Guns Present In Your Home? Yes [email or web address] Information not available 05/08/2021 Have You Ever Been Counseled For Unhealthy Alcohol Use? No [email or web address] Information not available 05/19/2023 Do You Use Protection During Sex? No [email or web address] Information not available 05/08/2021 Do You Use Your Seat Belt Or Car Seat Routinely? Yes [email or web address] Information not available 05/08/2021 Do You Have Smoke And Carbon Monoxide Detectors In Your Home? Yes [email or web address] Information not available 05/08/2021 How Much Tobacco Do You Smoke? No [email or web address] Information not available 05/08/2021 Do You Use Sunscreen Routinely? No [email or web address] Information not available 05/08/2021 Has Tobacco Cessation Counseling Been Provided? No [email or web address] Information not available 05/19/2023 Have You Used IV Drugs? No [email or web address] Information not available 05/08/2021 Do You Have Difficulty Walking Or Climbing Stairs? No [email or web address] Information not available 05/19/2023 Sex: Unknown Functional Status Question Answer Note LastModified by Organizat ion Details LastModified Time Do you use any illicit or recreational drugs? No [email or web address] Information not available 05/08/2021 Do you or have you ever used any other forms of tobacco or nicotine? No [email or web address] Information not available 05/19/2023 What is your level of alcohol consumption? Occasional Information not available 05/08/2021 Are you able to walk independently without assistance or assistive devices? YESWOREST [email or web address] Information not available 05/08/2021 Are you able to care for yourself independently? 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 No [email or web address] Information not available 05/19/2023 What is your exercise level? Occasional [email or web address] Information not available 05/08/2021 Mental Status Question Answer Note LastModified by Organization D etails LastModified Time Do you feel stressed (tense, restless, nervous, or anxious, or unable to sleep at night)? [id number] [email or web address] Information not available 05/08/2021 Family History Relationship Description Onset Age of this Age Resolved Age Notes LastModified by Organization Details LastModified Time Father No current problems or disability [email or web address] Not available 04/11 11:45:42 Mother No current problems or disability [email or web address] Not available 04/11 11:45:42 Medical History Condition Response Allergies (Food, seasonal, environmental ) N Other N Drug/Latex Allergies/Reactions Y Breast Cancer N Blood Transfusion N Dermatologic Disorders N Lung [...] N Neurologic/Epilepsy Endometriosis N High Cholesterol N Fibromyalgia N Headaches Y Kidney Disease Y Heart Problems N Thyroid [...] ICD10 Code Diagnosis IMO Codes Diagnosis Note [id number] Ariana Amezcua CNM [place] [address] [address] 05/08/2021 11:15:22 05/08/2021 13:23:21 Gynecologic examination 00062158 Z01.419 Amenorrhea 58213064 N91. 2 [id number] MD Gallito Jacobson [address],[place] [address] 05/08/2021 11:17:39 05/08/2021 13:30:50 [id number] MD Gallito Jacobson [address],[place] [address] 06/18/2021 10:30:25 06/19/2021 10:32:27 screening 672355317 Z36.89 Routine an tenatal care 520212927 Z34.82 [id number] MD Gallito Jacobson [address],[place] [address] 06/18/2021 10:26:57 06/18/2021 12:23:04 screening for malformation 338594899 Z36.3 [id number] MD Gallito Jacobson [address],[place] [address] 07/16/2021 09:30:21 07/16/2021 10:47:03 COVID-19 399744638 U07.1 O34.02 Z3A.23 [id number] Elidia Alatorre CNM [place] [address],[place] [address] 08/15/2021 10:04:23 08/15/2021 18:15:02 Routine care 284832410 Z34.92 [id number] MD Gallito Jacobson [address],[place] [address] 08/15/2021 10:10:03 08/15/2021 11:19:41 Pre-existing maternal disease complicating 9175896248 6106 O99.891 U07.1 Z3A.27 [id number] Elidia Alatorre CNM [place] [address],[place] [address] 09/12/2021 10:40:17 09/13/2021 16:04:18 Routine care 113144035 Z34.92 [id number] MD Gallito Jacobson [address],[place] [address] 09/17/2021 15:12:17 09/17/2021 16:20:30 COVID-19 928187394 U07.1 O34.02 Z3A.32 [id number] lA Burnette MD [place] [address],[place] [address] 10/03/2021 15:07:37 10/03/2021 21:13:48 [id number] Al Burnette MD [place] [address],[place] [address] 10/17/2021 10:30:41 10/17/2021 11:10:02 Pre-existing maternal disease complicating 4625045905 6106 O99.891 U07.1 Z86.16 Z3A.36 [id number] Ariana Amezcua CNM [place] [address],[place] [address] 10/17/2021 10:31:07 10/17/2021 11:37:58 Routine care 135797626 Z34.93 [id number] Ariana Amezcua CNM [place] [address],[place] [address] 10/23/2021 15:58:21 10/23/2021 16:31:33 Routine care 523550170 Z34.93 [id number] Ariana Amezcua CNM [place] [address],[place] [address] 12/18/2021 15:14:09 12/18/2021 16:07:05 care 849746267 Z39.2 [id number] SAÚL Cobos [place] [address],[place] [address] 08/06/2022 11:57:26 08/06/2022 14:46:03 Abnormal uterine bleeding 0419690182 9100 N93.9 Discussed return of periods after [...] plan of care. Contracept ion care management 356731696 Z30.9 Irregular periods 688836 07 N92.6 Venereal d isease screening 198412553 Z11.3 [id number] Lyssa Vinson [place] [address],[place] [address] 11/24/2022 10:00:23 11/24/2022 10:36:44 Screening for malignant neoplasm of cervix 462528680 Z12.4 repeat pap collected No charge visit [id number] Lyssa Vinson [facility] [address],[place] [address] 05/19/2023 11:14:33 05/19/2023 16:55:31 Left without being seen 2801984858 9102 Z53.21 duplicate encounter [id number] Lyssa Vinson [place] [address],[place] [address] 05/19/2023 11:29:53 05/19/2023 14:14:26 Pain in pelvis 50576393 R10.2 ua - normal todayUPT (-)Discuss ed pain with IC, recommende d updated TVUS for further evaluation - orderedrec ommended PFPT. Will update u/s and reach out to pt with next steps Time spent in visit is a total of 25 mins with at least 50% of visit consisting of counseling and review of plan of care. [id number] Al Burnette MD [place] [address],[place] [address] 07/21/2023 12:26:31 07/21/2023 13:10:50 Pain in pelvis 56406893 R10.2 [id number] Ariana Amezcua CNM [place] [address],[place] [address] 07/29/2023 12:06:55 07/29/2023 13:17:51 Fatigue 67394945 R53.83 check labs, consider testostero ne/and or progestero ne cream pending resultsrev iewed testostero ne se risks and benefitsca ll if any questions Reduced libido 5120674 R 68.82 [id number] Al Burnette MD [place] [address] [address] 01/05/2025 17:27:51 01/06/2025 09:19:59 Uncertain viability of 560205248 O36.80X0 Z3A.00 [id number] Al Burnette MD [place] [address] [address] 01/05/2025 18:12:31 01/06/2025 09:19:19 Missed miscarriage 14763594 O02.1 [id number] This patient is a 29 female who [...] 1 *SELF PAY* Christina Snow 01/24/2025 1 [facility] [id number] [facility] [id number] Gail Snow Notes Date Note Type Note Provider Name and Address Organization Details Recorded Time 05/19/2023 text/html 27yo [id number] for evaluation of pain with ICsymptoms present 3-4 monthsburning/pressur e sensation in lower midline pelvis, present during all IC/not postionaldryness with ICneg urinary symptomsnormal bowel movementsneg n/v/fneg discharge, odors, itchingSA with steady male partner SAÚL Cobos [address], [place], [address], [facility] 05/19/2023 14:08:09 07/29/2023 text/html ROS as noted in the HPI pelvic pain f/u- reviewed US wnl, seeing GI and cardiology for abd/chest painfatigue/decreased libido, didnt resolve after immediate pp period, would like to increase libido Ariana Amezcua CNM [address], [place], [address], [facility] 07/29/2023 13:15:38 01/05/2025 text/html This patient [...] alternatives. Al Burnette MD [address], [place], [address], [facility] 01/05/2025 18:55:24 OBGyn Episode Ob Episode Information Episode Created Date Number of Fetuses Patient Bloodtype Patient rh Status Prepregnancy Weight lbs Domestic Partner Domestic Partner Phone Father Name 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 06/13/19 22 1 CLOSED Fetus Data First Name Last Name Admitted to NICU Weight (g) Sex Living Outcome Pediatric Complications Fetus ID Race Codes Race Delivery Type , Spontane ous 36780 Sam Calculation Initial Sam Date Initial Exam [...] Domestic Partner Domestic Partner Phone Father Name 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 06/18/19 22 1 A Positive 131 CLOSED Fetus Data First Name Last Name Admitted to NICU Weight (g) Sex Living Outcome Pediatric Complications Fetus ID Race Codes Race Delivery Type 3997.27 95 F true Full Term terminal meconium 53690 Vaginal Delivery Problems Problem Notes states she has a weak heart - had an evaluation in [place], considered pacemaker if starting MS medications - Records in!!! Pt had bradycardia and risk of hypotension with MS meds. Had echo and appears normal. See notes under medical records Problem Name Start Date End Date Resolution Snomed Code Not e Multiple sclerosis 83218656 n o current treatment Bicornuate uterus 50146351 Urolithiasis 32697028 SARS-CoV-2 05/17/2021 [id number] Aware to take ASA QD and will [...] Weight in lbs Pre/Post Dialysis Refused Weight 138.287824831116 BP Diastolic BP Location Tested BP Systolic [...] Weight in lbs Pre/Post Dialysis Refused Weight 160.633105546213 BP Diastolic BP Location Tested BP Systolic [...] Weight in lbs Pre/Post Dialysis Refused Weight 169.078344181157 BP Diastolic BP Location Tested BP Systolic [...] Weight in lbs Pre/Post Dialysis Refused Weight 171.041213424506 BP Diastolic BP Location Tested BP Systolic [...] Weight in lbs Pre/Post Dialysis Refused Weight 170.190396928627 BP Diastolic BP Location Tested BP Systolic [...] Estim ated Date of Delivery false Thalassemia (Divehi, French, Mediterranean, Or Background): MCV < 80 false Neural Tube Defect (Meningomyelocele, Spina Bifi da, Or Anencephaly) false Congenital Heart Defect false Down Syndrome false David-Sachs (eg, Taoism, Cajun, German-Zambian) f alse Chinmay Disease false Sickle Cell [...] Domestic Partner Domestic Partner Phone Father Name 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 05/08/20 21 1 CLOSED Fetus Data First Name Last Name Admitted to NICU Weight (g) Sex Living Outcome Pediatric Complications Fetus ID Race Codes Race Delivery Type 3628.73 6 M Full Term 19301 Vaginal Delivery Sam Calculation Initial Sam Date [...] Domestic Partner Domestic Partner Phone Father Name 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 06/13/19 22 1 DELETED Sam Calculation [...] Domestic Partner Domestic Partner Phone Father Name 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 05/29/19 22 1 DELETED Fetus Data First Name Last Name Admitted to NICU Weight (g) Sex Living Outcome Pediatric Complications Fetus ID Race Codes Race Delivery Type 35573 Sam Calculation Initial Sam Date Initial Exam [...] Domestic Partner Domestic Partner Phone Father Name 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 06/13/19 22 1 CLOSED Fetus Data First Name Last Name Admitted to NICU Weight (g) Sex Living Outcome Pediatric Complications Fetus ID Race Codes Race Delivery Type , Spontane ous 73163 Sam Calculation Initial Sam Date Initial Exam [...] Domestic Partner Domestic Partner Phone Father Name 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 12/27/19 23 1 CLOSED Fetus Data [...] Domestic Partner Domestic Partner Phone Father Name 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 12/27/19 23 1 CLOSED Fetus Data [...]
--- OUTSIDE RECORDS SUMMARY | 2025-04-26 18:59 | XMS_ITS | Encounter Summary ---
Author Organization [facility] Address [address] [place] [address] Care Team Providers Care Rice Farmer Name Role Phone None, Provider Primary Care Provider Unavaila Juno Stout MD Primary Care Provider [phone] uJno Calabrese MD Primary Care Provider [phone] Stefanie So [facility] Unavailable Bill Dunham MD Unavailable [phone] Phan Del Rio MD Primary Care Provider [phone] Encounter Details Date Type Department Care Team (Late st Contact Info) Description 07/25/2017 Abstract [facility] [address] [place] [address] , Generic Conversion, Social History Tobacco Use Types Packs/Day Years Used Date Smoking Tobacco: Never Assessed Comments Unknown Sex and Gender Information Value Date Recorded Sex Assigned at Not on file 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 Gender Identity Not on file Sexual Orientation Not on file documented as of this encounter Plan of Treatment Not on file documented as of this encounter Visit Diagnoses Not on filedocumented in this encounter Additional Health Concerns Infection Onset Date Last Indicated Resolved Time COVID-19 Rule Out 09/19/2019 09/19/2019 09/20/2019 11:54 AM CDT documented as of this encounter Care Teams Rice Farmer Relationship Specialty Start Date End Date None, Provider, PCP - General 01/22/19 03/07/19 Juno Calabrese MD PCP - General FAMILY PRACTICE 03/08/19 03/10/19 Juno Calabrese MD [address] [place] [phone] PCP - General FAMILY PRACTICE 03/11/19 07/22/23 Pahn Del Rio MD [address] [place] [address] [place] [address] PCP - General FAMILY PRACTICE 07/23/23 Stefanie So, [facility]- [address] [place], [place] [phone] NURSE PRACTITIONER 07/07/19 Bill Dunham MD [address] [place] [phone] Consulting Physician NEUROLOGY 07/07/19 documented as of this encounter
--- OUTSIDE RECORDS SUMMARY | 2025-04-26 18:59 | XMS_ITS | Encounter Summary ---
Author Organization [facility] Address [facility] [place] [address] Care Team Providers Care Executive Cyber Leader Name Role Phone None, Provider Primary Care Provider Unavaila Juno Stout MD Primary Care Provider [phone] Juno Calabrese MD Primary Care Provider [phone] Stefanie So [facility] Unavailable Bill Dunham MD Unavailable [phone] Phan Del Rio MD Primary Care Provider [phone] Encounter Details Date Type Department Care Team (Late st Contact Info) Description 10/16/2018 Abstract [facility] CONVERSION [address] [place] [address] , Generic Conversion, Social History Tobacco Use Types Packs/Day Years Used Date Smoking Tobacco: Never Assessed Comments Unknown Sex and Gender Information Value Date Recorded Sex Assigned at Not on file 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 Gender Identity Not on file Sexual Orientation Not on file documented as of this encounter Plan of Treatment Not on file documented as of this encounter Visit Diagnoses Not on filedocumented in this encounter Additional Health Concerns Infection Onset Date Last Indicated Resolved Time COVID-19 Rule Out 09/19/2019 09/19/2019 09/20/2019 11:54 AM CDT documented as of this encounter Care Teams Executive Cyber Leader Relationship Specialty Start Date End Date None, Provider, PCP - General 01/22/19 03/07/19 Juno Calabrese MD PCP - General FAMILY PRACTICE 03/08/19 03/10/19 Juno Calabrese MD [address] [place], [place] [phone] PCP - General FAMILY PRACTICE 03/11/19 07/22/23 Phan Del Rio MD [address] [place] [address] [place] [address] PCP - General FAMILY PRACTICE 07/23/23 Stefanie So, [facility]- [address] [place], [place] [phone] NURSE PRACTITIONER 07/07/19 Bill Dunham MD [address] [place], [place] [phone] Consulting Physician NEUROLOGY 07/07/19 documented as of this encounter
--- OUTSIDE RECORDS SUMMARY | 2025-04-26 18:59 | XMS_ITS | Encounter Summary ---
Author Organization [facility] Address [facility] [place] [address] Care Team Providers Care Sweatband Cutting Machine Operator Name Role Phone None, Provider Primary Care Provider Unavaila Juno Stout MD Primary Care Provider [phone] Juno Calabrese MD Primary Care Provider [phone] Stefanie So [facility] Unavailable Bill Dunham MD Unavailable [phone] Phan Del Rio MD Primary Care Provider [phone] Encounter Details Date Type Department Care Team (Late st Contact Info) Description 01/24/2019 Abstract [facility] [address] [place] [id number] Social History Tobacco Use Types Packs/Day Years Used Date Smoking Tobacco: Never Smokeless Tobacco: Never Alcohol Use Standard Drinks/Week Comments Yes 0 (1 standard drink = 0.6 oz pur e alcohol) socially Comments No Sex and Gender Information Value Date Recorded Sex Assigned at Not on file 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 Gender Identity Not on file Sexual Orientation [...] documented as of this encounter Care Teams Sweatband Cutting Machine Operator Relationship Specialty Start Date End Date None, Provider, PCP - General 01/22/19 03/07/19 Juno Calabrese MD PCP - General FAMILY PRACTICE 03/08/19 03/10/19 Juno Calabrese MD [address] [place] [phone] PCP - General FAMILY PRACTICE 03/11/19 07/22/23 Phan Del Rio MD [address] [place] [address] [place] [address] PCP - General FAMILY PRACTICE 07/23/23 Stefanie So FNP- [address] [place] [phone] NURSE PRACTITIONER 07/07/19 Bill Dunham MD [address] [place] [phone] Consulting Physician NEUROLOGY 07/07/19 documented as of this encounter
--- OUTSIDE RECORDS SUMMARY | 2025-04-26 18:59 | XMS_ITS | Encounter Summary ---
Author Organization [facility] Address [facility] [place] [address] Care Team Providers Care Pharmacy Resource Tech Name Role Phone None, Provider Primary Care Provider Unavaila Juno Stout MD Primary Care Provider [phone] Juno Calabrese MD Primary Care Provider [phone] Stefanie So [facility]- Unavailable Bill Dunham MD Unavailable [phone] Phan Del Rio MD Primary Care Provider [phone] Encounter Details Date Type Department Care Team (Late st Contact Info) Description 01/21/2019 Abstract [facility] [address] [place] [id number] Social History Tobacco Use Types Packs/Day Years Used Date Smoking Tobacco: Never Assessed Comments Unknown Sex and Gender Information Value Date Recorded Sex Assigned at Not on file 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 Gender Identity Not on file Sexual Orientation [...] documented as of this encounter Care Teams Pharmacy Resource Tech Relationship Specialty Start Date End Date None, Provider, PCP - General 01/22/19 03/07/19 Juno Calabrese MD PCP - General FAMILY PRACTICE 03/08/19 03/10/19 Juno Calabrese MD [address] [place] [phone] PCP - General FAMILY PRACTICE 03/11/19 07/22/23 Phan Del Rio MD [address] [place] [address] [place] [address] PCP - General FAMILY PRACTICE 07/23/23 Stefanie So, [facility]- [address] [place] [phone] NURSE PRACTITIONER 07/07/19 Bill Dunham MD [address] [place] [phone] Consulting Physician NEUROLOGY 07/07/19 documented as of this encounter
--- OUTSIDE RECORDS SUMMARY | 2025-04-26 18:59 | XMS_ITS | Clinical Summary ---
Author Organization [facility] Address [address] [place] [address] Care Team Providers Care Nuclear Physician Name Role Phone Teddy Worrell MD Unavailable [phone] Phan Del Rio MD Primary Care Provider [phone] Allergies Active Allergy Reactions Criticality Noted Date [...] w/ possible pacemaker will get ECHO and computational theory scientist consult 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 Migraine without aura, not i ntractable, without status migrainosus 11/08/2019 Ureteral stone with hydronephrosis 09/01/2019 Anxiety disorder 01/24/2019 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 Tonsillitis 07/16/2010 Enlarged tonsils 07/16/2010 Encounters Date Type Department Care Team Description 04/14/2025 5:45 PM CAE ENGINEER Office Visit [facility] at [address] [phone] Natalie You, MARIA ANTONIA Cystitis with hematuria (Primary Dx); UTI symptoms; Kidney stones 03/24/2025 Telephone [facility] Medicine Surgery [address] [place] [address] Lizbeth Hernadez from Last 3 Months Immunizations [...] on file Legal Sex Female 6:42 AM CAE ENGINEER Gender Identity Not on file Sexual Orientation Not on file Last Filed Vital Signs Vital Sign Reading Time Taken Comments Blood Pressure 120/70 04/14/2025 6:12 PM CAE ENGINEER Pulse 71 04/14/2025 6:12 PM CAE ENGINEER Temperature 36.1 C (97 F) 04/14/2025 6:12 PM CAE ENGINEER Respiratory Rate 18 04/14/2025 6:12 PM CAE ENGINEER Oxygen Saturation 98% 09/02/2024 6:46 PM CDT Inhaled Oxygen Concentration - - Weight 59 kg (130 lb) 04/14/2025 6:12 PM CAE ENGINEER Height 170.2 cm (5' 7) 04/14/2025 6:12 PM CAE ENGINEER Body Mass Index 20.36 04/14/2025 6:12 PM CAE ENGINEER Plan of Treatment Health Maintenance Due Date [...] POCT URINALYSIS DIPSTICK Routine 04/14/2025 6:08 PM CAE ENGINEER UTI symptoms Kidney stones from Last 3 Months Results * (ABNORMAL) POCT urinalysis dipstick (04/14/2025 6:08 PM CAE ENGINEER) Color, Urine, POC Red Clarity, ur, POC Cloudy(A) Clear Glucose, ur, POC Negative Negative Bilirubin, ur, POC Negative Negative Ketones, ur, POC Negative Negative Specific [place], POC 1.020 1.003 - 1.030 Blood, ur, POC Large(A) Negative pH, ur, POC 8.0 5.0 - 8.0 Protein, ur, POC 300.(A) Negative Urobilinogen, urine, POC 0.2 0.2 - 1.0 mg/dL Nitrite, ur, POC Negative Negative Leukocytes, ur, POC Small(A) Negative Lot Number [id number] Urine 04/14/2025 6:08 PM CAE ENGINEER Natalie You NP POINT OF CARE TEST ORDERABLES Edited Result - Final from Last 3 Months Insurance [facility] PL[facility] PL[facility] Care Teams Nuclear Physician Relationship Specialty Start Date End Date Phan Del Rio MD [address] [place] [phone] PCP - General Family Medicine 03/03/24 Teddy Worrell MD [address] [place] [address] Referring Physician Neurology 10/09/22
[2025-04-26 22:11] VITALS: BP 103/68; PULSE 68; RESP 16; TEMP 37.2; O2SAT 100
[2025-04-26 22:40] VITALS: BP 120/62; PULSE 68; RESP 16; O2SAT 100
[2025-04-26 22:47] LABS: Hematocrit 40.6 % (37.0-47.0); Hemoglobin 13.7 g/dL (12.0-15.0); Immature Granulocyte Percent A 0.3 % (0-0.5); Lymphocytes Absolute Auto 2.37 K/mm3 (0.9-3.2); Mean Corpuscular HGB Conc 33.7 g/dl (32-36); Mean Corpuscular Hemoglobin 29.8 pg (26-34); Mean Corpuscular Volume 88.3 fl (80-100); Nucleated Red Blood Cells Absolute Auto 0.000 K/mm3 (0.0-0.012); Nucleated Red Blood Cells Perc 0.0 % (0.0-0.2); Platelet Count Result 217 k/mm3 (150-375); Red Blood Count 4.60 M/mm3 (4.2-5.4); White Blood Count 7.9 K/mm3 (4.5-10.0)
[2025-04-26 22:54] LABS: Add Urine Microscopic? YES; Appearance Urine Cloudy (Clear); Glucose Urine UA Negative (Negative); Leukocyte Esterase Ur 2+ LEU/UL (Negative); Nitrate Urine Negative (Negative); Specific Grav Ur 1.021 (1.001-1.035)
[2025-04-26 23:01] LABS: BEDSIDEPREGUCG Negative (Negative)
[2025-04-26 23:01] LABS: Alanine Aminotransferase 47 U/L (6-35); Albumin Level 4.8 g/dL (3.5-5.1); Alkaline Phosphatase 65 U/L (38-126); Anion Gap 7 mmol/L (4-12); Aspartate Amino Transferase 38 U/L (14-36); Bilirubin,Total 1.0 mg/dL (0.2-1.3); Blood Urea Nitrogen 18 mg/dL (7-17); Calcium 10.2 mg/dL (8.4-10.2); Carbon Dioxide 27 mmol/L (22-30); Chloride 104 mmol/L (98-107); Estimated CRCL calculation 87 ml/min; Estimated Glomerular Filt Rate > 60; Glucose 98 mg/dL (65-110); Lipase 112 U/L (23-300); Potassium 3.8 mmol/L (3.4-5.0); Sodium 138 mmol/L (137-145); Total Protein 7.9 g/dL (6.3-8.2)
[2025-04-27 01:03] VITALS: BP 105/64; PULSE 65; RESP 18; O2SAT 96
--- NOTE | 2025-04-27 02:57 | ED_ITS ---
HPI - General Adult General Chief complaint: Urogenital-Female Stated complaint: L flank pain Time Seen by Provider: 04/26/25 22:38 History of Present Illness HPI narrative: 29-year-old female presenting with concerns for persistent left-sided flank pain and swelling. Patient reports a significant history of kidney issues including a recent history of kidney stones. Endorses that about a month and half ago a stent was placed by urologist Dr. Weston. This stent was then removed, kidney stones were evacuated, and a 2nd stent was placed on 04/18. Patient reported minimal symptoms until Saturday 04/21. She is now reporting significant and persistent left flank pain. Patient reports intermittent courses of antibiotics for presumed urinary tract infection in the past; however, recent urine cultures have been negative according to her urologist, and she is not currently on antibiotic therapy. Denies fevers/chills, nausea/vomiting, or chest pain/shortness of breath. Related Data Home Medications ?Medication ?Instructions ?Recorded ?Confirmed ?Last Taken ?Type ibuprofen 200 mg tablet (Advil) 800 mg PO Q4H 04/13/25 04/13/25 04/13/25 History Allergies Allergy/AdvReac Type Severity Reaction Status Date / Time lanolin Allergy Rash Verified 04/29/25 09:12 latex Allergy Rash Verified 04/29/25 09:12 Review of Systems 2 Review of Systems: All systems reviewed & are unremarkable except as noted in HPI and below PMFSH Past Medical History Medical History (Updated 04/30/25 @ 00:01 by Ronda Pan) Multiple sclerosis 6 years ago due to virus with brain swelling, no further episodes/meds Bradycardia Surgical History Surgical History (Updated 04/18/25 @ 07:10 by Da Whitlock DO) H/O partial nephrectomy as Family History Family History Mother Kidney disease Grandparent Heart disease Sibling Kidney stones POTS (postural orthostatic tachycardia syndrome) Social History Social History Smoking status: Never smoker Alcohol intake: current Alcohol use details: socially Substance use: never Substance use type: does not use Lack of Transportation: No Lack of Food: Never True Current Housing: I Have Housing Concerned About Future Housing: No Difficulty Paying Gas/Electric Bills: No Difficulty Paying for Meds: No Currently Unemployed: No Education: Bachelor's Degree Difficulty w/ Childcare or Family Care: No Spiritual care concerns: No Exam 2 Narrative: GENERAL: No acute distress. HEAD: Normocephalic, atraumatic. EYES: PERRLA and EOMI. ENT: Nares clear, no rhinorrhea or epistaxis. Mucous membranes moist. Oropharynx without tonsillar hypertrophy exudate or other lesions. Bilateral TMs pearly blanco non-bulging NECK: Supple. No adenopathy or masses. No carotid bruits or JVD CHEST: Clear to auscultation. No respiratory distress. No wheezes rales or rhonchi HEART: Regular rate and rhythm. No murmur heard. Normal peripheral pulses. ABDOMEN: Soft, nondistended, normal active bowel sounds. BACK: L flank TTP EXTREMITIES: Normal range of motion. No edema. SKIN: Warm, dry, no rash. NEURO: No focal deficits. Alert and oriented x3. PSYCH: Normal mood and affect Course Vital Signs Vital signs: Vital Signs Temperature 98.1 F 04/26/25 17:58 Pulse Rate 90 04/26/25 17:58 Respiratory Rate 16 04/26/25 17:58 Blood Pressure 100/55 L 04/26/25 17:58 Pulse Oximetry 99 04/26/25 17:58 Temperature 98.9 F 04/26/25 22:11 Pulse Rate 72 04/27/25 04:08 Respiratory Rate 19 04/27/25 04:08 Blood Pressure 111/69 04/27/25 04:08 Pulse Oximetry 98 04/27/25 04:08 [facility] Narrative Medical decision making narrative: 29-year-old female presenting with concerns for persistent left-sided flank pain and swelling. Patient reports a significant history of kidney issues including a recent history of kidney stones. Endorses that about a month and half ago a stent was placed by urologist Dr. Weston. This stent was then removed, kidney stones were evacuated, and a 2nd stent was placed on 04/18. Patient reported minimal symptoms until Saturday 04/21. She is now reporting significant and persistent left flank pain. Patient reports intermittent courses of antibiotics for presumed urinary tract infection in the past; however, recent urine cultures have been negative according to her urologist, and she is not currently on antibiotic therapy. Denies fevers/chills, nausea/vomiting, dysuria, or chest pain/shortness of breath. Upon my initial assessment patient appears nontoxic with stable vitals. Patient's labs and UA are without significant high risk changes. No abnormalities are noted on physical exam other than flank tenderness to palpation. KUB demonstrates proper stent placement and no acute abnormalities. Patient declined pain medication and anti-emetics throughout the ED course. Differential diagnosis and treatment plan were discussed with the patient. Patient agrees with discussion and after shared medical decision making agrees with plan of care. All questions were answered to the patient's satisfaction. The patient is appropriate for outpatient treatment and follow-up. Differential Diagnosis Differential Diagnosis: Differential diagnostic considerations for acute abdominal pain include surgical abdominal etiology, ischemic bowel, inflammatory bowel disease, gastritis, PUD, gastroenteritis, cardiac etiology, appendicitis, diverticulitis, bowel obstruction, kidney stone, pyelonephritis, abdominal aortic aneurysm, pancreatitis, constipation, endometriosis. Medical Records I have reviewed the following patient records and this information was taken into consideration when formulating the assessment and plan.: previous labs, previous ER visits, previous hospitalizations and previous clinic visits Lab Data MDM Lab Attestation statement: I personally reviewed the patient's lab results. 04/26/25 22:36 04/26/25 22:36 Labs: Lab Results 04/26/25 04/26/25 Range/Units 22:36 22:40 WBC 7.9 (4.5-10.0) K/mm3 RBC 4.60 (4.2-5.4) M/mm3 Hgb 13.7 (12.0-15.0) g/dL Hct 40.6 (37.0-47.0) % MCV 88.3 (80-100) fl MCH 29.8 (26-34) pg MCHC 33.7 (32-36) g/dl RDW 13.2 (11.5-14.5) % Plt Count 217 (150-375) k/mm3 MPV 10.6 H (7.4-10.4) fl Immature Gran % (Auto) 0.3 (0-0.5) % Neut % (Auto) 57.5 (45.5-73.1) % Lymph % (Auto) 30.2 (18.3-44.2) % [place] % (Auto) 6.7 (2.6-8.5) % Eos % (Auto) 4.8 H (0-4.4) % Baso % (Auto) 0.5 (0.2-1.2) % Lymph # (Auto) 2.37 (0.9-3.2) K/mm3 [place] # (Auto) 0.5 (0.1-0.6) K/mm3 Eos # (Auto) 0.4 H (0-0.3) K/mm3 Baso # (Auto) 0.0 (0.0-0.1) K/mm3 Abs Immat Gran (auto) 0.02 (0.00-0.031) K/mm3 Absolute Neuts (auto) 4.5 (1.3-6.7) K/mm3 Absolute Nucleated RBC 0.000 (0.0-0.012) K/mm3 Nucleated RBC % 0.0 (0.0-0.2) % Sodium 138 (137-145) mmol/L Potassium 3.8 (3.4-5.0) mmol/L Chloride 104 (98-107) mmol/L Carbon Dioxide 27 (22-30) mmol/L Anion Gap 7 (4-12) mmol/L BUN 18 H (7-17) mg/dL Creatinine 0.76 (0.7-1.0) mg/dL Estim Creat Clear Calc 87 ml/min Estimated GFR > 60 (59 - ) Glucose 98 (65-110) mg/dL Calcium 10.2 (8.4-10.2) mg/dL Total Bilirubin 1.0 (0.2-1.3) mg/dL AST 38 H (14-36) U/L ALT 47 H (6-35) U/L Alkaline Phosphatase 65 (38-126) U/L Total Protein 7.9 (6.3-8.2) g/dL Albumin 4.8 (3.5-5.1) g/dL Lipase 112 (23-300) U/L Urine Color Yellow (Yellow) Urine Appearance Cloudy H (Clear) Urine pH 6.0 (5.0-9.0) Ur Specific [place] 1.021 (1.001-1.035) Urine Protein 3+ H (Negative) mg/dL Urine Glucose (UA) Negative (Negative) mg/dL Urine Ketones Trace H (Negative) mg/dL Ur Blood (Man) 2+ H (Negative) Urine Nitrate Negative (Negative) Urine Bilirubin Negative (Negative) Urine Urobilinogen 1.0 (<2.0) mg/dL Leukocyte Esterase Rfl 2+ H (Negative) SIMON/UL Urine RBC 21-50 H (0-2) /hpf Urine WBC 51-100 H (0-3) /hpf Ur Squamous Epith Cells Few (Few) /hpf Urine Bacteria Rare /hpf Urine Casts 3-5 POC Urine HCG, Qual Negative (Negative) Imaging Data Radiologist's impression: ITS Impressions Abdomen X-Ray 04/27/25 06:32 IMPRESSION: 1. Left double-J ureteral stent in place. No left-sided nephroureteral calculi identified. 2. Small right renal stone. Discharge Plan Discharge Clinical Impression: Flank pain Patient Disposition: Home Condition: Stable Instructions: Kidney Stones (ED) Additional Instructions: Return to the emergency department if you experience fever, chest pain, shortness of breath, abdominal pain with nausea and vomiting, weakness, numbness/tingling, or any other symptoms that are concerning to you. Take anti- inflammatories (Aleve, Ibuprofen, Naproxen, etc) and Tylenol as needed for pain. Follow up with your urologist. Follow up with primary care doctor for other general concerns. Patient Language: Azeri Prescriptions: No Action prednisone 50 mg tablet 50 mg PO DAILY Qty: 6 0RF famotidine 20 mg tablet 20 mg PO BID Qty: 14 0RF diphenhydramine HCl [Benadryl] 25 mg capsule 25 mg PO TID PRN (Reason: allergic reaction) Qty: 14 0RF ibuprofen [Advil] 200 mg tablet 800 mg PO Q4H hyoscyamine sulfate 0.125 mg tablet, sublingual 0.125 mg sublingual QID Qty: 30 1RF polyethylene glycol 3350 [Miralax] 17 gram powder in packet 17 g PO DAILY Qty: 7 0RF hydrocodone-acetaminophen 5-325 mg tablet 1 tablet PO Q6H PRN (Reason: pain) Qty: 20 0RF tamsulosin 0.4 mg capsule 0.4 mg PO HS Qty: 21 0RF phenazopyridine [Pyridium] 100 mg tablet 100 mg PO TID PRN (Reason: urinary discomfort) 3 Days Qty: 9 0RF Follow-up/Referrals: Quang,MD Phan [Primary Care Provider, Family Practice]
[2025-04-27 04:08] VITALS: BP 111/69; PULSE 72; RESP 19; O2SAT 98
== END 2025-04-27 04:09 | disposition home or self-care (01) ==
PROVIDERS: Student in an Organized Health Care Education/Training Program; PCP Family Medicine
DX: R10.A2 Flank pain, left side (principal); G35.D Multiple sclerosis, unspecified; N20.0 Calculus of kidney; Z96.0 Presence of urogenital implants; Z90.5 Acquired absence of kidney
CPT/HCPCS: 36415; 74018; 80053; 81001; 81025; 83690; 85025; 87086; 99283

== ENCOUNTER 2025-04-29 08:56 | Emergency (ER) | payer OTHER, SELFPAY ==
[2025-04-29 09:09] VITALS: BP 84/57; PULSE 83; RESP 18; TEMP 36.7; O2SAT 99
[2025-04-29] MEDS: SODIUM CHLORIDE 0.9% IV 1,000 ML 999 ML IV CONT (09:53)
[2025-04-29] MEDS: FAMOTIDINE 20 MG/2 ML VIAL IV PUSH (09:55)
[2025-04-29 10:02] VITALS: BP 95/67; PULSE 68; RESP 18; O2SAT 100
--- NOTE | 2025-04-29 10:05 | ED_ITS ---
HPI - Allergic Reaction General Chief complaint: Allergic Reaction Stated complaint: both eye puffy, red, after kidney stent placement Time Seen by Provider: 04/29/25 09:03 History of Present Illness HPI narrative: Patient is a 29-year-old female who presents ER with concerns relating to a ureteral stent that is in place. She has had multiple procedures for a kidney stone over last 2 months. She currently has a stent in place as scheduled to be removed in 6 days. No urinary frequency urgency or dysuria. Mild flank discomfort. She was seen in the ER on 04/26/2025 with urinalysis performed and urine culture with only normal bravo. She has developed swelling and itching of her eyes and nose and back of her throat beginning yesterday and worsening into today. She has tried allergy drops without improvement. Patient had similar symptoms when she had her last ureteral stent and the symptoms improved after removal. She is concerned she may have an allergy to the device. She does have a known latex allergy. She feels like her eyes are dry but she has increased tearing. 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 No exposure to animals, new facial creams or fragrances. 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 Related Data Home Medications ?Medication ?Instructions ?Recorded ?Confirmed ?Last Taken ?Type ibuprofen 200 mg tablet (Advil) 800 mg PO Q4H 04/13/25 04/13/25 04/13/25 History Allergies Allergy/AdvReac Type Severity Reaction Status Date / Time lanolin Allergy Rash Verified 04/29/25 09:12 latex Allergy Rash Verified 04/29/25 09:12 Review of Systems 2 Review of Systems: All systems reviewed & are unremarkable except as noted in HPI and below Constitutional: Constitutional: Reports no additional constitutional complaints ENT: Reports system reviewed and no additional complaints, except as documented Cardiovascular: Cardiovascular: Reports no additional cardiovascular complaints Respiratory: Respiratory: Reports no additional respiratory complaints Integumentary/Breasts: Skin/Breast: Reports system reviewed and no additional complaints, except as [facility]u [facility] Past Medical History Medical History (Updated 04/29/25 @ 11:57 by Sj Toribio MD) Multiple sclerosis 6 years ago due to virus with brain swelling, no further episodes/meds Bradycardia Surgical History Surgical History (Updated 04/18/25 @ 07:10 by Da Whitlock DO) H/O partial nephrectomy as infant Family History Family History Mother Kidney disease Grandparent Heart disease Sibling Kidney stones POTS (postural orthostatic tachycardia syndrome) Social History Social History Smoking status: Never smoker Alcohol intake: current Alcohol use details: socially Substance use: never Substance use type: does not use Lack of Transportation: No Lack of Food: Never True Current Housing: I Have Housing Concerned About Future Housing: No Difficulty Paying Gas/Electric Bills: No Difficulty Paying for Meds: No Currently Unemployed: No Education: Bachelor's Degree Difficulty w/ Childcare or Family Care: No Spiritual care concerns: No Exam 2 Narrative: GENERAL: Well-appearing, well-nourished, and in no acute distress. HEAD: Normocephalic, atraumatic. EYES: PERRL and EOMI. Bilateral conjunctival injection and puffiness of periorbital region without cellulitis. Sclera are injected. ENT: Mucous membranes moist. Normal appearing posterior oropharynx. Uvula midline and nonedematous. NECK: Supple. CHEST: Clear to auscultation. No respiratory distress. HEART: Regular rate and rhythm. Normal peripheral pulses. ABDOMEN: Soft, nontender, nondistended. EXTREMITIES: Normal range of motion. No edema. SKIN: Warm, dry, no rash. NEURO: Alert and oriented x3. PSYCH: Normal mood and affect. Course Course Emergency Course: Patient feels markedly improved after Benadryl/steroids/Lodine. Discharge home with the same medication. Discussed with Urology and this is not unknown reaction to ureteral stent. Patient also needs to keep the stent in for her imaging study on Thursday. Vital Signs Vital signs: Vital Signs Temperature 98.1 F 04/29/25 09:09 Pulse Rate 83 04/29/25 09:09 Respiratory Rate 18 04/29/25 09:09 Blood Pressure 84/57 L 04/29/25 09:09 Pulse Oximetry 99 04/29/25 09:09 Oxygen Delivery Room Air 04/29/25 09:09 Temperature 98.1 F 04/29/25 09:09 Pulse Rate 68 04/29/25 10:02 Respiratory Rate 18 04/29/25 10:02 Blood Pressure 95/67 L 04/29/25 10:02 Pulse Oximetry 100 04/29/25 10:02 Oxygen Delivery Room Air 04/29/25 09:09 MDM Differential Diagnosis Differential Diagnosis: Allergic rhinitis, anaphylaxis, pinkeye, eye foreign body, overall cellulitis Lab Data 04/29/25 09:54 04/29/25 09:54 Labs: Lab Results 04/29/25 Range/Units 09:54 WBC 6.5 (4.5-10.0) K/mm3 RBC 4.41 (4.2-5.4) M/mm3 Hgb 13.1 (12.0-15.0) g/dL Hct 39.1 (37.0-47.0) % MCV 88.7 (80-100) fl MCH 29.7 (26-34) pg MCHC 33.5 (32-36) g/dl RDW 13.1 (11.5-14.5) % Plt Count 224 (150-375) k/mm3 MPV 10.9 H (7.4-10.4) fl Immature Gran % (Auto) 0.3 (0-0.5) % Neut % (Auto) 67.1 (45.5-73.1) % Lymph % (Auto) 21.0 (18.3-44.2) % [place] % (Auto) 5.1 (2.6-8.5) % Eos % (Auto) 6.0 H (0-4.4) % Baso % (Auto) 0.5 (0.2-1.2) % Lymph # (Auto) 1.36 (0.9-3.2) K/mm3 [place] # (Auto) 0.3 (0.1-0.6) K/mm3 Eos # (Auto) 0.4 H (0-0.3) K/mm3 Baso # (Auto) 0.0 (0.0-0.1) K/mm3 Abs Immat Gran (auto) 0.02 (0.00-0.031) K/mm3 Absolute Neuts (auto) 4.4 (1.3-6.7) K/mm3 Absolute Nucleated RBC 0.000 (0.0-0.012) K/mm3 Nucleated RBC % 0.0 (0.0-0.2) % Sodium 138 (137-145) mmol/L Potassium 4.2 (3.4-5.0) mmol/L Chloride 109 H (98-107) mmol/L Carbon Dioxide 26 (22-30) mmol/L Anion Gap 3 L (4-12) mmol/L BUN 14 (7-17) mg/dL Creatinine 0.66 L (0.7-1.0) mg/dL Estim Creat Clear Calc 99 ml/min Estimated GFR > 60 (59 - ) Glucose 92 (65-110) mg/dL Calcium 9.8 (8.4-10.2) mg/dL Total Bilirubin 1.0 (0.2-1.3) mg/dL AST 47 H (14-36) U/L ALT 52 H (6-35) U/L Alkaline Phosphatase 47 (38-126) U/L Total Protein 7.1 (6.3-8.2) g/dL Albumin 4.2 (3.5-5.1) g/dL Discharge Plan Discharge Clinical Impression: Allergic reaction Patient Disposition: Home Condition: Stable Instructions: General Allergic Reaction (ED) Additional Instructions: Return ER if he cannot breathe, he cannot swallow, you lose consciousness, have additional concerns. Patient Language: Bahraini Prescriptions: New prednisone 50 mg tablet 50 mg PO DAILY Qty: 6 0RF famotidine 20 mg tablet 20 mg PO BID Qty: 14 0RF diphenhydramine HCl [Benadryl] 25 mg capsule 25 mg PO TID PRN (Reason: allergic reaction) Qty: 14 0RF No Action ibuprofen [Advil] 200 mg tablet 800 mg PO Q4H hyoscyamine sulfate 0.125 mg tablet, sublingual 0.125 mg sublingual QID Qty: 30 1RF polyethylene glycol 3350 [Miralax] 17 gram powder in packet 17 g PO DAILY Qty: 7 0RF hydrocodone-acetaminophen 5-325 mg tablet 1 tablet PO Q6H PRN (Reason: pain) Qty: 20 0RF tamsulosin 0.4 mg capsule 0.4 mg PO HS Qty: 21 0RF phenazopyridine [Pyridium] 100 mg tablet 100 mg PO TID PRN (Reason: urinary discomfort) 3 Days Qty: 9 0RF Follow-up/Referrals: QuangPhan MD [Primary Care Provider, Family Practice] - 1 Week
[2025-04-29 10:11] LABS: Hematocrit 39.1 % (37.0-47.0); Hemoglobin 13.1 g/dL (12.0-15.0); Immature Granulocyte Percent A 0.3 % (0-0.5); Lymphocytes Absolute Auto 1.36 K/mm3 (0.9-3.2); Mean Corpuscular HGB Conc 33.5 g/dl (32-36); Mean Corpuscular Hemoglobin 29.7 pg (26-34); Mean Corpuscular Volume 88.7 fl (80-100); Nucleated Red Blood Cells Absolute Auto 0.000 K/mm3 (0.0-0.012); Nucleated Red Blood Cells Perc 0.0 % (0.0-0.2); Platelet Count Result 224 k/mm3 (150-375); Red Blood Count 4.41 M/mm3 (4.2-5.4); White Blood Count 6.5 K/mm3 (4.5-10.0)
[2025-04-29 11:06] LABS: Potassium 4.2 mmol/L (3.4-5.0)
[2025-04-29 11:14] LABS: Alanine Aminotransferase 52 U/L (6-35); Albumin Level 4.2 g/dL (3.5-5.1); Alkaline Phosphatase 47 U/L (38-126); Anion Gap 3 mmol/L (4-12); Aspartate Amino Transferase 47 U/L (14-36); Bilirubin,Total 1.0 mg/dL (0.2-1.3); Blood Urea Nitrogen 14 mg/dL (7-17); Calcium 9.8 mg/dL (8.4-10.2); Carbon Dioxide 26 mmol/L (22-30); Chloride 109 mmol/L (98-107); Estimated CRCL calculation 99 ml/min; Estimated Glomerular Filt Rate > 60; Glucose 92 mg/dL (65-110); Sodium 138 mmol/L (137-145); Total Protein 7.1 g/dL (6.3-8.2)
[2025-04-29 11:26] VITALS: O2SAT 100
[2025-04-29 12:27] VITALS: BP 93/71; PULSE 62; RESP 14; O2SAT 100
== END 2025-04-29 12:28 | disposition home or self-care (01) ==
PROVIDERS: Emergency Provider Emergency Medicine; PCP Family Medicine
DX: T78.40XA Allergy, unspecified, initial encounter (principal); Z96.0 Presence of urogenital implants; Z87.442 Personal history of urinary calculi; Z90.5 Acquired absence of kidney; X58.XXXA Exposure to other specified factors, initial encounter
CPT/HCPCS: 36415; 80053; 85025; 96361; 96374; 96375; 99284; J1200; J2919; J7030

== ENCOUNTER 2025-05-02 12:34 | Outpatient (CLI) | payer OTHER, SELFPAY ==
--- NOTE | ~2025-05-02 | NM_ITS ---
EXAMINATION: ALFREDO arreguin renal scan DATE: 05/02/2025 13:28 INDICATION: Hydronephrosis TECHNIQUE: 8.1 mCi Tc-99m MAG3 was administered IV. 40 mg furosemide was administered IV 10 minutes afterward. The patient was scanned in the supine position. A posterior abdominal radionuclide angiogram was obtained. A subsequent time course of static images of the kidneys, ureters, and bladder was obtained. COMPARISON: None FINDINGS: The posterior abdominal radionuclide angiogram and sequential static images show normal size, position, and morphology of the right kidney. The left kidney is normally positioned but enlarged with decreased activity in the region of the renal hilum suggesting significant hydronephrosis. Peak renal parenchymal uptake was >29 minutes in the left kidney and 8.4 min in the right kidney (normal peak 3-5 minutes). The relative early renal uptake was 53% on the left and 47% on the right (<40% is abnormal). No abnormalities of the ureters or bladder are seen. T1/2 for clearance of activity from the left kidney and proximal collecting system was indeterminate with continually rising activity curve over the 30 minutes of imaging. T1/2 for clearance of activity from the right kidney and proximal collecting system was 11 minutes. Notes on interpretation: T1/2 <10 minutes is normal, 10-15 minutes is low grade obstruction of questionable clinical significance, 15-20 minutes is partial obstruction that is likely clinically significant, >20 minutes is high grade obstruction. Note that false positives may be seen with supine positioning, dehydration, severely dilated nonobstructed kidney, atonic collecting system, poor renal function, and chronic furosemide use. IMPRESSION: 1. Symmetric kidney function. 2. Enlarged left kidney with central photopenic defect suggesting significant hydronephrosis and with continually rising renal activity curve during the 30 minutes of imaging consistent with high-grade obstruction. 2. Minimally delayed right renal activity clearance consistent with possible low-grade obstruction of doubtful clinical significance. Reviewed, dictated and finalized at location A. [employer] IMPRESSION: 1. Symmetric kidney function. 2. Enlarged left kidney with central photopenic defect suggesting significant hydronephrosis and with continually rising renal activity curve during the 30 m inutes of imaging consistent with high-grade obstruction. 2. Minimally delayed right renal activity clearance consistent with possible lo w-grade obstruction of doubtful clinical significance.
--- OUTSIDE RECORDS SUMMARY | 2025-05-02 12:37 | XMS_ITS | Clinical Summary ---
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 Gender Identity Not on file Sexual Orientation [...] this topic Medical Devices Implanted Type Area Wheel Mill Operator Device Identifier Shelf Expiration Date Model / Serial / Lot Stent Ureteral [place] Sci Contour 6fr X 26cm - [id number] Implanted:Qty: 1 on 09/02/2019 by Rocio Chris MD at [facility] Left: Ureter [employer] 04/07/2021 [id number] / / [id number] Description:VERIFIED BY Stent Cook Ureteral Filaform 6 Fr X 26cm - Sn/A Implanted:Qty: 1 on 09/21/2019 by Rocio Chris MD at [facility] Left: Ureter [employer] 06/30/2022 [id number] / N/A / [id number] Procedures Procedure Name Priority Date/Time Associated Diagnosis Comments HEPATITIS C ANTIBODY Routine 08/27/2017 3:19 PM CDT from Last 3 Months or Most Recently Relevant to Health Maintenance Results * HEPATITIS C ANTIBODY (08/27/2017 3:19 PM CDT) HEPATITIS C AB NON-REACTI VE NON-REACT JOYCE 08/31/2017 10:13 AM CDT [facility] Comment: ANTIBODIES TO HCV NOT DETECTED. DOES NOT EXCLUDE THE POSSIBILITY OF EXPOSURE TO HCV. 08/27/2017 3:19 PM CDT Julio Ribera MD LABORATORY Final Result [facility] [address] [place], [place] [address] [phone] [id number] from Last 3 Months or Most Recently Relevant to Health Maintenance Insurance [facility] Advance Directives * Full Code (Latest Code Status on File) Date Activated Date Inactivated Comments 04/20/2019 11:30 PM 04/21/2019 1:41 PM * Full Code Date Activated Date Inactivated Comments 01/22/2019 6:49 PM 01/25/2019 5:32 PM Care Teams Sales Order Clerk Relationship Specialty Start Date End Date Phan Del Rio MD [address] [place] [address] PCP - General FAMILY PRACTICE 07/23/23 Stefanie So, THUMB SEWER- NURSE PRACTITIONER 07/07/19 Bill Dunham MD Consulting Physician NEUROLOGY 07/07/19
--- OUTSIDE RECORDS SUMMARY | 2025-05-02 12:37 | XMS_ITS | Data Portability ---
Author Organization [facility] Address [address] [place] [address] [place] [address] Care Team Providers Care Party Plan Sales Director Name Role Phone [facility] [place] Primary Care Provider Assessment No assessment recorded. Plan of Treatment Reminders Order Date Submit Date Provider Last Modified By Organization Details Last Modified Time Details Appointments None recorded. Lab None recorded. Referral None recorded. Procedures None recorded. Surgeries None recorded. Imaging US, obstetric, transvagina l 2024 025 [id number], [address], [place], [address], 09:19:59 US, pelvis 2023 024 [email or web address] [address], [address], [place], [address], 19:51:29 US, transvagina l [id number], [address], [place], [address], 19:51:29 Medication Orders None recorded. Patient TargetsNo targets recorded. Patient InstructionsNo instructions recorded. Reason for Referral None Reported. Results Created Date Observation Date Name Description Value Unit Range Abnormal Flag Note LastModifiedBy Organization Detail LastModifiedTime 05/19/19 24 05/19/2023 urina lysis , dipst ick Leukocytes normal Not Available Fahad hernandez [address], [place], [address], 05/19/2023 11:39:12 05/19/19 24 05/19/2023 urina lysis , dipst ick Nitrite normal Not Available [facility] [address], [place], [address], 05/19/2023 11:39:12 05/19/19 24 05/19/2023 urina lysis , dipst ick Urobilinogen normal Not Available [facility] [address], [place], [address], 05/19/2023 11:39:12 05/19/19 24 05/19/2023 urina lysis , dipst ick Protein trace Not Available [facility] [address], [place], [address], 05/19/2023 11:39:12 05/19/19 24 05/19/2023 urina lysis , dipst ick pH 6 Not Available [facility] [address], [place], [address], 05/19/2023 11:39:12 05/19/19 24 05/19/2023 urina lysis , dipst ick Specific Celina 1.015 Not Available [facility] kaden [address], [place], [address], 05/19/2023 11:39:12 05/19/19 24 05/19/2023 urina lysis , dipst ick Ketone normal Not Available [facility] [address], [place], [address], 05/19/2023 11:39:12 05/19/19 24 05/19/2023 urina lysis , dipst ick Bilirubin normal Not Available Poly [facility]ren [address], [place], [address], 05/19/2023 11:39:12 05/19/19 24 05/19/2023 urina lysis , dipst ick Glucose normal Not Available [facility] [address], [place], [address], 05/19/2023 11:39:12 05/19/19 24 05/19/2023 urina lysis , dipst ick Appearance normal Not Available [facility] mary [address], [place], [address], 05/19/2023 11:39:12 05/19/19 24 05/19/2023 urina lysis , dipst ick Color normal Not Available [facility] [address], [place], [address], 05/19/2023 11:39:12 05/19/19 24 05/19/2023 pregn ana test, urine HCG negati ve Not Available [facility] [address], [place], [address], 05/19/2023 11:38:38 07/29/19 24 07/29/2023 CBC W/DIF F WBC 5.4 10'3/ uL 3.5-10 .5 Not Available [facility] (Lab) [address], [place], [address], 08/03/2023 20:14:48 07/29/19 24 07/29/2023 CBC W/DIF F RBC 4.67 10'6/ uL (based on docume nted legal sex) 3.80-5 .20 Not Available [facility] (Lab) [address], [place], [address], 08/03/2023 20:14:48 07/29/19 24 07/29/2023 CBC W/DIF F HGB 14.0 g/dL (based on docume nted legal sex) 11.6-1 5.4 Not Available [facility] (Lab) [address], [place], [address], 08/03/2023 20:14:48 07/29/19 24 07/29/2023 CBC W/DIF F HCT 41.7 % (based on docume nted legal sex) 34.0-4 5.0 Not Available [facility] (Lab) [address] [facility], [place], [address], 08/03/2023 20:14:48 07/29/19 24 07/29/2023 CBC W/DIF F MCV 89.3 fL 80.0-9 9.0 Not Available [facility] (Lab) [address] [facility], [place], [address], 08/03/2023 20:14:48 07/29/19 24 07/29/2023 CBC W/DIF F MCH 30.0 pg 27.0-3 4.0 Not Available [facility] (Lab) [address] [facility], [place], [address], 08/03/2023 20:14:48 07/29/19 24 07/29/2023 CBC W/DIF F MCHC 33.6 g/dL 32.0-3 5.5 Not Available [facility] (Lab) [address] [facility], [place], [address], 08/03/2023 20:14:48 07/29/19 24 07/29/2023 CBC W/DIF F RDW 13.1 % 11.0-1 5.0 Not Available [facility] (Lab) [address] [facility], [place], [address], 08/03/2023 20:14:48 07/29/19 24 07/29/2023 CBC W/DIF F plt 225 10'3/ uL 150-40 0 Not Available [facility] (Lab) [address] [facility], [place], [address], 08/03/2023 20:14:48 07/29/19 24 07/29/2023 CBC W/DIF F MPV 11.5 fL 8.8-12 .1 Not Available [facility] (Lab) [address] [facility], [place], [address], 08/03/2023 20:14:48 07/29/19 24 07/29/2023 CBC W/DIF F NRBC's 0.0 % 0.0 Not Available [facility] (Lab) [address] [facility], [place], [address], 08/03/2023 20:14:48 07/29/19 24 07/29/2023 CBC W/DIF F absolute NRBCs 0.0 10'3/ uL 0.0 Not Available [facility] (Lab) [address] [facility], [place], [address], 08/03/2023 20:14:48 07/29/19 24 07/29/2023 CBC W/DIF F neutrophils 54.2 % 34.0-7 3.0 Not Available [facility] (Lab) [address] [facility], [place], [address], 08/03/2023 20:14:48 07/29/19 24 07/29/2023 CBC W/DIF F lymphocytes 35.6 % 15.0-5 0.0 Not Available [facility] (Lab) [address] [facility], [place], [address], 08/03/2023 20:14:48 07/29/19 24 07/29/2023 CBC W/DIF F monocytes 6.7 % 1.0-15 .0 Not Available [facility] (Lab) [address] [facility], [place], [address], 08/03/2023 20:14:48 07/29/19 24 07/29/2023 CBC W/DIF F eosinophils 2.2 % 0.0-8. 0 Not Available [facility] (Lab) [address] [facility], [place], [address], 08/03/2023 20:14:48 07/29/19 24 07/29/2023 CBC W/DIF F basophils 1.1 % 0.0-2. 0 Not Available [facility] (Lab) [address] [facility], [place], [address], 08/03/2023 20:14:48 07/29/19 24 07/29/2023 CBC W/DIF F immature granulocytes 0.2 % no define d refere nce range Not Available [facility] (Lab) [address] [facility], [place], [address], 08/03/2023 20:14:48 07/29/19 24 07/29/2023 CBC W/DIF F absolute neutrophils 2.9 10'3/ uL 1.5-8. 0 Not Available [facility] (Lab) [address] [facility], [place], [address], 08/03/2023 20:14:48 07/29/19 24 07/29/2023 CBC W/DIF F absolute lymphocytes 1.9 10'3/ uL 1.0-4. 0 Not Available [facility] (Lab) [address] [facility], [place], [address], 08/03/2023 20:14:48 07/29/19 24 07/29/2023 CBC W/DIF F absolute monocytes 0.4 10'3/ uL 0.2-1. 0 Not Available [facility] (Lab) [address] [place], [address], 08/03/2023 20:14:48 07/29/19 24 07/29/2023 CBC W/DIF F absolute eosinophils 0.1 10'3/ uL 0.0-0. 6 Not Available [facility] (Lab) [address] [place], [address], 08/03/2023 20:14:48 07/29/19 24 07/29/2023 CBC W/DIF F absolute basophils 0.1 10'3/ uL 0.0-0. 3 Not Available [facility] (Lab) [address] [place], [address], 08/03/2023 20:14:48 07/29/19 24 07/29/2023 CBC W/DIF [...] resul ts are expec ping. Not Available [facility] (Lab) [address] [facility], [place], [address], 08/03/2023 20:14:48 07/29/19 24 07/29/2023 TSH, REFLE X FREE T4 TSH 2.21 uIU/m L 0.30-5 .33 Not Available [facility] (Lab) [address] [facility], [place], [address], 08/03/2023 20:14:48 07/29/19 24 07/29/2023 FSH, LH, [...] 154-3 243 pg/mL 2nd Trime ster 1561- 85993 pg/mL 3rd Trime ster 8525- >3000 0 pg/mL Not Available [facility] (Lab) [address] [facility], [place], [address], 08/03/2023 20:14:49 07/29/19 24 07/29/2023 FSH, LH, ESTRA DIOL FSH 4.8 mIU/m L This assay was perfo rmed using [employer] reage nts and test kits. Value s obtai sally with other assay metho ds or kits canno t be used inter [facility] . Femal es Folli cular : 3.5-1 2.5 mIU/m L Ovula tion: 4.7-2 1.5 mIU/m L Lutea l: 1.7-7 .7 mIU/m L Postm enopa use: 25.8- 134.8 mIU/m L Not Available [facility] (Lab) [address] [place], [address], 08/03/2023 20:14:49 07/29/19 24 07/29/2023 FSH, LH, ESTRA DIOL LH 10.6 mIU/m L This assay was perfo rmed using [employer] reage nts and test kits. Value s obtai sally with other assay metho ds or kits canno t be used inter [facility] . Femal es Mid-F ollic ular: 2.4-1 2.6 mIU/m L Mid-C ycle: 14.0- 95.6 mIU/m L Mid-L uteal : 1.0-1 1.4 mIU/m L Postm enopa use: 7.7-5 8.5 mIU/m L Not Available [facility] (Lab) [address] [place], [address], 08/03/2023 20:14:49 07/29/19 24 07/29/2023 TESTO STERO NE, FREE( DIALY SIS) AND TOTAL (LC/M S/MS) testosterone , total 33 NG/dL 2-45 For addit ional infor adrien rucker e refer to http: //sosa murrell.que stdia gnost ics.c om/fa q/ Total Testo stero neLCM [facility] Q165 (This link is being provi ded for infor mariana nal/ educa kinza l purpo ses only. ) This test was devel oped and its mary tical perfo rmanc e radha cteri stics have been deter mined by [facility] [place]. It has not been clear ed or appro jacquie by the U.S. Food and Drug Admin istra tion. This assay has been valid ated pursu ant to the CLIA regul ation s and is used for clini lyric purpo ses. Not Available [facility] (Lab) [address] [place], [address], 08/03/2023 20:14:49 07/29/19 24 07/29/2023 TESTO STERO NE, FREE( DIALY SIS) AND TOTAL (LC/M S/MS) testosterone , free 2.9 pg/mL 0.1-6. 4 This test was devel oped and its mary tical perfo rmanc e radha cteri stics have been deter mined by [facility] [place]. It has not been clear ed or appro jacquie by the U.S. Food and Drug Admin istra tion. This assay has been valid ated pursu ant to the CLIA regul ation s and is used for clini lyric purpo ses. Perfo rming Organ izati on Infor mariana n: Site ID: AMD Name: [facility] Addre ss: [id number] [place], [place] Direc tor: Bladimir Regalado MD PhD Not Available [facility] (Lab) [address] [place], [address], 08/03/2023 20:14:49 07/21/19 24 07/21/2023 US, pelvi s No observ ation record ed. [email or web address] [address], [place], [address], 07/21/2023 13:02:51 07/21/19 24 07/21/2023 US, trans vagin al No observ ation record ed. [email or web address] [address], [place], [address], 07/21/2023 13:02:41 07/21/19 24 07/21/2023 US, pelvi s No observ ation record ed. [email or web address] [address], [place], [address], 07/22/2023 12:40:32 01/06/20 25 01/05/2025 US, obste tric, trans vagin al No observ ation record ed. [email or web address] [address], [place], [address], 01/10/2025 18:32:58 01/06/20 25 01/05/2025 US, obste tric, trans vagin al No observ ation record ed. [email or web address] [address], [place], [address], 01/05/2025 18:30:11 Result Notes None recorded. Problems Name Problem SNOMED Code Status Onset Date Resolution Date Notes Provider Name and Address Organization Details Recorded Time Multiple sclerosis 01910876 Completed no current treatment Emilie pringle [facility] 2 16:06:19 Urolithia sis 24224215 Completed Emilie pringle [facility] 2 16:06:19 Bicornuat e uterus 31302622 Completed Emilie pacheco null [facility] 2 16:06:19 SARS-CoV- 2 Completed 2021 Aware to take ASA QD and will need serial growth u/s! Emilie pringle [facility] 2 16:06:19 92567963 Completed 202112/16/2021 Emilie pringle [facility] 2 16:06:23 Problem Notes None recorded. Procedures Surgical History Date Name Laterality Status Provider Name and Address Organization Details Recorded Time 11/25/19 23 Date of [facility]/24/2022 10:21:29 05/11/19 15 Dilation and Curettage completed [facility] 05/08/2021 12:35:53 05/11/19 14 Date of Last Colonoscopy completed Sonja Tong [facility] 05/29/2021 12:42:24 05/11/19 14 Colonoscopy completed [facility] 05/08/2021 12:36:15 05/11/19 12 extraction of wisdom tooth completed [facility] 07/29/2023 12:20:02 05/11/19 11 tonsilectomy/ad enoids completed [facility] 05/08/2021 12:35:43 01/09/19 94 procedure on kidney completed [facility] 05/08/2021 12:36:48 Imaging Results None recorded. Procedure Notes None recorded. Medical Equipment None Reported. Allergies Allergen ID Allergen Name Allergen Category Reaction Reaction Severity Criticality Documentation Date Start Date Code Code System Note Provider Name and Address Organization Details Recorded Time 80496 latex environme nt,medica tion Not available Not available Not available 05/07/2021 33219 91 RxNorm Gypsy pringle [facility] 17:02:55 50557 lanolin environme nt,medica tion Not available Not available Not available 05/07/2021 6227 RxNorm Gypsy pringle [facility] 17:03:08 Medications Name Sig Start Date [...] Updated DateTime 05/19/2023 165.1 cm 21.1 kg/m2 29528.23 g 92/58 mm[Hg] Gypsy Cooley [facility] 05/19/2023 11:34:06 Date Recorded Body height Body mass index (BMI) Body weight Systolic And Diastolic Provider Name and Address Organization Details Last Updated DateTime 07/29/2023 165.1 cm 21.1 kg/m2 21425.23 g 99/64 mm[Hg] Gypsy Cooley [facility] 07/29/2023 12:19:11 Date Recorded Body height Body mass index (BMI) Body weight Systolic And Diastolic Provider Name and Address Organization Details Last Updated DateTime 01/05/2025 165.1 cm 22.8 kg/m2 73107.15 g 102/62 mm[Hg] Mayra Pastor [facility] 01/05/2025 18:13:46 Social History Question Answer Notes LastModified by Organizat ion Details LastModified Time Tobacco Smoking Status Never Smoker Sherlyn Jorgensen yary, [facility] 05/19/2023 11:15:59 Do You Have An Advance Directive? No Information n ot available 05/08/2021 How Many Years Have You Consumed Alcohol? 9 [email or web address] Information not available 05/08/2021 Are You Blind Or Do You Have Difficulty Seeing? No Information n ot available 08/15/2021 What Is Your Level Of Caffeine Consumption? Occasional [email or web address] Information not available 05/08/2021 How Much Tobacco Do You Chew? None [email or web address] Information not available 05/08/2021 In The 14 Days Before Symptom Onset, Have You Had Close Contact With A Person Who Is Under Investigation For COVID-19 While That Person Was Ill? No [email or web address] Information not available 05/08/2021 Have You Been To An Area Known To Be High Risk For COVID-19? No [email or web address] Information not available 05/08/2021 Are You Deaf Or Do You Have Serious Difficulty Hearing? No [email or web address] Information not available 05/08/2021 What Type Of Diet Are You Following? REGULAR [email or web address] Information n ot available 05/08/2021 What Is The Highest Grade Or Level Of School You Have Completed Or The Highest Degree You Have Received? ET51331-7 [email or web address] Information not available 05/08/2021 Are There Any Guns Present In Your Home? Yes [email or web address] Information not available 05/08/2021 Have You Ever Been Counseled For Unhealthy Alcohol Use? No [email or web address] Information not available 05/19/2023 Do You Use Protection During Sex? No [email or web address] Information not available 05/08/2021 Do You Use Your Seat Belt Or Car Seat Routinely? Yes [email or web address] Information not available 05/08/2021 Do You Have Smoke And Carbon Monoxide Detectors In Your Home? Yes [email or web address] Information not available 05/08/2021 How Much Tobacco Do You Smoke? No [email or web address] Information not available 05/08/2021 Do You Use Sunscreen Routinely? No [email or web address] Information not available 05/08/2021 Has Tobacco Cessation Counseling Been Provided? No [email or web address] Information not available 05/19/2023 Have You Used IV Drugs? No [email or web address] Information not available 05/08/2021 Do You Have Difficulty Walking Or Climbing Stairs? No [email or web address] Information not available 05/19/2023 Sex: Unknown Functional Status Question Answer Note LastModified by Organizat ion Details LastModified Time Do you use any illicit or recreational drugs? No [email or web address] Information not available 05/08/2021 Do you or have you ever used any other forms of tobacco or nicotine? No [email or web address] Information not available 05/19/2023 What is your level of alcohol consumption? Occasional [email or web address] Information not available 05/08/2021 Are you able to walk independently without assistance or assistive devices? YESWOREST [email or web address] Information not available 05/08/2021 Are you able to care for yourself independently? 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 No [email or web address] Information not available 05/19/2023 What is your exercise level? Occasional Information not available 05/08/2021 Mental Status Question Answer Note LastModified by Organization D etails LastModified Time Do you feel stressed (tense, restless, nervous, or anxious, or unable to sleep at night)? [id number] [email or web address] Information not available 05/08/2021 Family History Relationship Description Onset Age of this Age Resolved Age Notes LastModified by Organization Details LastModified Time Father No current problems or disability [email or web address] Not available 04/11 11:45:42 Mother No current problems or disability [email or web address] Not available 04/11 11:45:42 Medical History Condition Response Allergies (Food, seasonal, environmental ) N Other N Drug/Latex Allergies/Reactions Y Blood Transfusion N Breast Cancer N Dermatologic Disorders N Lung Disease Y Defects or Inherited Disease N Breast Problem N Gestational Diabetes N Hematologic disorders N Anesthesia Complications N History of STI N Deep Vein Thrombosis N Polycystic ovary syndrome N Anxiety Disorder Y Autoimmune disease N Arthritis N Polyps N Infertility N Acid Reflux (GERD) N History of abnormal pap N Cancer N Varicosities N Stroke N [...] ICD10 Code Diagnosis IMO Codes Diagnosis Note [id number] Ariana Amezcua CNM [facility] [address] [address] 05/08/2021 11:15:22 05/08/2021 13:23:21 Gynecologic examination 98002121 Z01.419 Amenorrhea 08323108 N91. 2 [id number] MD Gallito Jacobson [address],[place] [address] 05/08/2021 11:17:39 05/08/2021 13:30:50 [id number] MD Gallito Jacobson [address],[place] [address] 06/18/2021 10:30:25 06/19/2021 10:32:27 screening 877728142 Z36.89 Routine an tenatal care 613611141 Z34.82 [id number] MD Gallito Jacobson [address],[place] [address] 06/18/2021 10:26:57 06/18/2021 12:23:04 screening for malformation 464566359 Z36.3 [id number] MD Gallito Jacobson [address],[place] [address] 07/16/2021 09:30:21 07/16/2021 10:47:03 COVID-19 898719074 U07.1 O34.02 Z3A.23 [id number] Elidia Alatorre CNM [facility] [address],[place] [address] 08/15/2021 10:04:23 08/15/2021 18:15:02 Routine care 858553704 Z34.92 [id number] MD Gallito Jacobson [address],[place] [address] 08/15/2021 10:10:03 08/15/2021 11:19:41 Pre-existing maternal disease complicating 0884577418 6106 O99.891 U07.1 Z3A.27 [id number] Elidia Alatorre CNM [facility] [address],[place] [address] 09/12/2021 10:40:17 09/13/2021 16:04:18 Routine care 536006153 Z34.92 [id number] MD Gallito Jacobson [address],[place] [address] 09/17/2021 15:12:17 09/17/2021 16:20:30 COVID-19 036491558 U07.1 O34.02 Z3A.32 [id number] Al Burnette MD [facility] [address],[place] [address] 10/03/2021 15:07:37 10/03/2021 21:13:48 [id number] Al Burnette MD [facility] [address],[place] [address] 10/17/2021 10:30:41 10/17/2021 11:10:02 Pre-existing maternal disease complicating 8915377041 6106 O99.891 U07.1 Z86.16 Z3A.36 [id number] Ariana Amezcua CNM [facility] [address],[place] [address] 10/17/2021 10:31:07 10/17/2021 11:37:58 Routine care 596278199 Z34.93 [id number] Ariana Amezcua CNM [facility] [address],[place] [address] 10/23/2021 15:58:21 10/23/2021 16:31:33 Routine care 649220538 Z34.93 [id number] Ariana Amezcua CNM [facility] [address],[place] [address] 12/18/2021 15:14:09 12/18/2021 16:07:05 care 609690056 Z39.2 [id number] SAÚL Cobos [facility] [address],[place] [address] 08/06/2022 11:57:26 08/06/2022 14:46:03 Abnormal uterine bleeding 0593618753 9100 N93.9 Discussed return of periods after [...] plan of care. Contracept ion care management 687028510 Z30.9 Irregular periods 671604 07 N92.6 Venereal d isease screening 759257232 Z11.3 [id number] Lyssa Vinson [place] [address],[place] [address] 11/24/2022 10:00:23 11/24/2022 10:36:44 Screening for malignant neoplasm of cervix 882560376 Z12.4 repeat pap collected No charge visit [id number] Lyssa Vinson [facility] [address],[place] [address] 05/19/2023 11:14:33 05/19/2023 16:55:31 Left without being seen 3824377648 9102 Z53.21 duplicate encounter [id number] Lyssa Vinson [place] [address],[place] [address] 05/19/2023 11:29:53 05/19/2023 14:14:26 Pain in pelvis 23929887 R10.2 ua - normal todayUPT (-)Discuss ed pain with IC, recommende d updated TVUS for further evaluation - orderedrec ommended PFPT. Will update u/s and reach out to pt with next steps Time spent in visit is a total of 25 mins with at least 50% of visit consisting of counseling and review of plan of care. [id number] Al Burnette MD [facility] [address],[place] [address] 07/21/2023 12:26:31 07/21/2023 13:10:50 Pain in pelvis 16351525 R10.2 [id number] Ariana Amezcua CNM [facility] [address],[place] [address] 07/29/2023 12:06:55 07/29/2023 13:17:51 Fatigue 07661832 R53.83 check labs, consider testostero ne/and or progestero ne cream pending resultsrev iewed testostero ne se risks and benefitsca ll if any questions Reduced libido 3056209 R 68.82 [id number] Al Burnette MD [facility] [address] [address] 01/05/2025 17:27:51 01/06/2025 09:19:59 Uncertain viability of 605105129 O36.80X0 Z3A.00 [id number] [id number] Al Burnette MD [facility] [address] [address] 01/05/2025 18:12:31 01/06/2025 09:19:19 Missed miscarriage 92093160 O02.1 [id number] This patient is a 29 female who [...] 1 *SELF PAY* Christina Snow 01/24/2025 1 [facility] [id number] [facility] [id number] Gail Snow Notes Date Note Type Note Provider Name and Address Organization Details Recorded Time 05/19/2023 text/html 27yo [id number] for evaluation of pain with ICsymptoms present 3-4 monthsburning/pressur e sensation in lower midline pelvis, present during all IC/not postionaldryness with ICneg urinary symptomsnormal bowel movementsneg n/v/fneg discharge, odors, itchingSA with steady male partner SAÚL Cobos [address] Reed, [place], [address], [facility] 05/19/2023 14:08:09 07/29/2023 text/html ROS as noted in the HPI pelvic pain f/u- reviewed US wnl, seeing GI and cardiology for abd/chest painfatigue/decreased libido, didnt resolve after immediate pp period, would like to increase libido Ariana Amezcua CNM [address], [place], [address], [facility] 07/29/2023 13:15:38 01/05/2025 text/html [...] alternatives. Al Burnette MD [address], [place], [address], [facility] 01/05/2025 18:55:24 OBGyn Episode Ob Episode Information Episode Created Date Number of Fetuses Patient Bloodtype Patient rh Status Prepregnancy Weight lbs Domestic Partner Domestic Partner Phone Father Name Resource Economist Status 06/13/19 22 1 CLOSED Fetus Data First Name Last Name Admitted to NICU Weight (g) Sex Living Outcome Pediatric Complications Fetus ID Race Codes Race Delivery Type , Spontane ous 00012 Sam Calculation Initial Sam Date Initial Exam [...] Domestic Partner Domestic Partner Phone Father Name Resource Economist Status 06/18/19 22 1 A Positive 131 CLOSED Fetus Data First Name Last Name Admitted to NICU Weight (g) Sex Living Outcome Pediatric Complications Fetus ID Race Codes Race Delivery Type 3997.27 95 F true Full Term terminal meconium 57487 Vaginal Delivery Problems Problem Notes states she has a weak heart - had an evaluation in [place], considered pacemaker if starting MS medications - Records in!!! Pt had bradycardia and risk of hypotension with MS meds. Had echo and appears normal. See notes under medical records Problem Name Start Date End Date Resolution Snomed Code Not e Multiple sclerosis [id number] n o current treatment Bicornuate uterus [id number] Urolithiasis 41105396 SARS-CoV-2 05/17/2021 [id number] Aware to take ASA QD and will [...] Weight in lbs Pre/Post Dialysis Refused Weight 138.098102701638 BP Diastolic BP Location Tested BP Systolic [...] Weight in lbs Pre/Post Dialysis Refused Weight 160.453134908088 BP Diastolic BP Location Tested BP Systolic [...] Weight in lbs Pre/Post Dialysis Refused Weight 169.179036106218 BP Diastolic BP Location Tested BP Systolic [...] Weight in lbs Pre/Post Dialysis Refused Weight 171.577150743998 BP Diastolic BP Location Tested BP Systolic [...] Weight in lbs Pre/Post Dialysis Refused Weight 170.857771410315 BP Diastolic BP Location Tested BP Systolic [...] Estim ated Date of Delivery false Thalassemia (Luxembourgish, Maltese, Mediterranean, Or Background): MCV < 80 false Neural Tube Defect (Meningomyelocele, Spina Bifi da, Or Anencephaly) false Congenital Heart Defect false Down Syndrome false David-Sachs (eg, Muslim, Cajun, Pashto-Maldivian) f alse Chinmay Disease false Sickle Cell [...] Domestic Partner Domestic Partner Phone Father Name Resource Economist Status 05/08/20 21 1 CLOSED Fetus Data First Name Last Name Admitted to NICU Weight (g) Sex Living Outcome Pediatric Complications Fetus ID Race Codes Race Delivery Type 3628.73 6 M Full Term [address]6550 Vaginal Delivery Sam Calculation Initial Sam Date [...] Domestic Partner Domestic Partner Phone Father Name Resource Economist Status 06/13/19 22 1 DELETED Sam Calculation [...] Domestic Partner Domestic Partner Phone Father Name Resource Economist Status 05/29/19 22 1 DELETED Fetus Data First Name Last Name Admitted to NICU Weight (g) Sex Living Outcome Pediatric Complications Fetus ID Race Codes Race Delivery Type 90811 Sam Calculation Initial Sam Date Initial Exam [...] Domestic Partner Domestic Partner Phone Father Name Resource Economist Status 06/13/19 22 1 CLOSED Fetus Data First Name Last Name Admitted to NICU Weight (g) Sex Living Outcome Pediatric Complications Fetus ID Race Codes Race Delivery Type , Spontane ous 73649 Sam Calculation Initial Sam Date Initial Exam [...] Domestic Partner Domestic Partner Phone Father Name Resource Economist Status 12/27/19 23 1 CLOSED Fetus Data [...] Domestic Partner Domestic Partner Phone Father Name Resource Economist Status 12/27/19 23 1 CLOSED Fetus Data [...]
--- OUTSIDE RECORDS SUMMARY | 2025-05-02 12:37 | XMS_ITS | Encounter Summary ---
Author Organization [facility] Address [facility] [place] [address] Care Team Providers Care Md Urologist Name Role Phone None, Provider Primary Care Provider Unavaila Juno Stout MD Primary Care Provider [phone] Juno Calabrese MD Primary Care Provider [phone] Stefanie So [facility] Unavailable Bill Dunham MD Unavailable [phone] Phan Del Rio MD Primary Care Provider [phone] Encounter Details Date Type Department Care Team (Late st Contact Info) Description 01/21/2019 Abstract [facility] [address] [place] [id number] Social History Tobacco Use Types Packs/Day Years Used Date Smoking Tobacco: Never Assessed Comments Unknown Sex and Gender Information Value Date Recorded Sex Assigned at Not on file 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 Gender Identity Not on file Sexual Orientation Not on file documented as of this encounter Plan of Treatment Not on file documented as of this encounter Visit Diagnoses Not on filedocumented in this encounter Additional Health Concerns Infection Onset Date Last Indicated Resolved Time COVID-19 Rule Out 09/19/2019 09/19/2019 09/20/2019 11:54 AM CDT documented as of this encounter Care Teams Md Urologist Relationship Specialty Start Date End Date None, Provider, PCP - General 01/22/19 03/07/19 Juno Calabrese MD PCP - General FAMILY PRACTICE 03/08/19 03/10/19 Juno Calabrese MD [address] [place], [place] [phone] PCP - General FAMILY PRACTICE 03/11/19 07/22/23 Phan Del Rio MD [address] [place] [address] [place] [address] PCP - General FAMILY PRACTICE 07/23/23 Stefanie So, [facility]- [address] [place], [place] [phone] NURSE PRACTITIONER 07/07/19 Bill Dunham MD [address] [place], [place] [phone] Consulting Physician NEUROLOGY 07/07/19 documented as of this encounter
--- OUTSIDE RECORDS SUMMARY | 2025-05-02 12:37 | XMS_ITS | Patient Health Record ---
Author Organization [facility] Address [address] [place] [address] Care Team Providers Care Program Director/Air Personality Name Role Phone Bryant Gurrola Unavailable [phone] Reason For Referral No Information Plan Of Treatment No Information
--- OUTSIDE RECORDS SUMMARY | 2025-05-02 12:37 | XMS_ITS | Encounter Summary ---
Author Organization [facility] Address [address] [place] [address] Care Team Providers Care Customer Assistance Associate Name Role Phone None, Provider Primary Care Provider Unavaila Juno Stout MD Primary Care Provider [phone] Juno Calabrese MD Primary Care Provider [phone] Stefanie So [facility] Unavailable Bill Dunham MD Unavailable [phone] Phan Del Rio MD Primary Care Provider [phone] Encounter Details Date Type Department Care Team (Late st Contact Info) Description 07/25/2017 Abstract [facility] [address] [place] [address] , Generic Conversion, Social History Tobacco Use Types Packs/Day Years Used Date Smoking Tobacco: Never Assessed Comments Unknown Sex and Gender Information Value Date Recorded Sex Assigned at Not on file 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 Gender Identity Not on file Sexual Orientation Not on file documented as of this encounter Plan of Treatment Not on file documented as of this encounter Visit Diagnoses Not on filedocumented in this encounter Additional Health Concerns Infection Onset Date Last Indicated Resolved Time COVID-19 Rule Out 09/19/2019 09/19/2019 09/20/2019 11:54 AM CDT documented as of this encounter Care Teams Customer Assistance Associate Relationship Specialty Start Date End Date None, Provider, PCP - General 01/22/19 03/07/19 Juno Calabrese MD PCP - General FAMILY PRACTICE 03/08/19 03/10/19 Juno Calabrese MD [address] [place] [phone] PCP - General FAMILY PRACTICE 03/11/19 07/22/23 Phan Del Rio MD [address] [place] [address] [place] [address] PCP - General FAMILY PRACTICE 07/23/23 Stefanie So, [facility]- [address] [place], [place] [phone] NURSE PRACTITIONER 07/07/19 Bill Dunham MD [address] [place] [phone] Consulting Physician NEUROLOGY 07/07/19 documented as of this encounter
--- OUTSIDE RECORDS SUMMARY | 2025-05-02 12:37 | XMS_ITS | Encounter Summary ---
Author Organization [facility] Address [facility], [address] [place] [address] Care Team Providers Care Farm Butcher Name Role Phone None, Provider Primary Care Provider Unavaila Juno Stout MD Primary Care Provider [phone] Juno Calabrese MD Primary Care Provider [phone] Stefanie So [facility] Unavailable Bill Dunham MD Unavailable [phone] Phan Del Rio MD Primary Care Provider Encounter Details Date Type Department Care Team (Late st Contact Info) Description 10/16/2018 Abstract [facility] [address] [place] [address] , Generic Conversion, Social History Tobacco Use Types Packs/Day Years Used Date Smoking Tobacco: Never Assessed Comments Unknown Sex and Gender Information Value Date Recorded Sex Assigned at Not on file 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 Gender Identity Not on file Sexual Orientation Not on file documented as of this encounter Plan of Treatment Not on file documented as of this encounter Visit Diagnoses Not on filedocumented in this encounter Additional Health Concerns Infection Onset Date Last Indicated Resolved Time COVID-19 Rule Out 09/19/2019 09/19/2019 09/20/2019 11:54 AM CDT documented as of this encounter Care Teams Farm Butcher Relationship Specialty Start Date End Date None, Provider, PCP - General 01/22/19 03/07/19 Juno Calabrese MD PCP - General FAMILY PRACTICE 03/08/19 03/10/19 Juno Calabrese MD [address] [place], [place] [phone] PCP - General FAMILY PRACTICE 03/11/19 07/22/23 Phan Del Rio MD [address] [place] [address] [place] [address] PCP - General FAMILY PRACTICE 07/23/23 Stefanie So, [facility]- [address] [place], [place] [phone] NURSE PRACTITIONER 07/07/19 Bill Dunham MD [address] [place], [place] [phone] Consulting Physician NEUROLOGY 07/07/19 documented as of this encounter
--- OUTSIDE RECORDS SUMMARY | 2025-05-02 12:37 | XMS_ITS | Encounter Summary ---
Author Organization [facility] Address [facility]ly [facility] [place] [address] Care Team Providers Care Product Design Engineer Name Role Phone None, Provider Primary Care Provider Unavaila Juno Stout MD Primary Care Provider [phone] Juno Calabrese MD Primary Care Provider [phone] Stefanie So [facility] Unavailable Bill Dunham MD Unavailable [phone] Phan Del Rio MD Primary Care Provider [phone] Encounter Details Date Type Department Care Team (Late st Contact Info) Description 01/24/2019 Abstract [facility] [address] [place] [address] Social History Tobacco Use Types Packs/Day Years Used Date Smoking Tobacco: Never Smokeless Tobacco: Never Alcohol Use Standard Drinks/Week Comments Yes 0 (1 standard drink = 0.6 oz pur e alcohol) socially Comments No Sex and Gender Information Value Date Recorded Sex Assigned at Not on file 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 Gender Identity Not on file Sexual Orientation [...] documented as of this encounter Care Teams Product Design Engineer Relationship Specialty Start Date End Date None, Provider, PCP - General 01/22/19 03/07/19 Juno Calabrese MD PCP - General FAMILY PRACTICE 03/08/19 03/10/19 Juno Calabrese MD [address] [place] [phone] PCP - General FAMILY PRACTICE 03/11/19 07/22/23 Phan Del Rio MD [address] [place] [address] [place] [address] PCP - General FAMILY PRACTICE 07/23/23 Stefanie So FNP- [address] [place] [phone] NURSE PRACTITIONER 07/07/19 Bill Dunham MD [address] [place] [phone] Consulting Physician NEUROLOGY 07/07/19 documented as of this encounter
--- OUTSIDE RECORDS SUMMARY | 2025-05-02 12:38 | XMS_ITS | Clinical Summary ---
Author Organization [facility] Address [address] [place] [address] Care Team Providers Care Health Services Rn Name Role Phone Teddy Worrell MD Unavailable [phone] Phan Del Rio MD Primary Care Provider [...] w/ possible pacemaker will get ECHO and tape weaver consult 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 Refractive error 06/22/2020 Assessment & Plan (06/22/2020 12:21 PM MAINTENANCE MECHANIC TELEPHONE): Minimal changes to MRx, New SRx PRN New CLRx PRN Consider low plus at near when in contact lens (CL) while working at near History of optic neuritis 05/22/2020 Assessment & Plan (10/09/2022 11:55 AM CDT): Left eye blind Optic neuritis 11/08/2019 Assessment & Plan (06/22/2020 12:03 PM MAINTENANCE MECHANIC TELEPHONE): OHx of optic neuritis right eye (OD) with significant pallor, seemingly stable Recently transferred care to [facility] - OCT/HVF on file Will refer to neuro for consult 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 Migraine without aura, not i ntractable, without status migrainosus 11/08/2019 Ureteral stone with hydronephrosis 09/01/2019 Anxiety disorder 01/24/2019 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 Tonsillitis 07/16/2010 Enlarged tonsils 07/16/2010 Encounters Date Type Department Care Team Description 04/14/2025 5:45 PM MAINTENANCE MECHANIC TELEPHONE Office Visit [facility] at [address] [phone] Natalie You, MARIA ANTONIA Cystitis with hematuria (Primary Dx); UTI symptoms; Kidney stones 03/24/2025 Telephone [facility] Medicine Surgery [address] [place] [address] Lizbeth Hernadez from Last 3 Months Immunizations [...] on file Legal Sex Female 6:42 AM MAINTENANCE MECHANIC TELEPHONE Gender Identity Not on file Sexual Orientation Not on file Last Filed Vital Signs Vital Sign Reading Time Taken Comments Blood Pressure 120/70 04/14/2025 6:12 PM MAINTENANCE MECHANIC TELEPHONE Pulse 71 04/14/2025 6:12 PM MAINTENANCE MECHANIC TELEPHONE Temperature 36.1 C (97 F) 04/14/2025 6:12 PM MAINTENANCE MECHANIC TELEPHONE Respiratory Rate 18 04/14/2025 6:12 PM MAINTENANCE MECHANIC TELEPHONE Oxygen Saturation 98% 09/02/2024 6:46 PM CDT Inhaled Oxygen Concentration - - Weight 59 kg (130 lb) 04/14/2025 6:12 PM MAINTENANCE MECHANIC TELEPHONE Height 170.2 cm (5' 7) 04/14/2025 6:12 PM MAINTENANCE MECHANIC TELEPHONE Body Mass Index 20.36 04/14/2025 6:12 PM MAINTENANCE MECHANIC TELEPHONE Plan of Treatment Health Maintenance Due Date [...] POCT URINALYSIS DIPSTICK Routine 04/14/2025 6:08 PM MAINTENANCE MECHANIC TELEPHONE UTI symptoms Kidney stones from Last 3 Months Results * (ABNORMAL) POCT urinalysis dipstick (04/14/2025 6:08 PM MAINTENANCE MECHANIC TELEPHONE) Color, Urine, POC Red Clarity, ur, POC Cloudy(A) Clear Glucose, ur, POC Negative Negative Bilirubin, ur, POC Negative Negative Ketones, ur, POC Negative Negative Specific Radiant, POC 1.020 1.003 - 1.030 Blood, ur, POC Large(A) Negative pH, ur, POC 8.0 5.0 - 8.0 Protein, ur, POC 300.(A) Negative Urobilinogen, urine, POC 0.2 0.2 - 1.0 mg/dL Nitrite, ur, POC Negative Negative Leukocytes, ur, POC Small(A) Negative Lot Number [id number] Urine 04/14/2025 6:08 PM MAINTENANCE MECHANIC TELEPHONE Natalie You NP POINT OF CARE TEST ORDERABLES Edited Result - Final from Last 3 Months Insurance [facility] Care Teams Health Services Rn Relationship Specialty Start Date End Date Phan Del Rio MD [address] [place] [phone] PCP - General Family Medicine 03/03/24 Teddy Worrell MD [address] [place] [address] Referring Physician Neurology 10/09/22
== END 2025-05-02 12:35 | disposition home or self-care (01) ==
PROVIDERS: PCP Family Medicine; Visit Provider Urology
DX: N13.30 Unspecified hydronephrosis (principal)
CPT/HCPCS: 78708; A9562; J1938